=== PATIENT | male | born 1960 | race Two or more races ===

== ENCOUNTER → 2017-06-21 | Outpatient (CLI) | payer OTHER ==
[~2017-06-21] MED LIST: ABAT250V; ACYC200 PO; ALEN70 PO; ALLO100 PO; ALPR.25 PO; ALPR1 PO; ALUM320SU PO; AMIT10 PO; AMIT50; AMIT50 PO; AMLO5 PO; AMOCLA875 PO; AMOX250 PO; ARANESP10 MCG/0.4 IJ; ARANESP10 MCG/0.4 IM; ARTTEAOPSO BOTHEYES; ASPI81EC; ATEN100 PO; ATEN25; ATEN50; ATEN50 PO; ATOR10; ATOR20 PO; AZIT250 PO; AZIT500 PO; Acetaminophen-1 EAC1 PO; Acetaminophen325 M1 PO; BENZ100A PO; BIOTIN5 MG PO; BIOTIN5000 MC1 SL; BUPR150ER PO; BUPR150T2; CALC.25 PO; CEPH500 PO; CHOL10002 PO; CITRACAL + D M1 EACH PO; CLON.1 PO; COLCRYS0.6 MG PO; CYAN1000I IM; CYCL10 PO; DIAZ5 PO; Diflucan50 MG PO; ERGO400 PO; ETOD300 PO; FAMO20 PO; FLUC100; FLUC100 PO; FLUC150A PO; FLUT.05NI; FURO20; FURO40; FURO40 PO; Flonase 0.05% N16 GM; GABA100 PO; GEMF600; GEMF600 PO; GLIM4 PO; GLIP5 PO; HEPARIN LO100 UNIT/1 IV; HUMULIN 70100 UNIT/2 SC; HYDACE10B; HYDACE10B PO; HYDMOR2 PO; IBAN2.5; INSLI100I SUBQ; INSR10I; INSU100I6; INSUL100I SC; INSULANI SUBQ; IRON150C; K-Phos Origina500 MG PO; LANS15EC; LANS30EC; LANS30EC PO; LEVFLO250 PO; LISI5 PO; LORA1; LOSA50 PO; MAGCHL64ER; MAGCHL64ER PO; METO50 PO; MULVITMINF; MYCO250; MYCO250 PO; NYST100000 SS; Normal Saline Fl2 ML IV; OLME20 PO; OMEG1CAP30 PO; OMEP20ER PO; OXYACE5T PO; OXYC5; OXYC5 PO; PANT40 PO; PHOSPHASAL TAB1 EACH PO; PIOG45 PO; POTA10T; POTA8; POTCHL20ER PO; PRED1; PRED10 PO; PRED5; PRED5 PO; PROC10 PO; Phos-Nak Packe1 EACH PO; Prevacid Soluta30 MG PO; RAMI1.25; RAMI5; ROSI2; RXPROM25 PO; SODBIC650 PO; SODIUM CHLORID IV; SODPOL15SA PO; SUMA25 PO; Sodium Chlorid250 M1 IV; TACR1; TACR1 PO; VERA120ERB PO; VERA80; VICODIN 5-3001 EACH PO; VICODIN HP 10-1 EACH PO; [UNRECOGNIZED DRUG - REMARK]
== END | disposition home or self-care (01) ==
LOC: LAB 12:30
DX: E78.5 Hyperlipidemia, unspecified (principal); E11.8 Type 2 diabetes mellitus with unspecified complications
CPT/HCPCS: 83036

== ENCOUNTER 2017-06-22 00:18 | Day surgery (SDC) | payer OTHER ==
[~2017-06-22 00:18] MED LIST changes: -ALUM320SU PO; -ARANESP10 MCG/0.4 IM; -AZIT500 PO; -BIOTIN5 MG PO; -BIOTIN5000 MC1 SL; -CLON.1 PO; -Diflucan50 MG PO; -GABA100 PO; -HEPARIN LO100 UNIT/1 IV; -HUMULIN 70100 UNIT/2 SC; -INSR10I; -NYST100000 SS; -Normal Saline Fl2 ML IV; -PANT40 PO; -PHOSPHASAL TAB1 EACH PO; -PRED10 PO; -Phos-Nak Packe1 EACH PO; -Sodium Chlorid250 M1 IV
[2018-01-14] MEDS ORDERED: PHOSPHASAL TAB1 EACH PO (13:49)
[2018-01-17] MEDS ORDERED: PANT40 PO (13:59)
[2018-01-17] MEDS ORDERED: BIOTIN5 MG PO (14:00)
[2018-01-17] MEDS ORDERED: ALUM320SU PO (14:01)
[2018-06-05] MEDS ORDERED: Sodium Chlorid250 M1 IV (13:54)
== END 2017-06-22 17:11 | disposition home or self-care (01) ==
LOC: ATC 00:18
DX: I12.9 Hypertensive chronic kidney disease with stage 1 through stage 4 chronic kidney disease, or unspecified chronic kidney disease (principal); E10.22 Type 1 diabetes mellitus with diabetic chronic kidney disease; N18.9 Chronic kidney disease, unspecified; E86.0 Dehydration; D63.1 Anemia in chronic kidney disease; E78.5 Hyperlipidemia, unspecified; Z94.0 Kidney transplant status; F41.9 Anxiety disorder, unspecified; F32.9 Major depressive disorder, single episode, unspecified
CPT/HCPCS: 96360; 96361; J1642; J7030

== ENCOUNTER 2017-06-26 10:13 | Day surgery (SDC) | payer OTHER ==
[2018-01-14] MEDS ORDERED: PHOSPHASAL TAB1 EACH PO (13:49)
[2018-01-17] MEDS ORDERED: PANT40 PO (13:59)
[2018-01-17] MEDS ORDERED: BIOTIN5 MG PO (14:00)
[2018-01-17] MEDS ORDERED: ALUM320SU PO (14:01)
[2018-06-05] MEDS ORDERED: Sodium Chlorid250 M1 IV (13:54)
== END 2017-06-26 23:19 | disposition home or self-care (01) ==
LOC: ATC 10:13
DX: E86.0 Dehydration (principal)
CPT/HCPCS: 96360; 96361; J1642; J7030

== ENCOUNTER 2017-06-29 00:53 | Day surgery (SDC) | payer OTHER ==
[2018-01-14] MEDS ORDERED: PHOSPHASAL TAB1 EACH PO (13:49)
[2018-01-17] MEDS ORDERED: PANT40 PO (13:59)
[2018-01-17] MEDS ORDERED: BIOTIN5 MG PO (14:00)
[2018-01-17] MEDS ORDERED: ALUM320SU PO (14:01)
[2018-06-05] MEDS ORDERED: Sodium Chlorid250 M1 IV (13:54)
== END 2017-06-29 17:14 | disposition home or self-care (01) ==
LOC: ATC 00:53
DX: E86.0 Dehydration (principal)
CPT/HCPCS: 96360; 96361; J1642; J7030

== ENCOUNTER 2017-07-03 00:44 | Day surgery (SDC) | payer OTHER ==
[2017-07-03 13:39] LABS: BASOPHILS ABSOLUTE AUTO 0.01 K/mm3 (0.00-0.23); BASOPHILS PERCENT AUTO 0 % (0-2); EOSINOPHILS ABSOLUTE AUTO 0.07 K/mm3 (0.00-0.68); EOSINOPHILS PERCENT AUTO 1 % (0-6); Hematocrit 38.7 % (37.0-53.0); Hemoglobin 12.7 g/dL (13.5-17.5); IMMATURE GRAN ABSOLUTE AUTO 0.12 K/mm3 (0.00-0.10); IMMATURE GRAN PERCENT AUTO 2 % (0-1); LYMPHOCYTES ABSOLUTE AUTO 1.05 K/mm3 (0.84-5.20); LYMPHOCYTES PERCENT AUTO 13 % (21-46); MONOCYTES ABSOLUTE AUTO 0.76 K/mm3 (0.16-1.47); MONOCYTES PERCENT AUTO 10 % (4-13); Mean Corpuscular HGB 29.1 pg (26.0-34.0); Mean Corpuscular HGB Conc 32.8 g/dL (31.5-36.5); Mean Corpuscular Volume 89 fL (80-100); NEUTROPHILS ABSOLUTE AUTO 5.99 K/mm3 (1.96-9.15); NEUTROPHILS PERCENT AUTO 75 % (41-73); Platelet Count 186 K/mm3 (150-400); RDW Coefficient Variation 13.1 % (11.7-14.2); RDW Standard Deviation 42.1 fL (35.1-46.3); Red Blood Cell Count 4.37 M/mm3 (4.30-5.90)
[2017-07-03 13:58] LABS: Alanine Aminotransfer (ALT/SGP 23 U/L (12-78); Albumin, Blood 3.4 g/dL (3.4-5.0); Albumin/Globulin Ratio 1.1 (0.8-1.8); Alk Phos 68 U/L (50-136); Aspartate Aminotrans (AST/SGOT 9 U/L (12-37); Bilirubin, Direct <0.1 mg/dL (0.0-0.3); Bilirubin, Indirect Unable to Calculate mg/dL (0.1-0.7); Bilirubin, Total 0.4 mg/dL (0.1-1.0); Globulin, Blood 3.1 g/dL (2.2-4.0); Total Protein, Blood 6.5 g/dL (6.4-8.2)
[2018-01-14] MEDS ORDERED: PHOSPHASAL TAB1 EACH PO (13:49)
[2018-01-17] MEDS ORDERED: PANT40 PO (13:59)
[2018-01-17] MEDS ORDERED: BIOTIN5 MG PO (14:00)
[2018-01-17] MEDS ORDERED: ALUM320SU PO (14:01)
[2018-06-05] MEDS ORDERED: Sodium Chlorid250 M1 IV (13:54)
== END 2017-07-03 22:43 | disposition home or self-care (01) ==
LOC: ATC 00:44
PROVIDERS: Internal Medicine Nephrology
DX: E86.0 Dehydration (principal); N18.3 Chronic kidney disease, stage 3 (moderate); D63.1 Anemia in chronic kidney disease; N25.81 Secondary hyperparathyroidism of renal origin; E85.9 Amyloidosis, unspecified; E78.00 Pure hypercholesterolemia, unspecified; R76.9 Abnormal immunological finding in serum, unspecified; R94.5 Abnormal results of liver function studies; R94.6 Abnormal results of thyroid function studies; Z94.0 Kidney transplant status
CPT/HCPCS: 80076; 80197; 85025; 96360; 96361; J1642; J7030

== ENCOUNTER 2017-07-06 00:25 | Day surgery (SDC) | payer OTHER ==
[2018-01-14] MEDS ORDERED: PHOSPHASAL TAB1 EACH PO (13:49)
[2018-01-17] MEDS ORDERED: PANT40 PO (13:59)
[2018-01-17] MEDS ORDERED: BIOTIN5 MG PO (14:00)
[2018-01-17] MEDS ORDERED: ALUM320SU PO (14:01)
[2018-06-05] MEDS ORDERED: Sodium Chlorid250 M1 IV (13:54)
== END 2017-07-06 17:12 | disposition home or self-care (01) ==
LOC: ATC 00:25
DX: E86.0 Dehydration (principal); I12.9 Hypertensive chronic kidney disease with stage 1 through stage 4 chronic kidney disease, or unspecified chronic kidney disease; E10.22 Type 1 diabetes mellitus with diabetic chronic kidney disease; N18.3 Chronic kidney disease, stage 3 (moderate); D63.1 Anemia in chronic kidney disease; N25.81 Secondary hyperparathyroidism of renal origin; E55.9 Vitamin D deficiency, unspecified; R76.9 Abnormal immunological finding in serum, unspecified; R94.5 Abnormal results of liver function studies; R94.6 Abnormal results of thyroid function studies; E78.5 Hyperlipidemia, unspecified; F32.9 Major depressive disorder, single episode, unspecified; F41.9 Anxiety disorder, unspecified
CPT/HCPCS: 96360; 96361; J1642; J7030

== ENCOUNTER 2017-07-10 00:49 | Day surgery (SDC) | payer OTHER ==
[2017-07-10 15:02] LABS: BASOPHILS ABSOLUTE AUTO 0.04 K/mm3 (0.00-0.23); BASOPHILS PERCENT AUTO 1 % (0-2); EOSINOPHILS PERCENT AUTO 1 % (0-6); Hematocrit 39.6 % (37.0-53.0); IMMATURE GRAN PERCENT AUTO 3 % (0-1); LYMPHOCYTES ABSOLUTE AUTO 1.95 K/mm3 (0.84-5.20); LYMPHOCYTES PERCENT AUTO 26 % (21-46); MONOCYTES ABSOLUTE AUTO 0.86 K/mm3 (0.16-1.47); MONOCYTES PERCENT AUTO 11 % (4-13); Mean Corpuscular HGB 28.6 pg (26.0-34.0); Mean Corpuscular HGB Conc 32.8 g/dL (31.5-36.5); Mean Corpuscular Volume 87 fL (80-100); NEUTROPHILS ABSOLUTE AUTO 4.51 K/mm3 (1.96-9.15); NEUTROPHILS PERCENT AUTO 59 % (41-73); Platelet Count 197 K/mm3 (150-400); RDW Standard Deviation 40.7 fL (35.1-46.3); Red Blood Cell Count 4.54 M/mm3 (4.30-5.90); White Blood Cell Count 7.66 K/mm3 (4.00-11.30)
[2018-01-14] MEDS ORDERED: PHOSPHASAL TAB1 EACH PO (13:49)
[2018-01-17] MEDS ORDERED: PANT40 PO (13:59)
[2018-01-17] MEDS ORDERED: BIOTIN5 MG PO (14:00)
[2018-01-17] MEDS ORDERED: ALUM320SU PO (14:01)
[2018-06-05] MEDS ORDERED: Sodium Chlorid250 M1 IV (13:54)
== END 2017-07-10 16:53 | disposition home or self-care (01) ==
LOC: ATC 00:49
PROVIDERS: Internal Medicine Hematology & Oncology
DX: D75.1 Secondary polycythemia (principal); E86.9 Volume depletion, unspecified; D64.9 Anemia, unspecified; Z94.0 Kidney transplant status; E10.22 Type 1 diabetes mellitus with diabetic chronic kidney disease; I12.9 Hypertensive chronic kidney disease with stage 1 through stage 4 chronic kidney disease, or unspecified chronic kidney disease; N18.3 Chronic kidney disease, stage 3 (moderate); D63.1 Anemia in chronic kidney disease; Z95.828 Presence of other vascular implants and grafts
CPT/HCPCS: 80197; 85025; 85060; 96360; 96361; J1642; J7030

== ENCOUNTER 2017-07-13 00:50 | Day surgery (SDC) | payer OTHER ==
[2017-07-13 14:48] LABS: BASOPHILS ABSOLUTE AUTO 0.04 K/mm3 (0.00-0.23); BASOPHILS PERCENT AUTO 1 % (0-2); EOSINOPHILS ABSOLUTE AUTO 0.07 K/mm3 (0.00-0.68); EOSINOPHILS PERCENT AUTO 1 % (0-6); Hematocrit 34.1 % (37.0-53.0); Hemoglobin 10.9 g/dL (13.5-17.5); IMMATURE GRAN ABSOLUTE AUTO 0.18 K/mm3 (0.00-0.10); IMMATURE GRAN PERCENT AUTO 3 % (0-1); LYMPHOCYTES ABSOLUTE AUTO 0.91 K/mm3 (0.84-5.20); LYMPHOCYTES PERCENT AUTO 13 % (21-46); MONOCYTES ABSOLUTE AUTO 0.67 K/mm3 (0.16-1.47); MONOCYTES PERCENT AUTO 9 % (4-13); Mean Corpuscular HGB 28.9 pg (26.0-34.0); Mean Platelet Volume 10.8 fL (9.1-12.4); NEUTROPHILS ABSOLUTE AUTO 5.43 K/mm3 (1.96-9.15); NEUTROPHILS PERCENT AUTO 74 % (41-73); Platelet Count 166 K/mm3 (150-400); RDW Coefficient Variation 12.9 % (11.7-14.2); RDW Standard Deviation 42.2 fL (35.1-46.3); Red Blood Cell Count 3.77 M/mm3 (4.30-5.90)
[2017-07-13 15:30] LABS: Alanine Aminotransfer (ALT/SGP 19 U/L (12-78); Albumin/Globulin Ratio 1.1 (0.8-1.8); Alk Phos 72 U/L (50-136); Anion Gap 7 mmol/L (6-16); Aspartate Aminotrans (AST/SGOT 8 U/L (12-37); Bilirubin, Direct <0.1 mg/dL (0.0-0.3); Bilirubin, Indirect Unable to Calculate mg/dL (0.1-0.7); Bilirubin, Total 0.2 mg/dL (0.1-1.0); Blood Urea Nitrogen 22 mg/dL (8-24); CO2, Blood 25 mmol/L (21-32); Chloride, Blood 110 mmol/L (98-108); Globulin, Blood 2.7 g/dL (2.2-4.0); Glomerular Filtration Rate >60 (60-); Glucose, Blood 219 mg/dL (70-99); Potassium, Blood 4.6 mmol/L (3.5-5.5); Sodium, Blood 142 mmol/L (136-145); Total Protein, Blood 5.7 g/dL (6.4-8.2)
[2017-07-13 15:32] LABS: Mean Corpuscular Volume 91 fL (80-100)
[2018-01-14] MEDS ORDERED: PHOSPHASAL TAB1 EACH PO (13:49)
[2018-01-17] MEDS ORDERED: PANT40 PO (13:59)
[2018-01-17] MEDS ORDERED: BIOTIN5 MG PO (14:00)
[2018-01-17] MEDS ORDERED: ALUM320SU PO (14:01)
[2018-06-05] MEDS ORDERED: Sodium Chlorid250 M1 IV (13:54)
== END 2017-07-13 17:15 | disposition home or self-care (01) ==
LOC: ATC 00:50
PROVIDERS: Internal Medicine Nephrology
DX: E86.0 Dehydration (principal); N18.3 Chronic kidney disease, stage 3 (moderate); D63.1 Anemia in chronic kidney disease; N25.81 Secondary hyperparathyroidism of renal origin; E55.9 Vitamin D deficiency, unspecified; E78.00 Pure hypercholesterolemia, unspecified; R76.9 Abnormal immunological finding in serum, unspecified; R94.5 Abnormal results of liver function studies; R94.6 Abnormal results of thyroid function studies; G60.9 Hereditary and idiopathic neuropathy, unspecified
CPT/HCPCS: 80053; 80197; 82248; 84100; 85025; 96360; 96361; J1642; J7030

== ENCOUNTER 2017-07-17 00:06 | Day surgery (SDC) | payer OTHER ==
[2018-01-14] MEDS ORDERED: PHOSPHASAL TAB1 EACH PO (13:49)
[2018-01-17] MEDS ORDERED: PANT40 PO (13:59)
[2018-01-17] MEDS ORDERED: BIOTIN5 MG PO (14:00)
[2018-01-17] MEDS ORDERED: ALUM320SU PO (14:01)
[2018-06-05] MEDS ORDERED: Sodium Chlorid250 M1 IV (13:54)
== END 2017-07-17 17:00 | disposition home or self-care (01) ==
LOC: ATC 00:06
DX: N18.3 Chronic kidney disease, stage 3 (moderate) (principal); D63.1 Anemia in chronic kidney disease; N25.81 Secondary hyperparathyroidism of renal origin; E55.9 Vitamin D deficiency, unspecified; E78.00 Pure hypercholesterolemia, unspecified; R76.9 Abnormal immunological finding in serum, unspecified; R94.5 Abnormal results of liver function studies; R94.6 Abnormal results of thyroid function studies; G60.9 Hereditary and idiopathic neuropathy, unspecified; E86.0 Dehydration; D75.1 Secondary polycythemia; Z94.0 Kidney transplant status
CPT/HCPCS: 96360; 96361; J1642; J7030

== ENCOUNTER 2017-07-20 01:01 | Day surgery (SDC) | payer OTHER ==
[2018-01-14] MEDS ORDERED: PHOSPHASAL TAB1 EACH PO (13:49)
[2018-01-17] MEDS ORDERED: PANT40 PO (13:59)
[2018-01-17] MEDS ORDERED: BIOTIN5 MG PO (14:00)
[2018-01-17] MEDS ORDERED: ALUM320SU PO (14:01)
[2018-06-05] MEDS ORDERED: Sodium Chlorid250 M1 IV (13:54)
== END 2017-07-20 17:56 | disposition home or self-care (01) ==
LOC: ATC 01:01
DX: E86.0 Dehydration (principal); N18.3 Chronic kidney disease, stage 3 (moderate); D63.1 Anemia in chronic kidney disease; N25.81 Secondary hyperparathyroidism of renal origin; E55.9 Vitamin D deficiency, unspecified; E78.00 Pure hypercholesterolemia, unspecified; R76.9 Abnormal immunological finding in serum, unspecified; R94.5 Abnormal results of liver function studies; R94.6 Abnormal results of thyroid function studies; Z94.0 Kidney transplant status
CPT/HCPCS: 96360; 96361; J1642; J7030

== ENCOUNTER 2017-07-24 00:11 | Day surgery (SDC) | payer OTHER ==
[2018-01-14] MEDS ORDERED: PHOSPHASAL TAB1 EACH PO (13:49)
[2018-01-17] MEDS ORDERED: PANT40 PO (13:59)
[2018-01-17] MEDS ORDERED: BIOTIN5 MG PO (14:00)
[2018-01-17] MEDS ORDERED: ALUM320SU PO (14:01)
[2018-06-05] MEDS ORDERED: Sodium Chlorid250 M1 IV (13:54)
== END 2017-07-24 16:58 | disposition home or self-care (01) ==
LOC: ATC 00:11
DX: E86.0 Dehydration (principal); N18.3 Chronic kidney disease, stage 3 (moderate); D63.1 Anemia in chronic kidney disease; N25.81 Secondary hyperparathyroidism of renal origin; E55.9 Vitamin D deficiency, unspecified; E78.00 Pure hypercholesterolemia, unspecified; R76.9 Abnormal immunological finding in serum, unspecified; R94.5 Abnormal results of liver function studies; R94.6 Abnormal results of thyroid function studies; Z94.0 Kidney transplant status
CPT/HCPCS: 96360; 96361; J1642; J7030

== ENCOUNTER 2017-07-27 01:00 | Day surgery (SDC) | payer OTHER ==
[2018-01-14] MEDS ORDERED: PHOSPHASAL TAB1 EACH PO (13:49)
[2018-01-17] MEDS ORDERED: PANT40 PO (13:59)
[2018-01-17] MEDS ORDERED: BIOTIN5 MG PO (14:00)
[2018-01-17] MEDS ORDERED: ALUM320SU PO (14:01)
[2018-06-05] MEDS ORDERED: Sodium Chlorid250 M1 IV (13:54)
== END 2017-07-27 23:28 | disposition home or self-care (01) ==
LOC: ATC 01:00
DX: E86.0 Dehydration (principal); N18.3 Chronic kidney disease, stage 3 (moderate); D63.1 Anemia in chronic kidney disease; N25.81 Secondary hyperparathyroidism of renal origin; E55.9 Vitamin D deficiency, unspecified; E78.00 Pure hypercholesterolemia, unspecified; R76.9 Abnormal immunological finding in serum, unspecified; R94.5 Abnormal results of liver function studies; R94.6 Abnormal results of thyroid function studies
CPT/HCPCS: 96360; 96361; J1642; J7030

== ENCOUNTER 2017-07-31 01:06 | Day surgery (SDC) | payer OTHER ==
[2018-01-14] MEDS ORDERED: PHOSPHASAL TAB1 EACH PO (13:49)
[2018-01-17] MEDS ORDERED: PANT40 PO (13:59)
[2018-01-17] MEDS ORDERED: BIOTIN5 MG PO (14:00)
[2018-01-17] MEDS ORDERED: ALUM320SU PO (14:01)
[2018-06-05] MEDS ORDERED: Sodium Chlorid250 M1 IV (13:54)
== END 2017-07-31 16:48 | disposition home or self-care (01) ==
LOC: ATC 01:06
DX: E86.0 Dehydration (principal); I12.9 Hypertensive chronic kidney disease with stage 1 through stage 4 chronic kidney disease, or unspecified chronic kidney disease; E11.22 Type 2 diabetes mellitus with diabetic chronic kidney disease; N18.3 Chronic kidney disease, stage 3 (moderate); D63.1 Anemia in chronic kidney disease; N25.81 Secondary hyperparathyroidism of renal origin; E85.9 Amyloidosis, unspecified; R86.9 Unspecified abnormal finding in specimens from male genital organs; R94.5 Abnormal results of liver function studies; R94.6 Abnormal results of thyroid function studies; E78.5 Hyperlipidemia, unspecified; E78.00 Pure hypercholesterolemia, unspecified
CPT/HCPCS: 96360; 96361; J1642; J7030

== ENCOUNTER 2017-08-03 00:38 | Day surgery (SDC) | payer OTHER ==
[2018-01-14] MEDS ORDERED: PHOSPHASAL TAB1 EACH PO (13:49)
[2018-01-17] MEDS ORDERED: PANT40 PO (13:59)
[2018-01-17] MEDS ORDERED: BIOTIN5 MG PO (14:00)
[2018-01-17] MEDS ORDERED: ALUM320SU PO (14:01)
[2018-06-05] MEDS ORDERED: Sodium Chlorid250 M1 IV (13:54)
== END 2017-08-03 17:55 | disposition home or self-care (01) ==
LOC: ATC 00:38
DX: E86.0 Dehydration (principal); N18.3 Chronic kidney disease, stage 3 (moderate); D63.1 Anemia in chronic kidney disease; N25.81 Secondary hyperparathyroidism of renal origin; E85.9 Amyloidosis, unspecified; E87.0 Hyperosmolality and hypernatremia; R76.9 Abnormal immunological finding in serum, unspecified; R94.5 Abnormal results of liver function studies; R94.6 Abnormal results of thyroid function studies
CPT/HCPCS: 96360; 96361; J1642; J7030

== ENCOUNTER 2017-08-07 00:50 | Day surgery (SDC) | payer OTHER ==
[2018-01-14] MEDS ORDERED: PHOSPHASAL TAB1 EACH PO (13:49)
[2018-01-17] MEDS ORDERED: PANT40 PO (13:59)
[2018-01-17] MEDS ORDERED: BIOTIN5 MG PO (14:00)
[2018-01-17] MEDS ORDERED: ALUM320SU PO (14:01)
[2018-06-05] MEDS ORDERED: Sodium Chlorid250 M1 IV (13:54)
== END 2017-08-07 17:50 | disposition home or self-care (01) ==
LOC: ATC 00:50
DX: E86.0 Dehydration (principal); N18.3 Chronic kidney disease, stage 3 (moderate); D63.1 Anemia in chronic kidney disease; N25.81 Secondary hyperparathyroidism of renal origin; E55.9 Vitamin D deficiency, unspecified; E78.00 Pure hypercholesterolemia, unspecified; R76.9 Abnormal immunological finding in serum, unspecified; R94.5 Abnormal results of liver function studies; R94.6 Abnormal results of thyroid function studies
CPT/HCPCS: 96360; 96361; J1642; J7030

== ENCOUNTER 2017-08-10 00:44 | Day surgery (SDC) | payer OTHER ==
[2018-01-14] MEDS ORDERED: PHOSPHASAL TAB1 EACH PO (13:49)
[2018-01-17] MEDS ORDERED: PANT40 PO (13:59)
[2018-01-17] MEDS ORDERED: BIOTIN5 MG PO (14:00)
[2018-01-17] MEDS ORDERED: ALUM320SU PO (14:01)
[2018-06-05] MEDS ORDERED: Sodium Chlorid250 M1 IV (13:54)
== END 2017-08-10 17:15 | disposition home or self-care (01) ==
LOC: ATC 00:44
DX: I12.9 Hypertensive chronic kidney disease with stage 1 through stage 4 chronic kidney disease, or unspecified chronic kidney disease (principal); E11.22 Type 2 diabetes mellitus with diabetic chronic kidney disease; E86.0 Dehydration; N18.3 Chronic kidney disease, stage 3 (moderate); D63.1 Anemia in chronic kidney disease; N25.81 Secondary hyperparathyroidism of renal origin; E55.9 Vitamin D deficiency, unspecified; E78.00 Pure hypercholesterolemia, unspecified; R76.9 Abnormal immunological finding in serum, unspecified; R94.5 Abnormal results of liver function studies; R94.6 Abnormal results of thyroid function studies; F32.9 Major depressive disorder, single episode, unspecified; F41.9 Anxiety disorder, unspecified; G47.30 Sleep apnea, unspecified
CPT/HCPCS: 96360; 96361; J1642; J7030

== ENCOUNTER 2017-08-14 00:52 | Day surgery (SDC) | payer OTHER ==
[2018-01-14] MEDS ORDERED: PHOSPHASAL TAB1 EACH PO (13:49)
[2018-01-17] MEDS ORDERED: PANT40 PO (13:59)
[2018-01-17] MEDS ORDERED: BIOTIN5 MG PO (14:00)
[2018-01-17] MEDS ORDERED: ALUM320SU PO (14:01)
[2018-06-05] MEDS ORDERED: Sodium Chlorid250 M1 IV (13:54)
== END 2017-08-14 17:34 | disposition home or self-care (01) ==
LOC: ATC 00:52
DX: E86.0 Dehydration (principal); N18.3 Chronic kidney disease, stage 3 (moderate); D63.1 Anemia in chronic kidney disease; N25.81 Secondary hyperparathyroidism of renal origin; E55.9 Vitamin D deficiency, unspecified; E78.00 Pure hypercholesterolemia, unspecified; R76.9 Abnormal immunological finding in serum, unspecified; R94.5 Abnormal results of liver function studies; R94.6 Abnormal results of thyroid function studies
CPT/HCPCS: 96360; 96361; J1642; J7030

== ENCOUNTER 2017-08-17 01:01 | Day surgery (SDC) | payer OTHER ==
[2018-01-14] MEDS ORDERED: PHOSPHASAL TAB1 EACH PO (13:49)
[2018-01-17] MEDS ORDERED: PANT40 PO (13:59)
[2018-01-17] MEDS ORDERED: BIOTIN5 MG PO (14:00)
[2018-01-17] MEDS ORDERED: ALUM320SU PO (14:01)
[2018-06-05] MEDS ORDERED: Sodium Chlorid250 M1 IV (13:54)
== END 2017-08-17 17:24 | disposition home or self-care (01) ==
LOC: ATC 01:01
DX: E86.0 Dehydration (principal); E10.22 Type 1 diabetes mellitus with diabetic chronic kidney disease; I12.9 Hypertensive chronic kidney disease with stage 1 through stage 4 chronic kidney disease, or unspecified chronic kidney disease; N18.3 Chronic kidney disease, stage 3 (moderate); D63.1 Anemia in chronic kidney disease; N25.81 Secondary hyperparathyroidism of renal origin; E55.9 Vitamin D deficiency, unspecified; R76.9 Abnormal immunological finding in serum, unspecified; E78.5 Hyperlipidemia, unspecified; F32.9 Major depressive disorder, single episode, unspecified
CPT/HCPCS: 96360; 96361; J1642; J7030

== ENCOUNTER 2017-08-21 00:09 | Day surgery (SDC) | payer OTHER ==
[2018-01-14] MEDS ORDERED: PHOSPHASAL TAB1 EACH PO (13:49)
[2018-01-17] MEDS ORDERED: PANT40 PO (13:59)
[2018-01-17] MEDS ORDERED: BIOTIN5 MG PO (14:00)
[2018-01-17] MEDS ORDERED: ALUM320SU PO (14:01)
[2018-06-05] MEDS ORDERED: Sodium Chlorid250 M1 IV (13:54)
== END 2017-08-21 22:54 | disposition home or self-care (01) ==
LOC: ATC 00:09
DX: E86.0 Dehydration (principal); E10.22 Type 1 diabetes mellitus with diabetic chronic kidney disease; I12.0 Hypertensive chronic kidney disease with stage 5 chronic kidney disease or end stage renal disease; N18.6 End stage renal disease; E78.5 Hyperlipidemia, unspecified; E78.00 Pure hypercholesterolemia, unspecified; F32.9 Major depressive disorder, single episode, unspecified; F41.9 Anxiety disorder, unspecified
CPT/HCPCS: 96360; 96361; J1642; J7030

== ENCOUNTER 2017-08-24 00:15 | Day surgery (SDC) | payer OTHER ==
[2017-08-25] MEDS ORDERED: HUMULIN 70100 UNIT/2 SC (10:04)
[2017-08-25] MEDS ORDERED: AZIT500 PO (10:07)
[2018-01-14] MEDS ORDERED: PHOSPHASAL TAB1 EACH PO (13:49)
[2018-01-17] MEDS ORDERED: PANT40 PO (13:59)
[2018-01-17] MEDS ORDERED: BIOTIN5 MG PO (14:00)
[2018-01-17] MEDS ORDERED: ALUM320SU PO (14:01)
[2018-06-05] MEDS ORDERED: Sodium Chlorid250 M1 IV (13:54)
== END 2017-08-24 22:59 | disposition home or self-care (01) ==
LOC: ATC 00:15
DX: I12.9 Hypertensive chronic kidney disease with stage 1 through stage 4 chronic kidney disease, or unspecified chronic kidney disease (principal); E10.22 Type 1 diabetes mellitus with diabetic chronic kidney disease; N18.3 Chronic kidney disease, stage 3 (moderate); D63.1 Anemia in chronic kidney disease; E86.0 Dehydration; N25.81 Secondary hyperparathyroidism of renal origin; E76.9 Glucosaminoglycan metabolism disorder, unspecified; R94.5 Abnormal results of liver function studies; E78.5 Hyperlipidemia, unspecified
CPT/HCPCS: 99211; J1642; J7030

== ENCOUNTER 2017-08-24 14:17 | Observation (INO) | payer OTHER ==
[~2017-08-24] VITALS: Ht 185.4 cm; Wt 106.7 kg
[2017-08-24 15:21] LABS: BASOPHILS ABSOLUTE AUTO 0.01 K/mm3 (0.00-0.23); BASOPHILS PERCENT AUTO 0 % (0-2); EOSINOPHILS ABSOLUTE AUTO 0.12 K/mm3 (0.00-0.68); EOSINOPHILS PERCENT AUTO 1 % (0-6); Hematocrit 35.4 % (37.0-53.0); Hemoglobin 11.5 g/dL (13.5-17.5); IMMATURE GRAN ABSOLUTE AUTO 0.07 K/mm3 (0.00-0.10); IMMATURE GRAN PERCENT AUTO 1 % (0-1); LYMPHOCYTES ABSOLUTE AUTO 1.04 K/mm3 (0.84-5.20); LYMPHOCYTES PERCENT AUTO 11 % (21-46); MONOCYTES PERCENT AUTO 12 % (4-13); Mean Corpuscular HGB 29.3 pg (26.0-34.0); Mean Corpuscular HGB Conc 32.5 g/dL (31.5-36.5); Mean Corpuscular Volume 90 fL (80-100); Mean Platelet Volume 10.9 fL (9.1-12.4); NEUTROPHILS ABSOLUTE AUTO 7.06 K/mm3 (1.96-9.15); NEUTROPHILS PERCENT AUTO 75 % (41-73); Platelet Count 132 K/mm3 (150-400); RDW Standard Deviation 42.8 fL (35.1-46.3); Red Blood Cell Count 3.93 M/mm3 (4.30-5.90)
[2017-08-24 15:44] LABS: Alanine Aminotransfer (ALT/SGP 28 U/L (12-78); Albumin, Blood 3.1 g/dL (3.4-5.0); Alk Phos 61 U/L (50-136); Anion Gap 9 mmol/L (6-16); Aspartate Aminotrans (AST/SGOT 21 U/L (12-37); Bilirubin, Total 0.6 mg/dL (0.1-1.0); Blood Urea Nitrogen 24 mg/dL (8-24); Bun/Creatinine Ratio 12.6 (12.0-20.0); CO2, Blood 24 mmol/L (21-32); Calcium, Blood 8.4 mg/dL (8.5-10.1); Chloride, Blood 101 mmol/L (98-108); Creatinine, Blood 1.91 mg/dL (0.60-1.20); Globulin, Blood 3.1 g/dL (2.2-4.0); Glomerular Filtration Rate 39 (60-); Glucose, Blood 151 mg/dL (70-99); Potassium, Blood 4.5 mmol/L (3.5-5.5); Sodium, Blood 134 mmol/L (136-145); Total Protein, Blood 6.2 g/dL (6.4-8.2); Troponin I <0.015 ng/mL (0.000-0.040)
[2017-08-24 16:14] LABS: Influenza A Negative (NEGATIVE); Influenza B Negative (NEGATIVE)
[2017-08-25 01:08] LABS: Source, Urine Voided
[2017-08-25 01:15] LABS: Bilirubin, Urine Neg (Neg); Blood, Urine Neg (Neg); Glucose Qualitative, Urine Neg (Neg); Ketones, Urine Neg (Neg); Leukocyte Esterase, Urine Neg (Neg); Nitrite, Urine Neg (Neg); Protein, Urine 2+ (Neg); Urobilinogen, Urine NORM (Normal)
[2017-08-25 01:21] LABS: Appearance, Urine Clear (Clear); Bacteria Rare /hpf; Color, Urine Yellow (P-Yellow); Red Blood Cells, Urine Not Seen /hpf (0-2); Squamous Epithelial Cells Rare /hpf (Few); White Blood Cells, Urine Not Seen /hpf (0-5)
[2017-08-25 01:22] LABS: Amorphous Light (0-Heavy); Mucus Light (0-Heavy)
[2017-08-25 05:03] LABS: BASOPHILS ABSOLUTE AUTO 0.01 K/mm3 (0.00-0.23); BASOPHILS PERCENT AUTO 0 % (0-2); EOSINOPHILS ABSOLUTE AUTO 0.07 K/mm3 (0.00-0.68); EOSINOPHILS PERCENT AUTO 1 % (0-6); Hematocrit 33.5 % (37.0-53.0); Hemoglobin 10.8 g/dL (13.5-17.5); IMMATURE GRAN ABSOLUTE AUTO 0.08 K/mm3 (0.00-0.10); IMMATURE GRAN PERCENT AUTO 1 % (0-1); LYMPHOCYTES PERCENT AUTO 17 % (21-46); MONOCYTES ABSOLUTE AUTO 1.05 K/mm3 (0.16-1.47); MONOCYTES PERCENT AUTO 15 % (4-13); Mean Corpuscular HGB 28.9 pg (26.0-34.0); Mean Corpuscular HGB Conc 32.2 g/dL (31.5-36.5); Mean Corpuscular Volume 90 fL (80-100); Mean Platelet Volume 10.7 fL (9.1-12.4); NEUTROPHILS ABSOLUTE AUTO 4.81 K/mm3 (1.96-9.15); NEUTROPHILS PERCENT AUTO 67 % (41-73); Platelet Count 122 K/mm3 (150-400); RDW Coefficient Variation 13.2 % (11.7-14.2); RDW Standard Deviation 42.5 fL (35.1-46.3); Red Blood Cell Count 3.74 M/mm3 (4.30-5.90); White Blood Cell Count 7.22 K/mm3 (4.00-11.30)
[2017-08-25 05:38] LABS: Albumin, Blood 2.8 g/dL (3.4-5.0); Albumin/Globulin Ratio 0.9 (0.8-1.8); Bilirubin, Total 0.6 mg/dL (0.1-1.0); Bun/Creatinine Ratio 14.1 (12.0-20.0); Creatinine, Blood 1.84 mg/dL (0.60-1.20); Globulin, Blood 3.1 g/dL (2.2-4.0); Potassium, Blood 4.5 mmol/L (3.5-5.5); Total Protein, Blood 5.9 g/dL (6.4-8.2)
[2017-08-25] MEDS ORDERED: HUMULIN 70100 UNIT/2 SC (10:04)
[2017-08-25] MEDS ORDERED: AZIT500 PO (10:07)
[2018-01-14] MEDS ORDERED: PHOSPHASAL TAB1 EACH PO (13:49)
[2018-01-17] MEDS ORDERED: PANT40 PO (13:59)
[2018-01-17] MEDS ORDERED: BIOTIN5 MG PO (14:00)
[2018-01-17] MEDS ORDERED: ALUM320SU PO (14:01)
[2018-06-05] MEDS ORDERED: Sodium Chlorid250 M1 IV (13:54)
== END 2017-08-25 12:15 | disposition home or self-care (01) ==
LOC: ER 14:17 → MEDS 14:18 → ENPENDDIS 08-25 09:32 → MEDS 08-25 12:15
PROVIDERS: Internal Medicine; Physician Assistant
DX: J96.01 Acute respiratory failure with hypoxia (principal); J20.9 Acute bronchitis, unspecified; J06.9 Acute upper respiratory infection, unspecified; M10.9 Gout, unspecified; I10 Essential (primary) hypertension; E11.9 Type 2 diabetes mellitus without complications; E78.5 Hyperlipidemia, unspecified; G89.4 Chronic pain syndrome; G43.909 Migraine, unspecified, not intractable, without status migrainosus; F41.9 Anxiety disorder, unspecified; F32.9 Major depressive disorder, single episode, unspecified; M81.0 Age-related osteoporosis without current pathological fracture; E53.8 Deficiency of other specified B group vitamins; N52.9 Male erectile dysfunction, unspecified; F43.10 Post-traumatic stress disorder, unspecified; G47.30 Sleep apnea, unspecified; Z90.49 Acquired absence of other specified parts of digestive tract; Z98.890 Other specified postprocedural states; Z79.4 Long term (current) use of insulin; Z79.899 Other long term (current) drug therapy; Z79.891 Long term (current) use of opiate analgesic; Z94.0 Kidney transplant status
CPT/HCPCS: 36415; 80053; 81001; 82947; 83605; 83880; 84145; 84484; 85025; 87040; 87804; 93005; 93010; 94640; 94760; 96365; 96366; 96372; 96376; 99285; G0378; J0696; J1642; J1650; J1815; J7030; J7507; J7517

== ENCOUNTER 2017-08-28 03:37 | Day surgery (SDC) | payer OTHER ==
[~2017-08-28 03:37] MED LIST changes: +AZIT500 PO; +HUMULIN 70100 UNIT/2 SC
[2018-01-14] MEDS ORDERED: PHOSPHASAL TAB1 EACH PO (13:49)
[2018-01-17] MEDS ORDERED: PANT40 PO (13:59)
[2018-01-17] MEDS ORDERED: BIOTIN5 MG PO (14:00)
[2018-01-17] MEDS ORDERED: ALUM320SU PO (14:01)
[2018-06-05] MEDS ORDERED: Sodium Chlorid250 M1 IV (13:54)
== END 2017-08-28 16:55 | disposition home or self-care (01) ==
LOC: ATC 03:37
DX: I12.9 Hypertensive chronic kidney disease with stage 1 through stage 4 chronic kidney disease, or unspecified chronic kidney disease (principal); N18.3 Chronic kidney disease, stage 3 (moderate); D63.1 Anemia in chronic kidney disease; E78.5 Hyperlipidemia, unspecified; F32.9 Major depressive disorder, single episode, unspecified; F41.9 Anxiety disorder, unspecified; E86.0 Dehydration; E78.00 Pure hypercholesterolemia, unspecified
CPT/HCPCS: 96360; 96361; J1642; J7030

== ENCOUNTER 2017-08-31 01:09 | Day surgery (SDC) | payer OTHER ==
[2018-01-14] MEDS ORDERED: PHOSPHASAL TAB1 EACH PO (13:49)
[2018-01-17] MEDS ORDERED: PANT40 PO (13:59)
[2018-01-17] MEDS ORDERED: BIOTIN5 MG PO (14:00)
[2018-01-17] MEDS ORDERED: ALUM320SU PO (14:01)
[2018-06-05] MEDS ORDERED: Sodium Chlorid250 M1 IV (13:54)
== END 2017-08-31 22:59 | disposition home or self-care (01) ==
LOC: ATC 01:09
DX: E86.0 Dehydration (principal); I12.9 Hypertensive chronic kidney disease with stage 1 through stage 4 chronic kidney disease, or unspecified chronic kidney disease; E11.22 Type 2 diabetes mellitus with diabetic chronic kidney disease; N18.3 Chronic kidney disease, stage 3 (moderate); D63.1 Anemia in chronic kidney disease; N25.81 Secondary hyperparathyroidism of renal origin; E78.5 Hyperlipidemia, unspecified; F32.9 Major depressive disorder, single episode, unspecified; G47.30 Sleep apnea, unspecified
CPT/HCPCS: 96360; 96361; J1642; J7030

== ENCOUNTER 2017-09-03 08:30 | Day surgery (SDC) | payer OTHER ==
[2018-01-14] MEDS ORDERED: PHOSPHASAL TAB1 EACH PO (13:49)
[2018-01-17] MEDS ORDERED: PANT40 PO (13:59)
[2018-01-17] MEDS ORDERED: BIOTIN5 MG PO (14:00)
[2018-01-17] MEDS ORDERED: ALUM320SU PO (14:01)
[2018-06-05] MEDS ORDERED: Sodium Chlorid250 M1 IV (13:54)
== END 2017-09-03 17:00 | disposition home or self-care (01) ==
LOC: ATC 08:30
DX: E86.0 Dehydration (principal); Z94.0 Kidney transplant status
CPT/HCPCS: 96360; 96361; J1642; J7030

== ENCOUNTER 2017-09-06 00:50 | Day surgery (SDC) | payer OTHER ==
[2017-09-06] MEDS ORDERED: NYST100000 SS (14:48)
[2017-09-06] MEDS ORDERED: FLUC150A PO (14:48)
[2017-09-06] MEDS ORDERED: OXYC5 PO (14:52)
[2018-01-14] MEDS ORDERED: PHOSPHASAL TAB1 EACH PO (13:49)
[2018-01-17] MEDS ORDERED: PANT40 PO (13:59)
[2018-01-17] MEDS ORDERED: BIOTIN5 MG PO (14:00)
[2018-01-17] MEDS ORDERED: ALUM320SU PO (14:01)
[2018-06-05] MEDS ORDERED: Sodium Chlorid250 M1 IV (13:54)
== END 2017-09-06 17:31 | disposition home or self-care (01) ==
LOC: ATC 00:50
DX: E86.0 Dehydration (principal); N18.3 Chronic kidney disease, stage 3 (moderate); D63.1 Anemia in chronic kidney disease; N25.81 Secondary hyperparathyroidism of renal origin; I12.9 Hypertensive chronic kidney disease with stage 1 through stage 4 chronic kidney disease, or unspecified chronic kidney disease; E10.11 Type 1 diabetes mellitus with ketoacidosis with coma; N18.9 Chronic kidney disease, unspecified; E78.5 Hyperlipidemia, unspecified; E78.00 Pure hypercholesterolemia, unspecified
CPT/HCPCS: 96360; 96361; J1642; J7030

== ENCOUNTER 2017-09-10 00:27 | Day surgery (SDC) | payer OTHER ==
[~2017-09-10 00:27] MED LIST changes: +NYST100000 SS
[2018-01-14] MEDS ORDERED: PHOSPHASAL TAB1 EACH PO (13:49)
[2018-01-17] MEDS ORDERED: PANT40 PO (13:59)
[2018-01-17] MEDS ORDERED: BIOTIN5 MG PO (14:00)
[2018-01-17] MEDS ORDERED: ALUM320SU PO (14:01)
[2018-06-05] MEDS ORDERED: Sodium Chlorid250 M1 IV (13:54)
== END 2017-09-10 17:25 | disposition home or self-care (01) ==
LOC: ATC 00:27
DX: E86.0 Dehydration (principal); N18.3 Chronic kidney disease, stage 3 (moderate); D63.1 Anemia in chronic kidney disease; N25.81 Secondary hyperparathyroidism of renal origin; E55.9 Vitamin D deficiency, unspecified; E78.00 Pure hypercholesterolemia, unspecified; Z94.0 Kidney transplant status
CPT/HCPCS: 96360; 96361; J1642; J7030

== ENCOUNTER 2017-09-13 01:06 | Day surgery (SDC) | payer OTHER ==
[2018-01-14] MEDS ORDERED: PHOSPHASAL TAB1 EACH PO (13:49)
[2018-01-17] MEDS ORDERED: PANT40 PO (13:59)
[2018-01-17] MEDS ORDERED: BIOTIN5 MG PO (14:00)
[2018-01-17] MEDS ORDERED: ALUM320SU PO (14:01)
[2018-06-05] MEDS ORDERED: Sodium Chlorid250 M1 IV (13:54)
== END 2017-09-13 17:23 | disposition home or self-care (01) ==
LOC: ATC 01:06
DX: E86.0 Dehydration (principal); Z45.2 Encounter for adjustment and management of vascular access device; N18.3 Chronic kidney disease, stage 3 (moderate); D63.1 Anemia in chronic kidney disease; N25.81 Secondary hyperparathyroidism of renal origin; E55.9 Vitamin D deficiency, unspecified; E78.00 Pure hypercholesterolemia, unspecified; R76.9 Abnormal immunological finding in serum, unspecified; R94.5 Abnormal results of liver function studies; R94.6 Abnormal results of thyroid function studies; Z94.0 Kidney transplant status
CPT/HCPCS: 96360; 96361; J1642; J7030

== ENCOUNTER 2017-09-17 00:51 | Day surgery (SDC) | payer OTHER ==
[2018-01-14] MEDS ORDERED: PHOSPHASAL TAB1 EACH PO (13:49)
[2018-01-17] MEDS ORDERED: PANT40 PO (13:59)
[2018-01-17] MEDS ORDERED: BIOTIN5 MG PO (14:00)
[2018-01-17] MEDS ORDERED: ALUM320SU PO (14:01)
[2018-06-05] MEDS ORDERED: Sodium Chlorid250 M1 IV (13:54)
== END 2017-09-17 16:58 | disposition home or self-care (01) ==
LOC: ATC 00:51
DX: E86.0 Dehydration (principal); N18.3 Chronic kidney disease, stage 3 (moderate); D63.1 Anemia in chronic kidney disease; N25.81 Secondary hyperparathyroidism of renal origin; E55.9 Vitamin D deficiency, unspecified; E87.0 Hyperosmolality and hypernatremia; R76.9 Abnormal immunological finding in serum, unspecified; R94.5 Abnormal results of liver function studies; R94.6 Abnormal results of thyroid function studies
CPT/HCPCS: 96360; 96361; J1642; J7030

== ENCOUNTER 2017-09-20 00:57 | Day surgery (SDC) | payer OTHER ==
[2018-01-14] MEDS ORDERED: PHOSPHASAL TAB1 EACH PO (13:49)
[2018-01-17] MEDS ORDERED: PANT40 PO (13:59)
[2018-01-17] MEDS ORDERED: BIOTIN5 MG PO (14:00)
[2018-01-17] MEDS ORDERED: ALUM320SU PO (14:01)
[2018-06-05] MEDS ORDERED: Sodium Chlorid250 M1 IV (13:54)
== END 2017-09-20 22:54 | disposition home or self-care (01) ==
LOC: ATC 00:57
DX: E86.0 Dehydration (principal); Z45.2 Encounter for adjustment and management of vascular access device; N18.3 Chronic kidney disease, stage 3 (moderate); D63.1 Anemia in chronic kidney disease; N25.81 Secondary hyperparathyroidism of renal origin; E55.9 Vitamin D deficiency, unspecified; E78.00 Pure hypercholesterolemia, unspecified; R76.9 Abnormal immunological finding in serum, unspecified; R94.5 Abnormal results of liver function studies; R94.6 Abnormal results of thyroid function studies; Z94.0 Kidney transplant status
CPT/HCPCS: 96360; 96361; J1642; J7030

== ENCOUNTER 2017-09-24 00:29 | Day surgery (SDC) | payer OTHER | END 2017-09-24 16:54 | disposition home or self-care (01) | LOC: ATC 00:29 | DX: E86.0 Dehydration (principal); I12.0 Hypertensive chronic kidney disease with stage 5 chronic kidney disease or end stage renal disease; E10.22 Type 1 diabetes mellitus with diabetic chronic kidney disease; N18.6 End stage renal disease; D63.1 Anemia in chronic kidney disease; N25.81 Secondary hyperparathyroidism of renal origin; R76.9 Abnormal immunological finding in serum, unspecified; F32.9 Major depressive disorder, single episode, unspecified; F41.9 Anxiety disorder, unspecified; E78.5 Hyperlipidemia, unspecified; G47.30 Sleep apnea, unspecified | CPT/HCPCS: 96360; 96361; J1642; J7030 ==

== ENCOUNTER 2017-09-27 01:25 | Day surgery (SDC) | payer OTHER ==
[2017-09-27] MEDS ORDERED: GABA100 PO (14:22)
[2017-09-27] MEDS ORDERED: BIOTIN5000 MC1 SL (14:22)
[2017-09-27 14:55] LABS: BASOPHILS ABSOLUTE AUTO 0.03 K/mm3 (0.00-0.23); BASOPHILS PERCENT AUTO 0 % (0-2); EOSINOPHILS ABSOLUTE AUTO 0.02 K/mm3 (0.00-0.68); EOSINOPHILS PERCENT AUTO 0 % (0-6); Hematocrit 36.4 % (37.0-53.0); Hemoglobin 12.1 g/dL (13.5-17.5); IMMATURE GRAN ABSOLUTE AUTO 0.18 K/mm3 (0.00-0.10); IMMATURE GRAN PERCENT AUTO 1 % (0-1); LYMPHOCYTES ABSOLUTE AUTO 0.95 K/mm3 (0.84-5.20); LYMPHOCYTES PERCENT AUTO 7 % (21-46); MONOCYTES ABSOLUTE AUTO 0.98 K/mm3 (0.16-1.47); MONOCYTES PERCENT AUTO 7 % (4-13); Mean Corpuscular HGB 29.6 pg (26.0-34.0); Mean Corpuscular HGB Conc 33.2 g/dL (31.5-36.5); Mean Corpuscular Volume 89 fL (80-100); Mean Platelet Volume 10.3 fL (9.1-12.4); NEUTROPHILS ABSOLUTE AUTO 11.88 K/mm3 (1.96-9.15); NEUTROPHILS PERCENT AUTO 85 % (41-73); Platelet Count 204 K/mm3 (150-400); RDW Coefficient Variation 13.3 % (11.7-14.2); RDW Standard Deviation 43.4 fL (35.1-46.3); Red Blood Cell Count 4.09 M/mm3 (4.30-5.90); White Blood Cell Count 14.04 K/mm3 (4.00-11.30)
[2017-09-27 15:33] LABS: Alanine Aminotransfer (ALT/SGP 18 U/L (12-78); Albumin, Blood 3.5 g/dL (3.4-5.0); Albumin/Globulin Ratio 1.2 (0.8-1.8); Alk Phos 64 U/L (50-136); Anion Gap 12 mmol/L (6-16); Aspartate Aminotrans (AST/SGOT 12 U/L (12-37); Bilirubin, Direct <0.1 mg/dL (0.0-0.3); Bilirubin, Indirect Unable to Calculate mg/dL (0.1-0.7); Bilirubin, Total 0.3 mg/dL (0.1-1.0); Blood Urea Nitrogen 30 mg/dL (8-24); Bun/Creatinine Ratio 21.9 (12.0-20.0); CO2, Blood 23 mmol/L (21-32); Calcium, Blood 9.1 mg/dL (8.5-10.1); Chloride, Blood 106 mmol/L (98-108); Creatinine, Blood 1.37 mg/dL (0.60-1.20); Glomerular Filtration Rate 57 (60-); Glucose, Blood 61 mg/dL (70-99); Phosphorus, Blood 2.8 mg/dL (2.5-4.9); Potassium, Blood 3.6 mmol/L (3.5-5.5); Sodium, Blood 141 mmol/L (136-145); Total Protein, Blood 6.5 g/dL (6.4-8.2)
== END 2017-09-27 18:05 | disposition home or self-care (01) ==
LOC: ATC 01:25
PROVIDERS: Internal Medicine Nephrology
DX: E86.0 Dehydration (principal); I12.0 Hypertensive chronic kidney disease with stage 5 chronic kidney disease or end stage renal disease; E10.22 Type 1 diabetes mellitus with diabetic chronic kidney disease; N18.6 End stage renal disease; D63.1 Anemia in chronic kidney disease; N25.81 Secondary hyperparathyroidism of renal origin; E78.00 Pure hypercholesterolemia, unspecified
CPT/HCPCS: 80053; 82248; 84100; 85025; 86592; 96360; 96361; J1642; J7030

== ENCOUNTER 2017-10-04 00:36 | Day surgery (SDC) | payer OTHER ==
[~2017-10-04 00:36] MED LIST changes: +BIOTIN5000 MC1 SL; +GABA100 PO
[2017-10-04 14:19] LABS: BASOPHILS ABSOLUTE AUTO 0.05 K/mm3 (0.00-0.23); BASOPHILS PERCENT AUTO 1 % (0-2); EOSINOPHILS ABSOLUTE AUTO 0.17 K/mm3 (0.00-0.68); EOSINOPHILS PERCENT AUTO 2 % (0-6); Hematocrit 37.4 % (37.0-53.0); Hemoglobin 12.1 g/dL (13.5-17.5); IMMATURE GRAN ABSOLUTE AUTO 0.12 K/mm3 (0.00-0.10); IMMATURE GRAN PERCENT AUTO 2 % (0-1); LYMPHOCYTES ABSOLUTE AUTO 1.22 K/mm3 (0.84-5.20); LYMPHOCYTES PERCENT AUTO 15 % (21-46); MONOCYTES ABSOLUTE AUTO 0.65 K/mm3 (0.16-1.47); MONOCYTES PERCENT AUTO 8 % (4-13); Mean Corpuscular HGB 28.9 pg (26.0-34.0); Mean Corpuscular HGB Conc 32.4 g/dL (31.5-36.5); Mean Corpuscular Volume 90 fL (80-100); Mean Platelet Volume 10.2 fL (9.1-12.4); NEUTROPHILS ABSOLUTE AUTO 5.77 K/mm3 (1.96-9.15); NEUTROPHILS PERCENT AUTO 72 % (41-73); Platelet Count 192 K/mm3 (150-400); RDW Coefficient Variation 13.9 % (11.7-14.2); RDW Standard Deviation 45.1 fL (35.1-46.3); Red Blood Cell Count 4.18 M/mm3 (4.30-5.90); White Blood Cell Count 7.98 K/mm3 (4.00-11.30)
[2017-10-04 16:12] LABS: Alanine Aminotransfer (ALT/SGP 23 U/L (12-78); Albumin, Blood 3.4 g/dL (3.4-5.0); Albumin/Globulin Ratio 1.1 (0.8-1.8); Alk Phos 59 U/L (50-136); Anion Gap 8 mmol/L (6-16); Aspartate Aminotrans (AST/SGOT 13 U/L (12-37); Bilirubin, Direct <0.1 mg/dL (0.0-0.3); Bilirubin, Indirect Unable to Calculate mg/dL (0.1-0.7); Bilirubin, Total 0.4 mg/dL (0.1-1.0); Blood Urea Nitrogen 25 mg/dL (8-24); Bun/Creatinine Ratio 20.8 (12.0-20.0); CHOL/HDL RATIO 3.1; CO2, Blood 23 mmol/L (21-32); Calcium, Blood 8.9 mg/dL (8.5-10.1); Chloride, Blood 112 mmol/L (98-108); Cholesterol 135 mg/dL (50-200); Globulin, Blood 3.2 g/dL (2.2-4.0); Glomerular Filtration Rate >60 (60-); Glucose, Blood 211 mg/dL (70-99); HDL Cholesterol 44 mg/dL (>39); LDL/HDL RATIO 1.5; Low Density Lipoprotein Chol 64 mg/dL (0-110); Phosphorus, Blood 2.5 mg/dL (2.5-4.9); Potassium, Blood 4.4 mmol/L (3.5-5.5); Sodium, Blood 143 mmol/L (136-145); Total Protein, Blood 6.6 g/dL (6.4-8.2); Triglycerides 135 mg/dL (30-160); Uric Acid, Blood 5.1 mg/dL (3.5-7.2); Very Low Density Lipoprot Chol 27 mg/dL (6-32)
== END 2017-10-04 22:43 | disposition home or self-care (01) ==
LOC: ATC 00:36
PROVIDERS: Internal Medicine Nephrology
DX: I12.0 Hypertensive chronic kidney disease with stage 5 chronic kidney disease or end stage renal disease (principal); E10.22 Type 1 diabetes mellitus with diabetic chronic kidney disease; N18.6 End stage renal disease; E86.0 Dehydration; N25.81 Secondary hyperparathyroidism of renal origin; D63.1 Anemia in chronic kidney disease; E78.00 Pure hypercholesterolemia, unspecified; Z12.5 Encounter for screening for malignant neoplasm of prostate; Z13.220 Encounter for screening for lipoid disorders; Z94.0 Kidney transplant status
CPT/HCPCS: 80053; 80061; 80197; 82248; 83036; 84100; 84550; 85025; 96360; 96361; G0103; J1642; J7030

== ENCOUNTER 2017-10-11 00:20 | Day surgery (SDC) | payer OTHER | END 2017-10-11 22:39 | disposition home or self-care (01) | LOC: ATC 00:20 | DX: I12.0 Hypertensive chronic kidney disease with stage 5 chronic kidney disease or end stage renal disease (principal); E10.22 Type 1 diabetes mellitus with diabetic chronic kidney disease; N18.6 End stage renal disease; E78.5 Hyperlipidemia, unspecified; E78.00 Pure hypercholesterolemia, unspecified; E86.0 Dehydration; Z12.5 Encounter for screening for malignant neoplasm of prostate; Z13.220 Encounter for screening for lipoid disorders; N25.81 Secondary hyperparathyroidism of renal origin | CPT/HCPCS: J1642; J7030 ==

== ENCOUNTER 2017-10-18 00:27 | Day surgery (SDC) | payer OTHER | END 2017-10-18 16:03 | disposition home or self-care (01) | LOC: ATC 00:27 | DX: I12.0 Hypertensive chronic kidney disease with stage 5 chronic kidney disease or end stage renal disease (principal); E10.22 Type 1 diabetes mellitus with diabetic chronic kidney disease; N18.6 End stage renal disease; D63.1 Anemia in chronic kidney disease; N25.81 Secondary hyperparathyroidism of renal origin; E85.9 Amyloidosis, unspecified; E86.0 Dehydration; E78.5 Hyperlipidemia, unspecified; E78.00 Pure hypercholesterolemia, unspecified | CPT/HCPCS: 96360; 96361; J1642; J7030 ==

== ENCOUNTER 2017-10-25 00:23 | Day surgery (SDC) | payer OTHER ==
[2017-10-25 15:19] LABS: Albumin, Blood 3.7 g/dL (3.4-5.0); Anion Gap 9 mmol/L (6-16); Blood Urea Nitrogen 48 mg/dL (8-24); Bun/Creatinine Ratio 12.9 (12.0-20.0); CO2, Blood 24 mmol/L (21-32); Chloride, Blood 104 mmol/L (98-108); Creatinine, Blood 3.73 mg/dL (0.60-1.20); Glomerular Filtration Rate 18 (60-); Glucose, Blood 232 mg/dL (70-99); Phosphorus, Blood 2.5 mg/dL (2.5-4.9); Potassium, Blood 5.5 mmol/L (3.5-5.5); Sodium, Blood 137 mmol/L (136-145)
== END 2017-10-25 17:23 | disposition home or self-care (01) ==
LOC: ATC 00:23
PROVIDERS: Internal Medicine Nephrology
DX: I12.0 Hypertensive chronic kidney disease with stage 5 chronic kidney disease or end stage renal disease (principal); E10.22 Type 1 diabetes mellitus with diabetic chronic kidney disease; N18.6 End stage renal disease; E78.5 Hyperlipidemia, unspecified; E78.00 Pure hypercholesterolemia, unspecified; E86.0 Dehydration; D63.1 Anemia in chronic kidney disease; N25.81 Secondary hyperparathyroidism of renal origin
CPT/HCPCS: 80069; 85018; 96360; 96361; J1642; J7030

== ENCOUNTER 2017-11-01 00:25 | Day surgery (SDC) | payer OTHER ==
[2017-11-01] MEDS ORDERED: CLON.1 PO (14:18)
[2017-11-01] MEDS ORDERED: Normal Saline Fl2 ML IV (14:19)
[2017-11-01] MEDS ORDERED: HEPARIN LO100 UNIT/1 IV (14:22)
== END 2017-11-01 16:32 | disposition home or self-care (01) ==
LOC: ATC 00:25
DX: I12.0 Hypertensive chronic kidney disease with stage 5 chronic kidney disease or end stage renal disease (principal); E10.22 Type 1 diabetes mellitus with diabetic chronic kidney disease; N18.6 End stage renal disease; D63.1 Anemia in chronic kidney disease; E78.5 Hyperlipidemia, unspecified; E78.00 Pure hypercholesterolemia, unspecified; E86.0 Dehydration
CPT/HCPCS: 96360; 96361; J1642; J7030

== ENCOUNTER 2017-11-08 00:18 | Day surgery (SDC) | payer OTHER ==
[~2017-11-08 00:18] MED LIST changes: +CLON.1 PO; +HEPARIN LO100 UNIT/1 IV; +Normal Saline Fl2 ML IV
== END 2017-11-08 16:32 | disposition home or self-care (01) ==
LOC: ATC 00:18
DX: E10.22 Type 1 diabetes mellitus with diabetic chronic kidney disease (principal); I12.0 Hypertensive chronic kidney disease with stage 5 chronic kidney disease or end stage renal disease; E78.5 Hyperlipidemia, unspecified; F32.9 Major depressive disorder, single episode, unspecified; F41.9 Anxiety disorder, unspecified; E86.0 Dehydration
CPT/HCPCS: 84132; 96360; 96361; J1642; J7030

== ENCOUNTER 2017-11-12 00:43 | Day surgery (SDC) | payer OTHER | END 2017-11-12 15:53 | disposition home or self-care (01) | LOC: ATC 00:43 | DX: I12.0 Hypertensive chronic kidney disease with stage 5 chronic kidney disease or end stage renal disease (principal); E10.22 Type 1 diabetes mellitus with diabetic chronic kidney disease; D63.1 Anemia in chronic kidney disease; N18.6 End stage renal disease; E78.5 Hyperlipidemia, unspecified; F41.9 Anxiety disorder, unspecified; F32.9 Major depressive disorder, single episode, unspecified; E78.00 Pure hypercholesterolemia, unspecified | CPT/HCPCS: 96360; 96361; J1642; J7030 ==

== ENCOUNTER 2017-11-15 00:37 | Day surgery (SDC) | payer OTHER | END 2017-11-15 16:28 | disposition home or self-care (01) | LOC: ATC 00:37 | DX: E10.22 Type 1 diabetes mellitus with diabetic chronic kidney disease (principal); I12.0 Hypertensive chronic kidney disease with stage 5 chronic kidney disease or end stage renal disease; N18.6 End stage renal disease; E78.5 Hyperlipidemia, unspecified; F41.9 Anxiety disorder, unspecified; F32.9 Major depressive disorder, single episode, unspecified; E78.00 Pure hypercholesterolemia, unspecified | CPT/HCPCS: 96360; 96361; J1642; J7030 ==

== ENCOUNTER 2017-11-20 00:53 | Day surgery (SDC) | payer OTHER | END 2017-11-20 15:47 | disposition home or self-care (01) | LOC: ATC 00:53 | DX: I12.0 Hypertensive chronic kidney disease with stage 5 chronic kidney disease or end stage renal disease (principal); E10.22 Type 1 diabetes mellitus with diabetic chronic kidney disease; D63.1 Anemia in chronic kidney disease; N25.81 Secondary hyperparathyroidism of renal origin; E55.9 Vitamin D deficiency, unspecified; N18.6 End stage renal disease; E78.5 Hyperlipidemia, unspecified; F32.9 Major depressive disorder, single episode, unspecified; G47.30 Sleep apnea, unspecified; E78.00 Pure hypercholesterolemia, unspecified | CPT/HCPCS: 96360; 96361; J1642; J7030 ==

== ENCOUNTER 2017-11-23 00:16 | Day surgery (SDC) | payer OTHER | END 2017-11-23 15:50 | disposition home or self-care (01) | LOC: ATC 00:16 | DX: E10.22 Type 1 diabetes mellitus with diabetic chronic kidney disease (principal); I12.0 Hypertensive chronic kidney disease with stage 5 chronic kidney disease or end stage renal disease; N18.6 End stage renal disease; E78.5 Hyperlipidemia, unspecified; F41.9 Anxiety disorder, unspecified; F32.9 Major depressive disorder, single episode, unspecified | CPT/HCPCS: 96360; 96361; J1642; J7030 ==

== ENCOUNTER 2017-11-26 12:02 | Day surgery (SDC) | payer OTHER | END 2017-11-26 16:02 | disposition home or self-care (01) | LOC: ATC 12:02 | DX: I12.0 Hypertensive chronic kidney disease with stage 5 chronic kidney disease or end stage renal disease (principal); E10.22 Type 1 diabetes mellitus with diabetic chronic kidney disease; N18.6 End stage renal disease; D63.1 Anemia in chronic kidney disease; N25.81 Secondary hyperparathyroidism of renal origin; E55.9 Vitamin D deficiency, unspecified; E78.00 Pure hypercholesterolemia, unspecified | CPT/HCPCS: 96360; 96361; J1642; J7030 ==

== ENCOUNTER 2017-11-29 00:17 | Day surgery (SDC) | payer OTHER | END 2017-11-29 15:55 | disposition home or self-care (01) | LOC: ATC 00:17 | DX: E10.22 Type 1 diabetes mellitus with diabetic chronic kidney disease (principal); I12.0 Hypertensive chronic kidney disease with stage 5 chronic kidney disease or end stage renal disease; E78.00 Pure hypercholesterolemia, unspecified; D63.1 Anemia in chronic kidney disease; N25.81 Secondary hyperparathyroidism of renal origin; N18.6 End stage renal disease | CPT/HCPCS: 96360; 96361; J1642; J7030 ==

== ENCOUNTER 2017-12-03 00:38 | Day surgery (SDC) | payer OTHER ==
[2017-12-03 16:19] LABS: Albumin, Blood 3.3 g/dL (3.4-5.0); Anion Gap 10 mmol/L (6-16); Blood Urea Nitrogen 34 mg/dL (8-24); Bun/Creatinine Ratio 19.5 (12.0-20.0); CO2, Blood 24 mmol/L (21-32); Calcium, Blood 7.7 mg/dL (8.5-10.1); Chloride, Blood 108 mmol/L (98-108); Creatinine, Blood 1.74 mg/dL (0.60-1.20); Glomerular Filtration Rate 43 (60-); Glucose, Blood 238 mg/dL (70-99); Phosphorus, Blood 2.7 mg/dL (2.5-4.9); Potassium, Blood 4.1 mmol/L (3.5-5.5); Sodium, Blood 142 mmol/L (136-145)
== END 2017-12-03 15:56 | disposition home or self-care (01) ==
LOC: ATC 00:38
PROVIDERS: Internal Medicine Nephrology
DX: I12.0 Hypertensive chronic kidney disease with stage 5 chronic kidney disease or end stage renal disease (principal); E10.22 Type 1 diabetes mellitus with diabetic chronic kidney disease; N18.6 End stage renal disease; D63.1 Anemia in chronic kidney disease; N25.81 Secondary hyperparathyroidism of renal origin; E55.9 Vitamin D deficiency, unspecified; E78.00 Pure hypercholesterolemia, unspecified; E78.5 Hyperlipidemia, unspecified; Z94.0 Kidney transplant status
CPT/HCPCS: 80069; 85018; 96360; 96361; J1642; J7030

== ENCOUNTER 2017-12-06 01:01 | Day surgery (SDC) | payer OTHER | END 2017-12-06 16:23 | disposition home or self-care (01) | LOC: ATC 01:01 | DX: T84.53XA Infection and inflammatory reaction due to internal right knee prosthesis, initial encounter (principal); I10 Essential (primary) hypertension; K21.9 Gastro-esophageal reflux disease without esophagitis; J44.9 Chronic obstructive pulmonary disease, unspecified; G47.30 Sleep apnea, unspecified | CPT/HCPCS: 96360; 96361; J1642; J7030 ==

== ENCOUNTER 2017-12-10 00:30 | Day surgery (SDC) | payer OTHER | END 2017-12-10 16:55 | disposition home or self-care (01) | LOC: ATC 00:30 | DX: E10.22 Type 1 diabetes mellitus with diabetic chronic kidney disease (principal); I12.0 Hypertensive chronic kidney disease with stage 5 chronic kidney disease or end stage renal disease; E86.9 Volume depletion, unspecified; N18.6 End stage renal disease; E78.5 Hyperlipidemia, unspecified; E78.00 Pure hypercholesterolemia, unspecified | CPT/HCPCS: 96360; 96361; J1642; J7030 ==

== ENCOUNTER 2017-12-13 00:13 | Day surgery (SDC) | payer OTHER | END 2017-12-13 17:10 | disposition home or self-care (01) | LOC: ATC 00:13 | DX: I12.0 Hypertensive chronic kidney disease with stage 5 chronic kidney disease or end stage renal disease (principal); E10.22 Type 1 diabetes mellitus with diabetic chronic kidney disease; N18.6 End stage renal disease; E86.9 Volume depletion, unspecified; R80.9 Proteinuria, unspecified; E78.5 Hyperlipidemia, unspecified; F41.9 Anxiety disorder, unspecified; F32.9 Major depressive disorder, single episode, unspecified | CPT/HCPCS: 96360; 96361; J1642; J7030 ==

== ENCOUNTER 2017-12-17 00:13 | Day surgery (SDC) | payer OTHER | END 2017-12-17 17:09 | disposition home or self-care (01) | LOC: ATC 00:13 | DX: E10.22 Type 1 diabetes mellitus with diabetic chronic kidney disease (principal); I12.0 Hypertensive chronic kidney disease with stage 5 chronic kidney disease or end stage renal disease; N18.6 End stage renal disease; E86.9 Volume depletion, unspecified; R80.9 Proteinuria, unspecified; E78.5 Hyperlipidemia, unspecified; E78.00 Pure hypercholesterolemia, unspecified | CPT/HCPCS: 96360; 96361; J1642; J7030 ==

== ENCOUNTER 2017-12-20 00:10 | Day surgery (SDC) | payer OTHER | END 2017-12-20 17:00 | disposition home or self-care (01) | LOC: ATC 00:10 | DX: I12.0 Hypertensive chronic kidney disease with stage 5 chronic kidney disease or end stage renal disease (principal); E10.22 Type 1 diabetes mellitus with diabetic chronic kidney disease; N18.6 End stage renal disease; E78.5 Hyperlipidemia, unspecified; F41.9 Anxiety disorder, unspecified; F32.9 Major depressive disorder, single episode, unspecified; E78.00 Pure hypercholesterolemia, unspecified | CPT/HCPCS: 96360; 96361; J1642; J7030 ==

== ENCOUNTER 2017-12-24 00:21 | Day surgery (SDC) | payer OTHER | END 2017-12-24 17:18 | disposition home or self-care (01) | LOC: ATC 00:21 | DX: I12.0 Hypertensive chronic kidney disease with stage 5 chronic kidney disease or end stage renal disease (principal); E10.22 Type 1 diabetes mellitus with diabetic chronic kidney disease; N18.6 End stage renal disease; E86.9 Volume depletion, unspecified; R80.9 Proteinuria, unspecified; E78.5 Hyperlipidemia, unspecified; E78.00 Pure hypercholesterolemia, unspecified | CPT/HCPCS: 96360; 96361; J1642; J7030 ==

== ENCOUNTER 2017-12-27 00:23 | Day surgery (SDC) | payer OTHER | END 2017-12-27 17:17 | disposition home or self-care (01) | LOC: ATC 00:23 | DX: I12.0 Hypertensive chronic kidney disease with stage 5 chronic kidney disease or end stage renal disease (principal); E10.22 Type 1 diabetes mellitus with diabetic chronic kidney disease; N18.6 End stage renal disease; E78.5 Hyperlipidemia, unspecified; E78.00 Pure hypercholesterolemia, unspecified | CPT/HCPCS: 96360; 96361; J1642; J7030 ==

== ENCOUNTER 2018-01-07 00:38 | Day surgery (SDC) | payer OTHER ==
[2018-01-07 14:19] LABS: BASOPHILS ABSOLUTE AUTO 0.01 K/mm3 (0.00-0.23); BASOPHILS PERCENT AUTO 0 % (0-2); EOSINOPHILS ABSOLUTE AUTO 0.08 K/mm3 (0.00-0.68); EOSINOPHILS PERCENT AUTO 1 % (0-6); Hemoglobin 11.6 g/dL (13.5-17.5); IMMATURE GRAN ABSOLUTE AUTO 0.08 K/mm3 (0.00-0.10); IMMATURE GRAN PERCENT AUTO 1 % (0-1); LYMPHOCYTES ABSOLUTE AUTO 0.89 K/mm3 (0.84-5.20); LYMPHOCYTES PERCENT AUTO 10 % (21-46); MONOCYTES ABSOLUTE AUTO 0.62 K/mm3 (0.16-1.47); MONOCYTES PERCENT AUTO 7 % (4-13); Mean Corpuscular HGB Conc 32.2 g/dL (31.5-36.5); Mean Corpuscular Volume 87 fL (80-100); NEUTROPHILS ABSOLUTE AUTO 6.95 K/mm3 (1.96-9.15); NEUTROPHILS PERCENT AUTO 81 % (41-73); Platelet Count 204 K/mm3 (150-400); RDW Standard Deviation 40.6 fL (35.1-46.3); Red Blood Cell Count 4.14 M/mm3 (4.30-5.90); White Blood Cell Count 8.63 K/mm3 (4.00-11.30)
[2018-01-07 14:34] LABS: Alanine Aminotransfer (ALT/SGP 14 U/L (12-78); Albumin, Blood 3.9 g/dL (3.4-5.0); Albumin/Globulin Ratio 1.2 (0.8-1.8); Alk Phos 70 U/L (50-136); Anion Gap 10 mmol/L (6-16); Aspartate Aminotrans (AST/SGOT 12 U/L (12-37); Bilirubin, Direct 0.1 mg/dL (0.0-0.3); Bilirubin, Indirect 0.4 mg/dL (0.1-0.7); Bilirubin, Total 0.5 mg/dL (0.1-1.0); Blood Urea Nitrogen 36 mg/dL (8-24); Bun/Creatinine Ratio 22.4 (12.0-20.0); CO2, Blood 24 mmol/L (21-32); Calcium, Blood 9.2 mg/dL (8.5-10.1); Chloride, Blood 106 mmol/L (98-108); Creatinine, Blood 1.61 mg/dL (0.60-1.20); Globulin, Blood 3.2 g/dL (2.2-4.0); Glomerular Filtration Rate 47 (60-); Glucose, Blood 99 mg/dL (70-99); Phosphorus, Blood 1.9 mg/dL (2.5-4.9); Potassium, Blood 4.4 mmol/L (3.5-5.5); Sodium, Blood 140 mmol/L (136-145); Total Protein, Blood 7.1 g/dL (6.4-8.2)
== END 2018-01-07 17:09 | disposition home or self-care (01) ==
LOC: ATC 00:38
PROVIDERS: Internal Medicine Nephrology
DX: I12.0 Hypertensive chronic kidney disease with stage 5 chronic kidney disease or end stage renal disease (principal); N18.6 End stage renal disease; E10.22 Type 1 diabetes mellitus with diabetic chronic kidney disease; D63.1 Anemia in chronic kidney disease; N25.81 Secondary hyperparathyroidism of renal origin; E55.9 Vitamin D deficiency, unspecified; E78.00 Pure hypercholesterolemia, unspecified; R76.9 Abnormal immunological finding in serum, unspecified; R94.5 Abnormal results of liver function studies; R94.6 Abnormal results of thyroid function studies; Z94.0 Kidney transplant status; Z95.828 Presence of other vascular implants and grafts
CPT/HCPCS: 80053; 80197; 82248; 84100; 85025; 96360; 96361; J1642; J7030

== ENCOUNTER 2018-01-10 00:06 | Day surgery (SDC) | payer OTHER ==
[2018-01-14] MEDS ORDERED: PHOSPHASAL TAB1 EACH PO (13:49)
[2018-01-17] MEDS ORDERED: PANT40 PO (13:59)
[2018-01-17] MEDS ORDERED: BIOTIN5 MG PO (14:00)
[2018-01-17] MEDS ORDERED: ALUM320SU PO (14:01)
== END 2018-01-10 17:14 | disposition home or self-care (01) ==
LOC: ATC 00:06
DX: I12.9 Hypertensive chronic kidney disease with stage 1 through stage 4 chronic kidney disease, or unspecified chronic kidney disease (principal); E11.22 Type 2 diabetes mellitus with diabetic chronic kidney disease; N18.3 Chronic kidney disease, stage 3 (moderate); D63.1 Anemia in chronic kidney disease; N25.81 Secondary hyperparathyroidism of renal origin; E55.9 Vitamin D deficiency, unspecified; E78.00 Pure hypercholesterolemia, unspecified; R76.9 Abnormal immunological finding in serum, unspecified; R94.5 Abnormal results of liver function studies; R94.6 Abnormal results of thyroid function studies; E78.5 Hyperlipidemia, unspecified; G47.33 Obstructive sleep apnea (adult) (pediatric); F41.9 Anxiety disorder, unspecified
CPT/HCPCS: 96360; J1642; J7030

== ENCOUNTER 2018-01-31 00:13 | Day surgery (SDC) | payer OTHER ==
[~2018-01-31 00:13] MED LIST changes: +ALUM320SU PO; +BIOTIN5 MG PO; +PANT40 PO; +PHOSPHASAL TAB1 EACH PO
[2018-01-31] MEDS ORDERED: INSR10I (14:01)
[2018-01-31] MEDS ORDERED: PRED10 PO (14:02)
[2018-01-31] MEDS ORDERED: Diflucan50 MG PO (14:04)
[2018-01-31] MEDS ORDERED: ARANESP10 MCG/0.4 IM (14:06)
[2018-01-31] MEDS ORDERED: Phos-Nak Packe1 EACH PO (14:09)
== END 2018-01-31 16:59 | disposition home or self-care (01) ==
LOC: ATC 00:13
DX: I12.9 Hypertensive chronic kidney disease with stage 1 through stage 4 chronic kidney disease, or unspecified chronic kidney disease (principal); E11.22 Type 2 diabetes mellitus with diabetic chronic kidney disease; N18.3 Chronic kidney disease, stage 3 (moderate); D63.1 Anemia in chronic kidney disease; N25.81 Secondary hyperparathyroidism of renal origin; E55.9 Vitamin D deficiency, unspecified; E78.00 Pure hypercholesterolemia, unspecified; R76.9 Abnormal immunological finding in serum, unspecified; R94.5 Abnormal results of liver function studies; R94.6 Abnormal results of thyroid function studies; E78.5 Hyperlipidemia, unspecified
CPT/HCPCS: 96360; 96361; J1642; J7030

== ENCOUNTER 2018-02-09 13:40 | Day surgery (SDC) | payer OTHER ==
[~2018-02-09 13:40] MED LIST changes: +ARANESP10 MCG/0.4 IM; +Diflucan50 MG PO; +INSR10I; +PRED10 PO; +Phos-Nak Packe1 EACH PO
== END 2018-02-09 17:46 | disposition home or self-care (01) ==
LOC: ATC 13:40
DX: I12.9 Hypertensive chronic kidney disease with stage 1 through stage 4 chronic kidney disease, or unspecified chronic kidney disease (principal); E11.22 Type 2 diabetes mellitus with diabetic chronic kidney disease; N18.3 Chronic kidney disease, stage 3 (moderate); D63.1 Anemia in chronic kidney disease; N25.81 Secondary hyperparathyroidism of renal origin; E55.9 Vitamin D deficiency, unspecified; E78.00 Pure hypercholesterolemia, unspecified; R76.9 Abnormal immunological finding in serum, unspecified; R94.5 Abnormal results of liver function studies; R94.6 Abnormal results of thyroid function studies; E78.5 Hyperlipidemia, unspecified; G47.33 Obstructive sleep apnea (adult) (pediatric)
CPT/HCPCS: J1642; J7030

== ENCOUNTER 2018-02-12 00:10 | Day surgery (SDC) | payer OTHER | END 2018-02-12 17:44 | disposition home or self-care (01) | LOC: ATC 00:10 | DX: I12.9 Hypertensive chronic kidney disease with stage 1 through stage 4 chronic kidney disease, or unspecified chronic kidney disease (principal); E11.22 Type 2 diabetes mellitus with diabetic chronic kidney disease; N18.3 Chronic kidney disease, stage 3 (moderate); D63.1 Anemia in chronic kidney disease; N25.81 Secondary hyperparathyroidism of renal origin; E55.9 Vitamin D deficiency, unspecified; E78.00 Pure hypercholesterolemia, unspecified; R76.9 Abnormal immunological finding in serum, unspecified; E78.5 Hyperlipidemia, unspecified; G47.33 Obstructive sleep apnea (adult) (pediatric) | CPT/HCPCS: 96360; 96361; J1642; J7030 ==

== ENCOUNTER 2018-02-18 01:37 | Day surgery (SDC) | payer OTHER ==
[2018-02-18 17:16] LABS: BASOPHILS ABSOLUTE AUTO 0.01 K/mm3 (0.00-0.23); BASOPHILS PERCENT AUTO 0 % (0-2); EOSINOPHILS ABSOLUTE AUTO 0.02 K/mm3 (0.00-0.68); EOSINOPHILS PERCENT AUTO 0 % (0-6); Hematocrit 33.3 % (37.0-53.0); IMMATURE GRAN ABSOLUTE AUTO 0.05 K/mm3 (0.00-0.10); IMMATURE GRAN PERCENT AUTO 1 % (0-1); LYMPHOCYTES ABSOLUTE AUTO 0.76 K/mm3 (0.84-5.20); LYMPHOCYTES PERCENT AUTO 13 % (21-46); MONOCYTES ABSOLUTE AUTO 0.42 K/mm3 (0.16-1.47); MONOCYTES PERCENT AUTO 7 % (4-13); Mean Corpuscular HGB 29.6 pg (26.0-34.0); Mean Corpuscular Volume 90 fL (80-100); Mean Platelet Volume 10.5 fL (9.1-12.4); NEUTROPHILS ABSOLUTE AUTO 4.66 K/mm3 (1.96-9.15); NEUTROPHILS PERCENT AUTO 79 % (41-73); Platelet Count 180 K/mm3 (150-400); RDW Coefficient Variation 12.9 % (11.7-14.2); RDW Standard Deviation 42.3 fL (35.1-46.3); Red Blood Cell Count 3.72 M/mm3 (4.30-5.90); White Blood Cell Count 5.92 K/mm3 (4.00-11.30)
[2018-02-18 17:42] LABS: Percent Saturation 23.5 % (20.0-50.0)
== END 2018-02-18 17:11 | disposition home or self-care (01) ==
LOC: ATC 01:37
PROVIDERS: Internal Medicine Hematology & Oncology
DX: E11.22 Type 2 diabetes mellitus with diabetic chronic kidney disease (principal); I12.0 Hypertensive chronic kidney disease with stage 5 chronic kidney disease or end stage renal disease; N18.6 End stage renal disease; E78.5 Hyperlipidemia, unspecified; G47.33 Obstructive sleep apnea (adult) (pediatric); D63.1 Anemia in chronic kidney disease; Z94.0 Kidney transplant status
CPT/HCPCS: 82728; 83540; 83550; 85025; 96360; 96361; J1642; J7030

== ENCOUNTER 2018-02-21 00:08 | Day surgery (SDC) | payer OTHER | END 2018-02-21 17:05 | disposition home or self-care (01) | LOC: ATC 00:08 | DX: E11.22 Type 2 diabetes mellitus with diabetic chronic kidney disease (principal); I12.0 Hypertensive chronic kidney disease with stage 5 chronic kidney disease or end stage renal disease; N18.6 End stage renal disease; D63.1 Anemia in chronic kidney disease; Z94.0 Kidney transplant status; E78.5 Hyperlipidemia, unspecified; G47.33 Obstructive sleep apnea (adult) (pediatric); R13.10 Dysphagia, unspecified | CPT/HCPCS: 96360; 96361; J1642; J7030 ==

== ENCOUNTER 2018-03-04 00:09 | Day surgery (SDC) | payer OTHER | END 2018-03-04 17:01 | disposition home or self-care (01) | LOC: ATC 00:09 | DX: Z45.2 Encounter for adjustment and management of vascular access device (principal); I10 Essential (primary) hypertension; E78.5 Hyperlipidemia, unspecified | CPT/HCPCS: 96360; 96361; J1642; J7030 ==

== ENCOUNTER 2018-03-07 00:08 | Day surgery (SDC) | payer OTHER | END 2018-03-07 17:12 | disposition home or self-care (01) | LOC: ATC 00:08 | DX: E11.22 Type 2 diabetes mellitus with diabetic chronic kidney disease (principal); I12.0 Hypertensive chronic kidney disease with stage 5 chronic kidney disease or end stage renal disease; N18.6 End stage renal disease; R53.82 Chronic fatigue, unspecified; Z94.0 Kidney transplant status; Z79.899 Other long term (current) drug therapy | CPT/HCPCS: 96360; 96361; J1642; J7030 ==

== ENCOUNTER 2018-03-11 00:15 | Day surgery (SDC) | payer OTHER | END 2018-03-11 17:22 | disposition home or self-care (01) | LOC: ATC 00:15 | DX: E11.22 Type 2 diabetes mellitus with diabetic chronic kidney disease (principal); I12.0 Hypertensive chronic kidney disease with stage 5 chronic kidney disease or end stage renal disease; N18.6 End stage renal disease; Z94.0 Kidney transplant status | CPT/HCPCS: 96360; 96361; J1642; J7030 ==

== ENCOUNTER 2018-03-14 00:16 | Day surgery (SDC) | payer OTHER | END 2018-03-14 11:14 | disposition home or self-care (01) | LOC: ATC 00:16 | DX: I12.0 Hypertensive chronic kidney disease with stage 5 chronic kidney disease or end stage renal disease (principal); E11.22 Type 2 diabetes mellitus with diabetic chronic kidney disease; N18.6 End stage renal disease; Z94.0 Kidney transplant status | CPT/HCPCS: 96360; 96361; J1642; J7030 ==

== ENCOUNTER 2018-03-18 00:49 | Day surgery (SDC) | payer OTHER | END 2018-03-18 17:10 | disposition home or self-care (01) | LOC: ATC 00:49 | DX: I12.0 Hypertensive chronic kidney disease with stage 5 chronic kidney disease or end stage renal disease (principal); E11.22 Type 2 diabetes mellitus with diabetic chronic kidney disease; N18.6 End stage renal disease; I47.1 Supraventricular tachycardia; Z94.0 Kidney transplant status; Z79.4 Long term (current) use of insulin; Z79.84 Long term (current) use of oral hypoglycemic drugs | CPT/HCPCS: 96360; 96361; J1642; J7030 ==

== ENCOUNTER 2018-03-28 00:21 | Day surgery (SDC) | payer OTHER | END 2018-03-28 18:24 | disposition home or self-care (01) | LOC: ATC 00:21 | DX: E11.22 Type 2 diabetes mellitus with diabetic chronic kidney disease (principal); I12.0 Hypertensive chronic kidney disease with stage 5 chronic kidney disease or end stage renal disease; N18.6 End stage renal disease; Z94.0 Kidney transplant status; Z79.899 Other long term (current) drug therapy; R13.10 Dysphagia, unspecified | CPT/HCPCS: 96360; 96361; J1642; J7030 ==

== ENCOUNTER 2018-04-24 00:20 | Day surgery (SDC) | payer OTHER | END 2018-04-24 17:21 | disposition home or self-care (01) | LOC: ATC 00:20 | DX: E86.0 Dehydration (principal); E11.22 Type 2 diabetes mellitus with diabetic chronic kidney disease; N18.6 End stage renal disease; E78.5 Hyperlipidemia, unspecified; F32.9 Major depressive disorder, single episode, unspecified | CPT/HCPCS: 96360; 96361; J1642; J7030 ==

== ENCOUNTER 2018-06-10 00:47 | Day surgery (SDC) | payer OTHER ==
[~2018-06-10 00:47] MED LIST changes: +Sodium Chlorid250 M1 IV
== END 2018-06-10 22:39 | disposition home or self-care (01) ==
LOC: ATC 00:47
DX: E86.9 Volume depletion, unspecified (principal); E86.0 Dehydration; N18.9 Chronic kidney disease, unspecified
CPT/HCPCS: 96360; 96361; J1642; J7030

== ENCOUNTER 2018-06-12 00:13 | Day surgery (SDC) | payer OTHER | END 2018-06-12 17:35 | disposition home or self-care (01) | LOC: ATC 00:13 | DX: E86.9 Volume depletion, unspecified (principal); E86.0 Dehydration; N18.3 Chronic kidney disease, stage 3 (moderate); D63.1 Anemia in chronic kidney disease; I12.9 Hypertensive chronic kidney disease with stage 1 through stage 4 chronic kidney disease, or unspecified chronic kidney disease; Z79.899 Other long term (current) drug therapy | CPT/HCPCS: 96360; 96361; J1642; J7030 ==

== ENCOUNTER 2018-06-17 00:05 | Day surgery (SDC) | payer OTHER | END 2018-06-17 16:53 | disposition home or self-care (01) | LOC: ATC 00:05 | DX: E86.9 Volume depletion, unspecified (principal); E86.0 Dehydration; N18.9 Chronic kidney disease, unspecified | CPT/HCPCS: 96360; 96361; J1642; J7030 ==

== ENCOUNTER 2018-06-19 00:20 | Day surgery (SDC) | payer OTHER | END 2018-06-19 22:49 | disposition home or self-care (01) | LOC: ATC 00:20 | DX: E86.0 Dehydration (principal); I12.9 Hypertensive chronic kidney disease with stage 1 through stage 4 chronic kidney disease, or unspecified chronic kidney disease; N18.3 Chronic kidney disease, stage 3 (moderate); D63.1 Anemia in chronic kidney disease; E87.70 Fluid overload, unspecified | CPT/HCPCS: 96360; 96361; J1642; J7030 ==

== ENCOUNTER 2018-06-21 02:37 | Day surgery (SDC) | payer OTHER | END 2018-06-21 16:49 | disposition home or self-care (01) | LOC: ATC 02:37 | DX: E86.9 Volume depletion, unspecified (principal); E86.0 Dehydration; N18.3 Chronic kidney disease, stage 3 (moderate); D63.1 Anemia in chronic kidney disease; I12.9 Hypertensive chronic kidney disease with stage 1 through stage 4 chronic kidney disease, or unspecified chronic kidney disease; Z79.899 Other long term (current) drug therapy | CPT/HCPCS: 96360; 96361; J1642; J7030 ==

== ENCOUNTER 2018-06-24 00:03 | Day surgery (SDC) | payer OTHER | END 2018-06-24 16:57 | disposition home or self-care (01) | LOC: ATC 00:03 | DX: E86.9 Volume depletion, unspecified (principal); E86.0 Dehydration; N18.3 Chronic kidney disease, stage 3 (moderate); D63.1 Anemia in chronic kidney disease; I12.9 Hypertensive chronic kidney disease with stage 1 through stage 4 chronic kidney disease, or unspecified chronic kidney disease; Z79.899 Other long term (current) drug therapy | CPT/HCPCS: 96360; 96361; J1642; J7030 ==

== ENCOUNTER 2018-06-26 07:30 | Day surgery (SDC) | payer OTHER | END 2018-06-26 16:59 | disposition home or self-care (01) | LOC: ATC 07:30 | DX: E86.9 Volume depletion, unspecified (principal); E86.0 Dehydration | CPT/HCPCS: 96360; 96361; J1642; J7030 ==

== ENCOUNTER 2018-06-28 00:29 | Day surgery (SDC) | payer OTHER | END 2018-06-28 22:42 | disposition home or self-care (01) | LOC: ATC 00:29 | DX: E86.9 Volume depletion, unspecified (principal); E86.0 Dehydration | CPT/HCPCS: 96360; 96361; J1642; J7030 ==

== ENCOUNTER 2018-07-01 00:15 | Day surgery (SDC) | payer OTHER | END 2018-07-01 16:58 | disposition home or self-care (01) | LOC: ATC 00:15 | DX: E86.9 Volume depletion, unspecified (principal); E86.0 Dehydration; D63.1 Anemia in chronic kidney disease; N18.3 Chronic kidney disease, stage 3 (moderate); I12.9 Hypertensive chronic kidney disease with stage 1 through stage 4 chronic kidney disease, or unspecified chronic kidney disease; Z79.899 Other long term (current) drug therapy | CPT/HCPCS: 96360; 96361; J1642; J7030 ==

== ENCOUNTER 2018-07-03 00:20 | Day surgery (SDC) | payer OTHER | END 2018-07-03 16:49 | disposition home or self-care (01) | LOC: ATC 00:20 | DX: E86.9 Volume depletion, unspecified (principal); E86.0 Dehydration; N18.3 Chronic kidney disease, stage 3 (moderate); I12.9 Hypertensive chronic kidney disease with stage 1 through stage 4 chronic kidney disease, or unspecified chronic kidney disease; D63.1 Anemia in chronic kidney disease; Z95.4 Presence of other heart-valve replacement; Z79.899 Other long term (current) drug therapy | CPT/HCPCS: 96360; 96361; J1642; J7030 ==

== ENCOUNTER 2018-07-05 00:23 | Day surgery (SDC) | payer OTHER | END 2018-07-05 17:15 | disposition home or self-care (01) | LOC: ATC 00:23 | DX: E86.9 Volume depletion, unspecified (principal); E86.0 Dehydration; N18.3 Chronic kidney disease, stage 3 (moderate); I12.9 Hypertensive chronic kidney disease with stage 1 through stage 4 chronic kidney disease, or unspecified chronic kidney disease; D63.1 Anemia in chronic kidney disease; Z95.4 Presence of other heart-valve replacement; Z79.899 Other long term (current) drug therapy | CPT/HCPCS: 96360; 96361; J1642; J7030 ==

== ENCOUNTER 2018-07-08 00:12 | Day surgery (SDC) | payer OTHER | END 2018-07-08 23:02 | disposition home or self-care (01) | LOC: ATC 00:12 | DX: E86.9 Volume depletion, unspecified (principal); E86.0 Dehydration; N18.3 Chronic kidney disease, stage 3 (moderate); D63.1 Anemia in chronic kidney disease; I12.9 Hypertensive chronic kidney disease with stage 1 through stage 4 chronic kidney disease, or unspecified chronic kidney disease; Z79.899 Other long term (current) drug therapy; Z95.4 Presence of other heart-valve replacement | CPT/HCPCS: 96360; 96361; J1642; J7030 ==

== ENCOUNTER 2018-07-10 00:11 | Day surgery (SDC) | payer OTHER | END 2018-07-10 17:17 | disposition home or self-care (01) | LOC: ATC 00:11 | DX: E86.9 Volume depletion, unspecified (principal); E86.0 Dehydration; N18.3 Chronic kidney disease, stage 3 (moderate); D63.1 Anemia in chronic kidney disease; I12.9 Hypertensive chronic kidney disease with stage 1 through stage 4 chronic kidney disease, or unspecified chronic kidney disease; Z79.899 Other long term (current) drug therapy | CPT/HCPCS: 96360; 96361; J1642; J7030 ==

== ENCOUNTER 2018-07-12 00:58 | Day surgery (SDC) | payer OTHER | END 2018-07-12 23:58 | disposition home or self-care (01) | LOC: ATC 00:58 | DX: E86.9 Volume depletion, unspecified (principal); I12.9 Hypertensive chronic kidney disease with stage 1 through stage 4 chronic kidney disease, or unspecified chronic kidney disease; N18.3 Chronic kidney disease, stage 3 (moderate); D63.1 Anemia in chronic kidney disease; N25.81 Secondary hyperparathyroidism of renal origin; E78.5 Hyperlipidemia, unspecified; E55.9 Vitamin D deficiency, unspecified | CPT/HCPCS: 96360; 96361; J1642; J7030 ==

== ENCOUNTER 2018-07-15 00:13 | Day surgery (SDC) | payer OTHER | END 2018-07-15 22:45 | disposition home or self-care (01) | LOC: ATC 00:13 | DX: E86.9 Volume depletion, unspecified (principal); I12.9 Hypertensive chronic kidney disease with stage 1 through stage 4 chronic kidney disease, or unspecified chronic kidney disease; N18.3 Chronic kidney disease, stage 3 (moderate); D63.1 Anemia in chronic kidney disease; N25.81 Secondary hyperparathyroidism of renal origin | CPT/HCPCS: 96360; 96361; J1642; J7030 ==

== ENCOUNTER 2018-07-17 00:07 | Day surgery (SDC) | payer OTHER | END 2018-07-17 16:56 | disposition home or self-care (01) | LOC: ATC 00:07 | DX: E86.9 Volume depletion, unspecified (principal); E86.0 Dehydration; N18.3 Chronic kidney disease, stage 3 (moderate); I12.9 Hypertensive chronic kidney disease with stage 1 through stage 4 chronic kidney disease, or unspecified chronic kidney disease; Z79.899 Other long term (current) drug therapy; Z95.4 Presence of other heart-valve replacement | CPT/HCPCS: 96360; 96361; J1642; J7030 ==

== ENCOUNTER 2018-07-19 00:53 | Day surgery (SDC) | payer OTHER ==
[2018-07-19] MEDS ORDERED: INSULANPEN SC (14:07)
== END 2018-07-19 17:18 | disposition home or self-care (01) ==
LOC: ATC 00:53
DX: E86.9 Volume depletion, unspecified (principal); E86.0 Dehydration; N18.3 Chronic kidney disease, stage 3 (moderate); D63.1 Anemia in chronic kidney disease; I12.9 Hypertensive chronic kidney disease with stage 1 through stage 4 chronic kidney disease, or unspecified chronic kidney disease; Z79.899 Other long term (current) drug therapy
CPT/HCPCS: 96360; 96361; J1642; J7030

== ENCOUNTER 2018-07-22 00:13 | Day surgery (SDC) | payer OTHER ==
[~2018-07-22 00:13] MED LIST changes: +INSULANPEN SC
== END 2018-07-22 17:16 | disposition home or self-care (01) ==
LOC: ATC 00:13
DX: E86.9 Volume depletion, unspecified (principal); E86.0 Dehydration; N18.3 Chronic kidney disease, stage 3 (moderate); D63.1 Anemia in chronic kidney disease; I12.9 Hypertensive chronic kidney disease with stage 1 through stage 4 chronic kidney disease, or unspecified chronic kidney disease; Z79.899 Other long term (current) drug therapy; Z95.4 Presence of other heart-valve replacement
CPT/HCPCS: 84132; 96360; 96361; J1642; J7030

== ENCOUNTER 2018-07-24 00:18 | Day surgery (SDC) | payer OTHER | END 2018-07-24 16:54 | disposition home or self-care (01) | LOC: ATC 00:18 | DX: E86.9 Volume depletion, unspecified (principal); E86.0 Dehydration; N18.3 Chronic kidney disease, stage 3 (moderate); D63.1 Anemia in chronic kidney disease; I12.9 Hypertensive chronic kidney disease with stage 1 through stage 4 chronic kidney disease, or unspecified chronic kidney disease | CPT/HCPCS: 96360; 96361; J1642; J7030 ==

== ENCOUNTER 2018-07-26 07:49 | Day surgery (SDC) | payer OTHER ==
[2018-07-26] MEDS ORDERED: INSULANPEN SC (13:53)
== END 2018-07-26 17:00 | disposition home or self-care (01) ==
LOC: ATC 07:49
DX: E86.9 Volume depletion, unspecified (principal); E86.0 Dehydration; N18.3 Chronic kidney disease, stage 3 (moderate); D63.1 Anemia in chronic kidney disease; I12.9 Hypertensive chronic kidney disease with stage 1 through stage 4 chronic kidney disease, or unspecified chronic kidney disease; Z95.4 Presence of other heart-valve replacement; Z79.899 Other long term (current) drug therapy
CPT/HCPCS: 96360; 96361; J1642; J7030

== ENCOUNTER 2018-07-29 00:24 | Day surgery (SDC) | payer OTHER | END 2018-07-29 16:57 | disposition home or self-care (01) | LOC: ATC 00:24 | DX: E86.9 Volume depletion, unspecified (principal); I12.9 Hypertensive chronic kidney disease with stage 1 through stage 4 chronic kidney disease, or unspecified chronic kidney disease; N18.3 Chronic kidney disease, stage 3 (moderate) | CPT/HCPCS: 96360; 96361; J1642; J7030 ==

== ENCOUNTER 2018-07-31 00:12 | Day surgery (SDC) | payer OTHER | END 2018-07-31 16:50 | disposition home or self-care (01) | LOC: ATC 00:12 | DX: E86.9 Volume depletion, unspecified (principal); I12.9 Hypertensive chronic kidney disease with stage 1 through stage 4 chronic kidney disease, or unspecified chronic kidney disease; N18.3 Chronic kidney disease, stage 3 (moderate); Z79.899 Other long term (current) drug therapy | CPT/HCPCS: 96360; 96361; J1642; J7030 ==

== ENCOUNTER 2018-08-02 00:12 | Day surgery (SDC) | payer OTHER | END 2018-08-02 16:56 | disposition home or self-care (01) | LOC: ATC 00:12 | DX: E86.9 Volume depletion, unspecified (principal); I12.9 Hypertensive chronic kidney disease with stage 1 through stage 4 chronic kidney disease, or unspecified chronic kidney disease; N18.3 Chronic kidney disease, stage 3 (moderate); D63.1 Anemia in chronic kidney disease; N25.81 Secondary hyperparathyroidism of renal origin | CPT/HCPCS: 96360; 96361; J1642; J7030 ==

== ENCOUNTER 2018-08-05 00:10 | Day surgery (SDC) | payer OTHER | END 2018-08-05 22:40 | disposition home or self-care (01) | LOC: ATC 00:10 | DX: E86.9 Volume depletion, unspecified (principal); I12.9 Hypertensive chronic kidney disease with stage 1 through stage 4 chronic kidney disease, or unspecified chronic kidney disease; N18.3 Chronic kidney disease, stage 3 (moderate); N25.81 Secondary hyperparathyroidism of renal origin; E78.5 Hyperlipidemia, unspecified; D63.1 Anemia in chronic kidney disease | CPT/HCPCS: 96360; 96361; J1642; J7030 ==

== ENCOUNTER 2018-08-07 00:11 | Day surgery (SDC) | payer OTHER | END 2018-08-07 16:55 | disposition home or self-care (01) | LOC: ATC 00:11 | DX: E86.9 Volume depletion, unspecified (principal); E86.0 Dehydration; N18.3 Chronic kidney disease, stage 3 (moderate); D63.1 Anemia in chronic kidney disease; I12.9 Hypertensive chronic kidney disease with stage 1 through stage 4 chronic kidney disease, or unspecified chronic kidney disease; Z79.899 Other long term (current) drug therapy | CPT/HCPCS: 96360; 96361; J1642; J7030 ==

== ENCOUNTER 2018-08-09 00:05 | Day surgery (SDC) | payer OTHER | END 2018-08-09 16:56 | disposition home or self-care (01) | LOC: ATC 00:05 | DX: E86.9 Volume depletion, unspecified (principal); I12.9 Hypertensive chronic kidney disease with stage 1 through stage 4 chronic kidney disease, or unspecified chronic kidney disease; N18.3 Chronic kidney disease, stage 3 (moderate) | CPT/HCPCS: 96360; 96361; J1642; J7030 ==

== ENCOUNTER 2018-08-12 00:19 | Day surgery (SDC) | payer OTHER | END 2018-08-12 23:01 | disposition home or self-care (01) | LOC: ATC 00:19 | DX: E86.9 Volume depletion, unspecified (principal); I12.9 Hypertensive chronic kidney disease with stage 1 through stage 4 chronic kidney disease, or unspecified chronic kidney disease; N18.3 Chronic kidney disease, stage 3 (moderate); D63.1 Anemia in chronic kidney disease; N25.81 Secondary hyperparathyroidism of renal origin; E87.1 Hypo-osmolality and hyponatremia; E87.5 Hyperkalemia; N28.1 Cyst of kidney, acquired; E55.9 Vitamin D deficiency, unspecified | CPT/HCPCS: 96360; 96361; J1642; J7030 ==

== ENCOUNTER 2018-08-14 00:45 | Day surgery (SDC) | payer OTHER | END 2018-08-14 17:10 | disposition home or self-care (01) | LOC: ATC 00:45 | DX: E86.9 Volume depletion, unspecified (principal); E86.0 Dehydration; N18.3 Chronic kidney disease, stage 3 (moderate); I10 Essential (primary) hypertension; D63.1 Anemia in chronic kidney disease; N28.1 Cyst of kidney, acquired; Z79.899 Other long term (current) drug therapy | CPT/HCPCS: 96360; 96361; J1642; J7030 ==

== ENCOUNTER 2018-08-16 00:50 | Day surgery (SDC) | payer OTHER | END 2018-08-16 16:52 | disposition home or self-care (01) | LOC: ATC 00:50 | DX: E86.9 Volume depletion, unspecified (principal); E86.0 Dehydration | CPT/HCPCS: J1642; J7030 ==

== ENCOUNTER 2018-08-21 07:18 | Day surgery (SDC) | payer OTHER | END 2018-08-21 17:09 | disposition home or self-care (01) | LOC: ATC 07:18 | DX: E86.9 Volume depletion, unspecified (principal); E86.0 Dehydration | CPT/HCPCS: 96360; 96361; J1642; J7030 ==

== ENCOUNTER 2018-08-26 00:37 | Day surgery (SDC) | payer OTHER | END 2018-08-26 22:40 | disposition home or self-care (01) | LOC: ATC 00:37 | DX: E86.0 Dehydration (principal); E86.9 Volume depletion, unspecified | CPT/HCPCS: J1642; J7030 ==

== ENCOUNTER → 2018-08-28 | Day surgery (SDC) | payer OTHER | LOC: ATC 00:38 | DX: E86.9 Volume depletion, unspecified (principal); E86.0 Dehydration; N18.3 Chronic kidney disease, stage 3 (moderate); I12.9 Hypertensive chronic kidney disease with stage 1 through stage 4 chronic kidney disease, or unspecified chronic kidney disease; D63.1 Anemia in chronic kidney disease; Z95.4 Presence of other heart-valve replacement; Z79.899 Other long term (current) drug therapy | CPT/HCPCS: 96360; 96361; J1642; J7030 ==

== ENCOUNTER 2018-08-30 00:53 | Day surgery (SDC) | payer OTHER ==
--- NOTE | 2018-08-30 14:57 | NUR ---
SECOND IV NS 1000CC STARTED AT 1447.
--- NOTE | 2018-08-30 15:51 | NUR ---
2ND BAG DONE AT 1351 3RD BAG STARTED AT 1352
--- NOTE | 2018-08-30 17:09 | NUR ---
3RD IV NS DONE AT 1655.
--- NOTE | 2018-08-30 17:10 | NUR ---
LAB DRAWN FROM [facility]. 7CC OF BLOOD DISCARDED AND 11CC FOR LABS.
[2018-08-30 18:19] LABS: Albumin, Blood 3.2 g/dL (3.4-5.0); Anion Gap 6 mmol/L (6-16); Blood Urea Nitrogen 16 mg/dL (8-24); Bun/Creatinine Ratio 18.5 (12.0-20.0); CO2, Blood 24 mmol/L (21-32); Calcium, Blood 7.8 mg/dL (8.5-10.1); Chloride, Blood 110 mmol/L (98-108); Creatinine, Blood 0.87 mg/dL (0.60-1.20); Glomerular Filtration Rate >60 (60-); Glucose, Blood 232 mg/dL (70-99); Phosphorus, Blood 2.1 mg/dL (2.5-4.9); Potassium, Blood 4.6 mmol/L (3.5-5.5); Sodium, Blood 140 mmol/L (136-145)
== END 2018-08-30 17:05 | disposition home or self-care (01) ==
LOC: ATC 00:53
PROVIDERS: Internal Medicine Nephrology
DX: E86.9 Volume depletion, unspecified (principal); E86.0 Dehydration; N18.3 Chronic kidney disease, stage 3 (moderate); D63.1 Anemia in chronic kidney disease; I12.9 Hypertensive chronic kidney disease with stage 1 through stage 4 chronic kidney disease, or unspecified chronic kidney disease; Z79.899 Other long term (current) drug therapy
CPT/HCPCS: 80069; 80197; 85018; 96360; 96361; J1642; J7030

== ENCOUNTER 2018-09-02 00:14 | Day surgery (SDC) | payer OTHER | END 2018-09-02 16:54 | disposition home or self-care (01) | LOC: ATC 00:14 | DX: E86.9 Volume depletion, unspecified (principal); E86.0 Dehydration; N18.3 Chronic kidney disease, stage 3 (moderate); D63.1 Anemia in chronic kidney disease; I12.9 Hypertensive chronic kidney disease with stage 1 through stage 4 chronic kidney disease, or unspecified chronic kidney disease; Z79.899 Other long term (current) drug therapy | CPT/HCPCS: 96360; 96361; J1642; J7030 ==

== ENCOUNTER 2018-09-04 00:08 | Day surgery (SDC) | payer OTHER | END 2018-09-04 16:55 | disposition home or self-care (01) | LOC: ATC 00:08 | DX: E86.9 Volume depletion, unspecified (principal); E86.0 Dehydration; N18.3 Chronic kidney disease, stage 3 (moderate); D63.1 Anemia in chronic kidney disease; I12.9 Hypertensive chronic kidney disease with stage 1 through stage 4 chronic kidney disease, or unspecified chronic kidney disease; Z79.899 Other long term (current) drug therapy; Z95.4 Presence of other heart-valve replacement | CPT/HCPCS: 96360; 96361; J1642; J7030 ==

== ENCOUNTER 2018-09-13 00:22 | Day surgery (SDC) | payer OTHER | END 2018-09-13 17:01 | disposition home or self-care (01) | LOC: ATC 00:22 | DX: E86.9 Volume depletion, unspecified (principal); I12.9 Hypertensive chronic kidney disease with stage 1 through stage 4 chronic kidney disease, or unspecified chronic kidney disease; N18.3 Chronic kidney disease, stage 3 (moderate); D63.1 Anemia in chronic kidney disease; D50.9 Iron deficiency anemia, unspecified; Z79.899 Other long term (current) drug therapy; Z79.52 Long term (current) use of systemic steroids | CPT/HCPCS: 96360; 96361; J1642; J7030 ==

== ENCOUNTER 2018-09-16 00:32 | Day surgery (SDC) | payer OTHER | END 2018-09-16 17:07 | disposition home or self-care (01) | LOC: ATC 00:32 | DX: E86.9 Volume depletion, unspecified (principal); I12.9 Hypertensive chronic kidney disease with stage 1 through stage 4 chronic kidney disease, or unspecified chronic kidney disease; N18.3 Chronic kidney disease, stage 3 (moderate); D63.1 Anemia in chronic kidney disease; Z79.899 Other long term (current) drug therapy; Z79.52 Long term (current) use of systemic steroids | CPT/HCPCS: 96360; 96361; J1642; J7030 ==

== ENCOUNTER 2018-09-18 00:23 | Day surgery (SDC) | payer OTHER | END 2018-09-18 16:45 | disposition home or self-care (01) | LOC: ATC 00:23 | DX: E86.9 Volume depletion, unspecified (principal) | CPT/HCPCS: 96360; 96361; J1642; J7030 ==

== ENCOUNTER 2018-09-25 00:40 | Day surgery (SDC) | payer OTHER | END 2018-09-25 16:52 | disposition home or self-care (01) | LOC: ATC 00:40 | DX: E86.9 Volume depletion, unspecified (principal); I12.9 Hypertensive chronic kidney disease with stage 1 through stage 4 chronic kidney disease, or unspecified chronic kidney disease; N18.3 Chronic kidney disease, stage 3 (moderate); D63.1 Anemia in chronic kidney disease; Z79.899 Other long term (current) drug therapy | CPT/HCPCS: 96360; 96361; J1642; J7030 ==

== ENCOUNTER 2018-09-26 01:04 | Day surgery (SDC) | payer OTHER | END 2018-09-26 16:59 | disposition home or self-care (01) | LOC: ATC 01:04 | DX: E86.9 Volume depletion, unspecified (principal); I12.9 Hypertensive chronic kidney disease with stage 1 through stage 4 chronic kidney disease, or unspecified chronic kidney disease; N18.3 Chronic kidney disease, stage 3 (moderate); D63.1 Anemia in chronic kidney disease; Z79.899 Other long term (current) drug therapy; Z79.52 Long term (current) use of systemic steroids | CPT/HCPCS: 96360; 96361; J1642; J7030 ==

== ENCOUNTER 2018-09-30 00:09 | Day surgery (SDC) | payer OTHER | END 2018-09-30 16:48 | disposition home or self-care (01) | LOC: ATC 00:09 | DX: E86.9 Volume depletion, unspecified (principal); I12.9 Hypertensive chronic kidney disease with stage 1 through stage 4 chronic kidney disease, or unspecified chronic kidney disease; N18.3 Chronic kidney disease, stage 3 (moderate) | CPT/HCPCS: J1642; J7030 ==

== ENCOUNTER 2018-10-07 00:26 | Day surgery (SDC) | payer OTHER | END 2018-10-07 17:00 | disposition home or self-care (01) | LOC: ATC 00:26 | DX: E86.9 Volume depletion, unspecified (principal); I12.9 Hypertensive chronic kidney disease with stage 1 through stage 4 chronic kidney disease, or unspecified chronic kidney disease; N18.9 Chronic kidney disease, unspecified; D63.1 Anemia in chronic kidney disease; E78.5 Hyperlipidemia, unspecified | CPT/HCPCS: J1642; J7030 ==

== ENCOUNTER 2018-10-10 00:05 | Day surgery (SDC) | payer OTHER | END 2018-10-10 17:20 | disposition home or self-care (01) | LOC: ATC 00:05 | DX: E86.9 Volume depletion, unspecified (principal); E03.9 Hypothyroidism, unspecified; E11.42 Type 2 diabetes mellitus with diabetic polyneuropathy; I12.9 Hypertensive chronic kidney disease with stage 1 through stage 4 chronic kidney disease, or unspecified chronic kidney disease; E11.22 Type 2 diabetes mellitus with diabetic chronic kidney disease; N18.3 Chronic kidney disease, stage 3 (moderate); D63.1 Anemia in chronic kidney disease; D50.9 Iron deficiency anemia, unspecified; Z79.899 Other long term (current) drug therapy; Z79.52 Long term (current) use of systemic steroids | CPT/HCPCS: 96360; 96361; J1642; J7030 ==

== ENCOUNTER 2018-10-11 07:20 | Day surgery (SDC) | payer OTHER | END 2018-10-11 17:17 | disposition home or self-care (01) | LOC: ATC 07:20 | DX: E86.9 Volume depletion, unspecified (principal); I12.9 Hypertensive chronic kidney disease with stage 1 through stage 4 chronic kidney disease, or unspecified chronic kidney disease; N18.9 Chronic kidney disease, unspecified; D63.1 Anemia in chronic kidney disease | CPT/HCPCS: 96360; 96361; J1642; J7030 ==

== ENCOUNTER 2018-10-16 00:17 | Day surgery (SDC) | payer OTHER | END 2018-10-16 22:51 | disposition home or self-care (01) | LOC: ATC 00:17 | DX: E86.9 Volume depletion, unspecified (principal); I12.9 Hypertensive chronic kidney disease with stage 1 through stage 4 chronic kidney disease, or unspecified chronic kidney disease; N18.3 Chronic kidney disease, stage 3 (moderate); D63.1 Anemia in chronic kidney disease; Z79.899 Other long term (current) drug therapy | CPT/HCPCS: 96360; 96361; J1642; J7030 ==

== ENCOUNTER 2018-10-18 00:18 | Day surgery (SDC) | payer OTHER | END 2018-10-18 17:03 | disposition home or self-care (01) | LOC: ATC 00:18 | DX: E86.9 Volume depletion, unspecified (principal); I12.9 Hypertensive chronic kidney disease with stage 1 through stage 4 chronic kidney disease, or unspecified chronic kidney disease; N18.3 Chronic kidney disease, stage 3 (moderate); D63.1 Anemia in chronic kidney disease; Z79.899 Other long term (current) drug therapy | CPT/HCPCS: 96360; 96361; J1642; J7030 ==

== ENCOUNTER 2018-10-21 00:05 | Day surgery (SDC) | payer OTHER | END 2018-10-21 17:05 | disposition home or self-care (01) | LOC: ATC 00:05 | DX: E86.9 Volume depletion, unspecified (principal); I12.9 Hypertensive chronic kidney disease with stage 1 through stage 4 chronic kidney disease, or unspecified chronic kidney disease; N18.3 Chronic kidney disease, stage 3 (moderate); D63.1 Anemia in chronic kidney disease; D50.9 Iron deficiency anemia, unspecified; Z79.899 Other long term (current) drug therapy; Z79.52 Long term (current) use of systemic steroids | CPT/HCPCS: 96360; 96361; J1642; J7030 ==

== ENCOUNTER 2018-10-23 00:03 | Day surgery (SDC) | payer OTHER | END 2018-10-23 16:58 | disposition home or self-care (01) | LOC: ATC 00:03 | DX: E86.9 Volume depletion, unspecified (principal); I12.9 Hypertensive chronic kidney disease with stage 1 through stage 4 chronic kidney disease, or unspecified chronic kidney disease; N18.3 Chronic kidney disease, stage 3 (moderate); D63.1 Anemia in chronic kidney disease; D50.9 Iron deficiency anemia, unspecified; Z79.899 Other long term (current) drug therapy | CPT/HCPCS: 96360; 96361; J1642; J7030 ==

== ENCOUNTER 2018-10-28 00:27 | Day surgery (SDC) | payer OTHER | END 2018-10-28 22:44 | disposition home or self-care (01) | LOC: ATC 00:27 | DX: E86.9 Volume depletion, unspecified (principal); I12.9 Hypertensive chronic kidney disease with stage 1 through stage 4 chronic kidney disease, or unspecified chronic kidney disease; N18.3 Chronic kidney disease, stage 3 (moderate); D63.1 Anemia in chronic kidney disease; D50.9 Iron deficiency anemia, unspecified; Z79.899 Other long term (current) drug therapy; Z79.52 Long term (current) use of systemic steroids | CPT/HCPCS: 96360; 96361; J1642; J7030 ==

== ENCOUNTER 2018-10-30 00:23 | Day surgery (SDC) | payer OTHER | END 2018-10-31 22:51 | disposition home or self-care (01) | LOC: ATC 00:23 | DX: E86.9 Volume depletion, unspecified (principal); I12.9 Hypertensive chronic kidney disease with stage 1 through stage 4 chronic kidney disease, or unspecified chronic kidney disease; N18.9 Chronic kidney disease, unspecified; D63.1 Anemia in chronic kidney disease | CPT/HCPCS: 96360; 96361; J1642; J7030 ==

== ENCOUNTER 2018-11-04 00:06 | Day surgery (SDC) | payer OTHER | END 2018-11-04 22:58 | disposition home or self-care (01) | LOC: ATC 00:06 | DX: E86.9 Volume depletion, unspecified (principal); I12.9 Hypertensive chronic kidney disease with stage 1 through stage 4 chronic kidney disease, or unspecified chronic kidney disease; N18.3 Chronic kidney disease, stage 3 (moderate); D63.1 Anemia in chronic kidney disease; D50.9 Iron deficiency anemia, unspecified; Z79.899 Other long term (current) drug therapy | CPT/HCPCS: 96360; 96361; J1642; J7030 ==

== ENCOUNTER 2018-11-06 00:19 | Day surgery (SDC) | payer OTHER | END 2018-11-06 16:30 | disposition home or self-care (01) | LOC: ATC 00:19 | DX: E86.9 Volume depletion, unspecified (principal); I12.9 Hypertensive chronic kidney disease with stage 1 through stage 4 chronic kidney disease, or unspecified chronic kidney disease; N18.3 Chronic kidney disease, stage 3 (moderate); D63.1 Anemia in chronic kidney disease; Z79.899 Other long term (current) drug therapy | CPT/HCPCS: 96360; 96361; J1642; J7030 ==

== ENCOUNTER 2018-11-09 08:03 | Day surgery (SDC) | payer OTHER ==
[2018-11-09 08:54] LABS: BASOPHILS ABSOLUTE AUTO 0.02 K/mm3 (0.00-0.23); BASOPHILS PERCENT AUTO 0 % (0-2); EOSINOPHILS ABSOLUTE AUTO 0.05 K/mm3 (0.00-0.68); EOSINOPHILS PERCENT AUTO 1 % (0-6); Hematocrit 34.8 % (37.0-53.0); IMMATURE GRAN ABSOLUTE AUTO 0.06 K/mm3 (0.00-0.10); IMMATURE GRAN PERCENT AUTO 1 % (0-1); LYMPHOCYTES ABSOLUTE AUTO 1.31 K/mm3 (0.84-5.20); LYMPHOCYTES PERCENT AUTO 15 % (21-46); MONOCYTES ABSOLUTE AUTO 0.69 K/mm3 (0.16-1.47); MONOCYTES PERCENT AUTO 8 % (4-13); Mean Corpuscular HGB 28.6 pg (26.0-34.0); Mean Corpuscular HGB Conc 31.6 g/dL (31.5-36.5); Mean Corpuscular Volume 91 fL (80-100); Mean Platelet Volume 10.6 fL (9.1-12.4); NEUTROPHILS ABSOLUTE AUTO 6.83 K/mm3 (1.96-9.15); NEUTROPHILS PERCENT AUTO 76 % (41-73); Platelet Count 199 K/mm3 (150-400); RDW Coefficient Variation 13.2 % (11.7-14.2); RDW Standard Deviation 42.9 fL (35.1-46.3); Red Blood Cell Count 3.84 M/mm3 (4.30-5.90); White Blood Cell Count 8.96 K/mm3 (4.00-11.30)
[2018-11-09 09:19] LABS: Alanine Aminotransfer (ALT/SGP 20 U/L (12-78); Albumin, Blood 3.6 g/dL (3.4-5.0); Albumin/Globulin Ratio 1.3 (0.8-1.8); Alk Phos 60 U/L (50-136); Anion Gap 8 mmol/L (6-16); Aspartate Aminotrans (AST/SGOT 12 U/L (12-37); Bilirubin, Direct 0.1 mg/dL (0.0-0.3); Bilirubin, Indirect 0.3 mg/dL (0.1-0.7); Bilirubin, Total 0.4 mg/dL (0.1-1.0); Blood Urea Nitrogen 20 mg/dL (8-24); Bun/Creatinine Ratio 19.8 (12.0-20.0); CO2, Blood 24 mmol/L (21-32); Calcium, Blood 9.1 mg/dL (8.5-10.1); Chloride, Blood 112 mmol/L (98-108); Creatinine, Blood 1.01 mg/dL (0.60-1.20); Globulin, Blood 2.8 g/dL (2.2-4.0); Glomerular Filtration Rate >60 (60-); Glucose, Blood 85 mg/dL (70-99); Phosphorus, Blood 3.2 mg/dL (2.5-4.9); Potassium, Blood 4.2 mmol/L (3.5-5.5); Sodium, Blood 144 mmol/L (136-145); Total Protein, Blood 6.4 g/dL (6.4-8.2)
[2018-11-09 09:39] LABS: Percent Saturation 16.7 % (20.0-50.0)
== END 2018-11-09 11:55 | disposition home or self-care (01) ==
LOC: ATC 08:03
PROVIDERS: Internal Medicine Nephrology
DX: E86.9 Volume depletion, unspecified (principal); I12.9 Hypertensive chronic kidney disease with stage 1 through stage 4 chronic kidney disease, or unspecified chronic kidney disease; N18.3 Chronic kidney disease, stage 3 (moderate); D63.1 Anemia in chronic kidney disease; D50.9 Iron deficiency anemia, unspecified; N28.81 Hypertrophy of kidney; E55.9 Vitamin D deficiency, unspecified; E78.00 Pure hypercholesterolemia, unspecified; D51.8 Other vitamin B12 deficiency anemias; D52.8 Other folate deficiency anemias; R76.9 Abnormal immunological finding in serum, unspecified; R94.5 Abnormal results of liver function studies; R94.8 Abnormal results of function studies of other organs and systems; Z94.0 Kidney transplant status; Z79.899 Other long term (current) drug therapy; Z79.52 Long term (current) use of systemic steroids
CPT/HCPCS: 80053; 80197; 82248; 82306; 82607; 82728; 82746; 83540; 83550; 83970; 84100; 85025; 96360; 96361; J1642; J7030

== ENCOUNTER 2018-11-13 13:27 | Day surgery (SDC) | payer OTHER | END 2018-11-13 22:54 | disposition home or self-care (01) | LOC: ATC 13:27 | DX: E86.9 Volume depletion, unspecified (principal); I12.9 Hypertensive chronic kidney disease with stage 1 through stage 4 chronic kidney disease, or unspecified chronic kidney disease; N18.3 Chronic kidney disease, stage 3 (moderate); D63.1 Anemia in chronic kidney disease; Z79.899 Other long term (current) drug therapy | CPT/HCPCS: J1642; J7030 ==

== ENCOUNTER 2018-11-18 13:35 | Day surgery (SDC) | payer OTHER | END 2018-11-18 16:58 | disposition home or self-care (01) | LOC: ATC 13:35 | DX: E86.9 Volume depletion, unspecified (principal); I12.9 Hypertensive chronic kidney disease with stage 1 through stage 4 chronic kidney disease, or unspecified chronic kidney disease; N18.3 Chronic kidney disease, stage 3 (moderate); D63.1 Anemia in chronic kidney disease; D50.9 Iron deficiency anemia, unspecified; E55.9 Vitamin D deficiency, unspecified; Z79.899 Other long term (current) drug therapy | CPT/HCPCS: J1642; J7030 ==

== ENCOUNTER 2018-11-20 00:39 | Day surgery (SDC) | payer OTHER | END 2018-11-20 16:55 | disposition home or self-care (01) | LOC: ATC 00:39 | DX: E86.9 Volume depletion, unspecified (principal); I12.9 Hypertensive chronic kidney disease with stage 1 through stage 4 chronic kidney disease, or unspecified chronic kidney disease; N18.2 Chronic kidney disease, stage 2 (mild); D63.1 Anemia in chronic kidney disease; D50.9 Iron deficiency anemia, unspecified; E55.9 Vitamin D deficiency, unspecified; E78.00 Pure hypercholesterolemia, unspecified; Z79.899 Other long term (current) drug therapy; Z79.52 Long term (current) use of systemic steroids | CPT/HCPCS: 96360; 96361; J1642; J7030 ==

== ENCOUNTER 2018-11-22 00:23 | Day surgery (SDC) | payer OTHER ==
[2018-11-22] MEDS ORDERED: GABA300 PO (14:20)
[2018-11-22] MEDS ORDERED: Fish Oil Conc1000 MG PO (17:14)
[2018-11-25] MEDS ORDERED: CLONIDINE HCL0.1 MG PO (11:49)
[2018-11-25] MEDS ORDERED: BUME2 PO (11:50)
[2018-11-25] MEDS ORDERED: OMEG1CAP30 PO (12:02)
[2018-11-25] MEDS ORDERED: MYCO250 PO (12:14)
== END 2018-11-22 23:02 | disposition home or self-care (01) ==
LOC: ATC 00:23
DX: E86.9 Volume depletion, unspecified (principal); I12.9 Hypertensive chronic kidney disease with stage 1 through stage 4 chronic kidney disease, or unspecified chronic kidney disease; E11.22 Type 2 diabetes mellitus with diabetic chronic kidney disease; N18.3 Chronic kidney disease, stage 3 (moderate); D63.1 Anemia in chronic kidney disease; D50.9 Iron deficiency anemia, unspecified; Z79.899 Other long term (current) drug therapy; Z79.52 Long term (current) use of systemic steroids
CPT/HCPCS: 83036; 96360; 96361; J1642; J7030

== ENCOUNTER 2018-11-27 00:15 | Day surgery (SDC) | payer OTHER ==
[~2018-11-27 00:15] MED LIST changes: +BUME2 PO; +CLONIDINE HCL0.1 MG PO; +Fish Oil Conc1000 MG PO; +GABA300 PO
== END 2018-11-27 17:00 | disposition home or self-care (01) ==
LOC: ATC 00:15
DX: Z45.2 Encounter for adjustment and management of vascular access device (principal); I12.9 Hypertensive chronic kidney disease with stage 1 through stage 4 chronic kidney disease, or unspecified chronic kidney disease; N18.9 Chronic kidney disease, unspecified; D63.1 Anemia in chronic kidney disease
CPT/HCPCS: 96360; 96361; J1642; J7030

== ENCOUNTER 2018-12-02 00:29 | Day surgery (SDC) | payer OTHER ==
[~2018-12-02 00:29] MED LIST changes: -ACYC200 PO; -BUME2 PO; -CLONIDINE HCL0.1 MG PO; -COLCRYS0.6 MG PO; -GABA300 PO; -INSR10I; -K-Phos Origina500 MG PO
[2019-02-06] MEDS ORDERED: Amlodipine Bes2.5 MG PO (09:36)
[2019-02-06] MEDS ORDERED: LOSA50 PO (09:36)
[2019-02-06] MEDS ORDERED: METO50 PO (09:36)
[2019-02-06] MEDS ORDERED: CLONIDINE HCL0.1 MG PO (09:37)
[2019-02-06] MEDS ORDERED: Bumetanide1 MG PO (09:37)
[2019-02-06] MEDS ORDERED: ATOR20 PO (09:37)
[2019-02-06] MEDS ORDERED: LOVAZA1 GM PO (09:38)
[2019-02-06] MEDS ORDERED: GEMF600 PO (09:38)
[2019-02-06] MEDS ORDERED: TACR1 PO (09:39)
[2019-02-06] MEDS ORDERED: PRED5 PO (09:40)
[2019-02-06] MEDS ORDERED: Cellcept500 MG PO ×2 (09:40)
[2019-02-06] MEDS ORDERED: CALC.25 PO (09:41)
[2019-02-06] MEDS ORDERED: Diflucan50 MG PO (09:41)
[2019-02-06] MEDS ORDERED: COMPAZINE10 MG PO (09:42)
[2019-02-06] MEDS ORDERED: AMIT50 PO (09:42)
[2019-02-06] MEDS ORDERED: ALEN70 PO (09:43)
[2019-02-06] MEDS ORDERED: ARANESP10 MCG/0.4 IM (09:44)
[2019-02-06] MEDS ORDERED: CYCL10 PO (09:44)
[2019-02-06] MEDS ORDERED: ACYC200 PO (09:45)
[2019-02-06] MEDS ORDERED: BUPR150ER PO (09:45)
[2019-02-06] MEDS ORDERED: GLIP5 PO (09:45)
[2019-02-06] MEDS ORDERED: CYAN1000I IM (09:45)
[2019-02-06] MEDS ORDERED: ALLO100 PO (09:46)
[2019-02-06] MEDS ORDERED: K-Phos Origina500 MG PO (09:46)
[2019-02-06] MEDS ORDERED: Flonase 0.05% N16 GM (09:46)
[2019-02-06] MEDS ORDERED: LANS30EC PO (09:47)
[2019-02-06] MEDS ORDERED: COLCRYS0.6 MG PO (09:47)
[2019-02-06] MEDS ORDERED: OXYC5 PO (09:48)
[2019-02-06] MEDS ORDERED: INSR10I (09:48)
[2019-02-06] MEDS ORDERED: INSULANPEN SC (09:48)
[2019-02-06] MEDS ORDERED: GABA300 PO (09:49)
[2019-02-06] MEDS ORDERED: DIAZ5 PO (09:49)
== END 2018-12-02 17:00 | disposition home or self-care (01) ==
LOC: ATC 00:29
DX: I12.9 Hypertensive chronic kidney disease with stage 1 through stage 4 chronic kidney disease, or unspecified chronic kidney disease (principal); N18.2 Chronic kidney disease, stage 2 (mild); D63.1 Anemia in chronic kidney disease; E86.9 Volume depletion, unspecified; Z79.899 Other long term (current) drug therapy; Z94.0 Kidney transplant status
CPT/HCPCS: 96360; 96361; J1642; J7030

== ENCOUNTER 2018-12-04 00:14 | Day surgery (SDC) | payer OTHER ==
[2019-02-06] MEDS ORDERED: METO50 PO (09:36)
[2019-02-06] MEDS ORDERED: Amlodipine Bes2.5 MG PO (09:36)
[2019-02-06] MEDS ORDERED: LOSA50 PO (09:36)
[2019-02-06] MEDS ORDERED: CLONIDINE HCL0.1 MG PO (09:37)
[2019-02-06] MEDS ORDERED: ATOR20 PO (09:37)
[2019-02-06] MEDS ORDERED: Bumetanide1 MG PO (09:37)
[2019-02-06] MEDS ORDERED: LOVAZA1 GM PO (09:38)
[2019-02-06] MEDS ORDERED: GEMF600 PO (09:38)
[2019-02-06] MEDS ORDERED: TACR1 PO (09:39)
[2019-02-06] MEDS ORDERED: PRED5 PO (09:40)
[2019-02-06] MEDS ORDERED: Cellcept500 MG PO ×2 (09:40)
[2019-02-06] MEDS ORDERED: Diflucan50 MG PO (09:41)
[2019-02-06] MEDS ORDERED: CALC.25 PO (09:41)
[2019-02-06] MEDS ORDERED: COMPAZINE10 MG PO (09:42)
[2019-02-06] MEDS ORDERED: AMIT50 PO (09:42)
[2019-02-06] MEDS ORDERED: ALEN70 PO (09:43)
[2019-02-06] MEDS ORDERED: CYCL10 PO (09:44)
[2019-02-06] MEDS ORDERED: ARANESP10 MCG/0.4 IM (09:44)
[2019-02-06] MEDS ORDERED: BUPR150ER PO (09:45)
[2019-02-06] MEDS ORDERED: CYAN1000I IM (09:45)
[2019-02-06] MEDS ORDERED: GLIP5 PO (09:45)
[2019-02-06] MEDS ORDERED: ACYC200 PO (09:45)
[2019-02-06] MEDS ORDERED: Flonase 0.05% N16 GM (09:46)
[2019-02-06] MEDS ORDERED: ALLO100 PO (09:46)
[2019-02-06] MEDS ORDERED: K-Phos Origina500 MG PO (09:46)
[2019-02-06] MEDS ORDERED: COLCRYS0.6 MG PO (09:47)
[2019-02-06] MEDS ORDERED: LANS30EC PO (09:47)
[2019-02-06] MEDS ORDERED: OXYC5 PO (09:48)
[2019-02-06] MEDS ORDERED: INSR10I (09:48)
[2019-02-06] MEDS ORDERED: INSULANPEN SC (09:48)
[2019-02-06] MEDS ORDERED: DIAZ5 PO (09:49)
[2019-02-06] MEDS ORDERED: GABA300 PO (09:49)
== END 2018-12-04 17:10 | disposition home or self-care (01) ==
LOC: ATC 00:14
DX: E86.9 Volume depletion, unspecified (principal); I12.9 Hypertensive chronic kidney disease with stage 1 through stage 4 chronic kidney disease, or unspecified chronic kidney disease; E11.22 Type 2 diabetes mellitus with diabetic chronic kidney disease; N18.3 Chronic kidney disease, stage 3 (moderate); D63.1 Anemia in chronic kidney disease; Z94.0 Kidney transplant status
CPT/HCPCS: 96360; 96361; J1642; J7030

== ENCOUNTER 2018-12-06 02:07 | Day surgery (SDC) | payer OTHER ==
[2019-02-06] MEDS ORDERED: LOSA50 PO (09:36)
[2019-02-06] MEDS ORDERED: Amlodipine Bes2.5 MG PO (09:36)
[2019-02-06] MEDS ORDERED: METO50 PO (09:36)
[2019-02-06] MEDS ORDERED: Bumetanide1 MG PO (09:37)
[2019-02-06] MEDS ORDERED: ATOR20 PO (09:37)
[2019-02-06] MEDS ORDERED: CLONIDINE HCL0.1 MG PO (09:37)
[2019-02-06] MEDS ORDERED: LOVAZA1 GM PO (09:38)
[2019-02-06] MEDS ORDERED: GEMF600 PO (09:38)
[2019-02-06] MEDS ORDERED: TACR1 PO (09:39)
[2019-02-06] MEDS ORDERED: PRED5 PO (09:40)
[2019-02-06] MEDS ORDERED: Cellcept500 MG PO ×2 (09:40)
[2019-02-06] MEDS ORDERED: CALC.25 PO (09:41)
[2019-02-06] MEDS ORDERED: Diflucan50 MG PO (09:41)
[2019-02-06] MEDS ORDERED: COMPAZINE10 MG PO (09:42)
[2019-02-06] MEDS ORDERED: AMIT50 PO (09:42)
[2019-02-06] MEDS ORDERED: ALEN70 PO (09:43)
[2019-02-06] MEDS ORDERED: CYCL10 PO (09:44)
[2019-02-06] MEDS ORDERED: ARANESP10 MCG/0.4 IM (09:44)
[2019-02-06] MEDS ORDERED: CYAN1000I IM (09:45)
[2019-02-06] MEDS ORDERED: ACYC200 PO (09:45)
[2019-02-06] MEDS ORDERED: BUPR150ER PO (09:45)
[2019-02-06] MEDS ORDERED: GLIP5 PO (09:45)
[2019-02-06] MEDS ORDERED: ALLO100 PO (09:46)
[2019-02-06] MEDS ORDERED: K-Phos Origina500 MG PO (09:46)
[2019-02-06] MEDS ORDERED: Flonase 0.05% N16 GM (09:46)
[2019-02-06] MEDS ORDERED: LANS30EC PO (09:47)
[2019-02-06] MEDS ORDERED: COLCRYS0.6 MG PO (09:47)
[2019-02-06] MEDS ORDERED: INSULANPEN SC (09:48)
[2019-02-06] MEDS ORDERED: INSR10I (09:48)
[2019-02-06] MEDS ORDERED: OXYC5 PO (09:48)
[2019-02-06] MEDS ORDERED: DIAZ5 PO (09:49)
[2019-02-06] MEDS ORDERED: GABA300 PO (09:49)
== END 2018-12-06 17:37 | disposition home or self-care (01) ==
LOC: ATC 02:07
DX: I12.9 Hypertensive chronic kidney disease with stage 1 through stage 4 chronic kidney disease, or unspecified chronic kidney disease (principal); N18.2 Chronic kidney disease, stage 2 (mild); D63.1 Anemia in chronic kidney disease; E86.9 Volume depletion, unspecified; Z79.899 Other long term (current) drug therapy; Z79.52 Long term (current) use of systemic steroids; E78.00 Pure hypercholesterolemia, unspecified; E55.9 Vitamin D deficiency, unspecified; Z94.0 Kidney transplant status
CPT/HCPCS: 96360; 96361; J1642; J7030

== ENCOUNTER 2018-12-09 00:22 | Day surgery (SDC) | payer OTHER ==
[2019-02-06] MEDS ORDERED: LOSA50 PO (09:36)
[2019-02-06] MEDS ORDERED: Amlodipine Bes2.5 MG PO (09:36)
[2019-02-06] MEDS ORDERED: METO50 PO (09:36)
[2019-02-06] MEDS ORDERED: ATOR20 PO (09:37)
[2019-02-06] MEDS ORDERED: CLONIDINE HCL0.1 MG PO (09:37)
[2019-02-06] MEDS ORDERED: Bumetanide1 MG PO (09:37)
[2019-02-06] MEDS ORDERED: GEMF600 PO (09:38)
[2019-02-06] MEDS ORDERED: LOVAZA1 GM PO (09:38)
[2019-02-06] MEDS ORDERED: TACR1 PO (09:39)
[2019-02-06] MEDS ORDERED: PRED5 PO (09:40)
[2019-02-06] MEDS ORDERED: Cellcept500 MG PO ×2 (09:40)
[2019-02-06] MEDS ORDERED: CALC.25 PO (09:41)
[2019-02-06] MEDS ORDERED: Diflucan50 MG PO (09:41)
[2019-02-06] MEDS ORDERED: AMIT50 PO (09:42)
[2019-02-06] MEDS ORDERED: COMPAZINE10 MG PO (09:42)
[2019-02-06] MEDS ORDERED: ALEN70 PO (09:43)
[2019-02-06] MEDS ORDERED: ARANESP10 MCG/0.4 IM (09:44)
[2019-02-06] MEDS ORDERED: CYCL10 PO (09:44)
[2019-02-06] MEDS ORDERED: BUPR150ER PO (09:45)
[2019-02-06] MEDS ORDERED: ACYC200 PO (09:45)
[2019-02-06] MEDS ORDERED: CYAN1000I IM (09:45)
[2019-02-06] MEDS ORDERED: GLIP5 PO (09:45)
[2019-02-06] MEDS ORDERED: ALLO100 PO (09:46)
[2019-02-06] MEDS ORDERED: K-Phos Origina500 MG PO (09:46)
[2019-02-06] MEDS ORDERED: Flonase 0.05% N16 GM (09:46)
[2019-02-06] MEDS ORDERED: LANS30EC PO (09:47)
[2019-02-06] MEDS ORDERED: COLCRYS0.6 MG PO (09:47)
[2019-02-06] MEDS ORDERED: INSR10I (09:48)
[2019-02-06] MEDS ORDERED: OXYC5 PO (09:48)
[2019-02-06] MEDS ORDERED: INSULANPEN SC (09:48)
[2019-02-06] MEDS ORDERED: DIAZ5 PO (09:49)
[2019-02-06] MEDS ORDERED: GABA300 PO (09:49)
== END 2018-12-09 16:59 | disposition home or self-care (01) ==
LOC: ATC 00:22
DX: E86.9 Volume depletion, unspecified (principal); I12.9 Hypertensive chronic kidney disease with stage 1 through stage 4 chronic kidney disease, or unspecified chronic kidney disease; E11.22 Type 2 diabetes mellitus with diabetic chronic kidney disease; N18.9 Chronic kidney disease, unspecified; D63.1 Anemia in chronic kidney disease; E78.00 Pure hypercholesterolemia, unspecified; Z94.0 Kidney transplant status
CPT/HCPCS: 96360; 96361; J1642; J7030

== ENCOUNTER 2018-12-11 00:04 | Day surgery (SDC) | payer OTHER ==
[2019-02-06] MEDS ORDERED: Amlodipine Bes2.5 MG PO (09:36)
[2019-02-06] MEDS ORDERED: METO50 PO (09:36)
[2019-02-06] MEDS ORDERED: LOSA50 PO (09:36)
[2019-02-06] MEDS ORDERED: ATOR20 PO (09:37)
[2019-02-06] MEDS ORDERED: CLONIDINE HCL0.1 MG PO (09:37)
[2019-02-06] MEDS ORDERED: Bumetanide1 MG PO (09:37)
[2019-02-06] MEDS ORDERED: LOVAZA1 GM PO (09:38)
[2019-02-06] MEDS ORDERED: GEMF600 PO (09:38)
[2019-02-06] MEDS ORDERED: TACR1 PO (09:39)
[2019-02-06] MEDS ORDERED: Cellcept500 MG PO ×2 (09:40)
[2019-02-06] MEDS ORDERED: PRED5 PO (09:40)
[2019-02-06] MEDS ORDERED: Diflucan50 MG PO (09:41)
[2019-02-06] MEDS ORDERED: CALC.25 PO (09:41)
[2019-02-06] MEDS ORDERED: AMIT50 PO (09:42)
[2019-02-06] MEDS ORDERED: COMPAZINE10 MG PO (09:42)
[2019-02-06] MEDS ORDERED: ALEN70 PO (09:43)
[2019-02-06] MEDS ORDERED: ARANESP10 MCG/0.4 IM (09:44)
[2019-02-06] MEDS ORDERED: CYCL10 PO (09:44)
[2019-02-06] MEDS ORDERED: BUPR150ER PO (09:45)
[2019-02-06] MEDS ORDERED: GLIP5 PO (09:45)
[2019-02-06] MEDS ORDERED: CYAN1000I IM (09:45)
[2019-02-06] MEDS ORDERED: ACYC200 PO (09:45)
[2019-02-06] MEDS ORDERED: K-Phos Origina500 MG PO (09:46)
[2019-02-06] MEDS ORDERED: ALLO100 PO (09:46)
[2019-02-06] MEDS ORDERED: Flonase 0.05% N16 GM (09:46)
[2019-02-06] MEDS ORDERED: LANS30EC PO (09:47)
[2019-02-06] MEDS ORDERED: COLCRYS0.6 MG PO (09:47)
[2019-02-06] MEDS ORDERED: INSULANPEN SC (09:48)
[2019-02-06] MEDS ORDERED: OXYC5 PO (09:48)
[2019-02-06] MEDS ORDERED: INSR10I (09:48)
[2019-02-06] MEDS ORDERED: DIAZ5 PO (09:49)
[2019-02-06] MEDS ORDERED: GABA300 PO (09:49)
== END 2018-12-11 16:54 | disposition home or self-care (01) ==
LOC: ATC 00:04
DX: E86.9 Volume depletion, unspecified (principal); I12.9 Hypertensive chronic kidney disease with stage 1 through stage 4 chronic kidney disease, or unspecified chronic kidney disease; E11.22 Type 2 diabetes mellitus with diabetic chronic kidney disease; N18.2 Chronic kidney disease, stage 2 (mild); D63.1 Anemia in chronic kidney disease; E55.9 Vitamin D deficiency, unspecified; E78.00 Pure hypercholesterolemia, unspecified; Z79.899 Other long term (current) drug therapy; Z79.52 Long term (current) use of systemic steroids; Z94.0 Kidney transplant status
CPT/HCPCS: 96360; 96361; J1642; J7030

== ENCOUNTER 2018-12-13 00:23 | Day surgery (SDC) | payer OTHER ==
[2019-02-06] MEDS ORDERED: Amlodipine Bes2.5 MG PO (09:36)
[2019-02-06] MEDS ORDERED: METO50 PO (09:36)
[2019-02-06] MEDS ORDERED: LOSA50 PO (09:36)
[2019-02-06] MEDS ORDERED: CLONIDINE HCL0.1 MG PO (09:37)
[2019-02-06] MEDS ORDERED: ATOR20 PO (09:37)
[2019-02-06] MEDS ORDERED: Bumetanide1 MG PO (09:37)
[2019-02-06] MEDS ORDERED: LOVAZA1 GM PO (09:38)
[2019-02-06] MEDS ORDERED: GEMF600 PO (09:38)
[2019-02-06] MEDS ORDERED: TACR1 PO (09:39)
[2019-02-06] MEDS ORDERED: Cellcept500 MG PO ×2 (09:40)
[2019-02-06] MEDS ORDERED: PRED5 PO (09:40)
[2019-02-06] MEDS ORDERED: CALC.25 PO (09:41)
[2019-02-06] MEDS ORDERED: Diflucan50 MG PO (09:41)
[2019-02-06] MEDS ORDERED: COMPAZINE10 MG PO (09:42)
[2019-02-06] MEDS ORDERED: AMIT50 PO (09:42)
[2019-02-06] MEDS ORDERED: ALEN70 PO (09:43)
[2019-02-06] MEDS ORDERED: ARANESP10 MCG/0.4 IM (09:44)
[2019-02-06] MEDS ORDERED: CYCL10 PO (09:44)
[2019-02-06] MEDS ORDERED: CYAN1000I IM (09:45)
[2019-02-06] MEDS ORDERED: GLIP5 PO (09:45)
[2019-02-06] MEDS ORDERED: BUPR150ER PO (09:45)
[2019-02-06] MEDS ORDERED: ACYC200 PO (09:45)
[2019-02-06] MEDS ORDERED: K-Phos Origina500 MG PO (09:46)
[2019-02-06] MEDS ORDERED: Flonase 0.05% N16 GM (09:46)
[2019-02-06] MEDS ORDERED: ALLO100 PO (09:46)
[2019-02-06] MEDS ORDERED: COLCRYS0.6 MG PO (09:47)
[2019-02-06] MEDS ORDERED: LANS30EC PO (09:47)
[2019-02-06] MEDS ORDERED: INSR10I (09:48)
[2019-02-06] MEDS ORDERED: OXYC5 PO (09:48)
[2019-02-06] MEDS ORDERED: INSULANPEN SC (09:48)
[2019-02-06] MEDS ORDERED: DIAZ5 PO (09:49)
[2019-02-06] MEDS ORDERED: GABA300 PO (09:49)
== END 2018-12-13 17:20 | disposition home or self-care (01) ==
LOC: ATC 00:23
DX: E86.9 Volume depletion, unspecified (principal); I12.9 Hypertensive chronic kidney disease with stage 1 through stage 4 chronic kidney disease, or unspecified chronic kidney disease; N18.2 Chronic kidney disease, stage 2 (mild); D63.1 Anemia in chronic kidney disease; D50.9 Iron deficiency anemia, unspecified; E55.9 Vitamin D deficiency, unspecified; E78.00 Pure hypercholesterolemia, unspecified; Z94.0 Kidney transplant status; Z79.899 Other long term (current) drug therapy; Z79.52 Long term (current) use of systemic steroids
CPT/HCPCS: 96360; 96361; J1642; J7030

== ENCOUNTER 2018-12-16 00:10 | Day surgery (SDC) | payer OTHER ==
[2019-02-06] MEDS ORDERED: METO50 PO (09:36)
[2019-02-06] MEDS ORDERED: LOSA50 PO (09:36)
[2019-02-06] MEDS ORDERED: Amlodipine Bes2.5 MG PO (09:36)
[2019-02-06] MEDS ORDERED: ATOR20 PO (09:37)
[2019-02-06] MEDS ORDERED: CLONIDINE HCL0.1 MG PO (09:37)
[2019-02-06] MEDS ORDERED: Bumetanide1 MG PO (09:37)
[2019-02-06] MEDS ORDERED: GEMF600 PO (09:38)
[2019-02-06] MEDS ORDERED: LOVAZA1 GM PO (09:38)
[2019-02-06] MEDS ORDERED: TACR1 PO (09:39)
[2019-02-06] MEDS ORDERED: Cellcept500 MG PO ×2 (09:40)
[2019-02-06] MEDS ORDERED: PRED5 PO (09:40)
[2019-02-06] MEDS ORDERED: CALC.25 PO (09:41)
[2019-02-06] MEDS ORDERED: Diflucan50 MG PO (09:41)
[2019-02-06] MEDS ORDERED: AMIT50 PO (09:42)
[2019-02-06] MEDS ORDERED: COMPAZINE10 MG PO (09:42)
[2019-02-06] MEDS ORDERED: ALEN70 PO (09:43)
[2019-02-06] MEDS ORDERED: ARANESP10 MCG/0.4 IM (09:44)
[2019-02-06] MEDS ORDERED: CYCL10 PO (09:44)
[2019-02-06] MEDS ORDERED: GLIP5 PO (09:45)
[2019-02-06] MEDS ORDERED: CYAN1000I IM (09:45)
[2019-02-06] MEDS ORDERED: BUPR150ER PO (09:45)
[2019-02-06] MEDS ORDERED: ACYC200 PO (09:45)
[2019-02-06] MEDS ORDERED: Flonase 0.05% N16 GM (09:46)
[2019-02-06] MEDS ORDERED: K-Phos Origina500 MG PO (09:46)
[2019-02-06] MEDS ORDERED: ALLO100 PO (09:46)
[2019-02-06] MEDS ORDERED: LANS30EC PO (09:47)
[2019-02-06] MEDS ORDERED: COLCRYS0.6 MG PO (09:47)
[2019-02-06] MEDS ORDERED: INSULANPEN SC (09:48)
[2019-02-06] MEDS ORDERED: OXYC5 PO (09:48)
[2019-02-06] MEDS ORDERED: INSR10I (09:48)
[2019-02-06] MEDS ORDERED: DIAZ5 PO (09:49)
[2019-02-06] MEDS ORDERED: GABA300 PO (09:49)
== END 2018-12-16 16:59 | disposition home or self-care (01) ==
LOC: ATC 00:10
DX: E86.9 Volume depletion, unspecified (principal); I12.9 Hypertensive chronic kidney disease with stage 1 through stage 4 chronic kidney disease, or unspecified chronic kidney disease; E11.22 Type 2 diabetes mellitus with diabetic chronic kidney disease; N18.2 Chronic kidney disease, stage 2 (mild); D63.1 Anemia in chronic kidney disease; E11.21 Type 2 diabetes mellitus with diabetic nephropathy; E55.9 Vitamin D deficiency, unspecified; E78.00 Pure hypercholesterolemia, unspecified; Z79.899 Other long term (current) drug therapy; Z79.52 Long term (current) use of systemic steroids; Z94.0 Kidney transplant status
CPT/HCPCS: 96360; 96361; J1642; J7030

== ENCOUNTER 2018-12-18 00:26 | Day surgery (SDC) | payer OTHER ==
[2019-02-06] MEDS ORDERED: LOSA50 PO (09:36)
[2019-02-06] MEDS ORDERED: Amlodipine Bes2.5 MG PO (09:36)
[2019-02-06] MEDS ORDERED: METO50 PO (09:36)
[2019-02-06] MEDS ORDERED: Bumetanide1 MG PO (09:37)
[2019-02-06] MEDS ORDERED: ATOR20 PO (09:37)
[2019-02-06] MEDS ORDERED: CLONIDINE HCL0.1 MG PO (09:37)
[2019-02-06] MEDS ORDERED: LOVAZA1 GM PO (09:38)
[2019-02-06] MEDS ORDERED: GEMF600 PO (09:38)
[2019-02-06] MEDS ORDERED: TACR1 PO (09:39)
[2019-02-06] MEDS ORDERED: Cellcept500 MG PO ×2 (09:40)
[2019-02-06] MEDS ORDERED: PRED5 PO (09:40)
[2019-02-06] MEDS ORDERED: Diflucan50 MG PO (09:41)
[2019-02-06] MEDS ORDERED: CALC.25 PO (09:41)
[2019-02-06] MEDS ORDERED: COMPAZINE10 MG PO (09:42)
[2019-02-06] MEDS ORDERED: AMIT50 PO (09:42)
[2019-02-06] MEDS ORDERED: ALEN70 PO (09:43)
[2019-02-06] MEDS ORDERED: CYCL10 PO (09:44)
[2019-02-06] MEDS ORDERED: ARANESP10 MCG/0.4 IM (09:44)
[2019-02-06] MEDS ORDERED: ACYC200 PO (09:45)
[2019-02-06] MEDS ORDERED: BUPR150ER PO (09:45)
[2019-02-06] MEDS ORDERED: CYAN1000I IM (09:45)
[2019-02-06] MEDS ORDERED: GLIP5 PO (09:45)
[2019-02-06] MEDS ORDERED: ALLO100 PO (09:46)
[2019-02-06] MEDS ORDERED: K-Phos Origina500 MG PO (09:46)
[2019-02-06] MEDS ORDERED: Flonase 0.05% N16 GM (09:46)
[2019-02-06] MEDS ORDERED: LANS30EC PO (09:47)
[2019-02-06] MEDS ORDERED: COLCRYS0.6 MG PO (09:47)
[2019-02-06] MEDS ORDERED: INSR10I (09:48)
[2019-02-06] MEDS ORDERED: INSULANPEN SC (09:48)
[2019-02-06] MEDS ORDERED: OXYC5 PO (09:48)
[2019-02-06] MEDS ORDERED: DIAZ5 PO (09:49)
[2019-02-06] MEDS ORDERED: GABA300 PO (09:49)
== END 2018-12-18 23:08 | disposition home or self-care (01) ==
LOC: ATC 00:26
DX: E86.9 Volume depletion, unspecified (principal); I12.9 Hypertensive chronic kidney disease with stage 1 through stage 4 chronic kidney disease, or unspecified chronic kidney disease; E11.22 Type 2 diabetes mellitus with diabetic chronic kidney disease; N18.2 Chronic kidney disease, stage 2 (mild); D63.1 Anemia in chronic kidney disease; Z94.0 Kidney transplant status
CPT/HCPCS: 96360; 96361; J1642; J2250; J2704; J3010; J7030

== ENCOUNTER 2018-12-18 10:08 | Day surgery (SDC) | payer OTHER ==
[~2018-12-18] VITALS: Ht 182.9 cm; Wt 92.6 kg
--- NOTE | 2018-12-18 11:12 | NUR ---
12/18/18 1112 Maryam Arana BLOCK PLACED TO PATIENT'S LEFT HAND. FIRST ATTEMPT UNSUCCESSFUL, 2ND ATTEMPT SUCCESSFUL AND PLACED BY DEYSI LYNN. PATIENT TOLERATED WELL
--- NOTE | 2018-12-18 13:02 | NUR ---
12/18/18 1302 Sonia Jacinto PT. VERBALIZES LEFT HAND NUMB. ELEVATED UP ON PILLOW. GOOD CAP REFILL IN FINGERS ON LEFT HAND.
[2019-02-06] MEDS ORDERED: METO50 PO (09:36)
[2019-02-06] MEDS ORDERED: LOSA50 PO (09:36)
[2019-02-06] MEDS ORDERED: Amlodipine Bes2.5 MG PO (09:36)
[2019-02-06] MEDS ORDERED: ATOR20 PO (09:37)
[2019-02-06] MEDS ORDERED: Bumetanide1 MG PO (09:37)
[2019-02-06] MEDS ORDERED: CLONIDINE HCL0.1 MG PO (09:37)
[2019-02-06] MEDS ORDERED: GEMF600 PO (09:38)
[2019-02-06] MEDS ORDERED: LOVAZA1 GM PO (09:38)
[2019-02-06] MEDS ORDERED: TACR1 PO (09:39)
[2019-02-06] MEDS ORDERED: Cellcept500 MG PO ×2 (09:40)
[2019-02-06] MEDS ORDERED: PRED5 PO (09:40)
[2019-02-06] MEDS ORDERED: Diflucan50 MG PO (09:41)
[2019-02-06] MEDS ORDERED: CALC.25 PO (09:41)
[2019-02-06] MEDS ORDERED: COMPAZINE10 MG PO (09:42)
[2019-02-06] MEDS ORDERED: AMIT50 PO (09:42)
[2019-02-06] MEDS ORDERED: ALEN70 PO (09:43)
[2019-02-06] MEDS ORDERED: ARANESP10 MCG/0.4 IM (09:44)
[2019-02-06] MEDS ORDERED: CYCL10 PO (09:44)
[2019-02-06] MEDS ORDERED: BUPR150ER PO (09:45)
[2019-02-06] MEDS ORDERED: CYAN1000I IM (09:45)
[2019-02-06] MEDS ORDERED: ACYC200 PO (09:45)
[2019-02-06] MEDS ORDERED: GLIP5 PO (09:45)
[2019-02-06] MEDS ORDERED: K-Phos Origina500 MG PO (09:46)
[2019-02-06] MEDS ORDERED: Flonase 0.05% N16 GM (09:46)
[2019-02-06] MEDS ORDERED: ALLO100 PO (09:46)
[2019-02-06] MEDS ORDERED: LANS30EC PO (09:47)
[2019-02-06] MEDS ORDERED: COLCRYS0.6 MG PO (09:47)
[2019-02-06] MEDS ORDERED: INSR10I (09:48)
[2019-02-06] MEDS ORDERED: INSULANPEN SC (09:48)
[2019-02-06] MEDS ORDERED: OXYC5 PO (09:48)
[2019-02-06] MEDS ORDERED: DIAZ5 PO (09:49)
[2019-02-06] MEDS ORDERED: GABA300 PO (09:49)
== END 2018-12-18 13:30 | disposition home or self-care (01) ==
LOC: ORSCSDS 10:08
PROVIDERS: Orthopaedic Surgery
PROC: 01N50ZZ Release Median Nerve, Open Approach (ICD-10-PCS; principal; 2018-12-18 11:30)
DX: G56.02 Carpal tunnel syndrome, left upper limb (principal); I10 Essential (primary) hypertension; E11.9 Type 2 diabetes mellitus without complications; Z79.899 Other long term (current) drug therapy
CPT/HCPCS: 82947; J0690

== ENCOUNTER 2018-12-20 00:17 | Day surgery (SDC) | payer OTHER ==
[2019-02-06] MEDS ORDERED: METO50 PO (09:36)
[2019-02-06] MEDS ORDERED: Amlodipine Bes2.5 MG PO (09:36)
[2019-02-06] MEDS ORDERED: LOSA50 PO (09:36)
[2019-02-06] MEDS ORDERED: ATOR20 PO (09:37)
[2019-02-06] MEDS ORDERED: CLONIDINE HCL0.1 MG PO (09:37)
[2019-02-06] MEDS ORDERED: Bumetanide1 MG PO (09:37)
[2019-02-06] MEDS ORDERED: LOVAZA1 GM PO (09:38)
[2019-02-06] MEDS ORDERED: GEMF600 PO (09:38)
[2019-02-06] MEDS ORDERED: TACR1 PO (09:39)
[2019-02-06] MEDS ORDERED: PRED5 PO (09:40)
[2019-02-06] MEDS ORDERED: Cellcept500 MG PO ×2 (09:40)
[2019-02-06] MEDS ORDERED: Diflucan50 MG PO (09:41)
[2019-02-06] MEDS ORDERED: CALC.25 PO (09:41)
[2019-02-06] MEDS ORDERED: COMPAZINE10 MG PO (09:42)
[2019-02-06] MEDS ORDERED: AMIT50 PO (09:42)
[2019-02-06] MEDS ORDERED: ALEN70 PO (09:43)
[2019-02-06] MEDS ORDERED: CYCL10 PO (09:44)
[2019-02-06] MEDS ORDERED: ARANESP10 MCG/0.4 IM (09:44)
[2019-02-06] MEDS ORDERED: BUPR150ER PO (09:45)
[2019-02-06] MEDS ORDERED: ACYC200 PO (09:45)
[2019-02-06] MEDS ORDERED: CYAN1000I IM (09:45)
[2019-02-06] MEDS ORDERED: GLIP5 PO (09:45)
[2019-02-06] MEDS ORDERED: ALLO100 PO (09:46)
[2019-02-06] MEDS ORDERED: K-Phos Origina500 MG PO (09:46)
[2019-02-06] MEDS ORDERED: Flonase 0.05% N16 GM (09:46)
[2019-02-06] MEDS ORDERED: COLCRYS0.6 MG PO (09:47)
[2019-02-06] MEDS ORDERED: LANS30EC PO (09:47)
[2019-02-06] MEDS ORDERED: OXYC5 PO (09:48)
[2019-02-06] MEDS ORDERED: INSULANPEN SC (09:48)
[2019-02-06] MEDS ORDERED: INSR10I (09:48)
[2019-02-06] MEDS ORDERED: GABA300 PO (09:49)
[2019-02-06] MEDS ORDERED: DIAZ5 PO (09:49)
== END 2018-12-20 23:14 | disposition home or self-care (01) ==
LOC: ATC 00:17
DX: E86.9 Volume depletion, unspecified (principal); I12.9 Hypertensive chronic kidney disease with stage 1 through stage 4 chronic kidney disease, or unspecified chronic kidney disease; E11.22 Type 2 diabetes mellitus with diabetic chronic kidney disease; N18.2 Chronic kidney disease, stage 2 (mild); D63.1 Anemia in chronic kidney disease; D50.9 Iron deficiency anemia, unspecified; E78.00 Pure hypercholesterolemia, unspecified; E55.9 Vitamin D deficiency, unspecified; Z79.899 Other long term (current) drug therapy; Z79.52 Long term (current) use of systemic steroids; Z94.0 Kidney transplant status
CPT/HCPCS: 96360; 96361; J1642; J7030

== ENCOUNTER 2018-12-23 00:17 | Day surgery (SDC) | payer OTHER ==
[2019-02-06] MEDS ORDERED: METO50 PO (09:36)
[2019-02-06] MEDS ORDERED: Amlodipine Bes2.5 MG PO (09:36)
[2019-02-06] MEDS ORDERED: LOSA50 PO (09:36)
[2019-02-06] MEDS ORDERED: Bumetanide1 MG PO (09:37)
[2019-02-06] MEDS ORDERED: CLONIDINE HCL0.1 MG PO (09:37)
[2019-02-06] MEDS ORDERED: ATOR20 PO (09:37)
[2019-02-06] MEDS ORDERED: GEMF600 PO (09:38)
[2019-02-06] MEDS ORDERED: LOVAZA1 GM PO (09:38)
[2019-02-06] MEDS ORDERED: TACR1 PO (09:39)
[2019-02-06] MEDS ORDERED: PRED5 PO (09:40)
[2019-02-06] MEDS ORDERED: Cellcept500 MG PO ×2 (09:40)
[2019-02-06] MEDS ORDERED: Diflucan50 MG PO (09:41)
[2019-02-06] MEDS ORDERED: CALC.25 PO (09:41)
[2019-02-06] MEDS ORDERED: COMPAZINE10 MG PO (09:42)
[2019-02-06] MEDS ORDERED: AMIT50 PO (09:42)
[2019-02-06] MEDS ORDERED: ALEN70 PO (09:43)
[2019-02-06] MEDS ORDERED: CYCL10 PO (09:44)
[2019-02-06] MEDS ORDERED: ARANESP10 MCG/0.4 IM (09:44)
[2019-02-06] MEDS ORDERED: BUPR150ER PO (09:45)
[2019-02-06] MEDS ORDERED: GLIP5 PO (09:45)
[2019-02-06] MEDS ORDERED: ACYC200 PO (09:45)
[2019-02-06] MEDS ORDERED: CYAN1000I IM (09:45)
[2019-02-06] MEDS ORDERED: Flonase 0.05% N16 GM (09:46)
[2019-02-06] MEDS ORDERED: K-Phos Origina500 MG PO (09:46)
[2019-02-06] MEDS ORDERED: ALLO100 PO (09:46)
[2019-02-06] MEDS ORDERED: LANS30EC PO (09:47)
[2019-02-06] MEDS ORDERED: COLCRYS0.6 MG PO (09:47)
[2019-02-06] MEDS ORDERED: OXYC5 PO (09:48)
[2019-02-06] MEDS ORDERED: INSULANPEN SC (09:48)
[2019-02-06] MEDS ORDERED: INSR10I (09:48)
[2019-02-06] MEDS ORDERED: GABA300 PO (09:49)
[2019-02-06] MEDS ORDERED: DIAZ5 PO (09:49)
== END 2018-12-23 16:59 | disposition home or self-care (01) ==
LOC: ATC 00:17
DX: E86.9 Volume depletion, unspecified (principal); I12.9 Hypertensive chronic kidney disease with stage 1 through stage 4 chronic kidney disease, or unspecified chronic kidney disease; E11.22 Type 2 diabetes mellitus with diabetic chronic kidney disease; N18.2 Chronic kidney disease, stage 2 (mild); D63.1 Anemia in chronic kidney disease; D50.9 Iron deficiency anemia, unspecified; N25.81 Secondary hyperparathyroidism of renal origin; E11.21 Type 2 diabetes mellitus with diabetic nephropathy; E87.1 Hypo-osmolality and hyponatremia; E78.00 Pure hypercholesterolemia, unspecified; Z79.899 Other long term (current) drug therapy; Z79.52 Long term (current) use of systemic steroids
CPT/HCPCS: 96360; 96361; J1642; J7030

== ENCOUNTER 2018-12-25 00:12 | Day surgery (SDC) | payer OTHER ==
[2019-02-06] MEDS ORDERED: LOSA50 PO (09:36)
[2019-02-06] MEDS ORDERED: Amlodipine Bes2.5 MG PO (09:36)
[2019-02-06] MEDS ORDERED: METO50 PO (09:36)
[2019-02-06] MEDS ORDERED: Bumetanide1 MG PO (09:37)
[2019-02-06] MEDS ORDERED: CLONIDINE HCL0.1 MG PO (09:37)
[2019-02-06] MEDS ORDERED: ATOR20 PO (09:37)
[2019-02-06] MEDS ORDERED: LOVAZA1 GM PO (09:38)
[2019-02-06] MEDS ORDERED: GEMF600 PO (09:38)
[2019-02-06] MEDS ORDERED: TACR1 PO (09:39)
[2019-02-06] MEDS ORDERED: PRED5 PO (09:40)
[2019-02-06] MEDS ORDERED: Cellcept500 MG PO ×2 (09:40)
[2019-02-06] MEDS ORDERED: CALC.25 PO (09:41)
[2019-02-06] MEDS ORDERED: Diflucan50 MG PO (09:41)
[2019-02-06] MEDS ORDERED: COMPAZINE10 MG PO (09:42)
[2019-02-06] MEDS ORDERED: AMIT50 PO (09:42)
[2019-02-06] MEDS ORDERED: ALEN70 PO (09:43)
[2019-02-06] MEDS ORDERED: CYCL10 PO (09:44)
[2019-02-06] MEDS ORDERED: ARANESP10 MCG/0.4 IM (09:44)
[2019-02-06] MEDS ORDERED: BUPR150ER PO (09:45)
[2019-02-06] MEDS ORDERED: CYAN1000I IM (09:45)
[2019-02-06] MEDS ORDERED: GLIP5 PO (09:45)
[2019-02-06] MEDS ORDERED: ACYC200 PO (09:45)
[2019-02-06] MEDS ORDERED: Flonase 0.05% N16 GM (09:46)
[2019-02-06] MEDS ORDERED: K-Phos Origina500 MG PO (09:46)
[2019-02-06] MEDS ORDERED: ALLO100 PO (09:46)
[2019-02-06] MEDS ORDERED: COLCRYS0.6 MG PO (09:47)
[2019-02-06] MEDS ORDERED: LANS30EC PO (09:47)
[2019-02-06] MEDS ORDERED: OXYC5 PO (09:48)
[2019-02-06] MEDS ORDERED: INSR10I (09:48)
[2019-02-06] MEDS ORDERED: INSULANPEN SC (09:48)
[2019-02-06] MEDS ORDERED: GABA300 PO (09:49)
[2019-02-06] MEDS ORDERED: DIAZ5 PO (09:49)
== END 2018-12-25 16:48 | disposition home or self-care (01) ==
LOC: ATC 00:12
DX: Z45.2 Encounter for adjustment and management of vascular access device (principal); I12.9 Hypertensive chronic kidney disease with stage 1 through stage 4 chronic kidney disease, or unspecified chronic kidney disease; N18.2 Chronic kidney disease, stage 2 (mild); Z79.899 Other long term (current) drug therapy; D63.1 Anemia in chronic kidney disease; N25.81 Secondary hyperparathyroidism of renal origin; E11.21 Type 2 diabetes mellitus with diabetic nephropathy; E78.00 Pure hypercholesterolemia, unspecified; E55.9 Vitamin D deficiency, unspecified; Z94.0 Kidney transplant status
CPT/HCPCS: 96360; 96361; J1642; J7030

== ENCOUNTER 2018-12-30 00:17 | Day surgery (SDC) | payer OTHER ==
[2019-02-06] MEDS ORDERED: METO50 PO (09:36)
[2019-02-06] MEDS ORDERED: LOSA50 PO (09:36)
[2019-02-06] MEDS ORDERED: Amlodipine Bes2.5 MG PO (09:36)
[2019-02-06] MEDS ORDERED: ATOR20 PO (09:37)
[2019-02-06] MEDS ORDERED: CLONIDINE HCL0.1 MG PO (09:37)
[2019-02-06] MEDS ORDERED: Bumetanide1 MG PO (09:37)
[2019-02-06] MEDS ORDERED: GEMF600 PO (09:38)
[2019-02-06] MEDS ORDERED: LOVAZA1 GM PO (09:38)
[2019-02-06] MEDS ORDERED: TACR1 PO (09:39)
[2019-02-06] MEDS ORDERED: Cellcept500 MG PO ×2 (09:40)
[2019-02-06] MEDS ORDERED: PRED5 PO (09:40)
[2019-02-06] MEDS ORDERED: CALC.25 PO (09:41)
[2019-02-06] MEDS ORDERED: Diflucan50 MG PO (09:41)
[2019-02-06] MEDS ORDERED: AMIT50 PO (09:42)
[2019-02-06] MEDS ORDERED: COMPAZINE10 MG PO (09:42)
[2019-02-06] MEDS ORDERED: ALEN70 PO (09:43)
[2019-02-06] MEDS ORDERED: CYCL10 PO (09:44)
[2019-02-06] MEDS ORDERED: ARANESP10 MCG/0.4 IM (09:44)
[2019-02-06] MEDS ORDERED: BUPR150ER PO (09:45)
[2019-02-06] MEDS ORDERED: ACYC200 PO (09:45)
[2019-02-06] MEDS ORDERED: GLIP5 PO (09:45)
[2019-02-06] MEDS ORDERED: CYAN1000I IM (09:45)
[2019-02-06] MEDS ORDERED: K-Phos Origina500 MG PO (09:46)
[2019-02-06] MEDS ORDERED: ALLO100 PO (09:46)
[2019-02-06] MEDS ORDERED: Flonase 0.05% N16 GM (09:46)
[2019-02-06] MEDS ORDERED: COLCRYS0.6 MG PO (09:47)
[2019-02-06] MEDS ORDERED: LANS30EC PO (09:47)
[2019-02-06] MEDS ORDERED: OXYC5 PO (09:48)
[2019-02-06] MEDS ORDERED: INSR10I (09:48)
[2019-02-06] MEDS ORDERED: INSULANPEN SC (09:48)
[2019-02-06] MEDS ORDERED: DIAZ5 PO (09:49)
[2019-02-06] MEDS ORDERED: GABA300 PO (09:49)
== END 2018-12-30 17:00 | disposition home or self-care (01) ==
LOC: ATC 00:17
DX: E86.9 Volume depletion, unspecified (principal); I12.9 Hypertensive chronic kidney disease with stage 1 through stage 4 chronic kidney disease, or unspecified chronic kidney disease; E11.22 Type 2 diabetes mellitus with diabetic chronic kidney disease; N18.2 Chronic kidney disease, stage 2 (mild); D63.1 Anemia in chronic kidney disease; E78.00 Pure hypercholesterolemia, unspecified; E55.9 Vitamin D deficiency, unspecified; Z94.0 Kidney transplant status; Z79.899 Other long term (current) drug therapy; Z79.52 Long term (current) use of systemic steroids
CPT/HCPCS: 96360; 96361; J1642; J7030

== ENCOUNTER 2019-01-01 00:13 | Day surgery (SDC) | payer OTHER ==
[2019-02-06] MEDS ORDERED: Amlodipine Bes2.5 MG PO (09:36)
[2019-02-06] MEDS ORDERED: METO50 PO (09:36)
[2019-02-06] MEDS ORDERED: LOSA50 PO (09:36)
[2019-02-06] MEDS ORDERED: CLONIDINE HCL0.1 MG PO (09:37)
[2019-02-06] MEDS ORDERED: ATOR20 PO (09:37)
[2019-02-06] MEDS ORDERED: Bumetanide1 MG PO (09:37)
[2019-02-06] MEDS ORDERED: GEMF600 PO (09:38)
[2019-02-06] MEDS ORDERED: LOVAZA1 GM PO (09:38)
[2019-02-06] MEDS ORDERED: TACR1 PO (09:39)
[2019-02-06] MEDS ORDERED: PRED5 PO (09:40)
[2019-02-06] MEDS ORDERED: Cellcept500 MG PO ×2 (09:40)
[2019-02-06] MEDS ORDERED: Diflucan50 MG PO (09:41)
[2019-02-06] MEDS ORDERED: CALC.25 PO (09:41)
[2019-02-06] MEDS ORDERED: AMIT50 PO (09:42)
[2019-02-06] MEDS ORDERED: COMPAZINE10 MG PO (09:42)
[2019-02-06] MEDS ORDERED: ALEN70 PO (09:43)
[2019-02-06] MEDS ORDERED: CYCL10 PO (09:44)
[2019-02-06] MEDS ORDERED: ARANESP10 MCG/0.4 IM (09:44)
[2019-02-06] MEDS ORDERED: GLIP5 PO (09:45)
[2019-02-06] MEDS ORDERED: ACYC200 PO (09:45)
[2019-02-06] MEDS ORDERED: BUPR150ER PO (09:45)
[2019-02-06] MEDS ORDERED: CYAN1000I IM (09:45)
[2019-02-06] MEDS ORDERED: K-Phos Origina500 MG PO (09:46)
[2019-02-06] MEDS ORDERED: Flonase 0.05% N16 GM (09:46)
[2019-02-06] MEDS ORDERED: ALLO100 PO (09:46)
[2019-02-06] MEDS ORDERED: COLCRYS0.6 MG PO (09:47)
[2019-02-06] MEDS ORDERED: LANS30EC PO (09:47)
[2019-02-06] MEDS ORDERED: INSR10I (09:48)
[2019-02-06] MEDS ORDERED: INSULANPEN SC (09:48)
[2019-02-06] MEDS ORDERED: OXYC5 PO (09:48)
[2019-02-06] MEDS ORDERED: DIAZ5 PO (09:49)
[2019-02-06] MEDS ORDERED: GABA300 PO (09:49)
== END 2019-01-01 16:55 | disposition home or self-care (01) ==
LOC: ATC 00:13
DX: E86.9 Volume depletion, unspecified (principal); I12.9 Hypertensive chronic kidney disease with stage 1 through stage 4 chronic kidney disease, or unspecified chronic kidney disease; E11.22 Type 2 diabetes mellitus with diabetic chronic kidney disease; N18.2 Chronic kidney disease, stage 2 (mild); D63.1 Anemia in chronic kidney disease; E55.9 Vitamin D deficiency, unspecified; E78.00 Pure hypercholesterolemia, unspecified; Z79.899 Other long term (current) drug therapy; Z79.52 Long term (current) use of systemic steroids; Z94.0 Kidney transplant status
CPT/HCPCS: 96360; 96361; J1642; J7030

== ENCOUNTER 2019-01-03 00:48 | Day surgery (SDC) | payer OTHER ==
[2019-02-06] MEDS ORDERED: LOSA50 PO (09:36)
[2019-02-06] MEDS ORDERED: Amlodipine Bes2.5 MG PO (09:36)
[2019-02-06] MEDS ORDERED: METO50 PO (09:36)
[2019-02-06] MEDS ORDERED: Bumetanide1 MG PO (09:37)
[2019-02-06] MEDS ORDERED: ATOR20 PO (09:37)
[2019-02-06] MEDS ORDERED: CLONIDINE HCL0.1 MG PO (09:37)
[2019-02-06] MEDS ORDERED: GEMF600 PO (09:38)
[2019-02-06] MEDS ORDERED: LOVAZA1 GM PO (09:38)
[2019-02-06] MEDS ORDERED: TACR1 PO (09:39)
[2019-02-06] MEDS ORDERED: PRED5 PO (09:40)
[2019-02-06] MEDS ORDERED: Cellcept500 MG PO ×2 (09:40)
[2019-02-06] MEDS ORDERED: CALC.25 PO (09:41)
[2019-02-06] MEDS ORDERED: Diflucan50 MG PO (09:41)
[2019-02-06] MEDS ORDERED: COMPAZINE10 MG PO (09:42)
[2019-02-06] MEDS ORDERED: AMIT50 PO (09:42)
[2019-02-06] MEDS ORDERED: ALEN70 PO (09:43)
[2019-02-06] MEDS ORDERED: CYCL10 PO (09:44)
[2019-02-06] MEDS ORDERED: ARANESP10 MCG/0.4 IM (09:44)
[2019-02-06] MEDS ORDERED: BUPR150ER PO (09:45)
[2019-02-06] MEDS ORDERED: GLIP5 PO (09:45)
[2019-02-06] MEDS ORDERED: CYAN1000I IM (09:45)
[2019-02-06] MEDS ORDERED: ACYC200 PO (09:45)
[2019-02-06] MEDS ORDERED: K-Phos Origina500 MG PO (09:46)
[2019-02-06] MEDS ORDERED: ALLO100 PO (09:46)
[2019-02-06] MEDS ORDERED: Flonase 0.05% N16 GM (09:46)
[2019-02-06] MEDS ORDERED: LANS30EC PO (09:47)
[2019-02-06] MEDS ORDERED: COLCRYS0.6 MG PO (09:47)
[2019-02-06] MEDS ORDERED: INSULANPEN SC (09:48)
[2019-02-06] MEDS ORDERED: OXYC5 PO (09:48)
[2019-02-06] MEDS ORDERED: INSR10I (09:48)
[2019-02-06] MEDS ORDERED: GABA300 PO (09:49)
[2019-02-06] MEDS ORDERED: DIAZ5 PO (09:49)
== END 2019-01-03 16:51 | disposition home or self-care (01) ==
LOC: ATC 00:48
DX: E86.9 Volume depletion, unspecified (principal); I12.9 Hypertensive chronic kidney disease with stage 1 through stage 4 chronic kidney disease, or unspecified chronic kidney disease; D63.1 Anemia in chronic kidney disease; E11.22 Type 2 diabetes mellitus with diabetic chronic kidney disease; N18.2 Chronic kidney disease, stage 2 (mild); N25.81 Secondary hyperparathyroidism of renal origin; D50.9 Iron deficiency anemia, unspecified; E11.21 Type 2 diabetes mellitus with diabetic nephropathy; E55.9 Vitamin D deficiency, unspecified; I71.2 Thoracic aortic aneurysm, without rupture; Z94.0 Kidney transplant status; Z79.899 Other long term (current) drug therapy; Z79.83 Long term (current) use of bisphosphonates; Z79.52 Long term (current) use of systemic steroids
CPT/HCPCS: 96360; 96361; J1642; J7030

== ENCOUNTER 2019-01-06 00:45 | Day surgery (SDC) | payer OTHER ==
[2019-02-06] MEDS ORDERED: LOSA50 PO (09:36)
[2019-02-06] MEDS ORDERED: METO50 PO (09:36)
[2019-02-06] MEDS ORDERED: Amlodipine Bes2.5 MG PO (09:36)
[2019-02-06] MEDS ORDERED: ATOR20 PO (09:37)
[2019-02-06] MEDS ORDERED: CLONIDINE HCL0.1 MG PO (09:37)
[2019-02-06] MEDS ORDERED: Bumetanide1 MG PO (09:37)
[2019-02-06] MEDS ORDERED: GEMF600 PO (09:38)
[2019-02-06] MEDS ORDERED: LOVAZA1 GM PO (09:38)
[2019-02-06] MEDS ORDERED: TACR1 PO (09:39)
[2019-02-06] MEDS ORDERED: PRED5 PO (09:40)
[2019-02-06] MEDS ORDERED: Cellcept500 MG PO ×2 (09:40)
[2019-02-06] MEDS ORDERED: CALC.25 PO (09:41)
[2019-02-06] MEDS ORDERED: Diflucan50 MG PO (09:41)
[2019-02-06] MEDS ORDERED: COMPAZINE10 MG PO (09:42)
[2019-02-06] MEDS ORDERED: AMIT50 PO (09:42)
[2019-02-06] MEDS ORDERED: ALEN70 PO (09:43)
[2019-02-06] MEDS ORDERED: CYCL10 PO (09:44)
[2019-02-06] MEDS ORDERED: ARANESP10 MCG/0.4 IM (09:44)
[2019-02-06] MEDS ORDERED: GLIP5 PO (09:45)
[2019-02-06] MEDS ORDERED: ACYC200 PO (09:45)
[2019-02-06] MEDS ORDERED: CYAN1000I IM (09:45)
[2019-02-06] MEDS ORDERED: BUPR150ER PO (09:45)
[2019-02-06] MEDS ORDERED: ALLO100 PO (09:46)
[2019-02-06] MEDS ORDERED: K-Phos Origina500 MG PO (09:46)
[2019-02-06] MEDS ORDERED: Flonase 0.05% N16 GM (09:46)
[2019-02-06] MEDS ORDERED: LANS30EC PO (09:47)
[2019-02-06] MEDS ORDERED: COLCRYS0.6 MG PO (09:47)
[2019-02-06] MEDS ORDERED: OXYC5 PO (09:48)
[2019-02-06] MEDS ORDERED: INSULANPEN SC (09:48)
[2019-02-06] MEDS ORDERED: INSR10I (09:48)
[2019-02-06] MEDS ORDERED: DIAZ5 PO (09:49)
[2019-02-06] MEDS ORDERED: GABA300 PO (09:49)
== END 2019-01-06 17:03 | disposition home or self-care (01) ==
LOC: ATC 00:45
DX: E86.9 Volume depletion, unspecified (principal); N18.2 Chronic kidney disease, stage 2 (mild); I12.9 Hypertensive chronic kidney disease with stage 1 through stage 4 chronic kidney disease, or unspecified chronic kidney disease; D63.1 Anemia in chronic kidney disease; N25.81 Secondary hyperparathyroidism of renal origin; D50.9 Iron deficiency anemia, unspecified; E11.21 Type 2 diabetes mellitus with diabetic nephropathy; E78.00 Pure hypercholesterolemia, unspecified; E55.9 Vitamin D deficiency, unspecified; Z94.0 Kidney transplant status; Z79.899 Other long term (current) drug therapy; Z79.83 Long term (current) use of bisphosphonates
CPT/HCPCS: 96360; 96361; J1642; J7030

== ENCOUNTER 2019-01-08 00:08 | Day surgery (SDC) | payer OTHER ==
[2019-02-06] MEDS ORDERED: METO50 PO (09:36)
[2019-02-06] MEDS ORDERED: Amlodipine Bes2.5 MG PO (09:36)
[2019-02-06] MEDS ORDERED: LOSA50 PO (09:36)
[2019-02-06] MEDS ORDERED: Bumetanide1 MG PO (09:37)
[2019-02-06] MEDS ORDERED: ATOR20 PO (09:37)
[2019-02-06] MEDS ORDERED: CLONIDINE HCL0.1 MG PO (09:37)
[2019-02-06] MEDS ORDERED: LOVAZA1 GM PO (09:38)
[2019-02-06] MEDS ORDERED: GEMF600 PO (09:38)
[2019-02-06] MEDS ORDERED: TACR1 PO (09:39)
[2019-02-06] MEDS ORDERED: PRED5 PO (09:40)
[2019-02-06] MEDS ORDERED: Cellcept500 MG PO ×2 (09:40)
[2019-02-06] MEDS ORDERED: Diflucan50 MG PO (09:41)
[2019-02-06] MEDS ORDERED: CALC.25 PO (09:41)
[2019-02-06] MEDS ORDERED: COMPAZINE10 MG PO (09:42)
[2019-02-06] MEDS ORDERED: AMIT50 PO (09:42)
[2019-02-06] MEDS ORDERED: ALEN70 PO (09:43)
[2019-02-06] MEDS ORDERED: CYCL10 PO (09:44)
[2019-02-06] MEDS ORDERED: ARANESP10 MCG/0.4 IM (09:44)
[2019-02-06] MEDS ORDERED: BUPR150ER PO (09:45)
[2019-02-06] MEDS ORDERED: ACYC200 PO (09:45)
[2019-02-06] MEDS ORDERED: CYAN1000I IM (09:45)
[2019-02-06] MEDS ORDERED: GLIP5 PO (09:45)
[2019-02-06] MEDS ORDERED: K-Phos Origina500 MG PO (09:46)
[2019-02-06] MEDS ORDERED: ALLO100 PO (09:46)
[2019-02-06] MEDS ORDERED: Flonase 0.05% N16 GM (09:46)
[2019-02-06] MEDS ORDERED: LANS30EC PO (09:47)
[2019-02-06] MEDS ORDERED: COLCRYS0.6 MG PO (09:47)
[2019-02-06] MEDS ORDERED: OXYC5 PO (09:48)
[2019-02-06] MEDS ORDERED: INSULANPEN SC (09:48)
[2019-02-06] MEDS ORDERED: INSR10I (09:48)
[2019-02-06] MEDS ORDERED: DIAZ5 PO (09:49)
[2019-02-06] MEDS ORDERED: GABA300 PO (09:49)
== END 2019-01-08 17:12 | disposition home or self-care (01) ==
LOC: ATC 00:08
DX: E86.9 Volume depletion, unspecified (principal); I12.9 Hypertensive chronic kidney disease with stage 1 through stage 4 chronic kidney disease, or unspecified chronic kidney disease; E11.22 Type 2 diabetes mellitus with diabetic chronic kidney disease; N18.2 Chronic kidney disease, stage 2 (mild); D63.1 Anemia in chronic kidney disease; D50.9 Iron deficiency anemia, unspecified; E11.21 Type 2 diabetes mellitus with diabetic nephropathy; E78.00 Pure hypercholesterolemia, unspecified; E55.9 Vitamin D deficiency, unspecified; Z94.0 Kidney transplant status; Z79.899 Other long term (current) drug therapy; Z79.52 Long term (current) use of systemic steroids
CPT/HCPCS: 96360; 96361; J1642; J7030

== ENCOUNTER 2019-01-10 00:57 | Day surgery (SDC) | payer OTHER ==
[2019-02-06] MEDS ORDERED: Amlodipine Bes2.5 MG PO (09:36)
[2019-02-06] MEDS ORDERED: METO50 PO (09:36)
[2019-02-06] MEDS ORDERED: LOSA50 PO (09:36)
[2019-02-06] MEDS ORDERED: Bumetanide1 MG PO (09:37)
[2019-02-06] MEDS ORDERED: CLONIDINE HCL0.1 MG PO (09:37)
[2019-02-06] MEDS ORDERED: ATOR20 PO (09:37)
[2019-02-06] MEDS ORDERED: LOVAZA1 GM PO (09:38)
[2019-02-06] MEDS ORDERED: GEMF600 PO (09:38)
[2019-02-06] MEDS ORDERED: TACR1 PO (09:39)
[2019-02-06] MEDS ORDERED: PRED5 PO (09:40)
[2019-02-06] MEDS ORDERED: Cellcept500 MG PO ×2 (09:40)
[2019-02-06] MEDS ORDERED: CALC.25 PO (09:41)
[2019-02-06] MEDS ORDERED: Diflucan50 MG PO (09:41)
[2019-02-06] MEDS ORDERED: COMPAZINE10 MG PO (09:42)
[2019-02-06] MEDS ORDERED: AMIT50 PO (09:42)
[2019-02-06] MEDS ORDERED: ALEN70 PO (09:43)
[2019-02-06] MEDS ORDERED: ARANESP10 MCG/0.4 IM (09:44)
[2019-02-06] MEDS ORDERED: CYCL10 PO (09:44)
[2019-02-06] MEDS ORDERED: CYAN1000I IM (09:45)
[2019-02-06] MEDS ORDERED: GLIP5 PO (09:45)
[2019-02-06] MEDS ORDERED: ACYC200 PO (09:45)
[2019-02-06] MEDS ORDERED: BUPR150ER PO (09:45)
[2019-02-06] MEDS ORDERED: Flonase 0.05% N16 GM (09:46)
[2019-02-06] MEDS ORDERED: ALLO100 PO (09:46)
[2019-02-06] MEDS ORDERED: K-Phos Origina500 MG PO (09:46)
[2019-02-06] MEDS ORDERED: COLCRYS0.6 MG PO (09:47)
[2019-02-06] MEDS ORDERED: LANS30EC PO (09:47)
[2019-02-06] MEDS ORDERED: INSULANPEN SC (09:48)
[2019-02-06] MEDS ORDERED: OXYC5 PO (09:48)
[2019-02-06] MEDS ORDERED: INSR10I (09:48)
[2019-02-06] MEDS ORDERED: DIAZ5 PO (09:49)
[2019-02-06] MEDS ORDERED: GABA300 PO (09:49)
== END 2019-01-10 23:43 | disposition home or self-care (01) ==
LOC: ATC 00:57
DX: E86.9 Volume depletion, unspecified (principal); I12.9 Hypertensive chronic kidney disease with stage 1 through stage 4 chronic kidney disease, or unspecified chronic kidney disease; N18.9 Chronic kidney disease, unspecified; N18.2 Chronic kidney disease, stage 2 (mild); D63.1 Anemia in chronic kidney disease; N25.81 Secondary hyperparathyroidism of renal origin; D50.9 Iron deficiency anemia, unspecified; E55.9 Vitamin D deficiency, unspecified; Z79.52 Long term (current) use of systemic steroids; Z79.899 Other long term (current) drug therapy; Z94.0 Kidney transplant status
CPT/HCPCS: 96360; 96361; J1642; J7030

== ENCOUNTER 2019-01-13 00:05 | Day surgery (SDC) | payer OTHER ==
[2019-02-06] MEDS ORDERED: METO50 PO (09:36)
[2019-02-06] MEDS ORDERED: Amlodipine Bes2.5 MG PO (09:36)
[2019-02-06] MEDS ORDERED: LOSA50 PO (09:36)
[2019-02-06] MEDS ORDERED: CLONIDINE HCL0.1 MG PO (09:37)
[2019-02-06] MEDS ORDERED: ATOR20 PO (09:37)
[2019-02-06] MEDS ORDERED: Bumetanide1 MG PO (09:37)
[2019-02-06] MEDS ORDERED: LOVAZA1 GM PO (09:38)
[2019-02-06] MEDS ORDERED: GEMF600 PO (09:38)
[2019-02-06] MEDS ORDERED: TACR1 PO (09:39)
[2019-02-06] MEDS ORDERED: Cellcept500 MG PO ×2 (09:40)
[2019-02-06] MEDS ORDERED: PRED5 PO (09:40)
[2019-02-06] MEDS ORDERED: CALC.25 PO (09:41)
[2019-02-06] MEDS ORDERED: Diflucan50 MG PO (09:41)
[2019-02-06] MEDS ORDERED: COMPAZINE10 MG PO (09:42)
[2019-02-06] MEDS ORDERED: AMIT50 PO (09:42)
[2019-02-06] MEDS ORDERED: ALEN70 PO (09:43)
[2019-02-06] MEDS ORDERED: ARANESP10 MCG/0.4 IM (09:44)
[2019-02-06] MEDS ORDERED: CYCL10 PO (09:44)
[2019-02-06] MEDS ORDERED: ACYC200 PO (09:45)
[2019-02-06] MEDS ORDERED: BUPR150ER PO (09:45)
[2019-02-06] MEDS ORDERED: CYAN1000I IM (09:45)
[2019-02-06] MEDS ORDERED: GLIP5 PO (09:45)
[2019-02-06] MEDS ORDERED: ALLO100 PO (09:46)
[2019-02-06] MEDS ORDERED: Flonase 0.05% N16 GM (09:46)
[2019-02-06] MEDS ORDERED: K-Phos Origina500 MG PO (09:46)
[2019-02-06] MEDS ORDERED: COLCRYS0.6 MG PO (09:47)
[2019-02-06] MEDS ORDERED: LANS30EC PO (09:47)
[2019-02-06] MEDS ORDERED: INSULANPEN SC (09:48)
[2019-02-06] MEDS ORDERED: INSR10I (09:48)
[2019-02-06] MEDS ORDERED: OXYC5 PO (09:48)
[2019-02-06] MEDS ORDERED: GABA300 PO (09:49)
[2019-02-06] MEDS ORDERED: DIAZ5 PO (09:49)
== END 2019-01-13 17:00 | disposition home or self-care (01) ==
LOC: ATC 00:05
DX: E86.9 Volume depletion, unspecified (principal); I12.9 Hypertensive chronic kidney disease with stage 1 through stage 4 chronic kidney disease, or unspecified chronic kidney disease; E11.22 Type 2 diabetes mellitus with diabetic chronic kidney disease; N18.2 Chronic kidney disease, stage 2 (mild); D63.1 Anemia in chronic kidney disease; D50.9 Iron deficiency anemia, unspecified; E11.21 Type 2 diabetes mellitus with diabetic nephropathy; E78.00 Pure hypercholesterolemia, unspecified; E55.9 Vitamin D deficiency, unspecified; Z79.899 Other long term (current) drug therapy; Z79.52 Long term (current) use of systemic steroids
CPT/HCPCS: 96360; 96361; J1642; J7030

== ENCOUNTER 2019-01-15 00:39 | Day surgery (SDC) | payer OTHER ==
--- NOTE | 2019-01-15 14:11 | NUR ---
CALLED DR. HAM OFFICE REGARDING BLOOD PRESSURE OF 180/84 WITH A RECHECK RESULT OF 128/68. DR. HAM STATED TO CONTINUE WITH FLUIDS. HE WILL RECHECK HIS BLOOD PRESSURE TONIGHT AND CALL TO FOLLOW UP WITH THE PATIENT THIS EVENING.
[2019-02-06] MEDS ORDERED: Amlodipine Bes2.5 MG PO (09:36)
[2019-02-06] MEDS ORDERED: METO50 PO (09:36)
[2019-02-06] MEDS ORDERED: LOSA50 PO (09:36)
[2019-02-06] MEDS ORDERED: CLONIDINE HCL0.1 MG PO (09:37)
[2019-02-06] MEDS ORDERED: ATOR20 PO (09:37)
[2019-02-06] MEDS ORDERED: Bumetanide1 MG PO (09:37)
[2019-02-06] MEDS ORDERED: LOVAZA1 GM PO (09:38)
[2019-02-06] MEDS ORDERED: GEMF600 PO (09:38)
[2019-02-06] MEDS ORDERED: TACR1 PO (09:39)
[2019-02-06] MEDS ORDERED: Cellcept500 MG PO ×2 (09:40)
[2019-02-06] MEDS ORDERED: PRED5 PO (09:40)
[2019-02-06] MEDS ORDERED: Diflucan50 MG PO (09:41)
[2019-02-06] MEDS ORDERED: CALC.25 PO (09:41)
[2019-02-06] MEDS ORDERED: COMPAZINE10 MG PO (09:42)
[2019-02-06] MEDS ORDERED: AMIT50 PO (09:42)
[2019-02-06] MEDS ORDERED: ALEN70 PO (09:43)
[2019-02-06] MEDS ORDERED: CYCL10 PO (09:44)
[2019-02-06] MEDS ORDERED: ARANESP10 MCG/0.4 IM (09:44)
[2019-02-06] MEDS ORDERED: CYAN1000I IM (09:45)
[2019-02-06] MEDS ORDERED: BUPR150ER PO (09:45)
[2019-02-06] MEDS ORDERED: ACYC200 PO (09:45)
[2019-02-06] MEDS ORDERED: GLIP5 PO (09:45)
[2019-02-06] MEDS ORDERED: K-Phos Origina500 MG PO (09:46)
[2019-02-06] MEDS ORDERED: Flonase 0.05% N16 GM (09:46)
[2019-02-06] MEDS ORDERED: ALLO100 PO (09:46)
[2019-02-06] MEDS ORDERED: LANS30EC PO (09:47)
[2019-02-06] MEDS ORDERED: COLCRYS0.6 MG PO (09:47)
[2019-02-06] MEDS ORDERED: INSULANPEN SC (09:48)
[2019-02-06] MEDS ORDERED: OXYC5 PO (09:48)
[2019-02-06] MEDS ORDERED: INSR10I (09:48)
[2019-02-06] MEDS ORDERED: GABA300 PO (09:49)
[2019-02-06] MEDS ORDERED: DIAZ5 PO (09:49)
== END 2019-01-15 17:18 | disposition home or self-care (01) ==
LOC: ATC 00:39
DX: E86.9 Volume depletion, unspecified (principal); I12.9 Hypertensive chronic kidney disease with stage 1 through stage 4 chronic kidney disease, or unspecified chronic kidney disease; E11.22 Type 2 diabetes mellitus with diabetic chronic kidney disease; N18.2 Chronic kidney disease, stage 2 (mild); D63.1 Anemia in chronic kidney disease; D50.9 Iron deficiency anemia, unspecified; E87.1 Hypo-osmolality and hyponatremia; E78.00 Pure hypercholesterolemia, unspecified; N25.81 Secondary hyperparathyroidism of renal origin; E11.21 Type 2 diabetes mellitus with diabetic nephropathy; E55.9 Vitamin D deficiency, unspecified; Z95.0 Presence of cardiac pacemaker
CPT/HCPCS: 96360; 96361; J1642; J7030

== ENCOUNTER 2019-01-17 02:27 | Day surgery (SDC) | payer OTHER ==
[2019-02-06] MEDS ORDERED: METO50 PO (09:36)
[2019-02-06] MEDS ORDERED: LOSA50 PO (09:36)
[2019-02-06] MEDS ORDERED: Amlodipine Bes2.5 MG PO (09:36)
[2019-02-06] MEDS ORDERED: Bumetanide1 MG PO (09:37)
[2019-02-06] MEDS ORDERED: ATOR20 PO (09:37)
[2019-02-06] MEDS ORDERED: CLONIDINE HCL0.1 MG PO (09:37)
[2019-02-06] MEDS ORDERED: LOVAZA1 GM PO (09:38)
[2019-02-06] MEDS ORDERED: GEMF600 PO (09:38)
[2019-02-06] MEDS ORDERED: TACR1 PO (09:39)
[2019-02-06] MEDS ORDERED: PRED5 PO (09:40)
[2019-02-06] MEDS ORDERED: Cellcept500 MG PO ×2 (09:40)
[2019-02-06] MEDS ORDERED: CALC.25 PO (09:41)
[2019-02-06] MEDS ORDERED: Diflucan50 MG PO (09:41)
[2019-02-06] MEDS ORDERED: AMIT50 PO (09:42)
[2019-02-06] MEDS ORDERED: COMPAZINE10 MG PO (09:42)
[2019-02-06] MEDS ORDERED: ALEN70 PO (09:43)
[2019-02-06] MEDS ORDERED: ARANESP10 MCG/0.4 IM (09:44)
[2019-02-06] MEDS ORDERED: CYCL10 PO (09:44)
[2019-02-06] MEDS ORDERED: CYAN1000I IM (09:45)
[2019-02-06] MEDS ORDERED: GLIP5 PO (09:45)
[2019-02-06] MEDS ORDERED: ACYC200 PO (09:45)
[2019-02-06] MEDS ORDERED: BUPR150ER PO (09:45)
[2019-02-06] MEDS ORDERED: Flonase 0.05% N16 GM (09:46)
[2019-02-06] MEDS ORDERED: K-Phos Origina500 MG PO (09:46)
[2019-02-06] MEDS ORDERED: ALLO100 PO (09:46)
[2019-02-06] MEDS ORDERED: COLCRYS0.6 MG PO (09:47)
[2019-02-06] MEDS ORDERED: LANS30EC PO (09:47)
[2019-02-06] MEDS ORDERED: INSULANPEN SC (09:48)
[2019-02-06] MEDS ORDERED: INSR10I (09:48)
[2019-02-06] MEDS ORDERED: OXYC5 PO (09:48)
[2019-02-06] MEDS ORDERED: GABA300 PO (09:49)
[2019-02-06] MEDS ORDERED: DIAZ5 PO (09:49)
== END 2019-01-17 16:51 | disposition home or self-care (01) ==
LOC: ATC 02:27
DX: E86.9 Volume depletion, unspecified (principal); I12.9 Hypertensive chronic kidney disease with stage 1 through stage 4 chronic kidney disease, or unspecified chronic kidney disease; E11.22 Type 2 diabetes mellitus with diabetic chronic kidney disease; N18.2 Chronic kidney disease, stage 2 (mild); D63.1 Anemia in chronic kidney disease; E11.21 Type 2 diabetes mellitus with diabetic nephropathy; E78.00 Pure hypercholesterolemia, unspecified; E55.9 Vitamin D deficiency, unspecified; Z79.899 Other long term (current) drug therapy; Z94.0 Kidney transplant status
CPT/HCPCS: 96360; 96361; J1642; J7030

== ENCOUNTER 2019-01-20 00:04 | Day surgery (SDC) | payer OTHER ==
[2019-02-06] MEDS ORDERED: LOSA50 PO (09:36)
[2019-02-06] MEDS ORDERED: METO50 PO (09:36)
[2019-02-06] MEDS ORDERED: Amlodipine Bes2.5 MG PO (09:36)
[2019-02-06] MEDS ORDERED: Bumetanide1 MG PO (09:37)
[2019-02-06] MEDS ORDERED: CLONIDINE HCL0.1 MG PO (09:37)
[2019-02-06] MEDS ORDERED: ATOR20 PO (09:37)
[2019-02-06] MEDS ORDERED: GEMF600 PO (09:38)
[2019-02-06] MEDS ORDERED: LOVAZA1 GM PO (09:38)
[2019-02-06] MEDS ORDERED: TACR1 PO (09:39)
[2019-02-06] MEDS ORDERED: PRED5 PO (09:40)
[2019-02-06] MEDS ORDERED: Cellcept500 MG PO ×2 (09:40)
[2019-02-06] MEDS ORDERED: Diflucan50 MG PO (09:41)
[2019-02-06] MEDS ORDERED: CALC.25 PO (09:41)
[2019-02-06] MEDS ORDERED: AMIT50 PO (09:42)
[2019-02-06] MEDS ORDERED: COMPAZINE10 MG PO (09:42)
[2019-02-06] MEDS ORDERED: ALEN70 PO (09:43)
[2019-02-06] MEDS ORDERED: CYCL10 PO (09:44)
[2019-02-06] MEDS ORDERED: ARANESP10 MCG/0.4 IM (09:44)
[2019-02-06] MEDS ORDERED: BUPR150ER PO (09:45)
[2019-02-06] MEDS ORDERED: ACYC200 PO (09:45)
[2019-02-06] MEDS ORDERED: CYAN1000I IM (09:45)
[2019-02-06] MEDS ORDERED: GLIP5 PO (09:45)
[2019-02-06] MEDS ORDERED: K-Phos Origina500 MG PO (09:46)
[2019-02-06] MEDS ORDERED: Flonase 0.05% N16 GM (09:46)
[2019-02-06] MEDS ORDERED: ALLO100 PO (09:46)
[2019-02-06] MEDS ORDERED: LANS30EC PO (09:47)
[2019-02-06] MEDS ORDERED: COLCRYS0.6 MG PO (09:47)
[2019-02-06] MEDS ORDERED: INSULANPEN SC (09:48)
[2019-02-06] MEDS ORDERED: INSR10I (09:48)
[2019-02-06] MEDS ORDERED: OXYC5 PO (09:48)
[2019-02-06] MEDS ORDERED: GABA300 PO (09:49)
[2019-02-06] MEDS ORDERED: DIAZ5 PO (09:49)
== END 2019-01-20 17:05 | disposition home or self-care (01) ==
LOC: ATC 00:04
DX: E86.9 Volume depletion, unspecified (principal); I12.9 Hypertensive chronic kidney disease with stage 1 through stage 4 chronic kidney disease, or unspecified chronic kidney disease; E11.22 Type 2 diabetes mellitus with diabetic chronic kidney disease; N18.2 Chronic kidney disease, stage 2 (mild); D63.1 Anemia in chronic kidney disease; D50.9 Iron deficiency anemia, unspecified; E11.21 Type 2 diabetes mellitus with diabetic nephropathy; E87.1 Hypo-osmolality and hyponatremia; E78.00 Pure hypercholesterolemia, unspecified; E55.9 Vitamin D deficiency, unspecified; Z94.0 Kidney transplant status; Z79.899 Other long term (current) drug therapy; Z79.52 Long term (current) use of systemic steroids
CPT/HCPCS: 96360; 96361; J1642; J7030

== ENCOUNTER 2019-01-22 00:17 | Day surgery (SDC) | payer OTHER ==
[2019-02-06] MEDS ORDERED: METO50 PO (09:36)
[2019-02-06] MEDS ORDERED: LOSA50 PO (09:36)
[2019-02-06] MEDS ORDERED: Amlodipine Bes2.5 MG PO (09:36)
[2019-02-06] MEDS ORDERED: Bumetanide1 MG PO (09:37)
[2019-02-06] MEDS ORDERED: ATOR20 PO (09:37)
[2019-02-06] MEDS ORDERED: CLONIDINE HCL0.1 MG PO (09:37)
[2019-02-06] MEDS ORDERED: LOVAZA1 GM PO (09:38)
[2019-02-06] MEDS ORDERED: GEMF600 PO (09:38)
[2019-02-06] MEDS ORDERED: TACR1 PO (09:39)
[2019-02-06] MEDS ORDERED: Cellcept500 MG PO ×2 (09:40)
[2019-02-06] MEDS ORDERED: PRED5 PO (09:40)
[2019-02-06] MEDS ORDERED: Diflucan50 MG PO (09:41)
[2019-02-06] MEDS ORDERED: CALC.25 PO (09:41)
[2019-02-06] MEDS ORDERED: COMPAZINE10 MG PO (09:42)
[2019-02-06] MEDS ORDERED: AMIT50 PO (09:42)
[2019-02-06] MEDS ORDERED: ALEN70 PO (09:43)
[2019-02-06] MEDS ORDERED: ARANESP10 MCG/0.4 IM (09:44)
[2019-02-06] MEDS ORDERED: CYCL10 PO (09:44)
[2019-02-06] MEDS ORDERED: BUPR150ER PO (09:45)
[2019-02-06] MEDS ORDERED: ACYC200 PO (09:45)
[2019-02-06] MEDS ORDERED: GLIP5 PO (09:45)
[2019-02-06] MEDS ORDERED: CYAN1000I IM (09:45)
[2019-02-06] MEDS ORDERED: Flonase 0.05% N16 GM (09:46)
[2019-02-06] MEDS ORDERED: ALLO100 PO (09:46)
[2019-02-06] MEDS ORDERED: K-Phos Origina500 MG PO (09:46)
[2019-02-06] MEDS ORDERED: COLCRYS0.6 MG PO (09:47)
[2019-02-06] MEDS ORDERED: LANS30EC PO (09:47)
[2019-02-06] MEDS ORDERED: INSR10I (09:48)
[2019-02-06] MEDS ORDERED: INSULANPEN SC (09:48)
[2019-02-06] MEDS ORDERED: OXYC5 PO (09:48)
[2019-02-06] MEDS ORDERED: DIAZ5 PO (09:49)
[2019-02-06] MEDS ORDERED: GABA300 PO (09:49)
== END 2019-01-22 16:50 | disposition home or self-care (01) ==
LOC: ATC 00:17
DX: E86.9 Volume depletion, unspecified (principal); I12.9 Hypertensive chronic kidney disease with stage 1 through stage 4 chronic kidney disease, or unspecified chronic kidney disease; N18.2 Chronic kidney disease, stage 2 (mild); D63.1 Anemia in chronic kidney disease; D50.9 Iron deficiency anemia, unspecified; N25.81 Secondary hyperparathyroidism of renal origin; E87.1 Hypo-osmolality and hyponatremia; E78.00 Pure hypercholesterolemia, unspecified; Z94.0 Kidney transplant status; E55.9 Vitamin D deficiency, unspecified; Z79.899 Other long term (current) drug therapy
CPT/HCPCS: 96360; 96361; J1642; J7030

== ENCOUNTER 2019-01-24 02:11 | Day surgery (SDC) | payer OTHER ==
[2019-02-06] MEDS ORDERED: LOSA50 PO (09:36)
[2019-02-06] MEDS ORDERED: METO50 PO (09:36)
[2019-02-06] MEDS ORDERED: Amlodipine Bes2.5 MG PO (09:36)
[2019-02-06] MEDS ORDERED: CLONIDINE HCL0.1 MG PO (09:37)
[2019-02-06] MEDS ORDERED: ATOR20 PO (09:37)
[2019-02-06] MEDS ORDERED: Bumetanide1 MG PO (09:37)
[2019-02-06] MEDS ORDERED: LOVAZA1 GM PO (09:38)
[2019-02-06] MEDS ORDERED: GEMF600 PO (09:38)
[2019-02-06] MEDS ORDERED: TACR1 PO (09:39)
[2019-02-06] MEDS ORDERED: PRED5 PO (09:40)
[2019-02-06] MEDS ORDERED: Cellcept500 MG PO ×2 (09:40)
[2019-02-06] MEDS ORDERED: CALC.25 PO (09:41)
[2019-02-06] MEDS ORDERED: Diflucan50 MG PO (09:41)
[2019-02-06] MEDS ORDERED: COMPAZINE10 MG PO (09:42)
[2019-02-06] MEDS ORDERED: AMIT50 PO (09:42)
[2019-02-06] MEDS ORDERED: ALEN70 PO (09:43)
[2019-02-06] MEDS ORDERED: ARANESP10 MCG/0.4 IM (09:44)
[2019-02-06] MEDS ORDERED: CYCL10 PO (09:44)
[2019-02-06] MEDS ORDERED: BUPR150ER PO (09:45)
[2019-02-06] MEDS ORDERED: CYAN1000I IM (09:45)
[2019-02-06] MEDS ORDERED: ACYC200 PO (09:45)
[2019-02-06] MEDS ORDERED: GLIP5 PO (09:45)
[2019-02-06] MEDS ORDERED: ALLO100 PO (09:46)
[2019-02-06] MEDS ORDERED: K-Phos Origina500 MG PO (09:46)
[2019-02-06] MEDS ORDERED: Flonase 0.05% N16 GM (09:46)
[2019-02-06] MEDS ORDERED: COLCRYS0.6 MG PO (09:47)
[2019-02-06] MEDS ORDERED: LANS30EC PO (09:47)
[2019-02-06] MEDS ORDERED: INSULANPEN SC (09:48)
[2019-02-06] MEDS ORDERED: INSR10I (09:48)
[2019-02-06] MEDS ORDERED: OXYC5 PO (09:48)
[2019-02-06] MEDS ORDERED: DIAZ5 PO (09:49)
[2019-02-06] MEDS ORDERED: GABA300 PO (09:49)
== END 2019-01-24 17:35 | disposition home or self-care (01) ==
LOC: ATC 02:11
DX: E86.9 Volume depletion, unspecified (principal); I12.9 Hypertensive chronic kidney disease with stage 1 through stage 4 chronic kidney disease, or unspecified chronic kidney disease; E11.22 Type 2 diabetes mellitus with diabetic chronic kidney disease; N18.2 Chronic kidney disease, stage 2 (mild); D63.1 Anemia in chronic kidney disease; N25.81 Secondary hyperparathyroidism of renal origin; D50.9 Iron deficiency anemia, unspecified; E11.21 Type 2 diabetes mellitus with diabetic nephropathy; E87.1 Hypo-osmolality and hyponatremia; E55.9 Vitamin D deficiency, unspecified; Z94.0 Kidney transplant status
CPT/HCPCS: 96360; 96361; J1642; J7030

== ENCOUNTER 2019-01-27 00:11 | Day surgery (SDC) | payer OTHER ==
[2019-02-06] MEDS ORDERED: METO50 PO (09:36)
[2019-02-06] MEDS ORDERED: Amlodipine Bes2.5 MG PO (09:36)
[2019-02-06] MEDS ORDERED: LOSA50 PO (09:36)
[2019-02-06] MEDS ORDERED: CLONIDINE HCL0.1 MG PO (09:37)
[2019-02-06] MEDS ORDERED: ATOR20 PO (09:37)
[2019-02-06] MEDS ORDERED: Bumetanide1 MG PO (09:37)
[2019-02-06] MEDS ORDERED: GEMF600 PO (09:38)
[2019-02-06] MEDS ORDERED: LOVAZA1 GM PO (09:38)
[2019-02-06] MEDS ORDERED: TACR1 PO (09:39)
[2019-02-06] MEDS ORDERED: Cellcept500 MG PO ×2 (09:40)
[2019-02-06] MEDS ORDERED: PRED5 PO (09:40)
[2019-02-06] MEDS ORDERED: Diflucan50 MG PO (09:41)
[2019-02-06] MEDS ORDERED: CALC.25 PO (09:41)
[2019-02-06] MEDS ORDERED: AMIT50 PO (09:42)
[2019-02-06] MEDS ORDERED: COMPAZINE10 MG PO (09:42)
[2019-02-06] MEDS ORDERED: ALEN70 PO (09:43)
[2019-02-06] MEDS ORDERED: CYCL10 PO (09:44)
[2019-02-06] MEDS ORDERED: ARANESP10 MCG/0.4 IM (09:44)
[2019-02-06] MEDS ORDERED: CYAN1000I IM (09:45)
[2019-02-06] MEDS ORDERED: BUPR150ER PO (09:45)
[2019-02-06] MEDS ORDERED: GLIP5 PO (09:45)
[2019-02-06] MEDS ORDERED: ACYC200 PO (09:45)
[2019-02-06] MEDS ORDERED: K-Phos Origina500 MG PO (09:46)
[2019-02-06] MEDS ORDERED: Flonase 0.05% N16 GM (09:46)
[2019-02-06] MEDS ORDERED: ALLO100 PO (09:46)
[2019-02-06] MEDS ORDERED: COLCRYS0.6 MG PO (09:47)
[2019-02-06] MEDS ORDERED: LANS30EC PO (09:47)
[2019-02-06] MEDS ORDERED: OXYC5 PO (09:48)
[2019-02-06] MEDS ORDERED: INSULANPEN SC (09:48)
[2019-02-06] MEDS ORDERED: INSR10I (09:48)
[2019-02-06] MEDS ORDERED: DIAZ5 PO (09:49)
[2019-02-06] MEDS ORDERED: GABA300 PO (09:49)
== END 2019-01-27 17:00 | disposition home or self-care (01) ==
LOC: ATC 00:11
DX: E86.9 Volume depletion, unspecified (principal); I12.9 Hypertensive chronic kidney disease with stage 1 through stage 4 chronic kidney disease, or unspecified chronic kidney disease; E11.22 Type 2 diabetes mellitus with diabetic chronic kidney disease; N18.2 Chronic kidney disease, stage 2 (mild); D63.1 Anemia in chronic kidney disease; E11.21 Type 2 diabetes mellitus with diabetic nephropathy; D50.9 Iron deficiency anemia, unspecified; E78.00 Pure hypercholesterolemia, unspecified; E55.9 Vitamin D deficiency, unspecified; Z94.0 Kidney transplant status; Z79.899 Other long term (current) drug therapy; Z79.52 Long term (current) use of systemic steroids
CPT/HCPCS: 96360; 96361; J1642; J7030

== ENCOUNTER 2019-01-29 00:21 | Day surgery (SDC) | payer OTHER ==
[2019-02-06] MEDS ORDERED: LOSA50 PO (09:36)
[2019-02-06] MEDS ORDERED: Amlodipine Bes2.5 MG PO (09:36)
[2019-02-06] MEDS ORDERED: METO50 PO (09:36)
[2019-02-06] MEDS ORDERED: CLONIDINE HCL0.1 MG PO (09:37)
[2019-02-06] MEDS ORDERED: Bumetanide1 MG PO (09:37)
[2019-02-06] MEDS ORDERED: ATOR20 PO (09:37)
[2019-02-06] MEDS ORDERED: LOVAZA1 GM PO (09:38)
[2019-02-06] MEDS ORDERED: GEMF600 PO (09:38)
[2019-02-06] MEDS ORDERED: TACR1 PO (09:39)
[2019-02-06] MEDS ORDERED: Cellcept500 MG PO ×2 (09:40)
[2019-02-06] MEDS ORDERED: PRED5 PO (09:40)
[2019-02-06] MEDS ORDERED: CALC.25 PO (09:41)
[2019-02-06] MEDS ORDERED: Diflucan50 MG PO (09:41)
[2019-02-06] MEDS ORDERED: COMPAZINE10 MG PO (09:42)
[2019-02-06] MEDS ORDERED: AMIT50 PO (09:42)
[2019-02-06] MEDS ORDERED: ALEN70 PO (09:43)
[2019-02-06] MEDS ORDERED: ARANESP10 MCG/0.4 IM (09:44)
[2019-02-06] MEDS ORDERED: CYCL10 PO (09:44)
[2019-02-06] MEDS ORDERED: BUPR150ER PO (09:45)
[2019-02-06] MEDS ORDERED: GLIP5 PO (09:45)
[2019-02-06] MEDS ORDERED: CYAN1000I IM (09:45)
[2019-02-06] MEDS ORDERED: ACYC200 PO (09:45)
[2019-02-06] MEDS ORDERED: Flonase 0.05% N16 GM (09:46)
[2019-02-06] MEDS ORDERED: ALLO100 PO (09:46)
[2019-02-06] MEDS ORDERED: K-Phos Origina500 MG PO (09:46)
[2019-02-06] MEDS ORDERED: LANS30EC PO (09:47)
[2019-02-06] MEDS ORDERED: COLCRYS0.6 MG PO (09:47)
[2019-02-06] MEDS ORDERED: INSR10I (09:48)
[2019-02-06] MEDS ORDERED: INSULANPEN SC (09:48)
[2019-02-06] MEDS ORDERED: OXYC5 PO (09:48)
[2019-02-06] MEDS ORDERED: GABA300 PO (09:49)
[2019-02-06] MEDS ORDERED: DIAZ5 PO (09:49)
== END 2019-01-29 17:10 | disposition home or self-care (01) ==
LOC: ATC 00:21
DX: E86.9 Volume depletion, unspecified (principal); I12.9 Hypertensive chronic kidney disease with stage 1 through stage 4 chronic kidney disease, or unspecified chronic kidney disease; N18.2 Chronic kidney disease, stage 2 (mild); D50.9 Iron deficiency anemia, unspecified; D63.1 Anemia in chronic kidney disease; E11.21 Type 2 diabetes mellitus with diabetic nephropathy; R80.9 Proteinuria, unspecified; E87.1 Hypo-osmolality and hyponatremia; E78.00 Pure hypercholesterolemia, unspecified; E55.9 Vitamin D deficiency, unspecified; Z94.0 Kidney transplant status
CPT/HCPCS: 96360; 96361; J1642; J7030

== ENCOUNTER 2019-01-31 00:22 | Day surgery (SDC) | payer OTHER ==
[2019-02-06] MEDS ORDERED: Amlodipine Bes2.5 MG PO (09:36)
[2019-02-06] MEDS ORDERED: LOSA50 PO (09:36)
[2019-02-06] MEDS ORDERED: METO50 PO (09:36)
[2019-02-06] MEDS ORDERED: CLONIDINE HCL0.1 MG PO (09:37)
[2019-02-06] MEDS ORDERED: Bumetanide1 MG PO (09:37)
[2019-02-06] MEDS ORDERED: ATOR20 PO (09:37)
[2019-02-06] MEDS ORDERED: GEMF600 PO (09:38)
[2019-02-06] MEDS ORDERED: LOVAZA1 GM PO (09:38)
[2019-02-06] MEDS ORDERED: TACR1 PO (09:39)
[2019-02-06] MEDS ORDERED: Cellcept500 MG PO ×2 (09:40)
[2019-02-06] MEDS ORDERED: PRED5 PO (09:40)
[2019-02-06] MEDS ORDERED: Diflucan50 MG PO (09:41)
[2019-02-06] MEDS ORDERED: CALC.25 PO (09:41)
[2019-02-06] MEDS ORDERED: AMIT50 PO (09:42)
[2019-02-06] MEDS ORDERED: COMPAZINE10 MG PO (09:42)
[2019-02-06] MEDS ORDERED: ALEN70 PO (09:43)
[2019-02-06] MEDS ORDERED: CYCL10 PO (09:44)
[2019-02-06] MEDS ORDERED: ARANESP10 MCG/0.4 IM (09:44)
[2019-02-06] MEDS ORDERED: ACYC200 PO (09:45)
[2019-02-06] MEDS ORDERED: GLIP5 PO (09:45)
[2019-02-06] MEDS ORDERED: BUPR150ER PO (09:45)
[2019-02-06] MEDS ORDERED: CYAN1000I IM (09:45)
[2019-02-06] MEDS ORDERED: Flonase 0.05% N16 GM (09:46)
[2019-02-06] MEDS ORDERED: ALLO100 PO (09:46)
[2019-02-06] MEDS ORDERED: K-Phos Origina500 MG PO (09:46)
[2019-02-06] MEDS ORDERED: LANS30EC PO (09:47)
[2019-02-06] MEDS ORDERED: COLCRYS0.6 MG PO (09:47)
[2019-02-06] MEDS ORDERED: INSULANPEN SC (09:48)
[2019-02-06] MEDS ORDERED: INSR10I (09:48)
[2019-02-06] MEDS ORDERED: OXYC5 PO (09:48)
[2019-02-06] MEDS ORDERED: DIAZ5 PO (09:49)
[2019-02-06] MEDS ORDERED: GABA300 PO (09:49)
== END 2019-01-31 17:10 | disposition home or self-care (01) ==
LOC: ATC 00:22
DX: E86.9 Volume depletion, unspecified (principal); I12.9 Hypertensive chronic kidney disease with stage 1 through stage 4 chronic kidney disease, or unspecified chronic kidney disease; E11.22 Type 2 diabetes mellitus with diabetic chronic kidney disease; N18.2 Chronic kidney disease, stage 2 (mild); D63.1 Anemia in chronic kidney disease; D50.9 Iron deficiency anemia, unspecified; E55.9 Vitamin D deficiency, unspecified; Z94.0 Kidney transplant status; Z79.899 Other long term (current) drug therapy; Z79.52 Long term (current) use of systemic steroids
CPT/HCPCS: 96360; 96361; J1642; J7030

== ENCOUNTER 2019-02-03 12:35 | Day surgery (SDC) | payer OTHER ==
[2019-02-06] MEDS ORDERED: Amlodipine Bes2.5 MG PO (09:36)
[2019-02-06] MEDS ORDERED: LOSA50 PO (09:36)
[2019-02-06] MEDS ORDERED: METO50 PO (09:36)
[2019-02-06] MEDS ORDERED: ATOR20 PO (09:37)
[2019-02-06] MEDS ORDERED: Bumetanide1 MG PO (09:37)
[2019-02-06] MEDS ORDERED: CLONIDINE HCL0.1 MG PO (09:37)
[2019-02-06] MEDS ORDERED: GEMF600 PO (09:38)
[2019-02-06] MEDS ORDERED: LOVAZA1 GM PO (09:38)
[2019-02-06] MEDS ORDERED: TACR1 PO (09:39)
[2019-02-06] MEDS ORDERED: PRED5 PO (09:40)
[2019-02-06] MEDS ORDERED: Cellcept500 MG PO ×2 (09:40)
[2019-02-06] MEDS ORDERED: CALC.25 PO (09:41)
[2019-02-06] MEDS ORDERED: Diflucan50 MG PO (09:41)
[2019-02-06] MEDS ORDERED: COMPAZINE10 MG PO (09:42)
[2019-02-06] MEDS ORDERED: AMIT50 PO (09:42)
[2019-02-06] MEDS ORDERED: ALEN70 PO (09:43)
[2019-02-06] MEDS ORDERED: ARANESP10 MCG/0.4 IM (09:44)
[2019-02-06] MEDS ORDERED: CYCL10 PO (09:44)
[2019-02-06] MEDS ORDERED: CYAN1000I IM (09:45)
[2019-02-06] MEDS ORDERED: GLIP5 PO (09:45)
[2019-02-06] MEDS ORDERED: BUPR150ER PO (09:45)
[2019-02-06] MEDS ORDERED: ACYC200 PO (09:45)
[2019-02-06] MEDS ORDERED: K-Phos Origina500 MG PO (09:46)
[2019-02-06] MEDS ORDERED: Flonase 0.05% N16 GM (09:46)
[2019-02-06] MEDS ORDERED: ALLO100 PO (09:46)
[2019-02-06] MEDS ORDERED: LANS30EC PO (09:47)
[2019-02-06] MEDS ORDERED: COLCRYS0.6 MG PO (09:47)
[2019-02-06] MEDS ORDERED: INSR10I (09:48)
[2019-02-06] MEDS ORDERED: INSULANPEN SC (09:48)
[2019-02-06] MEDS ORDERED: OXYC5 PO (09:48)
[2019-02-06] MEDS ORDERED: DIAZ5 PO (09:49)
[2019-02-06] MEDS ORDERED: GABA300 PO (09:49)
== END 2019-02-03 17:04 | disposition home or self-care (01) ==
LOC: ATC 12:35
DX: E86.9 Volume depletion, unspecified (principal); I12.9 Hypertensive chronic kidney disease with stage 1 through stage 4 chronic kidney disease, or unspecified chronic kidney disease; N18.2 Chronic kidney disease, stage 2 (mild); D63.1 Anemia in chronic kidney disease; N25.81 Secondary hyperparathyroidism of renal origin; R80.9 Proteinuria, unspecified; E87.1 Hypo-osmolality and hyponatremia; E78.00 Pure hypercholesterolemia, unspecified; E55.9 Vitamin D deficiency, unspecified; Z94.0 Kidney transplant status; D50.9 Iron deficiency anemia, unspecified
CPT/HCPCS: 96360; 96361; J1642; J7030

== ENCOUNTER 2019-02-05 00:15 | Day surgery (SDC) | payer OTHER ==
[2019-02-06] MEDS ORDERED: Amlodipine Bes2.5 MG PO (09:36)
[2019-02-06] MEDS ORDERED: METO50 PO (09:36)
[2019-02-06] MEDS ORDERED: LOSA50 PO (09:36)
[2019-02-06] MEDS ORDERED: ATOR20 PO (09:37)
[2019-02-06] MEDS ORDERED: Bumetanide1 MG PO (09:37)
[2019-02-06] MEDS ORDERED: CLONIDINE HCL0.1 MG PO (09:37)
[2019-02-06] MEDS ORDERED: GEMF600 PO (09:38)
[2019-02-06] MEDS ORDERED: LOVAZA1 GM PO (09:38)
[2019-02-06] MEDS ORDERED: TACR1 PO (09:39)
[2019-02-06] MEDS ORDERED: PRED5 PO (09:40)
[2019-02-06] MEDS ORDERED: Cellcept500 MG PO ×2 (09:40)
[2019-02-06] MEDS ORDERED: Diflucan50 MG PO (09:41)
[2019-02-06] MEDS ORDERED: CALC.25 PO (09:41)
[2019-02-06] MEDS ORDERED: COMPAZINE10 MG PO (09:42)
[2019-02-06] MEDS ORDERED: AMIT50 PO (09:42)
[2019-02-06] MEDS ORDERED: ALEN70 PO (09:43)
[2019-02-06] MEDS ORDERED: CYCL10 PO (09:44)
[2019-02-06] MEDS ORDERED: ARANESP10 MCG/0.4 IM (09:44)
[2019-02-06] MEDS ORDERED: CYAN1000I IM (09:45)
[2019-02-06] MEDS ORDERED: BUPR150ER PO (09:45)
[2019-02-06] MEDS ORDERED: GLIP5 PO (09:45)
[2019-02-06] MEDS ORDERED: ACYC200 PO (09:45)
[2019-02-06] MEDS ORDERED: K-Phos Origina500 MG PO (09:46)
[2019-02-06] MEDS ORDERED: Flonase 0.05% N16 GM (09:46)
[2019-02-06] MEDS ORDERED: ALLO100 PO (09:46)
[2019-02-06] MEDS ORDERED: LANS30EC PO (09:47)
[2019-02-06] MEDS ORDERED: COLCRYS0.6 MG PO (09:47)
[2019-02-06] MEDS ORDERED: OXYC5 PO (09:48)
[2019-02-06] MEDS ORDERED: INSR10I (09:48)
[2019-02-06] MEDS ORDERED: INSULANPEN SC (09:48)
[2019-02-06] MEDS ORDERED: DIAZ5 PO (09:49)
[2019-02-06] MEDS ORDERED: GABA300 PO (09:49)
== END 2019-02-05 17:00 | disposition home or self-care (01) ==
LOC: ATC 00:15
DX: E86.9 Volume depletion, unspecified (principal); I12.9 Hypertensive chronic kidney disease with stage 1 through stage 4 chronic kidney disease, or unspecified chronic kidney disease; E11.22 Type 2 diabetes mellitus with diabetic chronic kidney disease; N18.2 Chronic kidney disease, stage 2 (mild); D63.1 Anemia in chronic kidney disease; D50.9 Iron deficiency anemia, unspecified; E55.9 Vitamin D deficiency, unspecified; Z79.899 Other long term (current) drug therapy; Z79.52 Long term (current) use of systemic steroids; Z94.0 Kidney transplant status
CPT/HCPCS: 96360; 96372; J1642; J7030

== ENCOUNTER 2019-02-07 01:57 | Day surgery (SDC) | payer OTHER ==
[~2019-02-07 01:57] MED LIST changes: +ACYC200 PO; +Amlodipine Bes2.5 MG PO; +Bumetanide1 MG PO; +CLONIDINE HCL0.1 MG PO; +COLCRYS0.6 MG PO; +COMPAZINE10 MG PO; +Cellcept500 MG PO; +GABA300 PO; +INSR10I; +K-Phos Origina500 MG PO; +LOVAZA1 GM PO
== END 2019-02-07 17:16 | disposition home or self-care (01) ==
LOC: ATC 01:57
DX: E86.9 Volume depletion, unspecified (principal); I12.9 Hypertensive chronic kidney disease with stage 1 through stage 4 chronic kidney disease, or unspecified chronic kidney disease; E11.22 Type 2 diabetes mellitus with diabetic chronic kidney disease; N18.2 Chronic kidney disease, stage 2 (mild); D63.1 Anemia in chronic kidney disease; D50.9 Iron deficiency anemia, unspecified; E11.21 Type 2 diabetes mellitus with diabetic nephropathy; E55.9 Vitamin D deficiency, unspecified; Z94.0 Kidney transplant status; Z79.899 Other long term (current) drug therapy; Z79.52 Long term (current) use of systemic steroids
CPT/HCPCS: 96360; 96361; J1642; J7030

== ENCOUNTER 2019-02-10 00:17 | Day surgery (SDC) | payer OTHER | END 2019-02-10 17:14 | disposition home or self-care (01) | LOC: ATC 00:17 | DX: E86.9 Volume depletion, unspecified (principal); I12.9 Hypertensive chronic kidney disease with stage 1 through stage 4 chronic kidney disease, or unspecified chronic kidney disease; E11.22 Type 2 diabetes mellitus with diabetic chronic kidney disease; N18.2 Chronic kidney disease, stage 2 (mild); D63.1 Anemia in chronic kidney disease; D50.9 Iron deficiency anemia, unspecified; E11.21 Type 2 diabetes mellitus with diabetic nephropathy; E55.9 Vitamin D deficiency, unspecified; Z79.899 Other long term (current) drug therapy; Z79.52 Long term (current) use of systemic steroids; Z94.0 Kidney transplant status | CPT/HCPCS: 96360; 96361; J1642; J7030 ==

== ENCOUNTER 2019-02-12 00:19 | Day surgery (SDC) | payer OTHER | END 2019-02-12 11:17 | disposition home or self-care (01) | LOC: ATC 00:19 | DX: E86.9 Volume depletion, unspecified (principal); I12.9 Hypertensive chronic kidney disease with stage 1 through stage 4 chronic kidney disease, or unspecified chronic kidney disease; E11.22 Type 2 diabetes mellitus with diabetic chronic kidney disease; N18.2 Chronic kidney disease, stage 2 (mild); D63.1 Anemia in chronic kidney disease; D50.9 Iron deficiency anemia, unspecified; E11.21 Type 2 diabetes mellitus with diabetic nephropathy; E55.9 Vitamin D deficiency, unspecified; Z94.0 Kidney transplant status; Z79.899 Other long term (current) drug therapy | CPT/HCPCS: 96360; 96361; J1642; J7030 ==

== ENCOUNTER 2019-02-14 02:01 | Day surgery (SDC) | payer OTHER | END 2019-02-14 17:10 | disposition home or self-care (01) | LOC: ATC 02:01 | DX: E86.9 Volume depletion, unspecified (principal); I12.9 Hypertensive chronic kidney disease with stage 1 through stage 4 chronic kidney disease, or unspecified chronic kidney disease; E11.22 Type 2 diabetes mellitus with diabetic chronic kidney disease; N18.2 Chronic kidney disease, stage 2 (mild); D63.1 Anemia in chronic kidney disease; D50.9 Iron deficiency anemia, unspecified; E11.21 Type 2 diabetes mellitus with diabetic nephropathy; E78.00 Pure hypercholesterolemia, unspecified; E55.9 Vitamin D deficiency, unspecified; Z94.0 Kidney transplant status; Z79.899 Other long term (current) drug therapy | CPT/HCPCS: 96360; 96361; J1642; J7030 ==

== ENCOUNTER 2019-02-14 07:46 | Day surgery (SDC) | payer OTHER ==
[~2019-02-14] VITALS: Ht 182.9 cm; Wt 93.5 kg
--- NOTE | 2019-02-14 08:49 | NUR ---
02/14/19 0849 Ramu Castle 1ST IV ATTEMPT RIGHT HAND VEIN BLEW , 2ND ATTEMPT RIGHT AC VEIN BLEW -CMT
--- NOTE | 2019-02-14 08:59 | NUR ---
02/14/19 0859 Bettina Billy O2@10 L VIA NON REBREATHER PER DR BANKS
== END 2019-02-14 09:36 | disposition home or self-care (01) ==
LOC: ORSCSDS 07:46
PROVIDERS: Internal Medicine Gastroenterology
PROC: 0DJD8ZZ Inspection of Lower Intestinal Tract, Via Natural or Artificial Opening Endoscopic (ICD-10-PCS; principal; 2019-02-14 08:30)
DX: Z12.11 Encounter for screening for malignant neoplasm of colon (principal); K64.8 Other hemorrhoids; Z86.010 Personal history of colon polyps; I10 Essential (primary) hypertension; E11.9 Type 2 diabetes mellitus without complications; E78.5 Hyperlipidemia, unspecified; G47.33 Obstructive sleep apnea (adult) (pediatric); F41.8 Other specified anxiety disorders; Z94.0 Kidney transplant status; Z79.899 Other long term (current) drug therapy; Z79.4 Long term (current) use of insulin
CPT/HCPCS: 82947; J2405; J2704; J7120

== ENCOUNTER 2019-02-17 00:12 | Day surgery (SDC) | payer OTHER | END 2019-02-17 22:47 | disposition home or self-care (01) | LOC: ATC 00:12 | DX: E86.9 Volume depletion, unspecified (principal); I12.9 Hypertensive chronic kidney disease with stage 1 through stage 4 chronic kidney disease, or unspecified chronic kidney disease; E11.22 Type 2 diabetes mellitus with diabetic chronic kidney disease; N18.2 Chronic kidney disease, stage 2 (mild); D63.1 Anemia in chronic kidney disease; D50.9 Iron deficiency anemia, unspecified; E11.21 Type 2 diabetes mellitus with diabetic nephropathy; E55.9 Vitamin D deficiency, unspecified; Z94.0 Kidney transplant status; Z79.899 Other long term (current) drug therapy | CPT/HCPCS: 96360; 96361; J1642; J7030 ==

== ENCOUNTER 2019-02-19 00:08 | Day surgery (SDC) | payer OTHER | END 2019-02-19 17:00 | disposition home or self-care (01) | LOC: ATC 00:08 | DX: E86.9 Volume depletion, unspecified (principal); I12.9 Hypertensive chronic kidney disease with stage 1 through stage 4 chronic kidney disease, or unspecified chronic kidney disease; E11.22 Type 2 diabetes mellitus with diabetic chronic kidney disease; N18.2 Chronic kidney disease, stage 2 (mild); D63.1 Anemia in chronic kidney disease; D50.9 Iron deficiency anemia, unspecified; E11.21 Type 2 diabetes mellitus with diabetic nephropathy; E55.9 Vitamin D deficiency, unspecified; Z94.0 Kidney transplant status; Z79.899 Other long term (current) drug therapy; Z79.52 Long term (current) use of systemic steroids | CPT/HCPCS: 96360; 96361; J1642; J7030 ==

== ENCOUNTER 2019-02-21 00:35 | Day surgery (SDC) | payer OTHER | END 2019-02-21 17:07 | disposition home or self-care (01) | LOC: ATC 00:35 | DX: E86.9 Volume depletion, unspecified (principal); I12.9 Hypertensive chronic kidney disease with stage 1 through stage 4 chronic kidney disease, or unspecified chronic kidney disease; E11.22 Type 2 diabetes mellitus with diabetic chronic kidney disease; N18.2 Chronic kidney disease, stage 2 (mild); D63.1 Anemia in chronic kidney disease; D50.9 Iron deficiency anemia, unspecified; E11.21 Type 2 diabetes mellitus with diabetic nephropathy; E55.9 Vitamin D deficiency, unspecified; Z94.0 Kidney transplant status; Z79.899 Other long term (current) drug therapy | CPT/HCPCS: 96360; 96361; J1642; J7030 ==

== ENCOUNTER 2019-02-24 13:34 | Day surgery (SDC) | payer OTHER | END 2019-02-24 16:57 | disposition home or self-care (01) | LOC: ATC 13:34 | DX: E86.9 Volume depletion, unspecified (principal); I12.9 Hypertensive chronic kidney disease with stage 1 through stage 4 chronic kidney disease, or unspecified chronic kidney disease; N18.2 Chronic kidney disease, stage 2 (mild); D63.1 Anemia in chronic kidney disease; N25.81 Secondary hyperparathyroidism of renal origin; D50.9 Iron deficiency anemia, unspecified; E11.21 Type 2 diabetes mellitus with diabetic nephropathy; R80.9 Proteinuria, unspecified; E87.1 Hypo-osmolality and hyponatremia; E78.00 Pure hypercholesterolemia, unspecified; E55.9 Vitamin D deficiency, unspecified; Z94.0 Kidney transplant status | CPT/HCPCS: 96360; 96361; J1642; J7030 ==

== ENCOUNTER 2019-02-26 00:17 | Day surgery (SDC) | payer OTHER | END 2019-02-26 17:07 | disposition home or self-care (01) | LOC: ATC 00:17 | DX: E86.9 Volume depletion, unspecified (principal); I12.9 Hypertensive chronic kidney disease with stage 1 through stage 4 chronic kidney disease, or unspecified chronic kidney disease; E11.22 Type 2 diabetes mellitus with diabetic chronic kidney disease; N18.2 Chronic kidney disease, stage 2 (mild); D63.1 Anemia in chronic kidney disease; N25.81 Secondary hyperparathyroidism of renal origin; E11.21 Type 2 diabetes mellitus with diabetic nephropathy; D50.9 Iron deficiency anemia, unspecified; E55.9 Vitamin D deficiency, unspecified; E78.00 Pure hypercholesterolemia, unspecified; E87.1 Hypo-osmolality and hyponatremia; E83.30 Disorder of phosphorus metabolism, unspecified; Z79.899 Other long term (current) drug therapy; Z94.0 Kidney transplant status | CPT/HCPCS: 96360; 96361; J1642; J7030 ==

== ENCOUNTER 2019-02-28 02:19 | Day surgery (SDC) | payer OTHER | END 2019-02-28 16:54 | disposition home or self-care (01) | LOC: ATC 02:19 | DX: E86.9 Volume depletion, unspecified (principal); I12.9 Hypertensive chronic kidney disease with stage 1 through stage 4 chronic kidney disease, or unspecified chronic kidney disease; N18.2 Chronic kidney disease, stage 2 (mild); D63.1 Anemia in chronic kidney disease; D50.9 Iron deficiency anemia, unspecified; E87.1 Hypo-osmolality and hyponatremia; E78.00 Pure hypercholesterolemia, unspecified; E55.9 Vitamin D deficiency, unspecified; Z94.0 Kidney transplant status | CPT/HCPCS: 96360; 96361; J1642; J7030 ==

== ENCOUNTER 2019-03-03 00:22 | Day surgery (SDC) | payer OTHER ==
[2019-03-03] MEDS ORDERED: Aluminum H320 MG/5 M PO (13:38)
== END 2019-03-03 16:55 | disposition home or self-care (01) ==
LOC: ATC 00:22
DX: E86.9 Volume depletion, unspecified (principal); I12.9 Hypertensive chronic kidney disease with stage 1 through stage 4 chronic kidney disease, or unspecified chronic kidney disease; E11.22 Type 2 diabetes mellitus with diabetic chronic kidney disease; N18.3 Chronic kidney disease, stage 3 (moderate); D63.1 Anemia in chronic kidney disease; N25.81 Secondary hyperparathyroidism of renal origin; D50.9 Iron deficiency anemia, unspecified; E11.21 Type 2 diabetes mellitus with diabetic nephropathy; E55.9 Vitamin D deficiency, unspecified; Z94.0 Kidney transplant status; Z79.899 Other long term (current) drug therapy; Z79.52 Long term (current) use of systemic steroids
CPT/HCPCS: 96360; 96361; J1642; J7030

== ENCOUNTER 2019-03-05 00:12 | Day surgery (SDC) | payer OTHER ==
[~2019-03-05 00:12] MED LIST changes: +Aluminum H320 MG/5 M PO
== END 2019-03-05 17:08 | disposition home or self-care (01) ==
LOC: ATC 00:12
DX: E86.9 Volume depletion, unspecified (principal); I12.9 Hypertensive chronic kidney disease with stage 1 through stage 4 chronic kidney disease, or unspecified chronic kidney disease; N18.2 Chronic kidney disease, stage 2 (mild); D63.1 Anemia in chronic kidney disease; N25.81 Secondary hyperparathyroidism of renal origin; E55.9 Vitamin D deficiency, unspecified; E78.00 Pure hypercholesterolemia, unspecified; E87.1 Hypo-osmolality and hyponatremia; R80.9 Proteinuria, unspecified; E11.21 Type 2 diabetes mellitus with diabetic nephropathy
CPT/HCPCS: 96360; 96361; J1642; J7030

== ENCOUNTER 2019-03-07 00:32 | Day surgery (SDC) | payer OTHER | END 2019-03-07 22:43 | disposition home or self-care (01) | LOC: ATC 00:32 | DX: E86.9 Volume depletion, unspecified (principal); I12.9 Hypertensive chronic kidney disease with stage 1 through stage 4 chronic kidney disease, or unspecified chronic kidney disease; E11.22 Type 2 diabetes mellitus with diabetic chronic kidney disease; N18.2 Chronic kidney disease, stage 2 (mild); D63.1 Anemia in chronic kidney disease; N25.81 Secondary hyperparathyroidism of renal origin; D50.9 Iron deficiency anemia, unspecified; E11.21 Type 2 diabetes mellitus with diabetic nephropathy; Z79.899 Other long term (current) drug therapy; Z79.52 Long term (current) use of systemic steroids; Z94.0 Kidney transplant status | CPT/HCPCS: 96360; 96361; J1642; J7030 ==

== ENCOUNTER 2019-03-10 00:07 | Day surgery (SDC) | payer OTHER | END 2019-03-10 17:00 | disposition home or self-care (01) | LOC: ATC 00:07 | DX: E86.9 Volume depletion, unspecified (principal); I12.9 Hypertensive chronic kidney disease with stage 1 through stage 4 chronic kidney disease, or unspecified chronic kidney disease; E11.22 Type 2 diabetes mellitus with diabetic chronic kidney disease; N18.2 Chronic kidney disease, stage 2 (mild); D63.1 Anemia in chronic kidney disease; N25.81 Secondary hyperparathyroidism of renal origin; D50.9 Iron deficiency anemia, unspecified; E11.21 Type 2 diabetes mellitus with diabetic nephropathy; E55.9 Vitamin D deficiency, unspecified; Z94.0 Kidney transplant status; Z79.899 Other long term (current) drug therapy; Z79.52 Long term (current) use of systemic steroids | CPT/HCPCS: 96360; 96361; J1642; J7030 ==

== ENCOUNTER 2019-03-12 00:18 | Day surgery (SDC) | payer OTHER | END 2019-03-12 17:04 | disposition home or self-care (01) | LOC: ATC 00:18 | DX: E86.9 Volume depletion, unspecified (principal); I12.9 Hypertensive chronic kidney disease with stage 1 through stage 4 chronic kidney disease, or unspecified chronic kidney disease; D63.1 Anemia in chronic kidney disease; N25.81 Secondary hyperparathyroidism of renal origin; D50.9 Iron deficiency anemia, unspecified; E11.21 Type 2 diabetes mellitus with diabetic nephropathy; R80.9 Proteinuria, unspecified; E87.1 Hypo-osmolality and hyponatremia; E78.00 Pure hypercholesterolemia, unspecified; E55.9 Vitamin D deficiency, unspecified | CPT/HCPCS: 96360; 96361; J1642; J7030 ==

== ENCOUNTER 2019-03-14 00:38 | Day surgery (SDC) | payer OTHER | END 2019-03-14 16:55 | disposition home or self-care (01) | LOC: ATC 00:38 | DX: E86.9 Volume depletion, unspecified (principal); I12.9 Hypertensive chronic kidney disease with stage 1 through stage 4 chronic kidney disease, or unspecified chronic kidney disease; N18.2 Chronic kidney disease, stage 2 (mild); D63.1 Anemia in chronic kidney disease; E11.21 Type 2 diabetes mellitus with diabetic nephropathy; D50.9 Iron deficiency anemia, unspecified; E78.00 Pure hypercholesterolemia, unspecified; E87.1 Hypo-osmolality and hyponatremia; N25.81 Secondary hyperparathyroidism of renal origin; Z94.0 Kidney transplant status | CPT/HCPCS: 96360; 96361; J1642; J7030 ==

== ENCOUNTER 2019-03-17 00:13 | Day surgery (SDC) | payer OTHER | END 2019-03-17 17:05 | disposition home or self-care (01) | LOC: ATC 00:13 | DX: E86.9 Volume depletion, unspecified (principal); I12.9 Hypertensive chronic kidney disease with stage 1 through stage 4 chronic kidney disease, or unspecified chronic kidney disease; E11.22 Type 2 diabetes mellitus with diabetic chronic kidney disease; N18.2 Chronic kidney disease, stage 2 (mild); D63.1 Anemia in chronic kidney disease; N25.81 Secondary hyperparathyroidism of renal origin; E11.21 Type 2 diabetes mellitus with diabetic nephropathy; D50.9 Iron deficiency anemia, unspecified; E87.1 Hypo-osmolality and hyponatremia; E55.9 Vitamin D deficiency, unspecified; Z79.899 Other long term (current) drug therapy; Z79.52 Long term (current) use of systemic steroids; Z94.0 Kidney transplant status | CPT/HCPCS: 96360; 96361; J1642; J7030 ==

== ENCOUNTER 2019-03-19 00:05 | Day surgery (SDC) | payer OTHER | END 2019-03-19 17:20 | disposition home or self-care (01) | LOC: ATC 00:05 | DX: E86.9 Volume depletion, unspecified (principal); I12.9 Hypertensive chronic kidney disease with stage 1 through stage 4 chronic kidney disease, or unspecified chronic kidney disease; E11.22 Type 2 diabetes mellitus with diabetic chronic kidney disease; N18.2 Chronic kidney disease, stage 2 (mild); N25.81 Secondary hyperparathyroidism of renal origin; D63.1 Anemia in chronic kidney disease; E11.21 Type 2 diabetes mellitus with diabetic nephropathy; D50.9 Iron deficiency anemia, unspecified; E87.1 Hypo-osmolality and hyponatremia; E55.9 Vitamin D deficiency, unspecified; Z79.899 Other long term (current) drug therapy; Z79.52 Long term (current) use of systemic steroids; Z94.0 Kidney transplant status | CPT/HCPCS: 96360; 96361; J1642; J7030 ==

== ENCOUNTER 2019-03-24 00:14 | Day surgery (SDC) | payer OTHER ==
--- NOTE | 2019-03-24 14:08 | NUR ---
LABS: ORDERED LABS FOR 03/24/19 NOT DRAWN BECAUSE PT REPORTS HE DID NOT FAST. PT ADVISED TO FAST PRIOR TO HIS APPT. ON Sunday03/26/19 SO THAT LABS MAY BE DRAWN.
== END 2019-03-24 16:58 | disposition home or self-care (01) ==
LOC: ATC 00:14
DX: E86.9 Volume depletion, unspecified (principal); I12.9 Hypertensive chronic kidney disease with stage 1 through stage 4 chronic kidney disease, or unspecified chronic kidney disease; E11.22 Type 2 diabetes mellitus with diabetic chronic kidney disease; N18.2 Chronic kidney disease, stage 2 (mild); D63.1 Anemia in chronic kidney disease; N25.81 Secondary hyperparathyroidism of renal origin; D50.9 Iron deficiency anemia, unspecified; E11.21 Type 2 diabetes mellitus with diabetic nephropathy; E87.1 Hypo-osmolality and hyponatremia; E55.9 Vitamin D deficiency, unspecified; Z79.899 Other long term (current) drug therapy; Z94.0 Kidney transplant status
CPT/HCPCS: 96361; 96366; J1642; J7030

== ENCOUNTER 2019-03-26 00:08 | Day surgery (SDC) | payer OTHER | END 2019-03-26 17:05 | disposition home or self-care (01) | LOC: ATC 00:08 | DX: E86.9 Volume depletion, unspecified (principal); I12.9 Hypertensive chronic kidney disease with stage 1 through stage 4 chronic kidney disease, or unspecified chronic kidney disease; N18.2 Chronic kidney disease, stage 2 (mild); D63.1 Anemia in chronic kidney disease; N25.81 Secondary hyperparathyroidism of renal origin; E11.21 Type 2 diabetes mellitus with diabetic nephropathy; R80.9 Proteinuria, unspecified; E87.1 Hypo-osmolality and hyponatremia; E78.00 Pure hypercholesterolemia, unspecified; E55.9 Vitamin D deficiency, unspecified; Z94.0 Kidney transplant status | CPT/HCPCS: 96360; 96361; J1642; J7030 ==

== ENCOUNTER 2019-03-28 00:34 | Day surgery (SDC) | payer OTHER ==
[2019-03-28 14:40] LABS: BASOPHILS ABSOLUTE AUTO 0.02 K/mm3 (0.00-0.23); BASOPHILS PERCENT AUTO 0 % (0-2); EOSINOPHILS ABSOLUTE AUTO 0.12 K/mm3 (0.00-0.68); EOSINOPHILS PERCENT AUTO 2 % (0-6); Hemoglobin 10.9 g/dL (13.5-17.5); IMMATURE GRAN ABSOLUTE AUTO 0.08 K/mm3 (0.00-0.10); IMMATURE GRAN PERCENT AUTO 1 % (0-1); LYMPHOCYTES ABSOLUTE AUTO 1.03 K/mm3 (0.84-5.20); LYMPHOCYTES PERCENT AUTO 14 % (21-46); MONOCYTES ABSOLUTE AUTO 0.71 K/mm3 (0.16-1.47); MONOCYTES PERCENT AUTO 10 % (4-13); Mean Corpuscular HGB 28.4 pg (26.0-34.0); Mean Corpuscular HGB Conc 31.1 g/dL (31.5-36.5); Mean Corpuscular Volume 91 fL (80-100); NEUTROPHILS ABSOLUTE AUTO 5.22 K/mm3 (1.96-9.15); NEUTROPHILS PERCENT AUTO 73 % (41-73); Platelet Count 199 K/mm3 (150-400); RDW Coefficient Variation 13.7 % (11.7-14.2); RDW Standard Deviation 45.1 fL (35.1-46.3); Red Blood Cell Count 3.84 M/mm3 (4.30-5.90); White Blood Cell Count 7.18 K/mm3 (4.00-11.30)
[2019-03-28 15:07] LABS: Alanine Aminotransfer (ALT/SGP 21 U/L (12-78); Albumin, Blood 3.4 g/dL (3.4-5.0); Albumin/Globulin Ratio 1.1 (0.8-1.8); Alk Phos 76 U/L (50-136); Anion Gap 6 mmol/L (6-16); Aspartate Aminotrans (AST/SGOT 14 U/L (12-37); Bilirubin, Direct <0.1 mg/dL (0.0-0.3); Bilirubin, Indirect Unable to Calculate mg/dL (0.1-0.7); Bilirubin, Total 0.3 mg/dL (0.1-1.0); Blood Urea Nitrogen 20 mg/dL (8-24); Bun/Creatinine Ratio 15.9 (12.0-20.0); CO2, Blood 24 mmol/L (21-32); Chloride, Blood 112 mmol/L (98-108); Creatinine, Blood 1.26 mg/dL (0.60-1.20); Globulin, Blood 3.2 g/dL (2.2-4.0); Glomerular Filtration Rate >60 (60-); Glucose, Blood 62 mg/dL (70-99); Phosphorus, Blood 2.8 mg/dL (2.5-4.9); Potassium, Blood 4.4 mmol/L (3.5-5.5); Sodium, Blood 142 mmol/L (136-145); Total Protein, Blood 6.6 g/dL (6.4-8.2)
== END 2019-03-28 17:29 | disposition home or self-care (01) ==
LOC: ATC 00:34
PROVIDERS: Internal Medicine Nephrology
DX: E86.9 Volume depletion, unspecified (principal); I12.9 Hypertensive chronic kidney disease with stage 1 through stage 4 chronic kidney disease, or unspecified chronic kidney disease; E11.22 Type 2 diabetes mellitus with diabetic chronic kidney disease; E11.21 Type 2 diabetes mellitus with diabetic nephropathy; E78.00 Pure hypercholesterolemia, unspecified; N18.2 Chronic kidney disease, stage 2 (mild); N25.81 Secondary hyperparathyroidism of renal origin; D63.1 Anemia in chronic kidney disease; Z79.899 Other long term (current) drug therapy; Z94.0 Kidney transplant status
CPT/HCPCS: 80048; 80053; 80076; 80197; 82248; 84100; 85025; 96360; 96361; J1642; J7030

== ENCOUNTER 2019-03-31 00:44 | Day surgery (SDC) | payer OTHER | END 2019-03-31 16:54 | disposition home or self-care (01) | LOC: ATC 00:44 | DX: E86.9 Volume depletion, unspecified (principal); E11.22 Type 2 diabetes mellitus with diabetic chronic kidney disease; I12.9 Hypertensive chronic kidney disease with stage 1 through stage 4 chronic kidney disease, or unspecified chronic kidney disease; N18.2 Chronic kidney disease, stage 2 (mild); N25.81 Secondary hyperparathyroidism of renal origin; E78.00 Pure hypercholesterolemia, unspecified; D63.1 Anemia in chronic kidney disease; E11.21 Type 2 diabetes mellitus with diabetic nephropathy; Z79.899 Other long term (current) drug therapy; Z94.0 Kidney transplant status | CPT/HCPCS: 96360; 96361; J1642; J7030 ==

== ENCOUNTER 2019-04-02 00:32 | Day surgery (SDC) | payer OTHER | END 2019-04-02 17:13 | disposition home or self-care (01) | LOC: ATC 00:32 | DX: E86.9 Volume depletion, unspecified (principal); I12.9 Hypertensive chronic kidney disease with stage 1 through stage 4 chronic kidney disease, or unspecified chronic kidney disease; N18.2 Chronic kidney disease, stage 2 (mild); D63.1 Anemia in chronic kidney disease; N25.81 Secondary hyperparathyroidism of renal origin; E87.1 Hypo-osmolality and hyponatremia; E55.9 Vitamin D deficiency, unspecified; Z94.0 Kidney transplant status | CPT/HCPCS: 96360; 96361; J1642; J7030 ==

== ENCOUNTER 2019-04-04 00:37 | Day surgery (SDC) | payer OTHER | END 2019-04-04 16:37 | disposition home or self-care (01) | LOC: ATC 00:37 | DX: E86.9 Volume depletion, unspecified (principal); I12.9 Hypertensive chronic kidney disease with stage 1 through stage 4 chronic kidney disease, or unspecified chronic kidney disease; N25.81 Secondary hyperparathyroidism of renal origin; E78.00 Pure hypercholesterolemia, unspecified; E11.22 Type 2 diabetes mellitus with diabetic chronic kidney disease; N18.2 Chronic kidney disease, stage 2 (mild); D63.1 Anemia in chronic kidney disease; Z79.4 Long term (current) use of insulin; Z79.899 Other long term (current) drug therapy; Z94.0 Kidney transplant status | CPT/HCPCS: 96360; 96361; J1642; J7030 ==

== ENCOUNTER 2019-04-07 00:10 | Day surgery (SDC) | payer OTHER | END 2019-04-07 17:18 | disposition home or self-care (01) | LOC: ATC 00:10 | DX: E86.9 Volume depletion, unspecified (principal); I12.9 Hypertensive chronic kidney disease with stage 1 through stage 4 chronic kidney disease, or unspecified chronic kidney disease; E11.22 Type 2 diabetes mellitus with diabetic chronic kidney disease; N18.2 Chronic kidney disease, stage 2 (mild); D63.1 Anemia in chronic kidney disease; N25.81 Secondary hyperparathyroidism of renal origin; E78.00 Pure hypercholesterolemia, unspecified; Z79.899 Other long term (current) drug therapy; Z94.0 Kidney transplant status; Z79.4 Long term (current) use of insulin | CPT/HCPCS: 96360; 96361; J1642; J7030 ==

== ENCOUNTER 2019-04-09 00:11 | Day surgery (SDC) | payer OTHER | END 2019-04-09 22:45 | disposition home or self-care (01) | LOC: ATC 00:11 | DX: E86.9 Volume depletion, unspecified (principal); I12.9 Hypertensive chronic kidney disease with stage 1 through stage 4 chronic kidney disease, or unspecified chronic kidney disease; E11.22 Type 2 diabetes mellitus with diabetic chronic kidney disease; N18.2 Chronic kidney disease, stage 2 (mild); E11.21 Type 2 diabetes mellitus with diabetic nephropathy; D63.1 Anemia in chronic kidney disease; N25.81 Secondary hyperparathyroidism of renal origin; E78.00 Pure hypercholesterolemia, unspecified; Z94.0 Kidney transplant status; Z79.899 Other long term (current) drug therapy; Z79.4 Long term (current) use of insulin | CPT/HCPCS: 96360; 96361; J1642; J7030 ==

== ENCOUNTER 2019-04-11 01:10 | Day surgery (SDC) | payer OTHER | END 2019-04-11 16:55 | disposition home or self-care (01) | LOC: ATC 01:10 | DX: Z45.2 Encounter for adjustment and management of vascular access device (principal); E11.22 Type 2 diabetes mellitus with diabetic chronic kidney disease; I12.9 Hypertensive chronic kidney disease with stage 1 through stage 4 chronic kidney disease, or unspecified chronic kidney disease; E86.9 Volume depletion, unspecified; D63.1 Anemia in chronic kidney disease; N18.2 Chronic kidney disease, stage 2 (mild); N25.81 Secondary hyperparathyroidism of renal origin; E11.21 Type 2 diabetes mellitus with diabetic nephropathy; E83.30 Disorder of phosphorus metabolism, unspecified; E78.00 Pure hypercholesterolemia, unspecified; Z79.899 Other long term (current) drug therapy; Z94.0 Kidney transplant status | CPT/HCPCS: 96360; 96361; J1642; J7030 ==

== ENCOUNTER 2019-04-18 00:32 | Day surgery (SDC) | payer OTHER | END 2019-04-18 17:09 | disposition home or self-care (01) | LOC: ATC 00:32 | DX: E86.9 Volume depletion, unspecified (principal); I12.9 Hypertensive chronic kidney disease with stage 1 through stage 4 chronic kidney disease, or unspecified chronic kidney disease; N18.2 Chronic kidney disease, stage 2 (mild); D63.1 Anemia in chronic kidney disease; N25.81 Secondary hyperparathyroidism of renal origin; E55.9 Vitamin D deficiency, unspecified; E78.00 Pure hypercholesterolemia, unspecified; Z94.0 Kidney transplant status | CPT/HCPCS: 96360; 96361; J1642; J7030 ==

== ENCOUNTER 2019-04-21 00:09 | Day surgery (SDC) | payer OTHER | END 2019-04-21 22:46 | disposition home or self-care (01) | LOC: ATC 00:09 | DX: E86.9 Volume depletion, unspecified (principal); I12.9 Hypertensive chronic kidney disease with stage 1 through stage 4 chronic kidney disease, or unspecified chronic kidney disease; E11.22 Type 2 diabetes mellitus with diabetic chronic kidney disease; N18.2 Chronic kidney disease, stage 2 (mild); D63.1 Anemia in chronic kidney disease; N25.81 Secondary hyperparathyroidism of renal origin; D50.9 Iron deficiency anemia, unspecified; E11.21 Type 2 diabetes mellitus with diabetic nephropathy; E87.1 Hypo-osmolality and hyponatremia; E55.9 Vitamin D deficiency, unspecified; Z94.0 Kidney transplant status; Z79.899 Other long term (current) drug therapy | CPT/HCPCS: 96360; 96361; J1642; J7030 ==

== ENCOUNTER 2019-04-25 00:22 | Day surgery (SDC) | payer OTHER | END 2019-04-25 17:10 | disposition home or self-care (01) | LOC: ATC 00:22 | DX: E86.9 Volume depletion, unspecified (principal); I12.9 Hypertensive chronic kidney disease with stage 1 through stage 4 chronic kidney disease, or unspecified chronic kidney disease; E11.22 Type 2 diabetes mellitus with diabetic chronic kidney disease; N18.2 Chronic kidney disease, stage 2 (mild); D63.1 Anemia in chronic kidney disease; N25.81 Secondary hyperparathyroidism of renal origin; E11.21 Type 2 diabetes mellitus with diabetic nephropathy; E78.00 Pure hypercholesterolemia, unspecified; Z79.52 Long term (current) use of systemic steroids; Z79.4 Long term (current) use of insulin; Z79.899 Other long term (current) drug therapy; Z94.0 Kidney transplant status | CPT/HCPCS: 96360; 96361; J1642; J7030 ==

== ENCOUNTER 2019-04-28 09:41 | Day surgery (SDC) | payer OTHER | END 2019-04-28 22:40 | disposition home or self-care (01) | LOC: ATC 09:41 | DX: E86.9 Volume depletion, unspecified (principal); I12.9 Hypertensive chronic kidney disease with stage 1 through stage 4 chronic kidney disease, or unspecified chronic kidney disease; E11.22 Type 2 diabetes mellitus with diabetic chronic kidney disease; N18.2 Chronic kidney disease, stage 2 (mild); N25.81 Secondary hyperparathyroidism of renal origin; D63.1 Anemia in chronic kidney disease; D50.9 Iron deficiency anemia, unspecified; E11.21 Type 2 diabetes mellitus with diabetic nephropathy; E78.00 Pure hypercholesterolemia, unspecified; Z94.0 Kidney transplant status; Z79.4 Long term (current) use of insulin; Z79.52 Long term (current) use of systemic steroids; Z79.899 Other long term (current) drug therapy | CPT/HCPCS: 96360; 96361; J1642; J7030 ==

== ENCOUNTER 2019-05-02 00:59 | Day surgery (SDC) | payer OTHER | END 2019-05-02 17:25 | disposition home or self-care (01) | LOC: ATC 00:59 | DX: E86.9 Volume depletion, unspecified (principal); I12.9 Hypertensive chronic kidney disease with stage 1 through stage 4 chronic kidney disease, or unspecified chronic kidney disease; N18.9 Chronic kidney disease, unspecified; Z79.899 Other long term (current) drug therapy | CPT/HCPCS: J1642; J7030 ==

== ENCOUNTER 2019-05-05 00:13 | Day surgery (SDC) | payer OTHER | END 2019-05-05 16:55 | disposition home or self-care (01) | LOC: ATC 00:13 | DX: E86.9 Volume depletion, unspecified (principal); I12.9 Hypertensive chronic kidney disease with stage 1 through stage 4 chronic kidney disease, or unspecified chronic kidney disease; E11.22 Type 2 diabetes mellitus with diabetic chronic kidney disease; N18.2 Chronic kidney disease, stage 2 (mild); D63.1 Anemia in chronic kidney disease; N25.81 Secondary hyperparathyroidism of renal origin; D50.9 Iron deficiency anemia, unspecified; E11.21 Type 2 diabetes mellitus with diabetic nephropathy; E78.00 Pure hypercholesterolemia, unspecified; Z79.899 Other long term (current) drug therapy; Z94.0 Kidney transplant status; Z79.51 Long term (current) use of inhaled steroids; Z79.4 Long term (current) use of insulin; Z79.52 Long term (current) use of systemic steroids | CPT/HCPCS: 96360; 96361; J1642; J7030 ==

== ENCOUNTER 2019-05-09 00:10 | Day surgery (SDC) | payer OTHER | END 2019-05-09 17:27 | disposition home or self-care (01) | LOC: ATC 00:10 | DX: E86.9 Volume depletion, unspecified (principal); I12.9 Hypertensive chronic kidney disease with stage 1 through stage 4 chronic kidney disease, or unspecified chronic kidney disease; E11.22 Type 2 diabetes mellitus with diabetic chronic kidney disease; N18.2 Chronic kidney disease, stage 2 (mild); D63.1 Anemia in chronic kidney disease; N25.81 Secondary hyperparathyroidism of renal origin; D50.9 Iron deficiency anemia, unspecified; E11.21 Type 2 diabetes mellitus with diabetic nephropathy; E87.1 Hypo-osmolality and hyponatremia; E78.00 Pure hypercholesterolemia, unspecified; E55.9 Vitamin D deficiency, unspecified; Z94.0 Kidney transplant status; Z79.899 Other long term (current) drug therapy; Z79.4 Long term (current) use of insulin | CPT/HCPCS: 96360; 96361; J1642; J7030 ==

== ENCOUNTER 2019-05-12 00:06 | Day surgery (SDC) | payer OTHER | END 2019-05-12 17:13 | disposition home or self-care (01) | LOC: ATC 00:06 | DX: E86.9 Volume depletion, unspecified (principal); I12.9 Hypertensive chronic kidney disease with stage 1 through stage 4 chronic kidney disease, or unspecified chronic kidney disease; E11.22 Type 2 diabetes mellitus with diabetic chronic kidney disease; N18.2 Chronic kidney disease, stage 2 (mild); D63.1 Anemia in chronic kidney disease; N25.81 Secondary hyperparathyroidism of renal origin; E11.21 Type 2 diabetes mellitus with diabetic nephropathy; D50.9 Iron deficiency anemia, unspecified; E78.00 Pure hypercholesterolemia, unspecified; Z94.0 Kidney transplant status; Z79.4 Long term (current) use of insulin; Z79.899 Other long term (current) drug therapy | CPT/HCPCS: 96360; 96361; J1642; J7030 ==

== ENCOUNTER 2019-05-14 00:13 | Day surgery (SDC) | payer OTHER | END 2019-05-14 17:00 | disposition home or self-care (01) | LOC: ATC 00:13 | DX: E86.9 Volume depletion, unspecified (principal); I12.9 Hypertensive chronic kidney disease with stage 1 through stage 4 chronic kidney disease, or unspecified chronic kidney disease; E11.22 Type 2 diabetes mellitus with diabetic chronic kidney disease; N18.2 Chronic kidney disease, stage 2 (mild); D63.1 Anemia in chronic kidney disease; N25.81 Secondary hyperparathyroidism of renal origin; E11.21 Type 2 diabetes mellitus with diabetic nephropathy; E78.00 Pure hypercholesterolemia, unspecified; D50.9 Iron deficiency anemia, unspecified; Z79.4 Long term (current) use of insulin; Z79.51 Long term (current) use of inhaled steroids; Z79.52 Long term (current) use of systemic steroids; Z79.899 Other long term (current) drug therapy; Z94.0 Kidney transplant status | CPT/HCPCS: 96360; 96361; J1642; J7030 ==

== ENCOUNTER 2019-05-16 08:20 | Day surgery (SDC) | payer OTHER | END 2019-05-16 17:10 | disposition home or self-care (01) | LOC: ATC 08:20 | DX: E86.9 Volume depletion, unspecified (principal); I12.9 Hypertensive chronic kidney disease with stage 1 through stage 4 chronic kidney disease, or unspecified chronic kidney disease; E11.22 Type 2 diabetes mellitus with diabetic chronic kidney disease; N18.2 Chronic kidney disease, stage 2 (mild); D63.1 Anemia in chronic kidney disease; N25.81 Secondary hyperparathyroidism of renal origin; E11.21 Type 2 diabetes mellitus with diabetic nephropathy; E78.00 Pure hypercholesterolemia, unspecified; D50.9 Iron deficiency anemia, unspecified; E78.5 Hyperlipidemia, unspecified; G47.33 Obstructive sleep apnea (adult) (pediatric); F32.9 Major depressive disorder, single episode, unspecified; F41.9 Anxiety disorder, unspecified; M81.0 Age-related osteoporosis without current pathological fracture; Z79.4 Long term (current) use of insulin; Z79.51 Long term (current) use of inhaled steroids; Z79.52 Long term (current) use of systemic steroids; Z79.899 Other long term (current) drug therapy; Z94.0 Kidney transplant status | CPT/HCPCS: 96360; 96361; J1642; J7030 ==

== ENCOUNTER 2019-05-19 00:31 | Day surgery (SDC) | payer OTHER | END 2019-05-19 17:19 | disposition home or self-care (01) | LOC: ATC 00:31 | DX: E86.0 Dehydration (principal); I12.9 Hypertensive chronic kidney disease with stage 1 through stage 4 chronic kidney disease, or unspecified chronic kidney disease; E11.22 Type 2 diabetes mellitus with diabetic chronic kidney disease; N18.3 Chronic kidney disease, stage 3 (moderate); D63.1 Anemia in chronic kidney disease; N25.81 Secondary hyperparathyroidism of renal origin; E11.21 Type 2 diabetes mellitus with diabetic nephropathy; E87.1 Hypo-osmolality and hyponatremia; E78.00 Pure hypercholesterolemia, unspecified; E55.9 Vitamin D deficiency, unspecified; G47.33 Obstructive sleep apnea (adult) (pediatric); F32.9 Major depressive disorder, single episode, unspecified; F41.9 Anxiety disorder, unspecified; Z94.0 Kidney transplant status; Z79.899 Other long term (current) drug therapy; Z79.4 Long term (current) use of insulin | CPT/HCPCS: 96360; 96361; J1642; J7030 ==

== ENCOUNTER 2019-05-21 00:07 | Day surgery (SDC) | payer OTHER | END 2019-05-21 17:20 | disposition home or self-care (01) | LOC: ATC 00:07 | DX: I12.9 Hypertensive chronic kidney disease with stage 1 through stage 4 chronic kidney disease, or unspecified chronic kidney disease (principal); N18.3 Chronic kidney disease, stage 3 (moderate); D63.1 Anemia in chronic kidney disease; N25.81 Secondary hyperparathyroidism of renal origin; D50.9 Iron deficiency anemia, unspecified; E86.9 Volume depletion, unspecified; E78.00 Pure hypercholesterolemia, unspecified; E55.9 Vitamin D deficiency, unspecified; Z79.4 Long term (current) use of insulin; Z79.52 Long term (current) use of systemic steroids; Z79.899 Other long term (current) drug therapy; Z94.0 Kidney transplant status | CPT/HCPCS: J1642; J7030 ==

== ENCOUNTER 2019-05-26 07:08 | Day surgery (SDC) | payer OTHER | END 2019-05-26 17:00 | disposition home or self-care (01) | LOC: ATC 07:08 | DX: E86.0 Dehydration (principal); I12.9 Hypertensive chronic kidney disease with stage 1 through stage 4 chronic kidney disease, or unspecified chronic kidney disease; E11.22 Type 2 diabetes mellitus with diabetic chronic kidney disease; N18.3 Chronic kidney disease, stage 3 (moderate); D63.1 Anemia in chronic kidney disease; N25.81 Secondary hyperparathyroidism of renal origin; D50.9 Iron deficiency anemia, unspecified; E11.21 Type 2 diabetes mellitus with diabetic nephropathy; E78.00 Pure hypercholesterolemia, unspecified; E78.5 Hyperlipidemia, unspecified; G47.33 Obstructive sleep apnea (adult) (pediatric); F32.9 Major depressive disorder, single episode, unspecified; F41.9 Anxiety disorder, unspecified; M81.0 Age-related osteoporosis without current pathological fracture; Z79.52 Long term (current) use of systemic steroids; Z79.4 Long term (current) use of insulin; Z79.899 Other long term (current) drug therapy; Z94.0 Kidney transplant status | CPT/HCPCS: 96360; 96361; J1642; J7030 ==

== ENCOUNTER 2019-05-28 00:12 | Day surgery (SDC) | payer OTHER | END 2019-05-28 17:25 | disposition home or self-care (01) | LOC: ATC 00:12 | DX: E86.0 Dehydration (principal); I12.9 Hypertensive chronic kidney disease with stage 1 through stage 4 chronic kidney disease, or unspecified chronic kidney disease; E11.22 Type 2 diabetes mellitus with diabetic chronic kidney disease; N18.3 Chronic kidney disease, stage 3 (moderate); D63.1 Anemia in chronic kidney disease; N25.81 Secondary hyperparathyroidism of renal origin; E11.21 Type 2 diabetes mellitus with diabetic nephropathy; E78.00 Pure hypercholesterolemia, unspecified; E55.9 Vitamin D deficiency, unspecified; N28.1 Cyst of kidney, acquired; D50.9 Iron deficiency anemia, unspecified; G47.33 Obstructive sleep apnea (adult) (pediatric); F32.9 Major depressive disorder, single episode, unspecified; F41.9 Anxiety disorder, unspecified; M81.0 Age-related osteoporosis without current pathological fracture; E11.42 Type 2 diabetes mellitus with diabetic polyneuropathy; Z79.52 Long term (current) use of systemic steroids; Z79.899 Other long term (current) drug therapy; Z94.0 Kidney transplant status | CPT/HCPCS: 96365; 96366; J1642; J7030 ==

== ENCOUNTER 2019-05-30 01:58 | Day surgery (SDC) | payer OTHER | END 2019-05-30 16:56 | disposition home or self-care (01) | LOC: ATC 01:58 | DX: I12.9 Hypertensive chronic kidney disease with stage 1 through stage 4 chronic kidney disease, or unspecified chronic kidney disease (principal); E11.22 Type 2 diabetes mellitus with diabetic chronic kidney disease; N18.2 Chronic kidney disease, stage 2 (mild); N25.81 Secondary hyperparathyroidism of renal origin; E86.9 Volume depletion, unspecified; D63.1 Anemia in chronic kidney disease; E11.21 Type 2 diabetes mellitus with diabetic nephropathy; E78.00 Pure hypercholesterolemia, unspecified; E85.9 Amyloidosis, unspecified; E78.5 Hyperlipidemia, unspecified; G47.33 Obstructive sleep apnea (adult) (pediatric); F32.9 Major depressive disorder, single episode, unspecified; F41.9 Anxiety disorder, unspecified; M81.0 Age-related osteoporosis without current pathological fracture; Z94.0 Kidney transplant status; Z79.899 Other long term (current) drug therapy | CPT/HCPCS: 96360; 96361; J1642; J7030 ==

== ENCOUNTER 2019-06-02 10:15 | Day surgery (SDC) | payer OTHER | END 2019-06-02 22:40 | disposition home or self-care (01) | LOC: ATC 10:15 | DX: E86.0 Dehydration (principal); I12.9 Hypertensive chronic kidney disease with stage 1 through stage 4 chronic kidney disease, or unspecified chronic kidney disease; E11.22 Type 2 diabetes mellitus with diabetic chronic kidney disease; N18.2 Chronic kidney disease, stage 2 (mild); N25.81 Secondary hyperparathyroidism of renal origin; D63.1 Anemia in chronic kidney disease; E11.21 Type 2 diabetes mellitus with diabetic nephropathy; D50.9 Iron deficiency anemia, unspecified; E78.00 Pure hypercholesterolemia, unspecified; E78.5 Hyperlipidemia, unspecified; G47.33 Obstructive sleep apnea (adult) (pediatric); F32.9 Major depressive disorder, single episode, unspecified; F41.9 Anxiety disorder, unspecified; M81.0 Age-related osteoporosis without current pathological fracture; E55.9 Vitamin D deficiency, unspecified; Z94.0 Kidney transplant status; Z79.82 Long term (current) use of aspirin; Z79.52 Long term (current) use of systemic steroids; Z79.51 Long term (current) use of inhaled steroids; Z79.4 Long term (current) use of insulin; Z79.899 Other long term (current) drug therapy | CPT/HCPCS: 96360; 96361; J1642; J7030 ==

== ENCOUNTER 2019-06-04 13:35 | Day surgery (SDC) | payer OTHER | END 2019-06-04 17:12 | disposition home or self-care (01) | LOC: ATC 13:35 | DX: E86.0 Dehydration (principal); I12.9 Hypertensive chronic kidney disease with stage 1 through stage 4 chronic kidney disease, or unspecified chronic kidney disease; E11.22 Type 2 diabetes mellitus with diabetic chronic kidney disease; N18.2 Chronic kidney disease, stage 2 (mild); D63.1 Anemia in chronic kidney disease; N25.81 Secondary hyperparathyroidism of renal origin; N28.1 Cyst of kidney, acquired; G47.33 Obstructive sleep apnea (adult) (pediatric); F41.9 Anxiety disorder, unspecified; F32.9 Major depressive disorder, single episode, unspecified; E11.21 Type 2 diabetes mellitus with diabetic nephropathy; D50.9 Iron deficiency anemia, unspecified; E78.00 Pure hypercholesterolemia, unspecified; E78.5 Hyperlipidemia, unspecified; M81.0 Age-related osteoporosis without current pathological fracture; Z94.0 Kidney transplant status; Z79.52 Long term (current) use of systemic steroids; Z79.4 Long term (current) use of insulin; Z79.899 Other long term (current) drug therapy | CPT/HCPCS: 96360; 96361; J1642; J7030 ==

== ENCOUNTER 2019-06-06 00:16 | Day surgery (SDC) | payer OTHER | END 2019-06-06 17:15 | disposition home or self-care (01) | LOC: ATC 00:16 | DX: E86.0 Dehydration (principal); I12.9 Hypertensive chronic kidney disease with stage 1 through stage 4 chronic kidney disease, or unspecified chronic kidney disease; E11.22 Type 2 diabetes mellitus with diabetic chronic kidney disease; N18.2 Chronic kidney disease, stage 2 (mild); N25.81 Secondary hyperparathyroidism of renal origin; D63.1 Anemia in chronic kidney disease; E11.21 Type 2 diabetes mellitus with diabetic nephropathy; E78.00 Pure hypercholesterolemia, unspecified; E78.5 Hyperlipidemia, unspecified; G47.33 Obstructive sleep apnea (adult) (pediatric); M81.0 Age-related osteoporosis without current pathological fracture; F32.9 Major depressive disorder, single episode, unspecified; F41.9 Anxiety disorder, unspecified; E55.9 Vitamin D deficiency, unspecified; Z94.0 Kidney transplant status; Z79.52 Long term (current) use of systemic steroids; Z79.4 Long term (current) use of insulin; Z79.899 Other long term (current) drug therapy | CPT/HCPCS: 96360; 96361; J1642; J7030 ==

== ENCOUNTER 2019-06-09 00:15 | Day surgery (SDC) | payer OTHER | END 2019-06-09 17:00 | disposition home or self-care (01) | LOC: ATC 00:15 | DX: E86.9 Volume depletion, unspecified (principal); I12.9 Hypertensive chronic kidney disease with stage 1 through stage 4 chronic kidney disease, or unspecified chronic kidney disease; E11.22 Type 2 diabetes mellitus with diabetic chronic kidney disease; N18.2 Chronic kidney disease, stage 2 (mild); D63.1 Anemia in chronic kidney disease; N25.81 Secondary hyperparathyroidism of renal origin; E11.21 Type 2 diabetes mellitus with diabetic nephropathy; D50.9 Iron deficiency anemia, unspecified; E78.00 Pure hypercholesterolemia, unspecified; E78.5 Hyperlipidemia, unspecified; F32.9 Major depressive disorder, single episode, unspecified; F41.9 Anxiety disorder, unspecified; M81.0 Age-related osteoporosis without current pathological fracture; E55.9 Vitamin D deficiency, unspecified; Z94.0 Kidney transplant status; Z79.4 Long term (current) use of insulin; Z79.899 Other long term (current) drug therapy; Z90.49 Acquired absence of other specified parts of digestive tract | CPT/HCPCS: 96360; 96361; J1642; J7030 ==

== ENCOUNTER 2019-06-11 00:23 | Day surgery (SDC) | payer OTHER | END 2019-06-11 22:48 | disposition home or self-care (01) | LOC: ATC 00:23 | DX: E86.9 Volume depletion, unspecified (principal); I12.9 Hypertensive chronic kidney disease with stage 1 through stage 4 chronic kidney disease, or unspecified chronic kidney disease; E11.22 Type 2 diabetes mellitus with diabetic chronic kidney disease; N18.2 Chronic kidney disease, stage 2 (mild); E11.21 Type 2 diabetes mellitus with diabetic nephropathy; D63.1 Anemia in chronic kidney disease; N25.81 Secondary hyperparathyroidism of renal origin; D50.9 Iron deficiency anemia, unspecified; E55.9 Vitamin D deficiency, unspecified; F32.9 Major depressive disorder, single episode, unspecified; F41.9 Anxiety disorder, unspecified; E78.5 Hyperlipidemia, unspecified; G47.33 Obstructive sleep apnea (adult) (pediatric); E78.00 Pure hypercholesterolemia, unspecified; Z79.82 Long term (current) use of aspirin; Z79.51 Long term (current) use of inhaled steroids; Z79.4 Long term (current) use of insulin; Z79.899 Other long term (current) drug therapy; Z94.0 Kidney transplant status | CPT/HCPCS: 96360; 96361; J1642; J7030 ==

== ENCOUNTER 2019-06-13 00:38 | Day surgery (SDC) | payer OTHER ==
[2019-06-13 16:46] LABS: Alanine Aminotransfer (ALT/SGP 16 U/L (12-78); Albumin, Blood 2.9 g/dL (3.4-5.0); Albumin/Globulin Ratio 1.2 (0.8-1.8); Alk Phos 61 U/L (50-136); Amylase, Blood 25 U/L (25-115); Anion Gap 6 mmol/L (6-16); Aspartate Aminotrans (AST/SGOT 6 U/L (12-37); Bilirubin, Direct 0.2 mg/dL (0.0-0.3); Bilirubin, Indirect 0.3 mg/dL (0.1-0.7); Bilirubin, Total 0.5 mg/dL (0.1-1.0); Blood Urea Nitrogen 22 mg/dL (8-24); Bun/Creatinine Ratio 17.6 (12.0-20.0); CO2, Blood 19 mmol/L (21-32); Calcium, Blood 7.7 mg/dL (8.5-10.1); Chloride, Blood 116 mmol/L (98-108); Creatinine, Blood 1.25 mg/dL (0.60-1.20); Globulin, Blood 2.5 g/dL (2.2-4.0); Glomerular Filtration Rate >60 (60-); Glucose, Blood 90 mg/dL (70-99); Phosphorus, Blood 2.5 mg/dL (2.5-4.9); Potassium, Blood 4.9 mmol/L (3.5-5.5); Sodium, Blood 141 mmol/L (136-145); Total Protein, Blood 5.4 g/dL (6.4-8.2)
[2019-06-14] MEDS ORDERED: SILD25T PO (13:38)
[2019-06-14] MEDS ORDERED: MAGN84 PO (13:40)
[2019-06-14] MEDS ORDERED: PANT40 PO (13:41)
[2019-06-14] MEDS ORDERED: BIOTIN PO (13:43)
[2019-06-14] MEDS ORDERED: CELLCEPT PO (13:47)
[2019-06-14] MEDS ORDERED: SODBIC650 PO (13:48)
[2019-06-14] MEDS ORDERED: POTA10T PO (13:55)
[2019-06-14] MEDS ORDERED: Bumetanide2 MG PO (13:55)
[2019-06-14] MEDS ORDERED: THERA-D2000 UNIT PO (14:57)
[2019-06-14] MEDS ORDERED: METPRE4 PO (14:58)
[2019-06-14] MEDS ORDERED: FAMO20 PO (15:00)
[2019-06-14] MEDS ORDERED: Prilosec Otc20 MG PO (15:00)
[2019-06-14] MEDS ORDERED: Norco 10-325 T1 EACH PO (15:01)
[2019-06-14] MEDS ORDERED: CLIN300 PO (15:03)
[2019-06-14] MEDS ORDERED: AMOCLA500 PO (15:03)
[2019-06-14] MEDS ORDERED: Amoxicillin500 MG PO (15:04)
[2019-06-14] MEDS ORDERED: LOPE2C PO (16:45)
[2019-06-14] MEDS ORDERED: ONDA4ODT MM (19:45)
== END 2019-06-13 23:50 | disposition home or self-care (01) ==
LOC: ATC 00:38
PROVIDERS: Internal Medicine Nephrology
DX: I12.9 Hypertensive chronic kidney disease with stage 1 through stage 4 chronic kidney disease, or unspecified chronic kidney disease (principal); E11.22 Type 2 diabetes mellitus with diabetic chronic kidney disease; N18.2 Chronic kidney disease, stage 2 (mild); N25.81 Secondary hyperparathyroidism of renal origin; D63.1 Anemia in chronic kidney disease; E11.21 Type 2 diabetes mellitus with diabetic nephropathy; E86.9 Volume depletion, unspecified; E87.1 Hypo-osmolality and hyponatremia; E78.00 Pure hypercholesterolemia, unspecified; E55.9 Vitamin D deficiency, unspecified; I71.4 Abdominal aortic aneurysm, without rupture; Z79.899 Other long term (current) drug therapy; Z94.0 Kidney transplant status; Z79.4 Long term (current) use of insulin
CPT/HCPCS: 80053; 82150; 82248; 83690; 84100; 96360; 96361; J1642; J7030

== ENCOUNTER 2019-06-14 12:56 | Emergency (ER) | payer OTHER ==
[~2019-06-14] VITALS: Ht 180.3 cm; Wt 90.7 kg
[2019-06-14] MEDS ORDERED: SILD25T PO (13:38)
[2019-06-14] MEDS ORDERED: MAGN84 PO (13:40)
[2019-06-14] MEDS ORDERED: PANT40 PO (13:41)
[2019-06-14] MEDS ORDERED: BIOTIN PO (13:43)
[2019-06-14] MEDS ORDERED: CELLCEPT PO (13:47)
[2019-06-14] MEDS ORDERED: SODBIC650 PO (13:48)
[2019-06-14] MEDS ORDERED: POTA10T PO (13:55)
[2019-06-14] MEDS ORDERED: Bumetanide2 MG PO (13:55)
[2019-06-14 14:35] LABS: Source, Urine Clean Catch
[2019-06-14 14:38] LABS: Bilirubin, Urine Neg (Neg); Blood, Urine 2+ (Neg); Glucose Qualitative, Urine Neg (Neg); Ketones, Urine 1+ (Neg); Leukocyte Esterase, Urine Neg (Neg); Nitrite, Urine Neg (Neg); Protein, Urine 3+ (Neg); Urobilinogen, Urine NORM (Normal)
[2019-06-14 14:44] LABS: BASOPHILS ABSOLUTE AUTO 0.01 K/mm3 (0.00-0.23); BASOPHILS PERCENT AUTO 0 % (0-2); EOSINOPHILS PERCENT AUTO 0 % (0-6); Hematocrit 34.5 % (37.0-53.0); Hemoglobin 10.5 g/dL (13.5-17.5); IMMATURE GRAN ABSOLUTE AUTO 0.06 K/mm3 (0.00-0.10); IMMATURE GRAN PERCENT AUTO 1 % (0-1); LYMPHOCYTES ABSOLUTE AUTO 0.26 K/mm3 (0.84-5.20); LYMPHOCYTES PERCENT AUTO 4 % (21-46); MONOCYTES PERCENT AUTO 9 % (4-13); Mean Corpuscular HGB 28.4 pg (26.0-34.0); Mean Corpuscular HGB Conc 30.4 g/dL (31.5-36.5); Mean Corpuscular Volume 93 fL (80-100); NEUTROPHILS PERCENT AUTO 86 % (41-73); Platelet Count 140 K/mm3 (150-400); RDW Coefficient Variation 14.1 % (11.7-14.2); White Blood Cell Count 6.73 K/mm3 (4.00-11.30)
[2019-06-14 14:50] LABS: Alanine Aminotransfer (ALT/SGP 16 U/L (12-78); Albumin, Blood 2.9 g/dL (3.4-5.0); Alk Phos 61 U/L (50-136); Anion Gap 7 mmol/L (6-16); Aspartate Aminotrans (AST/SGOT 11 U/L (12-37); Bilirubin, Total 0.4 mg/dL (0.1-1.0); Blood Urea Nitrogen 20 mg/dL (8-24); Bun/Creatinine Ratio 16.8 (12.0-20.0); CO2, Blood 16 mmol/L (21-32); Calcium, Blood 7.8 mg/dL (8.5-10.1); Chloride, Blood 118 mmol/L (98-108); Creatinine, Blood 1.19 mg/dL (0.60-1.20); Globulin, Blood 2.8 g/dL (2.2-4.0); Glomerular Filtration Rate >60 (60-); Glucose, Blood 51 mg/dL (70-99); Potassium, Blood 4.4 mmol/L (3.5-5.5); Sodium, Blood 141 mmol/L (136-145); Total Protein, Blood 5.7 g/dL (6.4-8.2)
[2019-06-14] MEDS ORDERED: THERA-D2000 UNIT PO (14:57)
[2019-06-14] MEDS ORDERED: METPRE4 PO (14:58)
[2019-06-14] MEDS ORDERED: FAMO20 PO (15:00)
[2019-06-14] MEDS ORDERED: Prilosec Otc20 MG PO (15:00)
[2019-06-14] MEDS ORDERED: Norco 10-325 T1 EACH PO (15:01)
[2019-06-14] MEDS ORDERED: AMOCLA500 PO (15:03)
[2019-06-14] MEDS ORDERED: CLIN300 PO (15:03)
[2019-06-14] MEDS ORDERED: Amoxicillin500 MG PO (15:04)
[2019-06-14 15:13] LABS: Appearance, Urine Clear (Clear); Color, Urine Yellow (P-Yellow)
[2019-06-14 15:14] LABS: Bacteria Not Seen /hpf; Red Blood Cells, Urine 0-2 /hpf (0-2); Squamous Epithelial Cells Not Seen /hpf (Few); White Blood Cells, Urine Rare /hpf (0-5)
[2019-06-14] MEDS ORDERED: LOPE2C PO (16:45)
[2019-06-14 18:20] LABS: Adenovirus F 40/41 Not Detected (NOT DETECT); Astrovirus Not Detected (NOT DETECT); Campylobacter Sp Not Detected (NOT DETECT); Cryptosporidium Not Detected (NOT DETECT); Cyclospora Cayetanensis Not Detected (NOT DETECT); E. Coli O157 Not Detected (NOT DETECT); Entamoeba Histolytica Not Detected (NOT DETECT); Enteroaggregative E. coli-EAEC Not Detected (NOT DETECT); Enteropathogenic E. coli-EPEC Not Detected (NOT DETECT); Enterotoxigenic E. coli-ETEC Not Detected (NOT DETECT); Giardia Lamblia Not Detected (NOT DETECT); Norovirus GI/GII Detected (NOT DETECT); Plesiomonas Shigelloides Not Detected (NOT DETECT); Rotavirus A Not Detected (NOT DETECT); Salmonella Sp Not Detected (NOT DETECT); Sapovirus Not Detected (NOT DETECT); Shiga Toxin-prod E. coli-STEC Not Detected (NOT DETECT); Shigella/Enteroin E. coli-EIEC Not Detected (NOT DETECT); Vibrio Cholerae Not Detected (NOT DETECT); Vibrio Sp Not Detected (NOT DETECT); Yersinia Enterocolitica Not Detected (NOT DETECT)
[2019-06-14] MEDS ORDERED: ONDA4ODT MM (19:45)
== END 2019-06-14 19:48 | disposition home or self-care (01) ==
LOC: ER 12:56
PROVIDERS: Emergency Medicine; Physician Assistant
DX: A08.11 Acute gastroenteropathy due to Norwalk agent (principal); E11.649 Type 2 diabetes mellitus with hypoglycemia without coma; I10 Essential (primary) hypertension; Z79.899 Other long term (current) drug therapy; Z79.52 Long term (current) use of systemic steroids; Z79.4 Long term (current) use of insulin; Z94.0 Kidney transplant status
CPT/HCPCS: 0097U; 76705; 80053; 81001; 82947; 83690; 85025; 96361; 96374; 96375; 96376; 99284-25; A9270-GY; J1642; J2405; J7030

== ENCOUNTER 2019-06-16 00:07 | Day surgery (SDC) | payer OTHER ==
[~2019-06-16 00:07] MED LIST changes: +AMOCLA500 PO; +Amoxicillin500 MG PO; +BIOTIN PO; +Bumetanide2 MG PO; +CELLCEPT PO; +CLIN300 PO; +LOPE2C PO; +MAGN84 PO; +METPRE4 PO; +Norco 10-325 T1 EACH PO; +ONDA4ODT MM; +POTA10T PO; +Prilosec Otc20 MG PO; +SILD25T PO; +THERA-D2000 UNIT PO
== END 2019-06-16 16:57 | disposition home or self-care (01) ==
LOC: ATC 00:07
DX: E86.0 Dehydration (principal); I12.9 Hypertensive chronic kidney disease with stage 1 through stage 4 chronic kidney disease, or unspecified chronic kidney disease; E11.22 Type 2 diabetes mellitus with diabetic chronic kidney disease; N18.2 Chronic kidney disease, stage 2 (mild); D63.1 Anemia in chronic kidney disease; N25.81 Secondary hyperparathyroidism of renal origin; D50.9 Iron deficiency anemia, unspecified; E78.00 Pure hypercholesterolemia, unspecified; E55.9 Vitamin D deficiency, unspecified; E11.21 Type 2 diabetes mellitus with diabetic nephropathy; E78.5 Hyperlipidemia, unspecified; J44.9 Chronic obstructive pulmonary disease, unspecified; F41.9 Anxiety disorder, unspecified; F32.9 Major depressive disorder, single episode, unspecified; M81.0 Age-related osteoporosis without current pathological fracture; Z79.52 Long term (current) use of systemic steroids; Z79.4 Long term (current) use of insulin; Z79.899 Other long term (current) drug therapy; Z94.0 Kidney transplant status
CPT/HCPCS: 96360; 96361; J1642; J7030

== ENCOUNTER 2019-06-17 00:07 | Day surgery (SDC) | payer OTHER | END 2019-06-17 16:54 | disposition home or self-care (01) | LOC: ATC 00:07 | DX: I12.9 Hypertensive chronic kidney disease with stage 1 through stage 4 chronic kidney disease, or unspecified chronic kidney disease (principal); E11.22 Type 2 diabetes mellitus with diabetic chronic kidney disease; N18.2 Chronic kidney disease, stage 2 (mild); D63.1 Anemia in chronic kidney disease; N25.81 Secondary hyperparathyroidism of renal origin; D50.9 Iron deficiency anemia, unspecified; E78.00 Pure hypercholesterolemia, unspecified; E55.9 Vitamin D deficiency, unspecified; E11.21 Type 2 diabetes mellitus with diabetic nephropathy; E78.5 Hyperlipidemia, unspecified; J44.9 Chronic obstructive pulmonary disease, unspecified; F41.9 Anxiety disorder, unspecified; F32.9 Major depressive disorder, single episode, unspecified; M81.0 Age-related osteoporosis without current pathological fracture; Z79.52 Long term (current) use of systemic steroids; Z79.4 Long term (current) use of insulin; Z79.899 Other long term (current) drug therapy; Z94.0 Kidney transplant status | CPT/HCPCS: 96360; 96361; J1642; J7030 ==

== ENCOUNTER 2019-06-20 02:15 | Day surgery (SDC) | payer OTHER ==
[2019-06-20 14:44] LABS: BASOPHILS ABSOLUTE AUTO 0.01 K/mm3 (0.00-0.23); BASOPHILS PERCENT AUTO 0 % (0-2); EOSINOPHILS ABSOLUTE AUTO 0.04 K/mm3 (0.00-0.68); EOSINOPHILS PERCENT AUTO 0 % (0-6); Hematocrit 34.4 % (37.0-53.0); Hemoglobin 10.8 g/dL (13.5-17.5); IMMATURE GRAN ABSOLUTE AUTO 0.08 K/mm3 (0.00-0.10); IMMATURE GRAN PERCENT AUTO 1 % (0-1); LYMPHOCYTES ABSOLUTE AUTO 0.96 K/mm3 (0.84-5.20); LYMPHOCYTES PERCENT AUTO 10 % (21-46); MONOCYTES ABSOLUTE AUTO 0.92 K/mm3 (0.16-1.47); MONOCYTES PERCENT AUTO 10 % (4-13); Mean Corpuscular HGB 28.3 pg (26.0-34.0); Mean Corpuscular HGB Conc 31.4 g/dL (31.5-36.5); Mean Corpuscular Volume 90 fL (80-100); Mean Platelet Volume 10.1 fL (9.1-12.4); NEUTROPHILS ABSOLUTE AUTO 7.71 K/mm3 (1.96-9.15); NEUTROPHILS PERCENT AUTO 79 % (41-73); Platelet Count 179 K/mm3 (150-400); RDW Coefficient Variation 14.2 % (11.7-14.2); RDW Standard Deviation 46.8 fL (35.1-46.3); Red Blood Cell Count 3.81 M/mm3 (4.30-5.90); White Blood Cell Count 9.72 K/mm3 (4.00-11.30)
[2019-06-20 15:14] LABS: Albumin, Blood 3.1 g/dL (3.4-5.0); Alk Phos 75 U/L (50-136); Anion Gap 7 mmol/L (6-16); Aspartate Aminotrans (AST/SGOT 13 U/L (12-37); Bilirubin, Direct 0.1 mg/dL (0.0-0.3); Bilirubin, Indirect 0.3 mg/dL (0.1-0.7); Bilirubin, Total 0.4 mg/dL (0.1-1.0); Blood Urea Nitrogen 16 mg/dL (8-24); Bun/Creatinine Ratio 15.7 (12.0-20.0); CO2, Blood 21 mmol/L (21-32); Calcium, Blood 8.7 mg/dL (8.5-10.1); Chloride, Blood 112 mmol/L (98-108); Creatinine, Blood 1.02 mg/dL (0.60-1.20); Glomerular Filtration Rate >60 (60-); Glucose, Blood 130 mg/dL (70-99); Sodium, Blood 140 mmol/L (136-145); Total Protein, Blood 6.1 g/dL (6.4-8.2)
[2019-06-20 15:23] LABS: Alanine Aminotransfer (ALT/SGP 20 U/L (12-78)
== END 2019-06-20 22:55 | disposition home or self-care (01) ==
LOC: ATC 02:15
PROVIDERS: Internal Medicine Nephrology
DX: E87.70 Fluid overload, unspecified (principal); I12.9 Hypertensive chronic kidney disease with stage 1 through stage 4 chronic kidney disease, or unspecified chronic kidney disease; E11.22 Type 2 diabetes mellitus with diabetic chronic kidney disease; D63.1 Anemia in chronic kidney disease; N18.2 Chronic kidney disease, stage 2 (mild); N25.81 Secondary hyperparathyroidism of renal origin; D50.9 Iron deficiency anemia, unspecified; E11.21 Type 2 diabetes mellitus with diabetic nephropathy; E87.1 Hypo-osmolality and hyponatremia; E78.00 Pure hypercholesterolemia, unspecified; E55.9 Vitamin D deficiency, unspecified; Z94.0 Kidney transplant status; Z79.899 Other long term (current) drug therapy; Z79.4 Long term (current) use of insulin
CPT/HCPCS: 80053; 82248; 83970; 84100; 85025; 96360; 96361; J1642; J7030

== ENCOUNTER 2019-06-23 00:05 | Day surgery (SDC) | payer OTHER | END 2019-06-23 16:56 | disposition home or self-care (01) | LOC: ATC 00:05 | DX: I12.9 Hypertensive chronic kidney disease with stage 1 through stage 4 chronic kidney disease, or unspecified chronic kidney disease (principal); E11.22 Type 2 diabetes mellitus with diabetic chronic kidney disease; N18.3 Chronic kidney disease, stage 3 (moderate); E86.9 Volume depletion, unspecified; D63.1 Anemia in chronic kidney disease; N25.81 Secondary hyperparathyroidism of renal origin; E11.21 Type 2 diabetes mellitus with diabetic nephropathy; E78.00 Pure hypercholesterolemia, unspecified; D50.9 Iron deficiency anemia, unspecified; E55.9 Vitamin D deficiency, unspecified; E78.5 Hyperlipidemia, unspecified; G47.33 Obstructive sleep apnea (adult) (pediatric); F32.9 Major depressive disorder, single episode, unspecified; F41.9 Anxiety disorder, unspecified; M81.0 Age-related osteoporosis without current pathological fracture; Z79.82 Long term (current) use of aspirin; Z79.52 Long term (current) use of systemic steroids; Z79.4 Long term (current) use of insulin; Z79.899 Other long term (current) drug therapy; Z94.0 Kidney transplant status | CPT/HCPCS: 84132; 96360; 96361; J1642; J7030 ==

== ENCOUNTER 2019-06-24 00:54 | Day surgery (SDC) | payer OTHER | END 2019-06-24 22:35 | disposition home or self-care (01) | LOC: ATC 00:54 | DX: I12.9 Hypertensive chronic kidney disease with stage 1 through stage 4 chronic kidney disease, or unspecified chronic kidney disease (principal); E11.22 Type 2 diabetes mellitus with diabetic chronic kidney disease; N18.3 Chronic kidney disease, stage 3 (moderate); E86.9 Volume depletion, unspecified; N25.81 Secondary hyperparathyroidism of renal origin; D63.1 Anemia in chronic kidney disease; D50.9 Iron deficiency anemia, unspecified; E11.21 Type 2 diabetes mellitus with diabetic nephropathy; E78.00 Pure hypercholesterolemia, unspecified; E55.9 Vitamin D deficiency, unspecified; E78.5 Hyperlipidemia, unspecified; M81.0 Age-related osteoporosis without current pathological fracture; G47.33 Obstructive sleep apnea (adult) (pediatric); F32.9 Major depressive disorder, single episode, unspecified; F41.9 Anxiety disorder, unspecified; Z79.4 Long term (current) use of insulin; Z79.52 Long term (current) use of systemic steroids; Z79.899 Other long term (current) drug therapy; Z94.0 Kidney transplant status | CPT/HCPCS: J1642; J7030 ==

== ENCOUNTER 2019-06-25 14:24 | Day surgery (SDC) | payer OTHER | END 2019-06-25 18:07 | disposition home or self-care (01) | LOC: ATC 14:24 | DX: I12.9 Hypertensive chronic kidney disease with stage 1 through stage 4 chronic kidney disease, or unspecified chronic kidney disease (principal); E11.22 Type 2 diabetes mellitus with diabetic chronic kidney disease; N18.3 Chronic kidney disease, stage 3 (moderate); E86.9 Volume depletion, unspecified; N25.81 Secondary hyperparathyroidism of renal origin; D63.1 Anemia in chronic kidney disease; D50.9 Iron deficiency anemia, unspecified; E11.21 Type 2 diabetes mellitus with diabetic nephropathy; E78.00 Pure hypercholesterolemia, unspecified; E55.9 Vitamin D deficiency, unspecified; E78.5 Hyperlipidemia, unspecified; M81.0 Age-related osteoporosis without current pathological fracture; G47.33 Obstructive sleep apnea (adult) (pediatric); F32.9 Major depressive disorder, single episode, unspecified; F41.9 Anxiety disorder, unspecified; Z79.4 Long term (current) use of insulin; Z79.52 Long term (current) use of systemic steroids; Z79.899 Other long term (current) drug therapy; Z94.0 Kidney transplant status | CPT/HCPCS: 96360; 96361; J1642; J7030 ==

== ENCOUNTER 2019-06-27 00:49 | Day surgery (SDC) | payer OTHER | END 2019-06-27 23:26 | disposition home or self-care (01) | LOC: ATC 00:49 | DX: I12.9 Hypertensive chronic kidney disease with stage 1 through stage 4 chronic kidney disease, or unspecified chronic kidney disease (principal); E11.22 Type 2 diabetes mellitus with diabetic chronic kidney disease; N18.3 Chronic kidney disease, stage 3 (moderate); E86.9 Volume depletion, unspecified; E55.9 Vitamin D deficiency, unspecified; E78.5 Hyperlipidemia, unspecified; G47.33 Obstructive sleep apnea (adult) (pediatric); F32.9 Major depressive disorder, single episode, unspecified; F41.9 Anxiety disorder, unspecified; M81.0 Age-related osteoporosis without current pathological fracture; D63.1 Anemia in chronic kidney disease; N25.81 Secondary hyperparathyroidism of renal origin; D50.9 Iron deficiency anemia, unspecified; E11.21 Type 2 diabetes mellitus with diabetic nephropathy; E78.00 Pure hypercholesterolemia, unspecified; Z79.4 Long term (current) use of insulin; Z79.52 Long term (current) use of systemic steroids; Z79.899 Other long term (current) drug therapy; Z94.0 Kidney transplant status | CPT/HCPCS: 96360; 96361; J1642; J7030 ==

== ENCOUNTER 2019-06-30 00:12 | Day surgery (SDC) | payer OTHER | END 2019-06-30 16:56 | disposition home or self-care (01) | LOC: ATC 00:12 | DX: I12.9 Hypertensive chronic kidney disease with stage 1 through stage 4 chronic kidney disease, or unspecified chronic kidney disease (principal); E11.22 Type 2 diabetes mellitus with diabetic chronic kidney disease; N18.3 Chronic kidney disease, stage 3 (moderate); E86.9 Volume depletion, unspecified; D63.1 Anemia in chronic kidney disease; N25.81 Secondary hyperparathyroidism of renal origin; D50.9 Iron deficiency anemia, unspecified; E11.21 Type 2 diabetes mellitus with diabetic nephropathy; E55.9 Vitamin D deficiency, unspecified; E78.5 Hyperlipidemia, unspecified; G47.33 Obstructive sleep apnea (adult) (pediatric); F32.9 Major depressive disorder, single episode, unspecified; F41.9 Anxiety disorder, unspecified; M81.0 Age-related osteoporosis without current pathological fracture; E78.00 Pure hypercholesterolemia, unspecified; Z79.4 Long term (current) use of insulin; Z79.52 Long term (current) use of systemic steroids; Z79.899 Other long term (current) drug therapy; Z94.0 Kidney transplant status | CPT/HCPCS: 96360; 96361; J1642; J7030 ==

== ENCOUNTER 2019-07-02 00:07 | Day surgery (SDC) | payer OTHER | END 2019-07-02 22:47 | disposition home or self-care (01) | LOC: ATC 00:07 | DX: I12.9 Hypertensive chronic kidney disease with stage 1 through stage 4 chronic kidney disease, or unspecified chronic kidney disease (principal); E11.22 Type 2 diabetes mellitus with diabetic chronic kidney disease; N18.3 Chronic kidney disease, stage 3 (moderate); D63.1 Anemia in chronic kidney disease; E86.9 Volume depletion, unspecified; N25.81 Secondary hyperparathyroidism of renal origin; D50.9 Iron deficiency anemia, unspecified; E11.21 Type 2 diabetes mellitus with diabetic nephropathy; E78.00 Pure hypercholesterolemia, unspecified; E55.9 Vitamin D deficiency, unspecified; E78.5 Hyperlipidemia, unspecified; G47.33 Obstructive sleep apnea (adult) (pediatric); F32.9 Major depressive disorder, single episode, unspecified; F41.9 Anxiety disorder, unspecified; M81.0 Age-related osteoporosis without current pathological fracture; Z94.0 Kidney transplant status; Z79.899 Other long term (current) drug therapy; Z79.4 Long term (current) use of insulin; Z79.52 Long term (current) use of systemic steroids | CPT/HCPCS: 96360; 96361; J1642; J7030 ==

== ENCOUNTER 2019-07-04 00:54 | Day surgery (SDC) | payer OTHER | END 2019-07-04 23:13 | disposition home or self-care (01) | LOC: ATC 00:54 | DX: I12.9 Hypertensive chronic kidney disease with stage 1 through stage 4 chronic kidney disease, or unspecified chronic kidney disease (principal); E11.22 Type 2 diabetes mellitus with diabetic chronic kidney disease; N18.3 Chronic kidney disease, stage 3 (moderate); D63.1 Anemia in chronic kidney disease; E11.21 Type 2 diabetes mellitus with diabetic nephropathy; E78.00 Pure hypercholesterolemia, unspecified; D50.9 Iron deficiency anemia, unspecified; N25.81 Secondary hyperparathyroidism of renal origin; E78.5 Hyperlipidemia, unspecified; F32.9 Major depressive disorder, single episode, unspecified; F41.9 Anxiety disorder, unspecified; M81.0 Age-related osteoporosis without current pathological fracture; G47.33 Obstructive sleep apnea (adult) (pediatric); I47.1 Supraventricular tachycardia; Z79.82 Long term (current) use of aspirin; Z79.52 Long term (current) use of systemic steroids; Z79.4 Long term (current) use of insulin; Z79.899 Other long term (current) drug therapy; Z94.0 Kidney transplant status | CPT/HCPCS: 96360; 96361; J1642; J7030 ==

== ENCOUNTER 2019-07-07 00:11 | Day surgery (SDC) | payer OTHER | END 2019-07-07 17:13 | disposition home or self-care (01) | LOC: ATC 00:11 | DX: I12.9 Hypertensive chronic kidney disease with stage 1 through stage 4 chronic kidney disease, or unspecified chronic kidney disease (principal); E11.22 Type 2 diabetes mellitus with diabetic chronic kidney disease; N18.3 Chronic kidney disease, stage 3 (moderate); D63.1 Anemia in chronic kidney disease; N25.81 Secondary hyperparathyroidism of renal origin; E11.21 Type 2 diabetes mellitus with diabetic nephropathy; E78.00 Pure hypercholesterolemia, unspecified; D50.9 Iron deficiency anemia, unspecified; E78.5 Hyperlipidemia, unspecified; F32.9 Major depressive disorder, single episode, unspecified; F41.9 Anxiety disorder, unspecified; M81.0 Age-related osteoporosis without current pathological fracture; G47.33 Obstructive sleep apnea (adult) (pediatric); I47.1 Supraventricular tachycardia; Z79.82 Long term (current) use of aspirin; Z79.52 Long term (current) use of systemic steroids; Z79.4 Long term (current) use of insulin; Z79.899 Other long term (current) drug therapy; Z94.0 Kidney transplant status | CPT/HCPCS: 96360; 96361; J1642; J7030 ==

== ENCOUNTER 2019-07-09 00:16 | Day surgery (SDC) | payer OTHER | END 2019-07-09 17:07 | disposition home or self-care (01) | LOC: ATC 00:16 | DX: I12.9 Hypertensive chronic kidney disease with stage 1 through stage 4 chronic kidney disease, or unspecified chronic kidney disease (principal); E11.22 Type 2 diabetes mellitus with diabetic chronic kidney disease; N18.3 Chronic kidney disease, stage 3 (moderate); D63.1 Anemia in chronic kidney disease; N25.81 Secondary hyperparathyroidism of renal origin; E55.9 Vitamin D deficiency, unspecified; E78.5 Hyperlipidemia, unspecified; I47.1 Supraventricular tachycardia; G47.33 Obstructive sleep apnea (adult) (pediatric); F32.9 Major depressive disorder, single episode, unspecified; F41.9 Anxiety disorder, unspecified; M81.0 Age-related osteoporosis without current pathological fracture; D50.9 Iron deficiency anemia, unspecified; E11.21 Type 2 diabetes mellitus with diabetic nephropathy; E78.00 Pure hypercholesterolemia, unspecified; Z94.0 Kidney transplant status; Z79.51 Long term (current) use of inhaled steroids; Z79.52 Long term (current) use of systemic steroids; Z79.899 Other long term (current) drug therapy; Z79.4 Long term (current) use of insulin | CPT/HCPCS: 96360; 96361; J1642; J7030 ==

== ENCOUNTER 2019-07-11 02:13 | Day surgery (SDC) | payer OTHER | END 2019-07-11 17:24 | disposition home or self-care (01) | LOC: ATC 02:13 | DX: I12.9 Hypertensive chronic kidney disease with stage 1 through stage 4 chronic kidney disease, or unspecified chronic kidney disease (principal); E11.22 Type 2 diabetes mellitus with diabetic chronic kidney disease; N18.3 Chronic kidney disease, stage 3 (moderate); D63.1 Anemia in chronic kidney disease; N25.81 Secondary hyperparathyroidism of renal origin; D50.9 Iron deficiency anemia, unspecified; E11.21 Type 2 diabetes mellitus with diabetic nephropathy; E78.00 Pure hypercholesterolemia, unspecified; E55.9 Vitamin D deficiency, unspecified; E78.5 Hyperlipidemia, unspecified; I47.1 Supraventricular tachycardia; G47.33 Obstructive sleep apnea (adult) (pediatric); F32.9 Major depressive disorder, single episode, unspecified; F41.9 Anxiety disorder, unspecified; M81.0 Age-related osteoporosis without current pathological fracture; Z94.0 Kidney transplant status; Z79.52 Long term (current) use of systemic steroids; Z79.4 Long term (current) use of insulin; Z79.899 Other long term (current) drug therapy | CPT/HCPCS: 96360; 96361; J1642; J7030 ==

== ENCOUNTER 2019-07-14 00:12 | Day surgery (SDC) | payer OTHER | END 2019-07-14 17:15 | disposition home or self-care (01) | LOC: ATC 00:12 | DX: I12.9 Hypertensive chronic kidney disease with stage 1 through stage 4 chronic kidney disease, or unspecified chronic kidney disease (principal); E11.22 Type 2 diabetes mellitus with diabetic chronic kidney disease; N18.3 Chronic kidney disease, stage 3 (moderate); N25.81 Secondary hyperparathyroidism of renal origin; D63.1 Anemia in chronic kidney disease; D50.9 Iron deficiency anemia, unspecified; E78.00 Pure hypercholesterolemia, unspecified; E11.21 Type 2 diabetes mellitus with diabetic nephropathy; E78.5 Hyperlipidemia, unspecified; I47.1 Supraventricular tachycardia; G47.33 Obstructive sleep apnea (adult) (pediatric); F32.9 Major depressive disorder, single episode, unspecified; F41.9 Anxiety disorder, unspecified; M81.0 Age-related osteoporosis without current pathological fracture; E55.9 Vitamin D deficiency, unspecified; Z94.0 Kidney transplant status; Z79.52 Long term (current) use of systemic steroids; Z79.4 Long term (current) use of insulin; Z79.51 Long term (current) use of inhaled steroids; Z79.899 Other long term (current) drug therapy | CPT/HCPCS: 96360; 96361; J1642; J7030 ==

== ENCOUNTER 2019-07-16 00:20 | Day surgery (SDC) | payer OTHER | END 2019-07-16 16:56 | disposition home or self-care (01) | LOC: ATC 00:20 | DX: I12.9 Hypertensive chronic kidney disease with stage 1 through stage 4 chronic kidney disease, or unspecified chronic kidney disease (principal); E11.22 Type 2 diabetes mellitus with diabetic chronic kidney disease; N18.3 Chronic kidney disease, stage 3 (moderate); N25.81 Secondary hyperparathyroidism of renal origin; D63.1 Anemia in chronic kidney disease; E86.9 Volume depletion, unspecified; E78.00 Pure hypercholesterolemia, unspecified; E55.9 Vitamin D deficiency, unspecified; E11.21 Type 2 diabetes mellitus with diabetic nephropathy; E78.5 Hyperlipidemia, unspecified; F32.9 Major depressive disorder, single episode, unspecified; F41.9 Anxiety disorder, unspecified; M81.0 Age-related osteoporosis without current pathological fracture; I47.1 Supraventricular tachycardia; G47.33 Obstructive sleep apnea (adult) (pediatric); Z94.0 Kidney transplant status; Z79.52 Long term (current) use of systemic steroids; Z79.4 Long term (current) use of insulin; Z79.899 Other long term (current) drug therapy | CPT/HCPCS: 96360; 96361; J1642; J7030 ==

== ENCOUNTER 2019-08-08 02:03 | Day surgery (SDC) | payer OTHER | END 2019-08-08 18:30 | disposition home or self-care (01) | LOC: ATC 02:03 | DX: I12.9 Hypertensive chronic kidney disease with stage 1 through stage 4 chronic kidney disease, or unspecified chronic kidney disease (principal); E11.22 Type 2 diabetes mellitus with diabetic chronic kidney disease; N18.3 Chronic kidney disease, stage 3 (moderate); D63.1 Anemia in chronic kidney disease; D50.9 Iron deficiency anemia, unspecified; E11.21 Type 2 diabetes mellitus with diabetic nephropathy; E87.1 Hypo-osmolality and hyponatremia; E78.00 Pure hypercholesterolemia, unspecified; E55.9 Vitamin D deficiency, unspecified; N25.81 Secondary hyperparathyroidism of renal origin; E87.5 Hyperkalemia; N28.1 Cyst of kidney, acquired; Z94.0 Kidney transplant status; Z79.899 Other long term (current) drug therapy; I71.4 Abdominal aortic aneurysm, without rupture; Z79.4 Long term (current) use of insulin | CPT/HCPCS: 96360; 96361; J1642; J7030 ==

== ENCOUNTER 2019-08-11 00:06 | Day surgery (SDC) | payer OTHER | END 2019-08-11 17:15 | disposition home or self-care (01) | LOC: ATC 00:06 | DX: Z45.2 Encounter for adjustment and management of vascular access device (principal) | CPT/HCPCS: 96360; 96361; J1642; J7030 ==

== ENCOUNTER 2019-08-13 00:07 | Day surgery (SDC) | payer OTHER | END 2019-08-13 17:25 | disposition home or self-care (01) | LOC: ATC 00:07 | DX: I12.9 Hypertensive chronic kidney disease with stage 1 through stage 4 chronic kidney disease, or unspecified chronic kidney disease (principal); D63.1 Anemia in chronic kidney disease; N18.2 Chronic kidney disease, stage 2 (mild); E11.21 Type 2 diabetes mellitus with diabetic nephropathy; E11.22 Type 2 diabetes mellitus with diabetic chronic kidney disease; E78.00 Pure hypercholesterolemia, unspecified; E55.9 Vitamin D deficiency, unspecified; I71.4 Abdominal aortic aneurysm, without rupture; Z94.0 Kidney transplant status; Z79.899 Other long term (current) drug therapy | CPT/HCPCS: 96360; 96361; J1642; J7030 ==

== ENCOUNTER 2019-08-15 00:11 | Day surgery (SDC) | payer OTHER | END 2019-08-15 17:32 | disposition home or self-care (01) | LOC: ATC 00:11 | DX: I12.9 Hypertensive chronic kidney disease with stage 1 through stage 4 chronic kidney disease, or unspecified chronic kidney disease (principal); E11.22 Type 2 diabetes mellitus with diabetic chronic kidney disease; D63.1 Anemia in chronic kidney disease; N25.81 Secondary hyperparathyroidism of renal origin; E11.21 Type 2 diabetes mellitus with diabetic nephropathy; E87.1 Hypo-osmolality and hyponatremia; E78.00 Pure hypercholesterolemia, unspecified; E55.9 Vitamin D deficiency, unspecified; I71.4 Abdominal aortic aneurysm, without rupture; N18.3 Chronic kidney disease, stage 3 (moderate); Z94.0 Kidney transplant status; Z79.899 Other long term (current) drug therapy; Z79.4 Long term (current) use of insulin | CPT/HCPCS: J1642; J7030 ==

== ENCOUNTER 2019-08-22 00:40 | Day surgery (SDC) | payer OTHER ==
--- NOTE | 2019-08-22 14:27 | NUR ---
2 WARM BLANKETS TOWEL/WASHCLOTH AND WATER AND POP ALONG WITH CHIPS GIVEN TO PT. IV INFUSING WITH NO PROBLEM @ THIS TIME. CALL LIGHT WITHIN REACH
[2019-08-22] MEDS ORDERED: HEPARIN 50500 UNIT/5 IV (14:48)
[2019-08-22] MEDS ORDERED: 1/2 NS 250ml250 ML IV (14:50)
== END 2019-08-22 17:44 | disposition home or self-care (01) ==
LOC: ATC 00:40
DX: I12.9 Hypertensive chronic kidney disease with stage 1 through stage 4 chronic kidney disease, or unspecified chronic kidney disease (principal); N18.3 Chronic kidney disease, stage 3 (moderate); D63.1 Anemia in chronic kidney disease; N25.81 Secondary hyperparathyroidism of renal origin; N28.1 Cyst of kidney, acquired; E87.5 Hyperkalemia; E55.9 Vitamin D deficiency, unspecified; I71.4 Abdominal aortic aneurysm, without rupture
CPT/HCPCS: 96360; J1642; J7030

== ENCOUNTER 2019-08-25 00:16 | Day surgery (SDC) | payer OTHER ==
[~2019-08-25 00:16] MED LIST changes: +1/2 NS 250ml250 ML IV; +HEPARIN 50500 UNIT/5 IV
== END 2019-08-25 16:52 | disposition home or self-care (01) ==
LOC: ATC 00:16
DX: I12.9 Hypertensive chronic kidney disease with stage 1 through stage 4 chronic kidney disease, or unspecified chronic kidney disease (principal); E11.22 Type 2 diabetes mellitus with diabetic chronic kidney disease; E78.00 Pure hypercholesterolemia, unspecified; E11.21 Type 2 diabetes mellitus with diabetic nephropathy; N18.3 Chronic kidney disease, stage 3 (moderate); D63.1 Anemia in chronic kidney disease; N25.81 Secondary hyperparathyroidism of renal origin; E87.1 Hypo-osmolality and hyponatremia; E87.5 Hyperkalemia; N28.1 Cyst of kidney, acquired; E55.9 Vitamin D deficiency, unspecified; I71.4 Abdominal aortic aneurysm, without rupture; Z79.899 Other long term (current) drug therapy; Z79.4 Long term (current) use of insulin; Z94.0 Kidney transplant status
CPT/HCPCS: J1642; J7030

== ENCOUNTER 2019-08-27 03:03 | Day surgery (SDC) | payer OTHER | END 2019-08-27 16:58 | disposition home or self-care (01) | LOC: ATC 03:03 | DX: I12.9 Hypertensive chronic kidney disease with stage 1 through stage 4 chronic kidney disease, or unspecified chronic kidney disease (principal); N18.3 Chronic kidney disease, stage 3 (moderate); D63.1 Anemia in chronic kidney disease; N25.81 Secondary hyperparathyroidism of renal origin; E87.1 Hypo-osmolality and hyponatremia; E87.5 Hyperkalemia; N28.1 Cyst of kidney, acquired; E55.9 Vitamin D deficiency, unspecified; I71.4 Abdominal aortic aneurysm, without rupture; Z79.52 Long term (current) use of systemic steroids; Z79.899 Other long term (current) drug therapy | CPT/HCPCS: J1642; J7030 ==

== ENCOUNTER 2019-09-03 00:07 | Day surgery (SDC) | payer OTHER ==
[~2019-09-03 00:07] MED LIST changes: +CYAN500 PO
[2019-09-03 14:46] LABS: BASOPHILS ABSOLUTE AUTO 0.02 K/mm3 (0.00-0.23); BASOPHILS PERCENT AUTO 0 % (0-2); EOSINOPHILS ABSOLUTE AUTO 0.17 K/mm3 (0.00-0.68); EOSINOPHILS PERCENT AUTO 3 % (0-6); Hematocrit 31.9 % (37.0-53.0); IMMATURE GRAN ABSOLUTE AUTO 0.04 K/mm3 (0.00-0.10); IMMATURE GRAN PERCENT AUTO 1 % (0-1); LYMPHOCYTES ABSOLUTE AUTO 0.93 K/mm3 (0.84-5.20); LYMPHOCYTES PERCENT AUTO 15 % (21-46); MONOCYTES ABSOLUTE AUTO 0.69 K/mm3 (0.16-1.47); MONOCYTES PERCENT AUTO 11 % (4-13); Mean Corpuscular HGB 28.6 pg (26.0-34.0); Mean Corpuscular HGB Conc 31.3 g/dL (31.5-36.5); Mean Corpuscular Volume 91 fL (80-100); Mean Platelet Volume 10.6 fL (9.1-12.4); NEUTROPHILS ABSOLUTE AUTO 4.41 K/mm3 (1.96-9.15); NEUTROPHILS PERCENT AUTO 71 % (41-73); Platelet Count 198 K/mm3 (150-400); RDW Coefficient Variation 14.6 % (11.7-14.2); RDW Standard Deviation 48.4 fL (35.1-46.3); White Blood Cell Count 6.26 K/mm3 (4.00-11.30)
[2019-09-03 15:08] LABS: Alanine Aminotransfer (ALT/SGP 21 U/L (12-78); Albumin, Blood 2.9 g/dL (3.4-5.0); Alk Phos 76 U/L (50-136); Anion Gap 5 mmol/L (6-16); Aspartate Aminotrans (AST/SGOT 18 U/L (12-37); Bilirubin, Direct 0.1 mg/dL (0.0-0.3); Bilirubin, Indirect 0.2 mg/dL (0.1-0.7); Bilirubin, Total 0.3 mg/dL (0.1-1.0); Blood Urea Nitrogen 17 mg/dL (8-24); Bun/Creatinine Ratio 13.3 (12.0-20.0); CO2, Blood 23 mmol/L (21-32); Calcium, Blood 8.5 mg/dL (8.5-10.1); Chloride, Blood 117 mmol/L (98-108); Cholesterol 136 mg/dL (50-200); Creatinine, Blood 1.28 mg/dL (0.60-1.20); Glomerular Filtration Rate >60 (60-); Glucose, Blood 87 mg/dL (70-99); HDL Cholesterol 45 mg/dL (>39); LDL/HDL RATIO 1.3; Low Density Lipoprotein Chol 58 mg/dL (0-110); Phosphorus, Blood 2.8 mg/dL (2.5-4.9); Potassium, Blood 4.6 mmol/L (3.5-5.5); Sodium, Blood 145 mmol/L (136-145); Total Protein, Blood 5.9 g/dL (6.4-8.2); Triglycerides 167 mg/dL (30-160); Very Low Density Lipoprot Chol 33 mg/dL (6-32)
== END 2019-09-03 17:18 | disposition home or self-care (01) ==
LOC: ATC 00:07
PROVIDERS: Internal Medicine Nephrology
DX: I12.9 Hypertensive chronic kidney disease with stage 1 through stage 4 chronic kidney disease, or unspecified chronic kidney disease (principal); D63.1 Anemia in chronic kidney disease; N18.2 Chronic kidney disease, stage 2 (mild); N25.81 Secondary hyperparathyroidism of renal origin; E11.22 Type 2 diabetes mellitus with diabetic chronic kidney disease; E87.1 Hypo-osmolality and hyponatremia; E78.00 Pure hypercholesterolemia, unspecified; E55.9 Vitamin D deficiency, unspecified; Z94.0 Kidney transplant status; I71.4 Abdominal aortic aneurysm, without rupture; Z79.899 Other long term (current) drug therapy; F41.9 Anxiety disorder, unspecified; F32.9 Major depressive disorder, single episode, unspecified; Z79.84 Long term (current) use of oral hypoglycemic drugs
CPT/HCPCS: 36591; 80053; 80061; 80197; 82248; 84100; 85025; 96360; 96361; J1642; J7030

== ENCOUNTER 2019-09-06 00:22 | Day surgery (SDC) | payer OTHER ==
[2019-09-08] MEDS ORDERED: Amox Tr-K Clv1 EAC1 PO (14:23)
== END 2019-09-06 17:20 | disposition home or self-care (01) ==
LOC: ATC 00:22
DX: R60.9 Edema, unspecified (principal); I12.9 Hypertensive chronic kidney disease with stage 1 through stage 4 chronic kidney disease, or unspecified chronic kidney disease; E11.22 Type 2 diabetes mellitus with diabetic chronic kidney disease; N18.2 Chronic kidney disease, stage 2 (mild); D63.1 Anemia in chronic kidney disease; E78.00 Pure hypercholesterolemia, unspecified; E83.30 Disorder of phosphorus metabolism, unspecified; E11.21 Type 2 diabetes mellitus with diabetic nephropathy; E87.1 Hypo-osmolality and hyponatremia; R80.9 Proteinuria, unspecified; N25.81 Secondary hyperparathyroidism of renal origin; D50.9 Iron deficiency anemia, unspecified; F32.9 Major depressive disorder, single episode, unspecified; F41.9 Anxiety disorder, unspecified; M81.0 Age-related osteoporosis without current pathological fracture; G47.33 Obstructive sleep apnea (adult) (pediatric); Z94.0 Kidney transplant status; Z79.899 Other long term (current) drug therapy
CPT/HCPCS: 96360; 96361; J1642; J7030

== ENCOUNTER 2019-09-10 00:08 | Day surgery (SDC) | payer OTHER ==
[~2019-09-10 00:08] MED LIST changes: +Amox Tr-K Clv1 EAC1 PO
[2019-09-10 14:18] LABS: BASOPHILS ABSOLUTE AUTO 0.02 K/mm3 (0.00-0.23); BASOPHILS PERCENT AUTO 0 % (0-2); EOSINOPHILS PERCENT AUTO 1 % (0-6); Hematocrit 32.4 % (37.0-53.0); Hemoglobin 10.2 g/dL (13.5-17.5); IMMATURE GRAN ABSOLUTE AUTO 0.04 K/mm3 (0.00-0.10); IMMATURE GRAN PERCENT AUTO 1 % (0-1); LYMPHOCYTES ABSOLUTE AUTO 1.52 K/mm3 (0.84-5.20); LYMPHOCYTES PERCENT AUTO 19 % (21-46); MONOCYTES ABSOLUTE AUTO 0.74 K/mm3 (0.16-1.47); MONOCYTES PERCENT AUTO 10 % (4-13); Mean Corpuscular HGB 29.1 pg (26.0-34.0); Mean Corpuscular HGB Conc 31.5 g/dL (31.5-36.5); Mean Corpuscular Volume 92 fL (80-100); Mean Platelet Volume 10.4 fL (9.1-12.4); NEUTROPHILS PERCENT AUTO 69 % (41-73); Platelet Count 213 K/mm3 (150-400); RDW Coefficient Variation 14.6 % (11.7-14.2); RDW Standard Deviation 49.3 fL (35.1-46.3); Red Blood Cell Count 3.51 M/mm3 (4.30-5.90); White Blood Cell Count 7.82 K/mm3 (4.00-11.30)
[2019-09-10 14:45] LABS: Albumin, Blood 2.9 g/dL (3.4-5.0); Anion Gap 4 mmol/L (6-16); Blood Urea Nitrogen 20 mg/dL (8-24); Bun/Creatinine Ratio 15.9 (12.0-20.0); CO2, Blood 23 mmol/L (21-32); Calcium, Blood 8.5 mg/dL (8.5-10.1); Chloride, Blood 115 mmol/L (98-108); Creatinine, Blood 1.26 mg/dL (0.60-1.20); Glomerular Filtration Rate >60 (60-); Glucose, Blood 51 mg/dL (70-99); Phosphorus, Blood 3.8 mg/dL (2.5-4.9); Potassium, Blood 4.8 mmol/L (3.5-5.5); Sodium, Blood 142 mmol/L (136-145)
== END 2019-09-10 17:08 | disposition home or self-care (01) ==
LOC: ATC 00:08
PROVIDERS: Internal Medicine Nephrology
DX: I12.9 Hypertensive chronic kidney disease with stage 1 through stage 4 chronic kidney disease, or unspecified chronic kidney disease (principal); E11.22 Type 2 diabetes mellitus with diabetic chronic kidney disease; N18.2 Chronic kidney disease, stage 2 (mild); D63.1 Anemia in chronic kidney disease; N25.81 Secondary hyperparathyroidism of renal origin; E86.9 Volume depletion, unspecified; E87.1 Hypo-osmolality and hyponatremia; E78.00 Pure hypercholesterolemia, unspecified; E55.9 Vitamin D deficiency, unspecified; E78.5 Hyperlipidemia, unspecified; G47.33 Obstructive sleep apnea (adult) (pediatric); F41.9 Anxiety disorder, unspecified; F32.9 Major depressive disorder, single episode, unspecified; M81.0 Age-related osteoporosis without current pathological fracture; Z79.899 Other long term (current) drug therapy; Z94.0 Kidney transplant status
CPT/HCPCS: 80069; 80197; 85025; 96360; 96361; J1642; J7030

== ENCOUNTER 2019-09-12 00:44 | Day surgery (SDC) | payer OTHER | END 2019-09-12 17:30 | disposition home or self-care (01) | LOC: ATC 00:44 | DX: E87.70 Fluid overload, unspecified (principal); I12.0 Hypertensive chronic kidney disease with stage 5 chronic kidney disease or end stage renal disease; E11.22 Type 2 diabetes mellitus with diabetic chronic kidney disease; N18.6 End stage renal disease; E78.5 Hyperlipidemia, unspecified; G47.33 Obstructive sleep apnea (adult) (pediatric); F32.9 Major depressive disorder, single episode, unspecified; F41.9 Anxiety disorder, unspecified; M81.0 Age-related osteoporosis without current pathological fracture; Z94.0 Kidney transplant status | CPT/HCPCS: 96360; 96361; J1642; J7030 ==

== ENCOUNTER 2019-09-14 11:27 | Emergency (ER) | payer OTHER ==
[~2019-09-14] VITALS: Ht 180.3 cm; Wt 90.7 kg
[2019-09-14] MEDS ORDERED: PERCOCET 10-321 EACH PO (13:32)
== END 2019-09-14 13:49 | disposition home or self-care (01) ==
LOC: ER 11:27
DX: M47.812 Spondylosis without myelopathy or radiculopathy, cervical region (principal); M25.511 Pain in right shoulder; I10 Essential (primary) hypertension; E11.9 Type 2 diabetes mellitus without complications; F41.9 Anxiety disorder, unspecified; F32.9 Major depressive disorder, single episode, unspecified; G47.30 Sleep apnea, unspecified; Z94.0 Kidney transplant status; Z79.4 Long term (current) use of insulin; Z79.899 Other long term (current) drug therapy; Z79.52 Long term (current) use of systemic steroids
CPT/HCPCS: 29105; 72040; 73030; 99283-25

== ENCOUNTER 2019-09-17 10:31 | Emergency (ER) | payer OTHER ==
[~2019-09-17] VITALS: Ht 180.3 cm; Wt 90.7 kg
[~2019-09-17 10:31] MED LIST changes: +PERCOCET 10-321 EACH PO
[2019-09-17 11:14] LABS: BASOPHILS ABSOLUTE AUTO 0.01 K/mm3 (0.00-0.23); BASOPHILS PERCENT AUTO 0 % (0-2); EOSINOPHILS ABSOLUTE AUTO 0.05 K/mm3 (0.00-0.68); EOSINOPHILS PERCENT AUTO 1 % (0-6); Hemoglobin 9.7 g/dL (13.5-17.5); IMMATURE GRAN ABSOLUTE AUTO 0.04 K/mm3 (0.00-0.10); IMMATURE GRAN PERCENT AUTO 0 % (0-1); LYMPHOCYTES ABSOLUTE AUTO 0.46 K/mm3 (0.84-5.20); LYMPHOCYTES PERCENT AUTO 4 % (21-46); MONOCYTES ABSOLUTE AUTO 1.28 K/mm3 (0.16-1.47); MONOCYTES PERCENT AUTO 12 % (4-13); Mean Corpuscular HGB 28.8 pg (26.0-34.0); Mean Corpuscular HGB Conc 31.3 g/dL (31.5-36.5); Mean Corpuscular Volume 92 fL (80-100); Mean Platelet Volume 10.7 fL (9.1-12.4); NEUTROPHILS ABSOLUTE AUTO 8.89 K/mm3 (1.96-9.15); NEUTROPHILS PERCENT AUTO 83 % (41-73); Platelet Count 193 K/mm3 (150-400); RDW Coefficient Variation 13.7 % (11.7-14.2); RDW Standard Deviation 46.1 fL (35.1-46.3); Red Blood Cell Count 3.37 M/mm3 (4.30-5.90); White Blood Cell Count 10.73 K/mm3 (4.00-11.30)
[2019-09-17 11:37] LABS: Albumin, Blood 2.4 g/dL (3.4-5.0); Albumin/Globulin Ratio 0.6 (0.8-1.8); Bilirubin, Total 0.4 mg/dL (0.1-1.0); Bun/Creatinine Ratio 17.4 (12.0-20.0); Calcium, Blood 8.5 mg/dL (8.5-10.1); Creatinine, Blood 1.32 mg/dL (0.60-1.20); Globulin, Blood 3.8 g/dL (2.2-4.0); Potassium, Blood 4.8 mmol/L (3.5-5.5); Total Protein, Blood 6.2 g/dL (6.4-8.2)
== END 2019-09-17 13:30 | disposition home or self-care (01) ==
LOC: ER 10:31
PROVIDERS: Emergency Medicine
DX: M79.10 Myalgia, unspecified site (principal); I10 Essential (primary) hypertension; E78.5 Hyperlipidemia, unspecified; E11.9 Type 2 diabetes mellitus without complications; F32.9 Major depressive disorder, single episode, unspecified; F41.9 Anxiety disorder, unspecified; G47.30 Sleep apnea, unspecified; G43.909 Migraine, unspecified, not intractable, without status migrainosus; I47.1 Supraventricular tachycardia; M81.0 Age-related osteoporosis without current pathological fracture; M19.90 Unspecified osteoarthritis, unspecified site; Z79.01 Long term (current) use of anticoagulants; Z79.52 Long term (current) use of systemic steroids; Z79.899 Other long term (current) drug therapy; Z79.1 Long term (current) use of non-steroidal anti-inflammatories (NSAID)
CPT/HCPCS: 36415; 80053; 82550; 85025; 96374; 96375; 99283-25; J1170; J2405

== ENCOUNTER 2019-09-22 00:41 | Day surgery (SDC) | payer OTHER ==
[2019-09-22 15:41] LABS: BASOPHILS ABSOLUTE AUTO 0.02 K/mm3 (0.00-0.23); BASOPHILS PERCENT AUTO 0 % (0-2); EOSINOPHILS PERCENT AUTO 1 % (0-6); Hematocrit 29.2 % (37.0-53.0); Hemoglobin 9.1 g/dL (13.5-17.5); IMMATURE GRAN PERCENT AUTO 1 % (0-1); LYMPHOCYTES ABSOLUTE AUTO 1.23 K/mm3 (0.84-5.20); LYMPHOCYTES PERCENT AUTO 17 % (21-46); MONOCYTES PERCENT AUTO 14 % (4-13); Mean Corpuscular HGB 28.1 pg (26.0-34.0); Mean Corpuscular HGB Conc 31.2 g/dL (31.5-36.5); Mean Corpuscular Volume 90 fL (80-100); Mean Platelet Volume 9.6 fL (9.1-12.4); NEUTROPHILS ABSOLUTE AUTO 4.78 K/mm3 (1.96-9.15); NEUTROPHILS PERCENT AUTO 66 % (41-73); Platelet Count 327 K/mm3 (150-400); RDW Coefficient Variation 13.8 % (11.7-14.2); RDW Standard Deviation 46.1 fL (35.1-46.3); Red Blood Cell Count 3.24 M/mm3 (4.30-5.90); White Blood Cell Count 7.23 K/mm3 (4.00-11.30)
[2019-09-22 15:51] LABS: Albumin, Blood 2.5 g/dL (3.4-5.0); Anion Gap 10 mmol/L (6-16); Blood Urea Nitrogen 26 mg/dL (8-24); Bun/Creatinine Ratio 17.6 (12.0-20.0); CO2, Blood 23 mmol/L (21-32); Calcium, Blood 8.7 mg/dL (8.5-10.1); Chloride, Blood 107 mmol/L (98-108); Creatinine, Blood 1.48 mg/dL (0.60-1.20); Glomerular Filtration Rate 52 (60-); Glucose, Blood 147 mg/dL (70-99); Phosphorus, Blood 4.7 mg/dL (2.5-4.9); Sodium, Blood 140 mmol/L (136-145)
[2019-09-22 16:00] LABS: Alanine Aminotransfer (ALT/SGP 16 U/L (12-78); Albumin, Blood 2.5 g/dL (3.4-5.0); Albumin/Globulin Ratio 0.7 (0.8-1.8); Alk Phos 88 U/L (50-136); Aspartate Aminotrans (AST/SGOT 16 U/L (12-37); Bilirubin, Direct <0.1 mg/dL (0.0-0.3); Bilirubin, Indirect Unable to Calculate mg/dL (0.1-0.7); Bilirubin, Total 0.4 mg/dL (0.1-1.0); Globulin, Blood 3.4 g/dL (2.2-4.0); Total Protein, Blood 5.9 g/dL (6.4-8.2)
== END 2019-09-22 17:40 | disposition home or self-care (01) ==
LOC: ATC 00:41
PROVIDERS: Internal Medicine Nephrology
DX: I12.0 Hypertensive chronic kidney disease with stage 5 chronic kidney disease or end stage renal disease (principal); E11.22 Type 2 diabetes mellitus with diabetic chronic kidney disease; N18.6 End stage renal disease; M19.012 Primary osteoarthritis, left shoulder; E78.5 Hyperlipidemia, unspecified; Z94.0 Kidney transplant status; Z79.899 Other long term (current) drug therapy; Z79.4 Long term (current) use of insulin
CPT/HCPCS: 80069; 80076; 82248; 85025; J1642; J7030

== ENCOUNTER 2019-09-24 00:18 | Day surgery (SDC) | payer OTHER | END 2019-09-24 17:17 | disposition home or self-care (01) | LOC: ATC 00:18 | DX: I12.0 Hypertensive chronic kidney disease with stage 5 chronic kidney disease or end stage renal disease (principal); E11.22 Type 2 diabetes mellitus with diabetic chronic kidney disease; M19.012 Primary osteoarthritis, left shoulder; E78.5 Hyperlipidemia, unspecified; F41.9 Anxiety disorder, unspecified; F32.9 Major depressive disorder, single episode, unspecified; Z94.0 Kidney transplant status; Z79.4 Long term (current) use of insulin; Z79.899 Other long term (current) drug therapy | CPT/HCPCS: J1642; J7030 ==

== ENCOUNTER 2019-09-26 01:20 | Day surgery (SDC) | payer OTHER | END 2019-09-26 17:06 | disposition home or self-care (01) | LOC: ATC 01:20 | DX: E87.70 Fluid overload, unspecified (principal); I12.0 Hypertensive chronic kidney disease with stage 5 chronic kidney disease or end stage renal disease; N18.6 End stage renal disease; E78.5 Hyperlipidemia, unspecified; F41.9 Anxiety disorder, unspecified; F32.9 Major depressive disorder, single episode, unspecified; Z94.0 Kidney transplant status; M19.012 Primary osteoarthritis, left shoulder; E11.22 Type 2 diabetes mellitus with diabetic chronic kidney disease; Z79.82 Long term (current) use of aspirin; Z79.4 Long term (current) use of insulin; Z79.899 Other long term (current) drug therapy | CPT/HCPCS: 96360; 96361; J1642; J7030 ==

== ENCOUNTER 2019-09-29 00:05 | Day surgery (SDC) | payer OTHER | END 2019-09-29 16:59 | disposition home or self-care (01) | LOC: ATC 00:05 | DX: I12.0 Hypertensive chronic kidney disease with stage 5 chronic kidney disease or end stage renal disease (principal); E11.22 Type 2 diabetes mellitus with diabetic chronic kidney disease; N18.6 End stage renal disease; E78.5 Hyperlipidemia, unspecified; Z94.0 Kidney transplant status; Z79.899 Other long term (current) drug therapy; Z79.4 Long term (current) use of insulin; M19.012 Primary osteoarthritis, left shoulder | CPT/HCPCS: J1642; J7030 ==

== ENCOUNTER 2019-10-06 01:09 | Day surgery (SDC) | payer OTHER | END 2019-10-06 17:15 | disposition home or self-care (01) | LOC: ATC 01:09 | DX: E87.70 Fluid overload, unspecified (principal); M19.012 Primary osteoarthritis, left shoulder; I12.0 Hypertensive chronic kidney disease with stage 5 chronic kidney disease or end stage renal disease; E11.22 Type 2 diabetes mellitus with diabetic chronic kidney disease; N18.6 End stage renal disease; E78.5 Hyperlipidemia, unspecified; Z94.0 Kidney transplant status; Z79.899 Other long term (current) drug therapy; Z79.4 Long term (current) use of insulin | CPT/HCPCS: J1642; J7030 ==

== ENCOUNTER 2019-10-13 00:03 | Day surgery (SDC) | payer OTHER | END 2019-10-13 17:05 | disposition home or self-care (01) | LOC: ATC 00:03 | DX: E87.70 Fluid overload, unspecified (principal); I12.0 Hypertensive chronic kidney disease with stage 5 chronic kidney disease or end stage renal disease; M19.012 Primary osteoarthritis, left shoulder; E11.22 Type 2 diabetes mellitus with diabetic chronic kidney disease; E78.5 Hyperlipidemia, unspecified; F32.9 Major depressive disorder, single episode, unspecified; F41.9 Anxiety disorder, unspecified; Z94.0 Kidney transplant status; Z79.899 Other long term (current) drug therapy; Z79.4 Long term (current) use of insulin | CPT/HCPCS: J1642; J7030 ==

== ENCOUNTER 2019-10-15 00:11 | Day surgery (SDC) | payer OTHER | END 2019-10-15 17:06 | disposition home or self-care (01) | LOC: ATC 00:11 | DX: R60.9 Edema, unspecified (principal); I12.0 Hypertensive chronic kidney disease with stage 5 chronic kidney disease or end stage renal disease; E11.22 Type 2 diabetes mellitus with diabetic chronic kidney disease; N18.6 End stage renal disease; Z79.899 Other long term (current) drug therapy | CPT/HCPCS: 96360; 96361; J1642; J7030 ==

== ENCOUNTER 2019-10-17 00:28 | Day surgery (SDC) | payer OTHER | END 2019-10-17 18:13 | disposition home or self-care (01) | LOC: ATC 00:28 | DX: I12.0 Hypertensive chronic kidney disease with stage 5 chronic kidney disease or end stage renal disease (principal); M19.012 Primary osteoarthritis, left shoulder; E11.22 Type 2 diabetes mellitus with diabetic chronic kidney disease; N18.6 End stage renal disease; E78.5 Hyperlipidemia, unspecified; Z79.899 Other long term (current) drug therapy; Z79.4 Long term (current) use of insulin; Z94.0 Kidney transplant status | CPT/HCPCS: J1642; J7030 ==

== ENCOUNTER 2019-10-20 00:03 | Day surgery (SDC) | payer OTHER | END 2019-10-20 17:38 | disposition home or self-care (01) | LOC: ATC 00:03 | DX: I12.0 Hypertensive chronic kidney disease with stage 5 chronic kidney disease or end stage renal disease (principal); E11.22 Type 2 diabetes mellitus with diabetic chronic kidney disease; N18.6 End stage renal disease; Z94.0 Kidney transplant status; M19.012 Primary osteoarthritis, left shoulder; E78.5 Hyperlipidemia, unspecified; Z79.899 Other long term (current) drug therapy; Z79.4 Long term (current) use of insulin; F32.9 Major depressive disorder, single episode, unspecified; F41.9 Anxiety disorder, unspecified | CPT/HCPCS: J1642; J7030 ==

== ENCOUNTER 2019-10-27 00:15 | Day surgery (SDC) | payer OTHER | END 2019-10-27 17:12 | disposition home or self-care (01) | LOC: ATC 00:15 | DX: E87.70 Fluid overload, unspecified (principal); I12.0 Hypertensive chronic kidney disease with stage 5 chronic kidney disease or end stage renal disease; N18.6 End stage renal disease; E11.22 Type 2 diabetes mellitus with diabetic chronic kidney disease; E78.5 Hyperlipidemia, unspecified; I47.1 Supraventricular tachycardia; G47.33 Obstructive sleep apnea (adult) (pediatric); F41.9 Anxiety disorder, unspecified; F32.9 Major depressive disorder, single episode, unspecified; Z79.4 Long term (current) use of insulin; Z79.899 Other long term (current) drug therapy; Z79.51 Long term (current) use of inhaled steroids | CPT/HCPCS: J1642; J7030 ==

== ENCOUNTER 2019-10-29 00:03 | Day surgery (SDC) | payer OTHER | END 2019-10-29 17:07 | disposition home or self-care (01) | LOC: ATC 00:03 | DX: E87.70 Fluid overload, unspecified (principal); I12.0 Hypertensive chronic kidney disease with stage 5 chronic kidney disease or end stage renal disease; E11.22 Type 2 diabetes mellitus with diabetic chronic kidney disease; N18.6 End stage renal disease; Z79.899 Other long term (current) drug therapy | CPT/HCPCS: 96360; 96361; J1642; J7030 ==

== ENCOUNTER 2019-10-31 00:13 | Day surgery (SDC) | payer OTHER | END 2019-10-31 17:10 | disposition home or self-care (01) | LOC: ATC 00:13 | DX: I12.0 Hypertensive chronic kidney disease with stage 5 chronic kidney disease or end stage renal disease (principal); E11.22 Type 2 diabetes mellitus with diabetic chronic kidney disease; M19.012 Primary osteoarthritis, left shoulder; N18.6 End stage renal disease; F32.9 Major depressive disorder, single episode, unspecified; F41.9 Anxiety disorder, unspecified; Z94.0 Kidney transplant status; Z79.899 Other long term (current) drug therapy; Z79.4 Long term (current) use of insulin | CPT/HCPCS: J1642; J7030 ==

== ENCOUNTER 2019-11-03 00:20 | Day surgery (SDC) | payer OTHER | END 2019-11-03 17:30 | disposition home or self-care (01) | LOC: ATC 00:20 | DX: I12.0 Hypertensive chronic kidney disease with stage 5 chronic kidney disease or end stage renal disease (principal); E11.22 Type 2 diabetes mellitus with diabetic chronic kidney disease; N18.6 End stage renal disease; Z94.0 Kidney transplant status; M19.012 Primary osteoarthritis, left shoulder; E78.5 Hyperlipidemia, unspecified; Z99.2 Dependence on renal dialysis; Z79.899 Other long term (current) drug therapy; Z79.4 Long term (current) use of insulin; F41.9 Anxiety disorder, unspecified; F32.9 Major depressive disorder, single episode, unspecified | CPT/HCPCS: J1642; J7030 ==

== ENCOUNTER 2019-11-05 00:06 | Day surgery (SDC) | payer OTHER | END 2019-11-05 17:10 | disposition home or self-care (01) | LOC: ATC 00:06 | DX: E87.70 Fluid overload, unspecified (principal); E78.5 Hyperlipidemia, unspecified; I47.1 Supraventricular tachycardia; G47.33 Obstructive sleep apnea (adult) (pediatric); F32.9 Major depressive disorder, single episode, unspecified; F41.9 Anxiety disorder, unspecified; I12.9 Hypertensive chronic kidney disease with stage 1 through stage 4 chronic kidney disease, or unspecified chronic kidney disease; E11.22 Type 2 diabetes mellitus with diabetic chronic kidney disease; N18.9 Chronic kidney disease, unspecified; Z94.0 Kidney transplant status; Z79.899 Other long term (current) drug therapy; Z79.4 Long term (current) use of insulin; Z79.51 Long term (current) use of inhaled steroids | CPT/HCPCS: 96360; 96361; J1642; J7030 ==

== ENCOUNTER 2019-11-07 00:11 | Day surgery (SDC) | payer OTHER | END 2019-11-07 17:19 | disposition home or self-care (01) | LOC: ATC 00:11 | DX: E87.70 Fluid overload, unspecified (principal); I12.9 Hypertensive chronic kidney disease with stage 1 through stage 4 chronic kidney disease, or unspecified chronic kidney disease; E11.22 Type 2 diabetes mellitus with diabetic chronic kidney disease; N18.9 Chronic kidney disease, unspecified; Z94.0 Kidney transplant status; E78.5 Hyperlipidemia, unspecified; G47.33 Obstructive sleep apnea (adult) (pediatric); F32.9 Major depressive disorder, single episode, unspecified; F41.9 Anxiety disorder, unspecified; Z79.899 Other long term (current) drug therapy; Z79.4 Long term (current) use of insulin | CPT/HCPCS: 96360; 96361; J1642; J7030 ==

== ENCOUNTER 2019-11-12 00:07 | Day surgery (SDC) | payer OTHER ==
--- NOTE | 2019-11-12 16:54 | NUR ---
1350: PT GIVEN WARM BLANKET, TOWEL AND WASH CLOTH, BOTTLE H20/CAN OF POP AND CHIPS.
== END 2019-11-12 17:00 | disposition home or self-care (01) ==
LOC: ATC 00:07
DX: I12.9 Hypertensive chronic kidney disease with stage 1 through stage 4 chronic kidney disease, or unspecified chronic kidney disease (principal); E11.22 Type 2 diabetes mellitus with diabetic chronic kidney disease; N18.3 Chronic kidney disease, stage 3 (moderate); N25.81 Secondary hyperparathyroidism of renal origin; D63.1 Anemia in chronic kidney disease; N28.1 Cyst of kidney, acquired; E55.9 Vitamin D deficiency, unspecified; Z79.899 Other long term (current) drug therapy; Z79.4 Long term (current) use of insulin
CPT/HCPCS: 96360; 96361; J1642; J7030

== ENCOUNTER 2019-11-18 08:10 | Day surgery (SDC) | payer OTHER ==
--- NOTE | 2019-11-19 14:11 | NUR ---
11/19/19: PT GOT 3 LITERS INFUSED YESTERDAY, AT THE END OF THE INFUSION THIS RN NOTED PT'S ANKLES APPEARED SWOLLEN, AND ENCOURAGED PT TO KEEP EYE ON EDEMA. THEN TODAY AT 1;30 PT CAME BACK TO CLINIC AND STATED THAT HE WAS HERE FOR HIS 3 LITERS OF FLUIDS. PT NOT ON SCHEDULE, AND ALL ROOMS ARE FULL WITH 3 BLOODS, REMICADE/INFLECTRA AND ANTIBIOTIC PTS, PT VERY AGITATED. THIS RN ASKED IF I COULD LOOK AT HIS ANKLES WHILE HE WAS SITTING IN WAITING ROOM (NO OTHER PTS AROUND HIM, HE AGREED, PT HAS 2+ EDEMA. CALLED [facility] AND DR HAM WANTED TO SEE PT NOW. PT WENT TO SEE DR HAM, AND PT IS SCHEDULED FOR 3 LITERS SUNDAY WHICH WE CONFIRMED WITH JOSE A.
== END 2019-11-18 16:53 | disposition home or self-care (01) ==
LOC: ATC 08:10
DX: I12.9 Hypertensive chronic kidney disease with stage 1 through stage 4 chronic kidney disease, or unspecified chronic kidney disease (principal); E11.22 Type 2 diabetes mellitus with diabetic chronic kidney disease; N18.3 Chronic kidney disease, stage 3 (moderate); D63.1 Anemia in chronic kidney disease; N25.81 Secondary hyperparathyroidism of renal origin; N28.1 Cyst of kidney, acquired; E55.9 Vitamin D deficiency, unspecified; Z79.899 Other long term (current) drug therapy; Z79.84 Long term (current) use of oral hypoglycemic drugs
CPT/HCPCS: 96360; 96361; J1642; J7030

== ENCOUNTER 2019-11-21 00:51 | Day surgery (SDC) | payer OTHER ==
--- NOTE | 2019-11-21 14:30 | NUR ---
PT REPORTS THAT PER DR HAM, HE IS ONLY TO RECEIVE ONLY 2 LITERS NS TODAY, BUT "LEFT THE ORDER IN THE CAR". CALL OUT TO DR HAM OFFICE AND THEY REPORT THEY WILL FAX OVER CURRENT ORDER. NO EDEMA NOTED TO LE'S. PT GIVEN WARM BLANKET, BOTTLE OF H20, DIET POP, TOWEL/WASH CLOTH AND CHIPS.
== END 2019-11-21 16:08 | disposition home or self-care (01) ==
LOC: ATC 00:51
DX: I12.9 Hypertensive chronic kidney disease with stage 1 through stage 4 chronic kidney disease, or unspecified chronic kidney disease (principal); N18.3 Chronic kidney disease, stage 3 (moderate); D63.1 Anemia in chronic kidney disease; N25.81 Secondary hyperparathyroidism of renal origin; E11.22 Type 2 diabetes mellitus with diabetic chronic kidney disease; N28.1 Cyst of kidney, acquired; E55.9 Vitamin D deficiency, unspecified; Z79.899 Other long term (current) drug therapy; Z79.4 Long term (current) use of insulin
CPT/HCPCS: 96360; 96361; J1642; J7030

== ENCOUNTER 2019-11-26 00:11 | Day surgery (SDC) | payer OTHER ==
[2019-11-26 16:50] LABS: Albumin, Blood 2.9 g/dL (3.4-5.0); Anion Gap 5 mmol/L (6-16); Blood Urea Nitrogen 36 mg/dL (8-24); Bun/Creatinine Ratio 21.8 (12.0-20.0); CO2, Blood 23 mmol/L (21-32); Calcium, Blood 7.5 mg/dL (8.5-10.1); Chloride, Blood 113 mmol/L (98-108); Creatinine, Blood 1.65 mg/dL (0.60-1.20); Glomerular Filtration Rate 46 (60-); Glucose, Blood 306 mg/dL (70-99); Potassium, Blood 5.2 mmol/L (3.5-5.5); Sodium, Blood 141 mmol/L (136-145)
== END 2019-11-26 16:18 | disposition home or self-care (01) ==
LOC: ATC 00:11
PROVIDERS: Internal Medicine Nephrology
DX: E86.9 Volume depletion, unspecified (principal); I12.9 Hypertensive chronic kidney disease with stage 1 through stage 4 chronic kidney disease, or unspecified chronic kidney disease; N18.3 Chronic kidney disease, stage 3 (moderate); E11.22 Type 2 diabetes mellitus with diabetic chronic kidney disease; D63.1 Anemia in chronic kidney disease; N25.81 Secondary hyperparathyroidism of renal origin; D50.9 Iron deficiency anemia, unspecified; E11.21 Type 2 diabetes mellitus with diabetic nephropathy; N28.1 Cyst of kidney, acquired
CPT/HCPCS: 80069; 85018; 96360; 96361; J1642; J7030

== ENCOUNTER 2019-11-28 00:23 | Day surgery (SDC) | payer OTHER | END 2019-11-28 16:03 | disposition home or self-care (01) | LOC: ATC 00:23 | DX: E86.9 Volume depletion, unspecified (principal); I12.9 Hypertensive chronic kidney disease with stage 1 through stage 4 chronic kidney disease, or unspecified chronic kidney disease; E11.22 Type 2 diabetes mellitus with diabetic chronic kidney disease; N18.3 Chronic kidney disease, stage 3 (moderate); D63.1 Anemia in chronic kidney disease; N25.81 Secondary hyperparathyroidism of renal origin; N28.1 Cyst of kidney, acquired; E55.9 Vitamin D deficiency, unspecified; Z94.0 Kidney transplant status; Z79.899 Other long term (current) drug therapy; Z79.4 Long term (current) use of insulin | CPT/HCPCS: 96360; 96361; J1642; J7030 ==

== ENCOUNTER 2019-12-01 00:24 | Day surgery (SDC) | payer OTHER | END 2019-12-01 15:55 | disposition home or self-care (01) | LOC: ATC 00:24 | DX: E86.9 Volume depletion, unspecified (principal); I12.9 Hypertensive chronic kidney disease with stage 1 through stage 4 chronic kidney disease, or unspecified chronic kidney disease; N18.3 Chronic kidney disease, stage 3 (moderate); E11.22 Type 2 diabetes mellitus with diabetic chronic kidney disease; D63.1 Anemia in chronic kidney disease; N25.81 Secondary hyperparathyroidism of renal origin; E11.21 Type 2 diabetes mellitus with diabetic nephropathy; N28.1 Cyst of kidney, acquired; Z79.899 Other long term (current) drug therapy | CPT/HCPCS: 96360; 96361; J1642; J7030 ==

== ENCOUNTER 2019-12-03 00:28 | Day surgery (SDC) | payer OTHER | END 2019-12-03 16:37 | disposition home or self-care (01) | LOC: ATC 00:28 | DX: E86.9 Volume depletion, unspecified (principal); I12.9 Hypertensive chronic kidney disease with stage 1 through stage 4 chronic kidney disease, or unspecified chronic kidney disease; N18.3 Chronic kidney disease, stage 3 (moderate); D63.1 Anemia in chronic kidney disease; N25.81 Secondary hyperparathyroidism of renal origin; E11.22 Type 2 diabetes mellitus with diabetic chronic kidney disease; E11.21 Type 2 diabetes mellitus with diabetic nephropathy; N28.1 Cyst of kidney, acquired; E55.9 Vitamin D deficiency, unspecified | CPT/HCPCS: 96360; 96361; J1642; J7030 ==

== ENCOUNTER 2019-12-05 00:27 | Day surgery (SDC) | payer OTHER | END 2019-12-05 15:40 | disposition home or self-care (01) | LOC: ATC 00:27 | DX: E86.9 Volume depletion, unspecified (principal); E11.22 Type 2 diabetes mellitus with diabetic chronic kidney disease; I12.9 Hypertensive chronic kidney disease with stage 1 through stage 4 chronic kidney disease, or unspecified chronic kidney disease; N18.3 Chronic kidney disease, stage 3 (moderate); N25.81 Secondary hyperparathyroidism of renal origin; D63.1 Anemia in chronic kidney disease; N28.1 Cyst of kidney, acquired; Z94.0 Kidney transplant status; E55.9 Vitamin D deficiency, unspecified; Z79.899 Other long term (current) drug therapy; Z79.4 Long term (current) use of insulin | CPT/HCPCS: 96360; J1642; J7030 ==

== ENCOUNTER 2019-12-10 00:02 | Day surgery (SDC) | payer OTHER | END 2019-12-10 16:02 | disposition home or self-care (01) | LOC: ATC 00:02 | DX: E86.9 Volume depletion, unspecified (principal); I12.9 Hypertensive chronic kidney disease with stage 1 through stage 4 chronic kidney disease, or unspecified chronic kidney disease; N18.3 Chronic kidney disease, stage 3 (moderate); E11.22 Type 2 diabetes mellitus with diabetic chronic kidney disease; D63.1 Anemia in chronic kidney disease; N25.81 Secondary hyperparathyroidism of renal origin; E11.21 Type 2 diabetes mellitus with diabetic nephropathy | CPT/HCPCS: 96360; 96361; J1642; J7030 ==

== ENCOUNTER 2019-12-12 01:21 | Day surgery (SDC) | payer OTHER | END 2019-12-12 15:50 | disposition home or self-care (01) | LOC: ATC 01:21 | DX: I12.9 Hypertensive chronic kidney disease with stage 1 through stage 4 chronic kidney disease, or unspecified chronic kidney disease (principal); E11.22 Type 2 diabetes mellitus with diabetic chronic kidney disease; N18.3 Chronic kidney disease, stage 3 (moderate); D63.1 Anemia in chronic kidney disease; N25.81 Secondary hyperparathyroidism of renal origin; N28.1 Cyst of kidney, acquired; E55.9 Vitamin D deficiency, unspecified; Z94.0 Kidney transplant status; Z79.4 Long term (current) use of insulin; Z79.899 Other long term (current) drug therapy | CPT/HCPCS: 96360; 96361; J1642; J7030 ==

== ENCOUNTER 2019-12-15 00:07 | Day surgery (SDC) | payer OTHER | END 2019-12-15 16:32 | disposition home or self-care (01) | LOC: ATC 00:07 | DX: I12.9 Hypertensive chronic kidney disease with stage 1 through stage 4 chronic kidney disease, or unspecified chronic kidney disease (principal); E11.22 Type 2 diabetes mellitus with diabetic chronic kidney disease; N18.3 Chronic kidney disease, stage 3 (moderate); D63.1 Anemia in chronic kidney disease; N25.81 Secondary hyperparathyroidism of renal origin; N28.1 Cyst of kidney, acquired; E55.9 Vitamin D deficiency, unspecified; Z94.0 Kidney transplant status; Z79.899 Other long term (current) drug therapy; Z79.4 Long term (current) use of insulin | CPT/HCPCS: 96360; 96361; J1642; J7030 ==

== ENCOUNTER 2019-12-22 00:05 | Day surgery (SDC) | payer OTHER ==
[~2019-12-22 00:05] MED LIST changes: +ALUMINUM H320 MG/5 M PO; -Aluminum H320 MG/5 M PO; +DARBEPOETIN ALFA SC; -THERA-D2000 UNIT PO; +VITAMIN D32000 UNIT PO
== END 2019-12-22 15:52 | disposition home or self-care (01) ==
LOC: ATC 00:05
DX: I12.9 Hypertensive chronic kidney disease with stage 1 through stage 4 chronic kidney disease, or unspecified chronic kidney disease (principal); E11.22 Type 2 diabetes mellitus with diabetic chronic kidney disease; N18.3 Chronic kidney disease, stage 3 (moderate); D63.1 Anemia in chronic kidney disease; N25.81 Secondary hyperparathyroidism of renal origin; N28.1 Cyst of kidney, acquired; Z94.0 Kidney transplant status; E55.9 Vitamin D deficiency, unspecified; Z79.899 Other long term (current) drug therapy; Z79.4 Long term (current) use of insulin
CPT/HCPCS: 96360; 96361; J1642; J7030

== ENCOUNTER 2019-12-26 01:52 | Day surgery (SDC) | payer OTHER ==
[2019-12-26 16:12] LABS: BASOPHILS ABSOLUTE AUTO 0.01 K/mm3 (0.00-0.23); BASOPHILS PERCENT AUTO 0 % (0-2); EOSINOPHILS PERCENT AUTO 0 % (0-6); Hematocrit 33.3 % (37.0-53.0); IMMATURE GRAN ABSOLUTE AUTO 0.05 K/mm3 (0.00-0.10); IMMATURE GRAN PERCENT AUTO 1 % (0-1); LYMPHOCYTES ABSOLUTE AUTO 0.63 K/mm3 (0.84-5.20); LYMPHOCYTES PERCENT AUTO 8 % (21-46); MONOCYTES ABSOLUTE AUTO 0.41 K/mm3 (0.16-1.47); MONOCYTES PERCENT AUTO 5 % (4-13); Mean Corpuscular Volume 87 fL (80-100); Mean Platelet Volume 10.7 fL (9.1-12.4); NEUTROPHILS ABSOLUTE AUTO 6.61 K/mm3 (1.96-9.15); NEUTROPHILS PERCENT AUTO 86 % (41-73); Platelet Count 215 K/mm3 (150-400); RDW Coefficient Variation 15.3 % (11.7-14.2); RDW Standard Deviation 47.8 fL (35.1-46.3); Red Blood Cell Count 3.85 M/mm3 (4.30-5.90); White Blood Cell Count 7.71 K/mm3 (4.00-11.30)
[2019-12-26 16:32] LABS: Alanine Aminotransfer (ALT/SGP 16 U/L (12-78); Albumin, Blood 2.6 g/dL (3.4-5.0); Alk Phos 75 U/L (50-136); Anion Gap 6 mmol/L (6-16); Aspartate Aminotrans (AST/SGOT 9 U/L (12-37); Bilirubin, Direct <0.1 mg/dL (0.0-0.3); Bilirubin, Indirect Unable to Calculate mg/dL (0.1-0.7); Bilirubin, Total 0.2 mg/dL (0.1-1.0); Blood Urea Nitrogen 27 mg/dL (8-24); Bun/Creatinine Ratio 20.3 (12.0-20.0); CO2, Blood 20 mmol/L (21-32); Calcium, Blood 7.7 mg/dL (8.5-10.1); Chloride, Blood 116 mmol/L (98-108); Creatinine, Blood 1.33 mg/dL (0.60-1.20); Globulin, Blood 2.5 g/dL (2.2-4.0); Glomerular Filtration Rate 59 (60-); Glucose, Blood 201 mg/dL (70-99); Phosphorus, Blood 3.5 mg/dL (2.5-4.9); Potassium, Blood 5.1 mmol/L (3.5-5.5); Sodium, Blood 142 mmol/L (136-145); Total Protein, Blood 5.1 g/dL (6.4-8.2)
== END 2019-12-26 16:06 | disposition home or self-care (01) ==
LOC: ATC 01:52
PROVIDERS: Internal Medicine Nephrology
DX: I12.9 Hypertensive chronic kidney disease with stage 1 through stage 4 chronic kidney disease, or unspecified chronic kidney disease (principal); E11.22 Type 2 diabetes mellitus with diabetic chronic kidney disease; N18.3 Chronic kidney disease, stage 3 (moderate); D63.1 Anemia in chronic kidney disease; N25.81 Secondary hyperparathyroidism of renal origin; N28.1 Cyst of kidney, acquired; Z94.0 Kidney transplant status; Z79.899 Other long term (current) drug therapy; Z79.4 Long term (current) use of insulin
CPT/HCPCS: 80053; 80197; 82248; 84100; 85025; 96360; 96361; J1642; J7030

== ENCOUNTER 2020-01-05 00:11 | Day surgery (SDC) | payer OTHER ==
[2020-01-05] MEDS ORDERED: Catapres0.2 MG PO (15:23)
== END 2020-01-05 16:30 | disposition home or self-care (01) ==
LOC: ATC 00:11
DX: I12.9 Hypertensive chronic kidney disease with stage 1 through stage 4 chronic kidney disease, or unspecified chronic kidney disease (principal); E11.22 Type 2 diabetes mellitus with diabetic chronic kidney disease; N18.3 Chronic kidney disease, stage 3 (moderate); D63.1 Anemia in chronic kidney disease; N25.81 Secondary hyperparathyroidism of renal origin; N28.1 Cyst of kidney, acquired; E55.9 Vitamin D deficiency, unspecified; Z79.899 Other long term (current) drug therapy; Z94.0 Kidney transplant status; Z79.4 Long term (current) use of insulin
CPT/HCPCS: 96360; 96361; J1642; J7030

== ENCOUNTER 2020-01-12 00:13 | Day surgery (SDC) | payer OTHER ==
[~2020-01-12 00:13] MED LIST changes: +Catapres0.2 MG PO
[2020-01-12] MEDS ORDERED: HEPARIN IV100 UNIT/1 IV (14:51)
== END 2020-01-12 22:54 | disposition home or self-care (01) ==
LOC: ATC 00:13
DX: I12.9 Hypertensive chronic kidney disease with stage 1 through stage 4 chronic kidney disease, or unspecified chronic kidney disease (principal); E11.22 Type 2 diabetes mellitus with diabetic chronic kidney disease; N18.3 Chronic kidney disease, stage 3 (moderate); D63.1 Anemia in chronic kidney disease; N25.81 Secondary hyperparathyroidism of renal origin; N28.1 Cyst of kidney, acquired; E55.9 Vitamin D deficiency, unspecified; Z94.0 Kidney transplant status; Z79.899 Other long term (current) drug therapy; Z79.4 Long term (current) use of insulin
CPT/HCPCS: 96360; 96361; J1642; J7030

== ENCOUNTER 2020-01-19 00:38 | Day surgery (SDC) | payer OTHER ==
[~2020-01-19 00:38] MED LIST changes: +HEPARIN IV100 UNIT/1 IV
== END 2020-01-19 16:32 | disposition home or self-care (01) ==
LOC: ATC 00:38
DX: E86.9 Volume depletion, unspecified (principal); I12.9 Hypertensive chronic kidney disease with stage 1 through stage 4 chronic kidney disease, or unspecified chronic kidney disease; N18.3 Chronic kidney disease, stage 3 (moderate); E11.22 Type 2 diabetes mellitus with diabetic chronic kidney disease; D63.1 Anemia in chronic kidney disease; N25.81 Secondary hyperparathyroidism of renal origin; E11.21 Type 2 diabetes mellitus with diabetic nephropathy; Z79.899 Other long term (current) drug therapy; Z79.52 Long term (current) use of systemic steroids
CPT/HCPCS: 96360; 96361; J1642; J7030

== ENCOUNTER 2020-01-24 00:03 | Day surgery (SDC) | payer OTHER | END 2020-01-24 17:24 | disposition home or self-care (01) | LOC: ATC 00:03 | DX: E86.0 Dehydration (principal); N18.3 Chronic kidney disease, stage 3 (moderate); I12.9 Hypertensive chronic kidney disease with stage 1 through stage 4 chronic kidney disease, or unspecified chronic kidney disease; E11.22 Type 2 diabetes mellitus with diabetic chronic kidney disease; D50.9 Iron deficiency anemia, unspecified; D63.1 Anemia in chronic kidney disease; E11.21 Type 2 diabetes mellitus with diabetic nephropathy; R80.9 Proteinuria, unspecified; N28.1 Cyst of kidney, acquired; N25.81 Secondary hyperparathyroidism of renal origin; E55.9 Vitamin D deficiency, unspecified; Z79.84 Long term (current) use of oral hypoglycemic drugs; Z94.0 Kidney transplant status | CPT/HCPCS: 96360; 96361; J1642; J7030 ==

== ENCOUNTER 2020-02-02 00:15 | Day surgery (SDC) | payer OTHER | END 2020-02-02 16:32 | disposition home or self-care (01) | LOC: ATC 00:15 | DX: I12.9 Hypertensive chronic kidney disease with stage 1 through stage 4 chronic kidney disease, or unspecified chronic kidney disease (principal); N18.3 Chronic kidney disease, stage 3 (moderate); D63.1 Anemia in chronic kidney disease; N25.81 Secondary hyperparathyroidism of renal origin; E11.22 Type 2 diabetes mellitus with diabetic chronic kidney disease; N28.1 Cyst of kidney, acquired; E55.9 Vitamin D deficiency, unspecified; Z94.0 Kidney transplant status; Z79.899 Other long term (current) drug therapy; Z79.4 Long term (current) use of insulin | CPT/HCPCS: 96360; 96361; J1642; J7030 ==

== ENCOUNTER 2020-02-06 00:32 | Day surgery (SDC) | payer OTHER | END 2020-02-06 16:36 | disposition home or self-care (01) | LOC: ATC 00:32 | DX: E86.0 Dehydration (principal); I12.9 Hypertensive chronic kidney disease with stage 1 through stage 4 chronic kidney disease, or unspecified chronic kidney disease; E11.22 Type 2 diabetes mellitus with diabetic chronic kidney disease; N18.3 Chronic kidney disease, stage 3 (moderate); D63.1 Anemia in chronic kidney disease; N25.81 Secondary hyperparathyroidism of renal origin; N28.1 Cyst of kidney, acquired; E55.9 Vitamin D deficiency, unspecified; Z94.0 Kidney transplant status; Z79.899 Other long term (current) drug therapy; Z79.4 Long term (current) use of insulin | CPT/HCPCS: 96360; 96361; J1642; J7030 ==

== ENCOUNTER 2020-02-09 00:18 | Day surgery (SDC) | payer OTHER | END 2020-02-09 16:02 | disposition home or self-care (01) | LOC: ATC 00:18 | DX: E86.0 Dehydration (principal); I12.9 Hypertensive chronic kidney disease with stage 1 through stage 4 chronic kidney disease, or unspecified chronic kidney disease; N18.3 Chronic kidney disease, stage 3 (moderate); E11.22 Type 2 diabetes mellitus with diabetic chronic kidney disease; D63.1 Anemia in chronic kidney disease; N25.81 Secondary hyperparathyroidism of renal origin; E11.21 Type 2 diabetes mellitus with diabetic nephropathy | CPT/HCPCS: 96360; 96361; J1642; J7030 ==

== ENCOUNTER 2020-02-11 00:17 | Day surgery (SDC) | payer OTHER | END 2020-02-11 15:59 | disposition home or self-care (01) | LOC: ATC 00:17 | DX: E86.0 Dehydration (principal); E11.22 Type 2 diabetes mellitus with diabetic chronic kidney disease; I12.9 Hypertensive chronic kidney disease with stage 1 through stage 4 chronic kidney disease, or unspecified chronic kidney disease; N18.3 Chronic kidney disease, stage 3 (moderate); D63.1 Anemia in chronic kidney disease; N25.81 Secondary hyperparathyroidism of renal origin; N28.1 Cyst of kidney, acquired; E55.9 Vitamin D deficiency, unspecified; Z94.0 Kidney transplant status; Z79.899 Other long term (current) drug therapy; Z79.4 Long term (current) use of insulin | CPT/HCPCS: 96360; 96361; J1642; J7030 ==

== ENCOUNTER 2020-02-16 00:07 | Day surgery (SDC) | payer OTHER | END 2020-02-16 15:52 | disposition home or self-care (01) | LOC: ATC 00:07 | DX: E86.0 Dehydration (principal); I12.9 Hypertensive chronic kidney disease with stage 1 through stage 4 chronic kidney disease, or unspecified chronic kidney disease; N18.3 Chronic kidney disease, stage 3 (moderate); D63.1 Anemia in chronic kidney disease; N25.81 Secondary hyperparathyroidism of renal origin; E11.21 Type 2 diabetes mellitus with diabetic nephropathy | CPT/HCPCS: 96360; 96361; J1642; J7030 ==

== ENCOUNTER 2020-02-23 00:14 | Day surgery (SDC) | payer OTHER | END 2020-02-23 16:09 | disposition home or self-care (01) | LOC: ATC 00:14 | DX: E86.0 Dehydration (principal); I12.9 Hypertensive chronic kidney disease with stage 1 through stage 4 chronic kidney disease, or unspecified chronic kidney disease; E11.22 Type 2 diabetes mellitus with diabetic chronic kidney disease; N18.3 Chronic kidney disease, stage 3 (moderate); D63.1 Anemia in chronic kidney disease; N25.81 Secondary hyperparathyroidism of renal origin; N28.1 Cyst of kidney, acquired; E55.9 Vitamin D deficiency, unspecified; Z94.0 Kidney transplant status; Z79.899 Other long term (current) drug therapy; Z79.4 Long term (current) use of insulin | CPT/HCPCS: J1642; J7030 ==

== ENCOUNTER 2020-02-25 00:32 | Day surgery (SDC) | payer OTHER | END 2020-02-25 15:51 | disposition home or self-care (01) | LOC: ATC 00:32 | DX: E86.0 Dehydration (principal); I12.9 Hypertensive chronic kidney disease with stage 1 through stage 4 chronic kidney disease, or unspecified chronic kidney disease; E11.22 Type 2 diabetes mellitus with diabetic chronic kidney disease; N18.3 Chronic kidney disease, stage 3 (moderate); D63.1 Anemia in chronic kidney disease; N25.81 Secondary hyperparathyroidism of renal origin; E55.9 Vitamin D deficiency, unspecified; N28.1 Cyst of kidney, acquired; Z94.0 Kidney transplant status; Z79.899 Other long term (current) drug therapy; Z79.4 Long term (current) use of insulin | CPT/HCPCS: J1642; J7030 ==

== ENCOUNTER 2020-02-27 00:04 | Day surgery (SDC) | payer OTHER ==
[~2020-02-27 00:04] MED LIST changes: +BASAGLAR K100 UNIT/1 SC; -HEPARIN 50500 UNIT/5 IV; +HEPARIN IV; +HUMULIN R100 UNIT/2; -INSR10I; -LOVAZA1 GM PO; +OMEGA-3 FISH O1 EAC6 PO
== END 2020-02-27 16:03 | disposition home or self-care (01) ==
LOC: ATC 00:04
DX: E86.0 Dehydration (principal); I12.9 Hypertensive chronic kidney disease with stage 1 through stage 4 chronic kidney disease, or unspecified chronic kidney disease; E11.22 Type 2 diabetes mellitus with diabetic chronic kidney disease; N18.3 Chronic kidney disease, stage 3 (moderate); D63.1 Anemia in chronic kidney disease; N25.81 Secondary hyperparathyroidism of renal origin; N28.1 Cyst of kidney, acquired; E55.9 Vitamin D deficiency, unspecified; Z94.0 Kidney transplant status; Z79.899 Other long term (current) drug therapy; Z79.4 Long term (current) use of insulin
CPT/HCPCS: 96360; 96361; J1642; J7030

== ENCOUNTER 2020-03-01 00:50 | Day surgery (SDC) | payer OTHER | END 2020-03-01 16:00 | disposition home or self-care (01) | LOC: ATC 00:50 | DX: E86.0 Dehydration (principal); I12.9 Hypertensive chronic kidney disease with stage 1 through stage 4 chronic kidney disease, or unspecified chronic kidney disease; E11.22 Type 2 diabetes mellitus with diabetic chronic kidney disease; N18.3 Chronic kidney disease, stage 3 (moderate); D63.1 Anemia in chronic kidney disease; N25.81 Secondary hyperparathyroidism of renal origin; N28.1 Cyst of kidney, acquired; E55.9 Vitamin D deficiency, unspecified; Z94.0 Kidney transplant status; Z79.899 Other long term (current) drug therapy; Z79.4 Long term (current) use of insulin | CPT/HCPCS: 96360; 96361; J1642; J7030 ==

== ENCOUNTER 2020-03-03 00:18 | Day surgery (SDC) | payer OTHER ==
[2020-03-03] MEDS ORDERED: CLON.1 PO (14:46)
== END 2020-03-03 16:07 | disposition home or self-care (01) ==
LOC: ATC 00:18
DX: E86.0 Dehydration (principal); I12.9 Hypertensive chronic kidney disease with stage 1 through stage 4 chronic kidney disease, or unspecified chronic kidney disease; E11.22 Type 2 diabetes mellitus with diabetic chronic kidney disease; N18.3 Chronic kidney disease, stage 3 (moderate); D63.1 Anemia in chronic kidney disease; N25.81 Secondary hyperparathyroidism of renal origin; N28.1 Cyst of kidney, acquired; E55.9 Vitamin D deficiency, unspecified; Z94.0 Kidney transplant status; Z79.899 Other long term (current) drug therapy; Z79.4 Long term (current) use of insulin
CPT/HCPCS: 96360; 96361; J1642; J7030

== ENCOUNTER 2020-03-05 00:41 | Day surgery (SDC) | payer OTHER | END 2020-03-05 16:20 | disposition home or self-care (01) | LOC: ATC 00:41 | DX: E86.0 Dehydration (principal); I12.9 Hypertensive chronic kidney disease with stage 1 through stage 4 chronic kidney disease, or unspecified chronic kidney disease; N18.3 Chronic kidney disease, stage 3 (moderate); D63.1 Anemia in chronic kidney disease; N25.81 Secondary hyperparathyroidism of renal origin; D50.9 Iron deficiency anemia, unspecified; E11.21 Type 2 diabetes mellitus with diabetic nephropathy | CPT/HCPCS: 96360; 96361; J1642; J7030 ==

== ENCOUNTER 2020-03-10 00:27 | Day surgery (SDC) | payer OTHER | END 2020-03-10 15:55 | disposition home or self-care (01) | LOC: ATC 00:27 | DX: I12.9 Hypertensive chronic kidney disease with stage 1 through stage 4 chronic kidney disease, or unspecified chronic kidney disease (principal); E11.22 Type 2 diabetes mellitus with diabetic chronic kidney disease; N18.3 Chronic kidney disease, stage 3 (moderate); D63.1 Anemia in chronic kidney disease; N25.81 Secondary hyperparathyroidism of renal origin; Z94.0 Kidney transplant status; E55.9 Vitamin D deficiency, unspecified; N28.1 Cyst of kidney, acquired; Z79.899 Other long term (current) drug therapy; Z79.4 Long term (current) use of insulin | CPT/HCPCS: 96360; 96361; J1642; J7030 ==

== ENCOUNTER 2020-03-15 00:46 | Day surgery (SDC) | payer OTHER | END 2020-03-15 16:07 | disposition home or self-care (01) | LOC: ATC 00:46 | DX: E86.0 Dehydration (principal); I12.9 Hypertensive chronic kidney disease with stage 1 through stage 4 chronic kidney disease, or unspecified chronic kidney disease; N18.3 Chronic kidney disease, stage 3 (moderate); D63.1 Anemia in chronic kidney disease; N25.81 Secondary hyperparathyroidism of renal origin; D50.9 Iron deficiency anemia, unspecified; E11.21 Type 2 diabetes mellitus with diabetic nephropathy | CPT/HCPCS: 96360; 96361; J1642; J7030 ==

== ENCOUNTER 2020-03-17 00:29 | Day surgery (SDC) | payer OTHER | END 2020-03-17 16:03 | disposition home or self-care (01) | LOC: ATC 00:29 | DX: E86.0 Dehydration (principal); E11.22 Type 2 diabetes mellitus with diabetic chronic kidney disease; I12.9 Hypertensive chronic kidney disease with stage 1 through stage 4 chronic kidney disease, or unspecified chronic kidney disease; N18.3 Chronic kidney disease, stage 3 (moderate); D63.1 Anemia in chronic kidney disease; N25.81 Secondary hyperparathyroidism of renal origin; N28.1 Cyst of kidney, acquired; E55.9 Vitamin D deficiency, unspecified; Z94.0 Kidney transplant status; Z79.899 Other long term (current) drug therapy; Z79.4 Long term (current) use of insulin | CPT/HCPCS: 96360; 96361; J1642; J7030 ==

== ENCOUNTER 2020-03-19 00:24 | Day surgery (SDC) | payer OTHER | END 2020-03-19 16:19 | disposition home or self-care (01) | LOC: ATC 00:24 | DX: E86.0 Dehydration (principal); I12.9 Hypertensive chronic kidney disease with stage 1 through stage 4 chronic kidney disease, or unspecified chronic kidney disease; E11.22 Type 2 diabetes mellitus with diabetic chronic kidney disease; N18.3 Chronic kidney disease, stage 3 (moderate); D63.1 Anemia in chronic kidney disease; N25.81 Secondary hyperparathyroidism of renal origin; N28.1 Cyst of kidney, acquired; E55.9 Vitamin D deficiency, unspecified; Z94.0 Kidney transplant status; Z79.899 Other long term (current) drug therapy; Z79.4 Long term (current) use of insulin | CPT/HCPCS: J1642; J7030 ==

== ENCOUNTER 2020-03-22 00:12 | Day surgery (SDC) | payer OTHER | END 2020-03-22 15:59 | disposition home or self-care (01) | LOC: ATC 00:12 | DX: E86.0 Dehydration (principal); I12.9 Hypertensive chronic kidney disease with stage 1 through stage 4 chronic kidney disease, or unspecified chronic kidney disease; E11.22 Type 2 diabetes mellitus with diabetic chronic kidney disease; N18.3 Chronic kidney disease, stage 3 (moderate); D63.1 Anemia in chronic kidney disease; N25.81 Secondary hyperparathyroidism of renal origin; N28.1 Cyst of kidney, acquired; E55.9 Vitamin D deficiency, unspecified; Z94.0 Kidney transplant status; Z79.899 Other long term (current) drug therapy; Z79.4 Long term (current) use of insulin | CPT/HCPCS: J1642; J7030 ==

== ENCOUNTER 2020-03-24 00:22 | Day surgery (SDC) | payer OTHER ==
--- NOTE | 2020-03-24 13:52 | NUR ---
PT WITH BILATERAL 1-2+ EDEMA IN ANKLES.
--- NOTE | 2020-03-25 16:32 | NUR ---
INFUSION STOP TIME FOR IV NS 1ST BAG 1448.
== END 2020-03-24 16:00 | disposition home or self-care (01) ==
LOC: ATC 00:22
DX: E86.0 Dehydration (principal); I12.9 Hypertensive chronic kidney disease with stage 1 through stage 4 chronic kidney disease, or unspecified chronic kidney disease; E11.22 Type 2 diabetes mellitus with diabetic chronic kidney disease; N18.3 Chronic kidney disease, stage 3 (moderate); D63.1 Anemia in chronic kidney disease; N25.81 Secondary hyperparathyroidism of renal origin; N28.1 Cyst of kidney, acquired; E55.9 Vitamin D deficiency, unspecified; Z94.0 Kidney transplant status; Z79.899 Other long term (current) drug therapy; Z79.4 Long term (current) use of insulin
CPT/HCPCS: 96360; 96361; J1642; J7030

== ENCOUNTER 2020-03-26 00:29 | Day surgery (SDC) | payer OTHER | END 2020-03-26 16:26 | disposition home or self-care (01) | LOC: ATC 00:29 | DX: E86.0 Dehydration (principal); I12.9 Hypertensive chronic kidney disease with stage 1 through stage 4 chronic kidney disease, or unspecified chronic kidney disease; E11.22 Type 2 diabetes mellitus with diabetic chronic kidney disease; D63.1 Anemia in chronic kidney disease; N25.81 Secondary hyperparathyroidism of renal origin; N28.1 Cyst of kidney, acquired; E55.9 Vitamin D deficiency, unspecified; Z94.0 Kidney transplant status; Z79.899 Other long term (current) drug therapy; Z79.4 Long term (current) use of insulin ==

== ENCOUNTER 2020-03-29 00:14 | Day surgery (SDC) | payer OTHER | END 2020-03-29 16:01 | disposition home or self-care (01) | LOC: ATC 00:14 | DX: E86.0 Dehydration (principal); I12.9 Hypertensive chronic kidney disease with stage 1 through stage 4 chronic kidney disease, or unspecified chronic kidney disease; E11.22 Type 2 diabetes mellitus with diabetic chronic kidney disease; N18.30 Chronic kidney disease, stage 3 unspecified; D63.1 Anemia in chronic kidney disease; N28.1 Cyst of kidney, acquired; E55.9 Vitamin D deficiency, unspecified; Z94.0 Kidney transplant status; Z79.899 Other long term (current) drug therapy; Z79.4 Long term (current) use of insulin | CPT/HCPCS: 96360; 96361; J1642; J7030 ==

== ENCOUNTER 2020-03-31 00:08 | Day surgery (SDC) | payer OTHER ==
[2020-03-31 14:50] LABS: BASOPHILS ABSOLUTE AUTO 0.01 K/mm3 (0.00-0.23); BASOPHILS PERCENT AUTO 0 % (0-2); EOSINOPHILS ABSOLUTE AUTO 0.01 K/mm3 (0.00-0.68); EOSINOPHILS PERCENT AUTO 0 % (0-6); Hemoglobin 10.2 g/dL (13.5-17.5); IMMATURE GRAN ABSOLUTE AUTO 0.05 K/mm3 (0.00-0.10); IMMATURE GRAN PERCENT AUTO 1 % (0-1); LYMPHOCYTES PERCENT AUTO 11 % (21-46); MONOCYTES ABSOLUTE AUTO 0.62 K/mm3 (0.16-1.47); MONOCYTES PERCENT AUTO 9 % (4-13); Mean Corpuscular HGB 25.8 pg (26.0-34.0); Mean Corpuscular HGB Conc 29.1 g/dL (31.5-36.5); Mean Corpuscular Volume 89 fL (80-100); Mean Platelet Volume 11.1 fL (9.1-12.4); NEUTROPHILS ABSOLUTE AUTO 5.59 K/mm3 (1.96-9.15); NEUTROPHILS PERCENT AUTO 79 % (41-73); Platelet Count 243 K/mm3 (150-400); RDW Standard Deviation 53.8 fL (35.1-46.3); Red Blood Cell Count 3.95 M/mm3 (4.30-5.90); White Blood Cell Count 7.08 K/mm3 (4.00-11.30)
[2020-03-31 15:07] LABS: Alanine Aminotransfer (ALT/SGP 19 U/L (12-78); Albumin, Blood 3.1 g/dL (3.4-5.0); Albumin/Globulin Ratio 1.1 (0.8-1.8); Alk Phos 85 U/L (50-136); Anion Gap 7 mmol/L (6-16); Aspartate Aminotrans (AST/SGOT 16 U/L (12-37); Bilirubin, Direct <0.1 mg/dL (0.0-0.3); Bilirubin, Indirect Unable to Calculate mg/dL (0.1-0.7); Bilirubin, Total 0.2 mg/dL (0.1-1.0); Blood Urea Nitrogen 27 mg/dL (8-24); CO2, Blood 22 mmol/L (21-32); Calcium, Blood 8.2 mg/dL (8.5-10.1); Chloride, Blood 113 mmol/L (98-108); Creatinine, Blood 1.59 mg/dL (0.60-1.20); Globulin, Blood 2.7 g/dL (2.2-4.0); Glomerular Filtration Rate 48 (60-); Glucose, Blood 176 mg/dL (70-99); Phosphorus, Blood 3.4 mg/dL (2.5-4.9); Potassium, Blood 4.8 mmol/L (3.5-5.5); Sodium, Blood 142 mmol/L (136-145); Total Protein, Blood 5.8 g/dL (6.4-8.2)
== END 2020-03-31 16:26 | disposition home or self-care (01) ==
LOC: ATC 00:08
PROVIDERS: Internal Medicine Nephrology
DX: E86.0 Dehydration (principal); I12.9 Hypertensive chronic kidney disease with stage 1 through stage 4 chronic kidney disease, or unspecified chronic kidney disease; E11.22 Type 2 diabetes mellitus with diabetic chronic kidney disease; N18.30 Chronic kidney disease, stage 3 unspecified; D63.1 Anemia in chronic kidney disease; N25.81 Secondary hyperparathyroidism of renal origin; N28.1 Cyst of kidney, acquired; E55.9 Vitamin D deficiency, unspecified; Z94.0 Kidney transplant status; Z79.899 Other long term (current) drug therapy; Z79.4 Long term (current) use of insulin
CPT/HCPCS: 80076; 80197; 84100; 85025; 96360; 96361; J1642; J7030

== ENCOUNTER 2020-04-05 00:15 | Day surgery (SDC) | payer OTHER | END 2020-04-05 15:59 | disposition home or self-care (01) | LOC: ATC 00:15 | DX: E86.0 Dehydration (principal); I12.9 Hypertensive chronic kidney disease with stage 1 through stage 4 chronic kidney disease, or unspecified chronic kidney disease; E11.22 Type 2 diabetes mellitus with diabetic chronic kidney disease; N18.30 Chronic kidney disease, stage 3 unspecified; D63.1 Anemia in chronic kidney disease; N25.81 Secondary hyperparathyroidism of renal origin; D50.9 Iron deficiency anemia, unspecified; N28.1 Cyst of kidney, acquired; E11.21 Type 2 diabetes mellitus with diabetic nephropathy; E55.9 Vitamin D deficiency, unspecified; Z94.0 Kidney transplant status; Z79.84 Long term (current) use of oral hypoglycemic drugs; Z79.899 Other long term (current) drug therapy | CPT/HCPCS: 96360; 96361; J1642; J7030 ==

== ENCOUNTER 2020-04-07 00:40 | Day surgery (SDC) | payer OTHER | END 2020-04-07 17:52 | disposition home or self-care (01) | LOC: ATC 00:40 | DX: E86.9 Volume depletion, unspecified (principal); I12.9 Hypertensive chronic kidney disease with stage 1 through stage 4 chronic kidney disease, or unspecified chronic kidney disease; E11.22 Type 2 diabetes mellitus with diabetic chronic kidney disease; N18.30 Chronic kidney disease, stage 3 unspecified; D63.1 Anemia in chronic kidney disease; N25.81 Secondary hyperparathyroidism of renal origin; E55.9 Vitamin D deficiency, unspecified; D50.9 Iron deficiency anemia, unspecified; E11.21 Type 2 diabetes mellitus with diabetic nephropathy; N28.1 Cyst of kidney, acquired; Z79.52 Long term (current) use of systemic steroids; Z79.4 Long term (current) use of insulin; Z79.51 Long term (current) use of inhaled steroids; Z79.899 Other long term (current) drug therapy | CPT/HCPCS: 96360; 96361; J1642; J7030 ==

== ENCOUNTER 2020-04-12 00:14 | Day surgery (SDC) | payer OTHER | END 2020-04-12 16:09 | disposition home or self-care (01) | LOC: ATC 00:14 | DX: E86.0 Dehydration (principal); I12.9 Hypertensive chronic kidney disease with stage 1 through stage 4 chronic kidney disease, or unspecified chronic kidney disease; E11.22 Type 2 diabetes mellitus with diabetic chronic kidney disease; N18.30 Chronic kidney disease, stage 3 unspecified; D63.1 Anemia in chronic kidney disease; N25.81 Secondary hyperparathyroidism of renal origin; N28.1 Cyst of kidney, acquired; E55.9 Vitamin D deficiency, unspecified; Z94.0 Kidney transplant status; Z79.899 Other long term (current) drug therapy; Z79.4 Long term (current) use of insulin | CPT/HCPCS: 96360; 96361; J1642; J7030 ==

== ENCOUNTER 2020-04-14 00:32 | Day surgery (SDC) | payer OTHER | END 2020-04-14 16:20 | disposition home or self-care (01) | LOC: ATC 00:32 | DX: E86.0 Dehydration (principal); I12.9 Hypertensive chronic kidney disease with stage 1 through stage 4 chronic kidney disease, or unspecified chronic kidney disease; E11.22 Type 2 diabetes mellitus with diabetic chronic kidney disease; N18.30 Chronic kidney disease, stage 3 unspecified; D63.1 Anemia in chronic kidney disease; N25.81 Secondary hyperparathyroidism of renal origin; N28.1 Cyst of kidney, acquired; E55.9 Vitamin D deficiency, unspecified; Z94.0 Kidney transplant status; Z79.899 Other long term (current) drug therapy; Z79.4 Long term (current) use of insulin | CPT/HCPCS: 96360; 96361; J1642; J7030 ==

== ENCOUNTER 2020-04-16 02:03 | Day surgery (SDC) | payer OTHER ==
[2020-04-21] MEDS ORDERED: RAYALDEE30 MCG PO (14:17)
== END 2020-04-16 16:05 | disposition home or self-care (01) ==
LOC: ATC 02:03
DX: E86.0 Dehydration (principal); I12.9 Hypertensive chronic kidney disease with stage 1 through stage 4 chronic kidney disease, or unspecified chronic kidney disease; E11.22 Type 2 diabetes mellitus with diabetic chronic kidney disease; N18.30 Chronic kidney disease, stage 3 unspecified; D63.1 Anemia in chronic kidney disease; E55.9 Vitamin D deficiency, unspecified; Z94.0 Kidney transplant status; Z79.899 Other long term (current) drug therapy; Z79.4 Long term (current) use of insulin
CPT/HCPCS: 96360; 96361; J1642; J7030

== ENCOUNTER 2020-04-23 01:49 | Day surgery (SDC) | payer OTHER ==
[~2020-04-23 01:49] MED LIST changes: +RAYALDEE30 MCG PO
== END 2020-04-23 15:55 | disposition home or self-care (01) ==
LOC: ATC 01:49
DX: E86.0 Dehydration (principal); I12.9 Hypertensive chronic kidney disease with stage 1 through stage 4 chronic kidney disease, or unspecified chronic kidney disease; N18.30 Chronic kidney disease, stage 3 unspecified; D63.1 Anemia in chronic kidney disease; N25.81 Secondary hyperparathyroidism of renal origin; E11.22 Type 2 diabetes mellitus with diabetic chronic kidney disease; N28.1 Cyst of kidney, acquired; E55.9 Vitamin D deficiency, unspecified; Z79.899 Other long term (current) drug therapy; Z79.4 Long term (current) use of insulin
CPT/HCPCS: J1642; J7030

== ENCOUNTER 2020-04-26 00:38 | Day surgery (SDC) | payer OTHER | END 2020-04-26 15:54 | disposition home or self-care (01) | LOC: ATC 00:38 | DX: E86.0 Dehydration (principal); I12.9 Hypertensive chronic kidney disease with stage 1 through stage 4 chronic kidney disease, or unspecified chronic kidney disease; E11.22 Type 2 diabetes mellitus with diabetic chronic kidney disease; N18.30 Chronic kidney disease, stage 3 unspecified; D63.1 Anemia in chronic kidney disease; N25.81 Secondary hyperparathyroidism of renal origin; N28.1 Cyst of kidney, acquired; E55.9 Vitamin D deficiency, unspecified; Z94.0 Kidney transplant status; Z79.899 Other long term (current) drug therapy; Z79.4 Long term (current) use of insulin | CPT/HCPCS: 96360; 96361; J1642; J7030 ==

== ENCOUNTER 2020-04-30 00:45 | Day surgery (SDC) | payer OTHER | END 2020-04-30 16:56 | disposition home or self-care (01) | LOC: ATC 00:45 | DX: E86.0 Dehydration (principal); I12.9 Hypertensive chronic kidney disease with stage 1 through stage 4 chronic kidney disease, or unspecified chronic kidney disease; E11.22 Type 2 diabetes mellitus with diabetic chronic kidney disease; N18.30 Chronic kidney disease, stage 3 unspecified; D63.1 Anemia in chronic kidney disease; N28.1 Cyst of kidney, acquired; E55.9 Vitamin D deficiency, unspecified; Z94.0 Kidney transplant status; Z79.899 Other long term (current) drug therapy; Z79.4 Long term (current) use of insulin | CPT/HCPCS: J1642; J7030 ==

== ENCOUNTER 2020-05-03 00:17 | Day surgery (SDC) | payer OTHER | END 2020-05-03 15:55 | disposition home or self-care (01) | LOC: ATC 00:17 | DX: E86.0 Dehydration (principal); I12.9 Hypertensive chronic kidney disease with stage 1 through stage 4 chronic kidney disease, or unspecified chronic kidney disease; N18.30 Chronic kidney disease, stage 3 unspecified; D63.1 Anemia in chronic kidney disease; N25.81 Secondary hyperparathyroidism of renal origin; E11.22 Type 2 diabetes mellitus with diabetic chronic kidney disease; N28.1 Cyst of kidney, acquired; E55.9 Vitamin D deficiency, unspecified; Z94.0 Kidney transplant status; Z79.899 Other long term (current) drug therapy; Z79.4 Long term (current) use of insulin | CPT/HCPCS: 96360; 96361; J1642; J7030 ==

== ENCOUNTER 2020-05-05 02:48 | Day surgery (SDC) | payer OTHER | END 2020-05-05 15:55 | disposition home or self-care (01) | LOC: ATC 02:48 | DX: E86.0 Dehydration (principal) | CPT/HCPCS: 96360; 96361; J1642; J7030 ==

== ENCOUNTER 2020-05-07 00:39 | Day surgery (SDC) | payer OTHER | END 2020-05-07 16:05 | disposition home or self-care (01) | LOC: ATC 00:39 | DX: E86.0 Dehydration (principal); I12.9 Hypertensive chronic kidney disease with stage 1 through stage 4 chronic kidney disease, or unspecified chronic kidney disease; E11.22 Type 2 diabetes mellitus with diabetic chronic kidney disease; N18.30 Chronic kidney disease, stage 3 unspecified; D63.1 Anemia in chronic kidney disease; N25.81 Secondary hyperparathyroidism of renal origin; E11.21 Type 2 diabetes mellitus with diabetic nephropathy; D50.9 Iron deficiency anemia, unspecified; N28.1 Cyst of kidney, acquired; E55.9 Vitamin D deficiency, unspecified; Z79.899 Other long term (current) drug therapy; Z79.51 Long term (current) use of inhaled steroids; Z79.4 Long term (current) use of insulin | CPT/HCPCS: 96360; 96361; J1642; J7030 ==

== ENCOUNTER 2020-05-12 00:53 | Day surgery (SDC) | payer OTHER | END 2020-05-12 16:00 | disposition home or self-care (01) | LOC: ATC 00:53 | DX: E86.0 Dehydration (principal); I12.9 Hypertensive chronic kidney disease with stage 1 through stage 4 chronic kidney disease, or unspecified chronic kidney disease; E11.22 Type 2 diabetes mellitus with diabetic chronic kidney disease; N18.30 Chronic kidney disease, stage 3 unspecified; D63.1 Anemia in chronic kidney disease; N25.81 Secondary hyperparathyroidism of renal origin; N28.1 Cyst of kidney, acquired; E55.9 Vitamin D deficiency, unspecified; Z94.0 Kidney transplant status; Z79.899 Other long term (current) drug therapy; Z79.4 Long term (current) use of insulin | CPT/HCPCS: 96360; 96361; J1642; J7030 ==

== ENCOUNTER 2020-05-14 00:28 | Day surgery (SDC) | payer OTHER ==
[2020-05-14 14:50] LABS: Alanine Aminotransfer (ALT/SGP 19 U/L (12-78); Albumin, Blood 2.9 g/dL (3.4-5.0); Alk Phos 66 U/L (50-136); Anion Gap 8 mmol/L (6-16); Aspartate Aminotrans (AST/SGOT 11 U/L (12-37); Bilirubin, Direct <0.1 mg/dL (0.0-0.3); Bilirubin, Indirect Unable to Calculate mg/dL (0.1-0.7); Bilirubin, Total 0.4 mg/dL (0.1-1.0); Blood Urea Nitrogen 27 mg/dL (8-24); Bun/Creatinine Ratio 16.4 (12.0-20.0); CO2, Blood 20 mmol/L (21-32); Calcium, Blood 8.3 mg/dL (8.5-10.1); Chloride, Blood 116 mmol/L (98-108); Creatinine, Blood 1.65 mg/dL (0.60-1.20); Globulin, Blood 2.8 g/dL (2.2-4.0); Glomerular Filtration Rate 46 (60-); Glucose, Blood 56 mg/dL (70-99); Phosphorus, Blood 3.6 mg/dL (2.5-4.9); Potassium, Blood 4.5 mmol/L (3.5-5.5); Sodium, Blood 144 mmol/L (136-145); Total Protein, Blood 5.7 g/dL (6.4-8.2)
[2020-05-14 15:24] LABS: Percent Saturation 11.1 % (20.0-50.0)
== END 2020-05-14 16:05 | disposition home or self-care (01) ==
LOC: ATC 00:28
PROVIDERS: Internal Medicine Nephrology
DX: E86.0 Dehydration (principal); I12.9 Hypertensive chronic kidney disease with stage 1 through stage 4 chronic kidney disease, or unspecified chronic kidney disease; E11.22 Type 2 diabetes mellitus with diabetic chronic kidney disease; N18.30 Chronic kidney disease, stage 3 unspecified; D63.1 Anemia in chronic kidney disease; N25.81 Secondary hyperparathyroidism of renal origin; N28.1 Cyst of kidney, acquired; E55.9 Vitamin D deficiency, unspecified; Z94.0 Kidney transplant status; Z79.899 Other long term (current) drug therapy; Z79.4 Long term (current) use of insulin
CPT/HCPCS: 80053; 82248; 82728; 83540; 83550; 84100; J1642; J7030

== ENCOUNTER 2020-05-19 02:52 | Day surgery (SDC) | payer OTHER | END 2020-05-19 16:05 | disposition home or self-care (01) | LOC: ATC 02:52 | DX: E86.0 Dehydration (principal); I12.9 Hypertensive chronic kidney disease with stage 1 through stage 4 chronic kidney disease, or unspecified chronic kidney disease; E11.22 Type 2 diabetes mellitus with diabetic chronic kidney disease; N18.30 Chronic kidney disease, stage 3 unspecified; D63.1 Anemia in chronic kidney disease; N25.81 Secondary hyperparathyroidism of renal origin; D50.9 Iron deficiency anemia, unspecified; E11.51 Type 2 diabetes mellitus with diabetic peripheral angiopathy without gangrene; E55.9 Vitamin D deficiency, unspecified; Z79.4 Long term (current) use of insulin; Z79.899 Other long term (current) drug therapy | CPT/HCPCS: 96360; 96361; J1642; J7030 ==

== ENCOUNTER 2020-05-21 00:40 | Day surgery (SDC) | payer OTHER | END 2020-05-21 16:00 | disposition home or self-care (01) | LOC: ATC 00:40 | DX: E86.0 Dehydration (principal); I12.9 Hypertensive chronic kidney disease with stage 1 through stage 4 chronic kidney disease, or unspecified chronic kidney disease; E11.22 Type 2 diabetes mellitus with diabetic chronic kidney disease; N18.30 Chronic kidney disease, stage 3 unspecified; D63.1 Anemia in chronic kidney disease; N25.81 Secondary hyperparathyroidism of renal origin; N28.1 Cyst of kidney, acquired; E55.9 Vitamin D deficiency, unspecified; Z94.0 Kidney transplant status; Z79.899 Other long term (current) drug therapy; Z79.4 Long term (current) use of insulin | CPT/HCPCS: J1642; J7030 ==

== ENCOUNTER 2020-05-24 00:21 | Day surgery (SDC) | payer OTHER | END 2020-05-24 16:18 | disposition home or self-care (01) | LOC: ATC 00:21 | DX: E86.0 Dehydration (principal); I12.9 Hypertensive chronic kidney disease with stage 1 through stage 4 chronic kidney disease, or unspecified chronic kidney disease; E11.22 Type 2 diabetes mellitus with diabetic chronic kidney disease; N18.30 Chronic kidney disease, stage 3 unspecified; D63.1 Anemia in chronic kidney disease; N25.81 Secondary hyperparathyroidism of renal origin; D50.9 Iron deficiency anemia, unspecified; E11.21 Type 2 diabetes mellitus with diabetic nephropathy; N28.1 Cyst of kidney, acquired; E55.9 Vitamin D deficiency, unspecified; Z79.4 Long term (current) use of insulin; Z79.899 Other long term (current) drug therapy | CPT/HCPCS: J1642; J7030 ==

== ENCOUNTER 2020-05-31 00:11 | Day surgery (SDC) | payer OTHER | END 2020-05-31 16:23 | disposition home or self-care (01) | LOC: ATC 00:11 | DX: E86.0 Dehydration (principal); I12.9 Hypertensive chronic kidney disease with stage 1 through stage 4 chronic kidney disease, or unspecified chronic kidney disease; E11.22 Type 2 diabetes mellitus with diabetic chronic kidney disease; N18.30 Chronic kidney disease, stage 3 unspecified; D63.1 Anemia in chronic kidney disease; N25.81 Secondary hyperparathyroidism of renal origin; D50.9 Iron deficiency anemia, unspecified; E11.21 Type 2 diabetes mellitus with diabetic nephropathy; N28.1 Cyst of kidney, acquired; E55.9 Vitamin D deficiency, unspecified; Z79.899 Other long term (current) drug therapy; Z79.4 Long term (current) use of insulin | CPT/HCPCS: 96360; 96361; J1642; J7030 ==

== ENCOUNTER 2020-06-02 00:07 | Day surgery (SDC) | payer OTHER | END 2020-06-02 15:52 | disposition home or self-care (01) | LOC: ATC 00:07 | DX: E86.0 Dehydration (principal); I12.9 Hypertensive chronic kidney disease with stage 1 through stage 4 chronic kidney disease, or unspecified chronic kidney disease; E11.22 Type 2 diabetes mellitus with diabetic chronic kidney disease; N18.30 Chronic kidney disease, stage 3 unspecified; N25.81 Secondary hyperparathyroidism of renal origin; D63.1 Anemia in chronic kidney disease; E55.9 Vitamin D deficiency, unspecified; E11.21 Type 2 diabetes mellitus with diabetic nephropathy; D50.9 Iron deficiency anemia, unspecified; N28.1 Cyst of kidney, acquired; Z79.51 Long term (current) use of inhaled steroids; Z79.4 Long term (current) use of insulin; Z79.899 Other long term (current) drug therapy | CPT/HCPCS: 96360; 96361; J1642; J7030 ==

== ENCOUNTER 2020-06-07 00:08 | Day surgery (SDC) | payer OTHER | END 2020-06-07 16:10 | disposition home or self-care (01) | LOC: ATC 00:08 | DX: E86.0 Dehydration (principal); I12.9 Hypertensive chronic kidney disease with stage 1 through stage 4 chronic kidney disease, or unspecified chronic kidney disease; E11.22 Type 2 diabetes mellitus with diabetic chronic kidney disease; N18.30 Chronic kidney disease, stage 3 unspecified; D63.1 Anemia in chronic kidney disease; N25.81 Secondary hyperparathyroidism of renal origin; D50.9 Iron deficiency anemia, unspecified; E55.9 Vitamin D deficiency, unspecified; E11.21 Type 2 diabetes mellitus with diabetic nephropathy; N25.1 Nephrogenic diabetes insipidus; Z94.0 Kidney transplant status; Z79.4 Long term (current) use of insulin; Z79.899 Other long term (current) drug therapy | CPT/HCPCS: J1642; J7030 ==

== ENCOUNTER 2020-06-09 00:16 | Day surgery (SDC) | payer OTHER | END 2020-06-09 16:00 | disposition home or self-care (01) | LOC: ATC 00:16 | DX: E86.0 Dehydration (principal); I12.9 Hypertensive chronic kidney disease with stage 1 through stage 4 chronic kidney disease, or unspecified chronic kidney disease; E11.22 Type 2 diabetes mellitus with diabetic chronic kidney disease; N18.30 Chronic kidney disease, stage 3 unspecified; D63.1 Anemia in chronic kidney disease; N25.81 Secondary hyperparathyroidism of renal origin; E55.9 Vitamin D deficiency, unspecified; D50.9 Iron deficiency anemia, unspecified; E11.21 Type 2 diabetes mellitus with diabetic nephropathy; N28.1 Cyst of kidney, acquired; Z79.51 Long term (current) use of inhaled steroids; Z79.4 Long term (current) use of insulin; Z79.899 Other long term (current) drug therapy | CPT/HCPCS: 96360; 96361; J1642; J7030 ==

== ENCOUNTER 2020-06-11 00:33 | Day surgery (SDC) | payer OTHER | END 2020-06-11 15:58 | disposition home or self-care (01) | LOC: ATC 00:33 | DX: E86.0 Dehydration (principal); I12.9 Hypertensive chronic kidney disease with stage 1 through stage 4 chronic kidney disease, or unspecified chronic kidney disease; D63.1 Anemia in chronic kidney disease; N18.30 Chronic kidney disease, stage 3 unspecified; E55.9 Vitamin D deficiency, unspecified; N28.1 Cyst of kidney, acquired; Z94.0 Kidney transplant status; N25.81 Secondary hyperparathyroidism of renal origin; Z79.899 Other long term (current) drug therapy; Z79.4 Long term (current) use of insulin | CPT/HCPCS: J1642; J7030 ==

== ENCOUNTER 2020-06-16 05:46 | Day surgery (SDC) | payer OTHER | END 2020-06-16 15:45 | disposition home or self-care (01) | LOC: ATC 05:46 | DX: E86.0 Dehydration (principal); I12.9 Hypertensive chronic kidney disease with stage 1 through stage 4 chronic kidney disease, or unspecified chronic kidney disease; E11.22 Type 2 diabetes mellitus with diabetic chronic kidney disease; N18.30 Chronic kidney disease, stage 3 unspecified; D63.1 Anemia in chronic kidney disease; D50.9 Iron deficiency anemia, unspecified; N25.81 Secondary hyperparathyroidism of renal origin; E11.21 Type 2 diabetes mellitus with diabetic nephropathy; N28.1 Cyst of kidney, acquired; E55.9 Vitamin D deficiency, unspecified; Z94.0 Kidney transplant status; Z79.51 Long term (current) use of inhaled steroids; Z79.4 Long term (current) use of insulin; Z79.52 Long term (current) use of systemic steroids; Z79.899 Other long term (current) drug therapy | CPT/HCPCS: 96360; 96361; J1642; J7030 ==

== ENCOUNTER 2020-06-17 00:06 | Day surgery (SDC) | payer OTHER | END 2020-06-17 22:47 | disposition home or self-care (01) | LOC: ATC 00:06 | DX: E86.0 Dehydration (principal); I12.9 Hypertensive chronic kidney disease with stage 1 through stage 4 chronic kidney disease, or unspecified chronic kidney disease; E11.22 Type 2 diabetes mellitus with diabetic chronic kidney disease; N18.30 Chronic kidney disease, stage 3 unspecified; D63.1 Anemia in chronic kidney disease; N25.81 Secondary hyperparathyroidism of renal origin; N28.1 Cyst of kidney, acquired; E55.9 Vitamin D deficiency, unspecified; Z94.0 Kidney transplant status; Z79.899 Other long term (current) drug therapy; Z79.4 Long term (current) use of insulin | CPT/HCPCS: 96360; 96361; J1642; J7030 ==

== ENCOUNTER 2020-06-21 00:17 | Day surgery (SDC) | payer OTHER | END 2020-06-21 16:04 | disposition home or self-care (01) | LOC: ATC 00:17 | DX: E86.0 Dehydration (principal); I12.9 Hypertensive chronic kidney disease with stage 1 through stage 4 chronic kidney disease, or unspecified chronic kidney disease; E11.22 Type 2 diabetes mellitus with diabetic chronic kidney disease; N18.30 Chronic kidney disease, stage 3 unspecified; D63.1 Anemia in chronic kidney disease; N25.81 Secondary hyperparathyroidism of renal origin; D50.9 Iron deficiency anemia, unspecified; E11.21 Type 2 diabetes mellitus with diabetic nephropathy; N28.1 Cyst of kidney, acquired; E55.9 Vitamin D deficiency, unspecified; D52.8 Other folate deficiency anemias; Z79.4 Long term (current) use of insulin; Z79.899 Other long term (current) drug therapy; Z79.52 Long term (current) use of systemic steroids; Z94.0 Kidney transplant status | CPT/HCPCS: J1642; J7030 ==

== ENCOUNTER 2020-06-23 00:59 | Day surgery (SDC) | payer OTHER | END 2020-06-23 16:02 | disposition home or self-care (01) | LOC: ATC 00:59 | DX: E86.0 Dehydration (principal); I12.9 Hypertensive chronic kidney disease with stage 1 through stage 4 chronic kidney disease, or unspecified chronic kidney disease; E11.22 Type 2 diabetes mellitus with diabetic chronic kidney disease; N18.30 Chronic kidney disease, stage 3 unspecified; N25.81 Secondary hyperparathyroidism of renal origin; D63.1 Anemia in chronic kidney disease; E55.9 Vitamin D deficiency, unspecified; E11.21 Type 2 diabetes mellitus with diabetic nephropathy; D50.9 Iron deficiency anemia, unspecified; Z79.899 Other long term (current) drug therapy; Z79.51 Long term (current) use of inhaled steroids; Z79.4 Long term (current) use of insulin | CPT/HCPCS: 96360; 96361; J1642; J7030 ==

== ENCOUNTER 2020-06-26 00:02 | Day surgery (SDC) | payer OTHER | END 2020-06-26 15:52 | disposition home or self-care (01) | LOC: ATC 00:02 | DX: E86.0 Dehydration (principal); I12.9 Hypertensive chronic kidney disease with stage 1 through stage 4 chronic kidney disease, or unspecified chronic kidney disease; E11.22 Type 2 diabetes mellitus with diabetic chronic kidney disease; N18.30 Chronic kidney disease, stage 3 unspecified; N25.81 Secondary hyperparathyroidism of renal origin; D63.1 Anemia in chronic kidney disease; E55.9 Vitamin D deficiency, unspecified; D50.9 Iron deficiency anemia, unspecified; E11.21 Type 2 diabetes mellitus with diabetic nephropathy; D52.8 Other folate deficiency anemias; Z94.0 Kidney transplant status; Z79.4 Long term (current) use of insulin; Z79.899 Other long term (current) drug therapy | CPT/HCPCS: 96360; 96361; J1642; J7030 ==

== ENCOUNTER 2020-07-05 00:23 | Day surgery (SDC) | payer OTHER ==
[2020-10-08] MEDS ORDERED: RAYALDEE30 MCG PO (14:14)
[2020-10-11] MEDS ORDERED: METO5 PO (14:00)
== END 2020-07-05 16:03 | disposition home or self-care (01) ==
LOC: ATC 00:23
DX: E86.0 Dehydration (principal); I12.9 Hypertensive chronic kidney disease with stage 1 through stage 4 chronic kidney disease, or unspecified chronic kidney disease; E11.22 Type 2 diabetes mellitus with diabetic chronic kidney disease; N18.30 Chronic kidney disease, stage 3 unspecified; N25.81 Secondary hyperparathyroidism of renal origin; E11.21 Type 2 diabetes mellitus with diabetic nephropathy; D63.1 Anemia in chronic kidney disease; D50.9 Iron deficiency anemia, unspecified; N28.1 Cyst of kidney, acquired; E55.9 Vitamin D deficiency, unspecified; R76.9 Abnormal immunological finding in serum, unspecified; R94.5 Abnormal results of liver function studies; R94.6 Abnormal results of thyroid function studies; D52.8 Other folate deficiency anemias; Z79.899 Other long term (current) drug therapy; Z79.4 Long term (current) use of insulin; Z79.51 Long term (current) use of inhaled steroids
CPT/HCPCS: 96360; 96361; J1642; J7030

== ENCOUNTER 2020-07-07 00:12 | Day surgery (SDC) | payer OTHER ==
--- NOTE | 2020-07-07 15:35 | NUR ---
BP PT BP ELEVATED AT CLINIC VISIT. PT STATES HE HAS BEEN TRENDING AROUND 160-170 FOR A SYSTOLIC BP FOR THE LAST COUPLE OF WEEKS. PT INSTRUCTED TO TALK WITH DR. HAM ABOUT BP AT NEXT APPOINTMENT WHICH IS NEXT WEEK. PT STATES HE UNDERSTANDS & WILL FOLLOW UP.
[2020-10-08] MEDS ORDERED: RAYALDEE30 MCG PO (14:14)
[2020-10-11] MEDS ORDERED: METO5 PO (14:00)
== END 2020-07-07 16:05 | disposition home or self-care (01) ==
LOC: ATC 00:12
DX: E86.0 Dehydration (principal); I12.9 Hypertensive chronic kidney disease with stage 1 through stage 4 chronic kidney disease, or unspecified chronic kidney disease; N18.30 Chronic kidney disease, stage 3 unspecified; D63.1 Anemia in chronic kidney disease; N25.81 Secondary hyperparathyroidism of renal origin; D50.9 Iron deficiency anemia, unspecified; E11.21 Type 2 diabetes mellitus with diabetic nephropathy; E11.22 Type 2 diabetes mellitus with diabetic chronic kidney disease; E86.9 Volume depletion, unspecified; R80.9 Proteinuria, unspecified; N28.1 Cyst of kidney, acquired; E55.9 Vitamin D deficiency, unspecified; Z94.0 Kidney transplant status
CPT/HCPCS: 96360; 96361; J1642; J7030

== ENCOUNTER 2020-07-09 01:48 | Day surgery (SDC) | payer OTHER ==
[2020-07-09 14:52] LABS: BASOPHILS ABSOLUTE AUTO 0.02 K/mm3 (0.00-0.23); BASOPHILS PERCENT AUTO 0 % (0-2); EOSINOPHILS ABSOLUTE AUTO 0.01 K/mm3 (0.00-0.68); EOSINOPHILS PERCENT AUTO 0 % (0-6); Hematocrit 35.7 % (37.0-53.0); Hemoglobin 10.5 g/dL (13.5-17.5); IMMATURE GRAN ABSOLUTE AUTO 0.31 K/mm3 (0.00-0.10); IMMATURE GRAN PERCENT AUTO 3 % (0-1); LYMPHOCYTES ABSOLUTE AUTO 0.55 K/mm3 (0.84-5.20); LYMPHOCYTES PERCENT AUTO 5 % (21-46); MONOCYTES ABSOLUTE AUTO 0.61 K/mm3 (0.16-1.47); MONOCYTES PERCENT AUTO 5 % (4-13); Mean Corpuscular HGB 26.6 pg (26.0-34.0); Mean Corpuscular HGB Conc 29.4 g/dL (31.5-36.5); Mean Corpuscular Volume 90 fL (80-100); NEUTROPHILS ABSOLUTE AUTO 10.48 K/mm3 (1.96-9.15); NEUTROPHILS PERCENT AUTO 87 % (41-73); Platelet Count 337 K/mm3 (150-400); RDW Standard Deviation 54.6 fL (35.1-46.3); Red Blood Cell Count 3.95 M/mm3 (4.30-5.90); White Blood Cell Count 11.98 K/mm3 (4.00-11.30)
[2020-07-09 15:13] LABS: Alanine Aminotransfer (ALT/SGP 21 U/L (12-78); Albumin, Blood 2.2 g/dL (3.4-5.0); Albumin/Globulin Ratio 0.8 (0.8-1.8); Alk Phos 86 U/L (50-136); Anion Gap 9 mmol/L (6-16); Aspartate Aminotrans (AST/SGOT 13 U/L (12-37); Bilirubin, Direct <0.1 mg/dL (0.0-0.3); Bilirubin, Indirect Unable to Calculate mg/dL (0.1-0.7); Bilirubin, Total 0.3 mg/dL (0.1-1.0); Blood Urea Nitrogen 38 mg/dL (8-24); Bun/Creatinine Ratio 20.3 (12.0-20.0); CO2, Blood 18 mmol/L (21-32); Calcium, Blood 7.4 mg/dL (8.5-10.1); Chloride, Blood 119 mmol/L (98-108); Creatinine, Blood 1.87 mg/dL (0.60-1.20); Globulin, Blood 2.6 g/dL (2.2-4.0); Glomerular Filtration Rate 39 (60-); Glucose, Blood 80 mg/dL (70-99); Phosphorus, Blood 3.9 mg/dL (2.5-4.9); Potassium, Blood 4.6 mmol/L (3.5-5.5); Sodium, Blood 146 mmol/L (136-145); Total Protein, Blood 4.8 g/dL (6.4-8.2)
[2020-10-08] MEDS ORDERED: RAYALDEE30 MCG PO (14:14)
[2020-10-11] MEDS ORDERED: METO5 PO (14:00)
== END 2020-07-09 16:15 | disposition home or self-care (01) ==
LOC: ATC 01:48
PROVIDERS: Internal Medicine Nephrology
DX: E86.0 Dehydration (principal); I12.9 Hypertensive chronic kidney disease with stage 1 through stage 4 chronic kidney disease, or unspecified chronic kidney disease; N18.30 Chronic kidney disease, stage 3 unspecified; D63.1 Anemia in chronic kidney disease; N25.81 Secondary hyperparathyroidism of renal origin; E11.21 Type 2 diabetes mellitus with diabetic nephropathy; D50.9 Iron deficiency anemia, unspecified; Z79.4 Long term (current) use of insulin; Z79.899 Other long term (current) drug therapy
CPT/HCPCS: 36591; 80053; 80197; 82248; 84100; 85025; 96360; 96361; J1642; J7030

== ENCOUNTER 2020-07-12 00:15 | Day surgery (SDC) | payer OTHER ==
[2020-10-08] MEDS ORDERED: RAYALDEE30 MCG PO (14:14)
[2020-10-11] MEDS ORDERED: METO5 PO (14:00)
== END 2020-07-12 16:01 | disposition home or self-care (01) ==
LOC: ATC 00:15
DX: E86.0 Dehydration (principal); I12.9 Hypertensive chronic kidney disease with stage 1 through stage 4 chronic kidney disease, or unspecified chronic kidney disease; N18.30 Chronic kidney disease, stage 3 unspecified; D63.1 Anemia in chronic kidney disease; N25.81 Secondary hyperparathyroidism of renal origin; D50.9 Iron deficiency anemia, unspecified; E11.21 Type 2 diabetes mellitus with diabetic nephropathy; N28.1 Cyst of kidney, acquired; Z79.4 Long term (current) use of insulin; Z79.899 Other long term (current) drug therapy
CPT/HCPCS: 96365; 96366; J1642; J7030

== ENCOUNTER 2020-07-18 10:50 | Emergency (ER) | payer OTHER ==
[~2020-07-18] VITALS: Ht 180.3 cm; Wt 86.2 kg
[2020-07-18 11:22] LABS: BASOPHILS ABSOLUTE AUTO 0.01 K/mm3 (0.00-0.23); BASOPHILS PERCENT AUTO 0 % (0-2); EOSINOPHILS ABSOLUTE AUTO 0.06 K/mm3 (0.00-0.68); EOSINOPHILS PERCENT AUTO 1 % (0-6); Hematocrit 32.3 % (37.0-53.0); Hemoglobin 9.6 g/dL (13.5-17.5); IMMATURE GRAN ABSOLUTE AUTO 0.18 K/mm3 (0.00-0.10); IMMATURE GRAN PERCENT AUTO 2 % (0-1); LYMPHOCYTES ABSOLUTE AUTO 1.12 K/mm3 (0.84-5.20); LYMPHOCYTES PERCENT AUTO 12 % (21-46); MONOCYTES ABSOLUTE AUTO 0.82 K/mm3 (0.16-1.47); MONOCYTES PERCENT AUTO 9 % (4-13); Mean Corpuscular HGB 27.4 pg (26.0-34.0); Mean Corpuscular HGB Conc 29.7 g/dL (31.5-36.5); Mean Corpuscular Volume 92 fL (80-100); NEUTROPHILS ABSOLUTE AUTO 6.94 K/mm3 (1.96-9.15); NEUTROPHILS PERCENT AUTO 76 % (41-73); Platelet Count 225 K/mm3 (150-400); RDW Coefficient Variation 16.7 % (11.7-14.2); RDW Standard Deviation 55.1 fL (35.1-46.3); White Blood Cell Count 9.13 K/mm3 (4.00-11.30)
[2020-07-18 11:47] LABS: Albumin/Globulin Ratio 0.6 (0.8-1.8); Bilirubin, Total 0.2 mg/dL (0.1-1.0); Bun/Creatinine Ratio 21.4 (12.0-20.0); Calcium, Blood 6.8 mg/dL (8.5-10.1); Creatinine, Blood 2.48 mg/dL (0.60-1.20); Globulin, Blood 3.2 g/dL (2.2-4.0); Potassium, Blood 4.6 mmol/L (3.5-5.5); Total Protein, Blood 5.2 g/dL (6.4-8.2)
[2020-07-18] MEDS ORDERED: CEPH500 PO (12:16)
[2020-10-08] MEDS ORDERED: RAYALDEE30 MCG PO (14:14)
[2020-10-11] MEDS ORDERED: METO5 PO (14:00)
== END 2020-07-18 13:06 | disposition home or self-care (01) ==
LOC: ER 10:50
PROVIDERS: Emergency Medicine
DX: L03.116 Cellulitis of left lower limb (principal); I12.9 Hypertensive chronic kidney disease with stage 1 through stage 4 chronic kidney disease, or unspecified chronic kidney disease; E11.22 Type 2 diabetes mellitus with diabetic chronic kidney disease; N18.9 Chronic kidney disease, unspecified; E78.5 Hyperlipidemia, unspecified; Z79.52 Long term (current) use of systemic steroids; Z79.899 Other long term (current) drug therapy; Z79.4 Long term (current) use of insulin
CPT/HCPCS: 36415; 80053; 85025; 93971; 96374; 99284-25; J0696

== ENCOUNTER 2020-07-30 07:27 | Emergency (ER) | payer OTHER ==
[~2020-07-30] VITALS: Ht 180.3 cm; Wt 68.0 kg
[2020-07-30 07:59] LABS: BASOPHILS ABSOLUTE AUTO 0.01 K/mm3 (0.00-0.23); BASOPHILS PERCENT AUTO 0 % (0-2); EOSINOPHILS ABSOLUTE AUTO 0.02 K/mm3 (0.00-0.68); EOSINOPHILS PERCENT AUTO 0 % (0-6); Hematocrit 33.2 % (37.0-53.0); Hemoglobin 9.4 g/dL (13.5-17.5); IMMATURE GRAN ABSOLUTE AUTO 0.07 K/mm3 (0.00-0.10); IMMATURE GRAN PERCENT AUTO 1 % (0-1); LYMPHOCYTES PERCENT AUTO 6 % (21-46); MONOCYTES ABSOLUTE AUTO 0.69 K/mm3 (0.16-1.47); MONOCYTES PERCENT AUTO 10 % (4-13); Mean Corpuscular HGB 26.9 pg (26.0-34.0); Mean Corpuscular HGB Conc 28.3 g/dL (31.5-36.5); Mean Corpuscular Volume 95 fL (80-100); NEUTROPHILS ABSOLUTE AUTO 5.55 K/mm3 (1.96-9.15); NEUTROPHILS PERCENT AUTO 83 % (41-73); Platelet Count 270 K/mm3 (150-400); RDW Coefficient Variation 17.2 % (11.7-14.2); Red Blood Cell Count 3.49 M/mm3 (4.30-5.90); White Blood Cell Count 6.74 K/mm3 (4.00-11.30)
[2020-07-30 08:03] LABS: Source, Urine Clean Catch
[2020-07-30 08:24] LABS: Appearance, Urine Clear (Clear); Bilirubin, Urine Neg (Neg); Blood, Urine Neg (Neg); Color, Urine Yellow (P-Yellow); Glucose Qualitative, Urine Neg (Neg); Ketones, Urine Neg (Neg); Leukocyte Esterase, Urine Neg (Neg); Nitrite, Urine Neg (Neg); Protein, Urine 4+ (Neg); Specific Gravity, Urine 1.015 (1.003-1.022); Urobilinogen, Urine NORM (Normal)
[2020-07-30 08:35] LABS: Bacteria Not Seen /hpf; Red Blood Cells, Urine Not Seen /hpf (0-2); Squamous Epithelial Cells Not Seen /hpf (Few); White Blood Cells, Urine Not Seen /hpf (0-5)
[2020-07-30 08:35] LABS: Alanine Aminotransfer (ALT/SGP 18 U/L (12-78); Albumin, Blood 2.4 g/dL (3.4-5.0); Albumin/Globulin Ratio 0.7 (0.8-1.8); Alk Phos 120 U/L (50-136); Anion Gap 9 mmol/L (6-16); Aspartate Aminotrans (AST/SGOT 19 U/L (12-37); Bilirubin, Total 0.2 mg/dL (0.1-1.0); Blood Urea Nitrogen 41 mg/dL (8-24); Bun/Creatinine Ratio 16.1 (12.0-20.0); CO2, Blood 19 mmol/L (21-32); Calcium, Blood 7.5 mg/dL (8.5-10.1); Chloride, Blood 113 mmol/L (98-108); Creatinine, Blood 2.54 mg/dL (0.60-1.20); Globulin, Blood 3.3 g/dL (2.2-4.0); Glomerular Filtration Rate 28 (60-); Glucose, Blood 91 mg/dL (70-99); Potassium, Blood 4.9 mmol/L (3.5-5.5); Sodium, Blood 141 mmol/L (136-145); Total Protein, Blood 5.7 g/dL (6.4-8.2); Troponin I <0.015 ng/mL (0.000-0.040)
[2020-10-08] MEDS ORDERED: RAYALDEE30 MCG PO (14:14)
[2020-10-11] MEDS ORDERED: METO5 PO (14:00)
== END 2020-07-30 11:04 | disposition home or self-care (01) ==
LOC: ER 07:27
PROVIDERS: Emergency Medicine
DX: E11.22 Type 2 diabetes mellitus with diabetic chronic kidney disease (principal); I12.9 Hypertensive chronic kidney disease with stage 1 through stage 4 chronic kidney disease, or unspecified chronic kidney disease; N18.9 Chronic kidney disease, unspecified; E11.649 Type 2 diabetes mellitus with hypoglycemia without coma; R51.9 Headache, unspecified; Z79.4 Long term (current) use of insulin; Z79.899 Other long term (current) drug therapy; Z79.52 Long term (current) use of systemic steroids
CPT/HCPCS: 36415; 70450; 71045; 80053; 81001; 82947; 84484; 85025; 93005; 93010; 96361; 96374; 96375; 99285-25; A9270; J0780; J1200; J2310; J2405; J7030

== ENCOUNTER → 2020-08-02 | Outpatient (CLI) | payer OTHER ==
[~2020-08-02] MED LIST changes: +METO5 PO
[2020-08-02 11:04] LABS: BASOPHILS ABSOLUTE AUTO 0.02 K/mm3 (0.00-0.23); BASOPHILS PERCENT AUTO 0 % (0-2); EOSINOPHILS ABSOLUTE AUTO 0.07 K/mm3 (0.00-0.68); EOSINOPHILS PERCENT AUTO 1 % (0-6); Hematocrit 28.4 % (37.0-53.0); Hemoglobin 8.1 g/dL (13.5-17.5); IMMATURE GRAN ABSOLUTE AUTO 0.03 K/mm3 (0.00-0.10); IMMATURE GRAN PERCENT AUTO 1 % (0-1); LYMPHOCYTES ABSOLUTE AUTO 0.99 K/mm3 (0.84-5.20); LYMPHOCYTES PERCENT AUTO 19 % (21-46); MONOCYTES ABSOLUTE AUTO 0.74 K/mm3 (0.16-1.47); MONOCYTES PERCENT AUTO 14 % (4-13); Mean Corpuscular HGB 27.1 pg (26.0-34.0); Mean Corpuscular HGB Conc 28.5 g/dL (31.5-36.5); Mean Corpuscular Volume 95 fL (80-100); Mean Platelet Volume 9.7 fL (9.1-12.4); NEUTROPHILS ABSOLUTE AUTO 3.28 K/mm3 (1.96-9.15); NEUTROPHILS PERCENT AUTO 64 % (41-73); Platelet Count 243 K/mm3 (150-400); RDW Coefficient Variation 16.8 % (11.7-14.2); RDW Standard Deviation 58.3 fL (35.1-46.3); Red Blood Cell Count 2.99 M/mm3 (4.30-5.90); White Blood Cell Count 5.13 K/mm3 (4.00-11.30)
[2020-08-02 11:19] LABS: Alanine Aminotransfer (ALT/SGP 16 U/L (12-78); Albumin, Blood 2.2 g/dL (3.4-5.0); Albumin/Globulin Ratio 0.8 (0.8-1.8); Alk Phos 103 U/L (50-136); Anion Gap 5 mmol/L (6-16); Aspartate Aminotrans (AST/SGOT 12 U/L (12-37); Bilirubin, Direct <0.1 mg/dL (0.0-0.3); Bilirubin, Indirect Unable to Calculate mg/dL (0.1-0.7); Bilirubin, Total 0.2 mg/dL (0.1-1.0); Blood Urea Nitrogen 43 mg/dL (8-24); Bun/Creatinine Ratio 14.8 (12.0-20.0); CO2, Blood 22 mmol/L (21-32); Chloride, Blood 119 mmol/L (98-108); Creatinine, Blood 2.91 mg/dL (0.60-1.20); Globulin, Blood 2.9 g/dL (2.2-4.0); Glomerular Filtration Rate 24 (60-); Glucose, Blood 72 mg/dL (70-99); Phosphorus, Blood 4.4 mg/dL (2.5-4.9); Potassium, Blood 5.1 mmol/L (3.5-5.5); Sodium, Blood 146 mmol/L (136-145); Total Protein, Blood 5.1 g/dL (6.4-8.2)
== END ==
LOC: LAB SHORT 10:52 → PLD 10:52
PROVIDERS: Internal Medicine Nephrology
DX: N18.4 Chronic kidney disease, stage 4 (severe) (principal); D63.1 Anemia in chronic kidney disease; N25.81 Secondary hyperparathyroidism of renal origin; E78.00 Pure hypercholesterolemia, unspecified; E55.9 Vitamin D deficiency, unspecified; R76.9 Abnormal immunological finding in serum, unspecified; R94.5 Abnormal results of liver function studies; R94.6 Abnormal results of thyroid function studies
CPT/HCPCS: 80053; 80197; 82248; 84100; 85025

== ENCOUNTER 2020-08-09 00:23 | Day surgery (SDC) | payer OTHER ==
[~2020-08-09 00:23] MED LIST changes: -METO5 PO
[2020-10-08] MEDS ORDERED: RAYALDEE30 MCG PO (14:14)
[2020-10-11] MEDS ORDERED: METO5 PO (14:00)
== END 2020-08-09 23:57 | disposition home or self-care (01) ==
LOC: ATC 00:23
DX: E86.0 Dehydration (principal); I12.9 Hypertensive chronic kidney disease with stage 1 through stage 4 chronic kidney disease, or unspecified chronic kidney disease; N18.30 Chronic kidney disease, stage 3 unspecified; E11.22 Type 2 diabetes mellitus with diabetic chronic kidney disease; E11.21 Type 2 diabetes mellitus with diabetic nephropathy; D63.1 Anemia in chronic kidney disease; Z94.0 Kidney transplant status
CPT/HCPCS: J1642; J7030

== ENCOUNTER 2020-08-16 00:30 | Day surgery (SDC) | payer OTHER ==
[2020-10-08] MEDS ORDERED: RAYALDEE30 MCG PO (14:14)
[2020-10-11] MEDS ORDERED: METO5 PO (14:00)
== END 2020-08-16 22:55 | disposition home or self-care (01) ==
LOC: ATC 00:30
DX: E86.0 Dehydration (principal); I12.9 Hypertensive chronic kidney disease with stage 1 through stage 4 chronic kidney disease, or unspecified chronic kidney disease; N18.30 Chronic kidney disease, stage 3 unspecified; E11.22 Type 2 diabetes mellitus with diabetic chronic kidney disease; E11.21 Type 2 diabetes mellitus with diabetic nephropathy; D63.1 Anemia in chronic kidney disease; Z94.0 Kidney transplant status
CPT/HCPCS: J1642; J7030

== ENCOUNTER 2020-08-18 00:15 | Day surgery (SDC) | payer OTHER ==
[2020-08-18 14:25] LABS: Albumin, Blood 2.6 g/dL (3.4-5.0); Anion Gap 8 mmol/L (6-16); Blood Urea Nitrogen 51 mg/dL (8-24); Bun/Creatinine Ratio 15.9 (12.0-20.0); CO2, Blood 21 mmol/L (21-32); Calcium, Blood 8.2 mg/dL (8.5-10.1); Chloride, Blood 116 mmol/L (98-108); Glomerular Filtration Rate 21 (60-); Glucose, Blood 88 mg/dL (70-99); Phosphorus, Blood 5.1 mg/dL (2.5-4.9); Potassium, Blood 4.8 mmol/L (3.5-5.5); Sodium, Blood 145 mmol/L (136-145)
[2020-10-08] MEDS ORDERED: RAYALDEE30 MCG PO (14:14)
[2020-10-11] MEDS ORDERED: METO5 PO (14:00)
== END 2020-08-18 16:05 | disposition home or self-care (01) ==
LOC: ATC 00:15
PROVIDERS: Internal Medicine Nephrology
DX: E86.0 Dehydration (principal); I12.9 Hypertensive chronic kidney disease with stage 1 through stage 4 chronic kidney disease, or unspecified chronic kidney disease; N18.30 Chronic kidney disease, stage 3 unspecified; D63.1 Anemia in chronic kidney disease; N25.81 Secondary hyperparathyroidism of renal origin; D50.9 Iron deficiency anemia, unspecified; E11.22 Type 2 diabetes mellitus with diabetic chronic kidney disease; E11.21 Type 2 diabetes mellitus with diabetic nephropathy; N28.1 Cyst of kidney, acquired; E55.9 Vitamin D deficiency, unspecified; Z94.0 Kidney transplant status; Z95.828 Presence of other vascular implants and grafts; Z79.52 Long term (current) use of systemic steroids
CPT/HCPCS: 80069; 96360; 96361; J1642; J7030

== ENCOUNTER 2020-08-20 00:52 | Day surgery (SDC) | payer OTHER ==
[2020-10-08] MEDS ORDERED: RAYALDEE30 MCG PO (14:14)
[2020-10-11] MEDS ORDERED: METO5 PO (14:00)
== END 2020-08-20 16:00 | disposition home or self-care (01) ==
LOC: ATC 00:52
DX: E86.0 Dehydration (principal); I12.9 Hypertensive chronic kidney disease with stage 1 through stage 4 chronic kidney disease, or unspecified chronic kidney disease; E11.22 Type 2 diabetes mellitus with diabetic chronic kidney disease; N18.30 Chronic kidney disease, stage 3 unspecified; D63.1 Anemia in chronic kidney disease; E11.21 Type 2 diabetes mellitus with diabetic nephropathy; N25.81 Secondary hyperparathyroidism of renal origin
CPT/HCPCS: 96360; 96361; J1642; J7030

== ENCOUNTER 2020-08-23 00:21 | Day surgery (SDC) | payer OTHER ==
[2020-08-23 14:16] LABS: Alanine Aminotransfer (ALT/SGP 14 U/L (12-78); Albumin, Blood 2.6 g/dL (3.4-5.0); Alk Phos 104 U/L (50-136); Anion Gap 9 mmol/L (6-16); Aspartate Aminotrans (AST/SGOT 7 U/L (12-37); Bilirubin, Direct <0.1 mg/dL (0.0-0.3); Bilirubin, Indirect Unable to Calculate mg/dL (0.1-0.7); Bilirubin, Total 0.2 mg/dL (0.1-1.0); Blood Urea Nitrogen 44 mg/dL (8-24); Bun/Creatinine Ratio 14.6 (12.0-20.0); CO2, Blood 19 mmol/L (21-32); Calcium, Blood 7.4 mg/dL (8.5-10.1); Chloride, Blood 118 mmol/L (98-108); Creatinine, Blood 3.01 mg/dL (0.60-1.20); Globulin, Blood 2.5 g/dL (2.2-4.0); Glomerular Filtration Rate 23 (60-); Glucose, Blood 121 mg/dL (70-99); Potassium, Blood 4.7 mmol/L (3.5-5.5); Sodium, Blood 146 mmol/L (136-145); Total Protein, Blood 5.1 g/dL (6.4-8.2)
--- NOTE | 2020-08-23 14:32 | NUR ---
PT STATED THAT DR. HAM ONLY WANTED HIM TO HAVE 1 LITER IF NS UV DUE TO HIS SWELLING IN L LEG. JANET CRUZ RN CALLED DR HAM AND GOT AN ORDER TO CLARIFY.
[2020-10-08] MEDS ORDERED: RAYALDEE30 MCG PO (14:14)
[2020-10-11] MEDS ORDERED: METO5 PO (14:00)
== END 2020-08-23 14:59 | disposition home or self-care (01) ==
LOC: ATC 00:21
PROVIDERS: Internal Medicine Nephrology
DX: I12.9 Hypertensive chronic kidney disease with stage 1 through stage 4 chronic kidney disease, or unspecified chronic kidney disease (principal); N18.30 Chronic kidney disease, stage 3 unspecified; D63.1 Anemia in chronic kidney disease; N25.81 Secondary hyperparathyroidism of renal origin; D52.8 Other folate deficiency anemias; D50.9 Iron deficiency anemia, unspecified; E55.9 Vitamin D deficiency, unspecified; E78.00 Pure hypercholesterolemia, unspecified; E11.21 Type 2 diabetes mellitus with diabetic nephropathy; R76.9 Abnormal immunological finding in serum, unspecified; R94.5 Abnormal results of liver function studies; R94.6 Abnormal results of thyroid function studies; Z94.0 Kidney transplant status
CPT/HCPCS: 80076; 80197; 84100; 96360; J1642; J7030

== ENCOUNTER 2020-08-27 00:39 | Day surgery (SDC) | payer OTHER ==
[2020-10-08] MEDS ORDERED: RAYALDEE30 MCG PO (14:14)
[2020-10-11] MEDS ORDERED: METO5 PO (14:00)
== END 2020-08-27 15:55 | disposition home or self-care (01) ==
LOC: ATC 00:39
DX: E86.0 Dehydration (principal); I12.9 Hypertensive chronic kidney disease with stage 1 through stage 4 chronic kidney disease, or unspecified chronic kidney disease; N18.30 Chronic kidney disease, stage 3 unspecified; N25.81 Secondary hyperparathyroidism of renal origin; E11.21 Type 2 diabetes mellitus with diabetic nephropathy; E11.22 Type 2 diabetes mellitus with diabetic chronic kidney disease; Z79.84 Long term (current) use of oral hypoglycemic drugs; D50.9 Iron deficiency anemia, unspecified
CPT/HCPCS: 96360; 96361; J1642; J7030

== ENCOUNTER 2020-08-30 01:08 | Day surgery (SDC) | payer OTHER ==
--- NOTE | 2020-08-30 14:34 | NUR ---
PT PRESENTS WITH 2+ EDEMA TO BLE AND PERIORBITAL SWELLING NOTED WELL. MD NOTIFIED REGARDING SWELLING. ORDERS GIVEN FOR 1 LITER NS OVER 1 HOUR TODAY.
[2020-10-08] MEDS ORDERED: RAYALDEE30 MCG PO (14:14)
[2020-10-11] MEDS ORDERED: METO5 PO (14:00)
== END 2020-08-30 15:04 | disposition home or self-care (01) ==
LOC: ATC 01:08
DX: E86.0 Dehydration (principal); I12.9 Hypertensive chronic kidney disease with stage 1 through stage 4 chronic kidney disease, or unspecified chronic kidney disease; N18.30 Chronic kidney disease, stage 3 unspecified; D63.1 Anemia in chronic kidney disease; E11.21 Type 2 diabetes mellitus with diabetic nephropathy; E11.22 Type 2 diabetes mellitus with diabetic chronic kidney disease
CPT/HCPCS: 96360; J1642; J7030

== ENCOUNTER 2020-09-01 00:05 | Day surgery (SDC) | payer OTHER ==
[2020-10-08] MEDS ORDERED: RAYALDEE30 MCG PO (14:14)
[2020-10-11] MEDS ORDERED: METO5 PO (14:00)
== END 2020-09-01 15:50 | disposition home or self-care (01) ==
LOC: ATC 00:05
DX: E86.0 Dehydration (principal); I12.9 Hypertensive chronic kidney disease with stage 1 through stage 4 chronic kidney disease, or unspecified chronic kidney disease; N18.30 Chronic kidney disease, stage 3 unspecified; D63.1 Anemia in chronic kidney disease; N25.81 Secondary hyperparathyroidism of renal origin; D50.9 Iron deficiency anemia, unspecified; E11.22 Type 2 diabetes mellitus with diabetic chronic kidney disease; E11.21 Type 2 diabetes mellitus with diabetic nephropathy; N28.1 Cyst of kidney, acquired; E55.9 Vitamin D deficiency, unspecified; Z94.0 Kidney transplant status; Z95.828 Presence of other vascular implants and grafts; Z79.52 Long term (current) use of systemic steroids
CPT/HCPCS: 96360; 96361; J1642; J7030

== ENCOUNTER 2020-09-03 00:44 | Day surgery (SDC) | payer OTHER ==
--- NOTE | 2020-09-03 14:09 | NUR ---
cLIENT WITH +1 BLE EDEMA. PT REPORTS SEEING DR. HAM EARLIER THIS AFTERNOON. PT STAED DR. HAM RECOMMENDED 1 LITER NS. 1L ADMINISTERED BY THIS RN SECOND LITER HELD.
[2020-10-08] MEDS ORDERED: RAYALDEE30 MCG PO (14:14)
[2020-10-11] MEDS ORDERED: METO5 PO (14:00)
== END 2020-09-03 14:55 | disposition home or self-care (01) ==
LOC: ATC 00:44
DX: E86.0 Dehydration (principal); I12.9 Hypertensive chronic kidney disease with stage 1 through stage 4 chronic kidney disease, or unspecified chronic kidney disease; N18.30 Chronic kidney disease, stage 3 unspecified; D63.1 Anemia in chronic kidney disease; N25.81 Secondary hyperparathyroidism of renal origin; D50.9 Iron deficiency anemia, unspecified; E11.21 Type 2 diabetes mellitus with diabetic nephropathy; E86.9 Volume depletion, unspecified; R80.9 Proteinuria, unspecified; N28.1 Cyst of kidney, acquired; E55.9 Vitamin D deficiency, unspecified
CPT/HCPCS: 96360; J1642; J7030

== ENCOUNTER 2020-09-06 00:21 | Day surgery (SDC) | payer OTHER ==
--- NOTE | 2020-09-06 14:55 | NUR ---
PT WITH 1+ PITTING EDEMA TO RLE. DR. HAM INFORMED. STATED TO ONLY GIVE 1 LITER FLUID TODAY,
[2020-10-08] MEDS ORDERED: RAYALDEE30 MCG PO (14:14)
[2020-10-11] MEDS ORDERED: METO5 PO (14:00)
== END 2020-09-06 15:54 | disposition home or self-care (01) ==
LOC: ATC 00:21
DX: I12.9 Hypertensive chronic kidney disease with stage 1 through stage 4 chronic kidney disease, or unspecified chronic kidney disease (principal); E11.22 Type 2 diabetes mellitus with diabetic chronic kidney disease; N18.30 Chronic kidney disease, stage 3 unspecified; E11.21 Type 2 diabetes mellitus with diabetic nephropathy; D63.1 Anemia in chronic kidney disease; N25.81 Secondary hyperparathyroidism of renal origin; E55.9 Vitamin D deficiency, unspecified; D50.9 Iron deficiency anemia, unspecified; E78.00 Pure hypercholesterolemia, unspecified; R76.9 Abnormal immunological finding in serum, unspecified; R94.5 Abnormal results of liver function studies; R94.6 Abnormal results of thyroid function studies; D52.8 Other folate deficiency anemias; E86.0 Dehydration; Z94.0 Kidney transplant status
CPT/HCPCS: 96360; J1642; J7030

== ENCOUNTER 2020-09-13 00:31 | Day surgery (SDC) | payer OTHER ==
--- NOTE | 2020-09-13 13:53 | NUR ---
PT WITH 2-3+ PITTING EDEMA IN BOTH LEGS. WILL ONLY INFUSE 1 LITER OF NS.
[2020-10-08] MEDS ORDERED: RAYALDEE30 MCG PO (14:14)
[2020-10-11] MEDS ORDERED: METO5 PO (14:00)
== END 2020-09-13 14:55 | disposition home or self-care (01) ==
LOC: ATC 00:31
DX: I12.9 Hypertensive chronic kidney disease with stage 1 through stage 4 chronic kidney disease, or unspecified chronic kidney disease (principal); N18.30 Chronic kidney disease, stage 3 unspecified; D63.1 Anemia in chronic kidney disease; N25.81 Secondary hyperparathyroidism of renal origin; E55.9 Vitamin D deficiency, unspecified; E78.00 Pure hypercholesterolemia, unspecified; R76.9 Abnormal immunological finding in serum, unspecified; R94.5 Abnormal results of liver function studies; R94.6 Abnormal results of thyroid function studies; D52.8 Other folate deficiency anemias; D50.9 Iron deficiency anemia, unspecified; E86.0 Dehydration; E11.21 Type 2 diabetes mellitus with diabetic nephropathy; Z94.0 Kidney transplant status
CPT/HCPCS: 96360; J1642; J7030

== ENCOUNTER 2020-09-20 01:43 | Day surgery (SDC) | payer OTHER ==
--- NOTE | 2020-09-20 15:01 | NUR ---
PT WITH 3+ PITTING EDEMA KNEE DOWN TO FOOT ON LEFT AND 2+ PITTING EDEMA KNEE DOWN TO FOOT ON LEFT. CALLED DR. HAM AND REC'D AN ORDER FOR NO IV FLUIDS TODAY. DR. HAM STATES HE APPRECIATES BEING CALLED RE: AMOUNT OF EDEMA FOR HAIDER AND DOESN'T WANT TO GIVE ANY OTHER ORDERS AT THIS TIME.
[2020-10-08] MEDS ORDERED: RAYALDEE30 MCG PO (14:14)
[2020-10-11] MEDS ORDERED: METO5 PO (14:00)
== END 2020-09-20 14:17 | disposition home or self-care (01) ==
LOC: ATC 01:43
DX: I12.9 Hypertensive chronic kidney disease with stage 1 through stage 4 chronic kidney disease, or unspecified chronic kidney disease (principal); E11.22 Type 2 diabetes mellitus with diabetic chronic kidney disease; N18.30 Chronic kidney disease, stage 3 unspecified; D63.1 Anemia in chronic kidney disease; N25.81 Secondary hyperparathyroidism of renal origin; D50.9 Iron deficiency anemia, unspecified; E11.21 Type 2 diabetes mellitus with diabetic nephropathy; E86.9 Volume depletion, unspecified; E86.0 Dehydration; R80.9 Proteinuria, unspecified; N28.1 Cyst of kidney, acquired; E55.9 Vitamin D deficiency, unspecified; Z94.0 Kidney transplant status
CPT/HCPCS: 99211

== ENCOUNTER 2020-09-24 00:16 | Day surgery (SDC) | payer OTHER ==
--- NOTE | 2020-09-24 15:03 | NUR ---
PT DID NOT SHOW FOR HIS 1330 APPOINTMENT IN THE [facility] TODAY.
[2020-10-08] MEDS ORDERED: RAYALDEE30 MCG PO (14:14)
[2020-10-11] MEDS ORDERED: METO5 PO (14:00)
== END 2020-09-24 22:49 | disposition home or self-care (01) ==
LOC: ATC 00:16
DX: Z53.8 Procedure and treatment not carried out for other reasons (principal)

== ENCOUNTER 2020-10-11 00:40 | Day surgery (SDC) | payer OTHER | END 2020-10-11 15:00 | disposition home or self-care (01) | LOC: ATC 00:40 | DX: I12.9 Hypertensive chronic kidney disease with stage 1 through stage 4 chronic kidney disease, or unspecified chronic kidney disease (principal); E11.22 Type 2 diabetes mellitus with diabetic chronic kidney disease; N18.30 Chronic kidney disease, stage 3 unspecified; D63.1 Anemia in chronic kidney disease; N25.81 Secondary hyperparathyroidism of renal origin; E55.9 Vitamin D deficiency, unspecified; E78.00 Pure hypercholesterolemia, unspecified; R76.9 Abnormal immunological finding in serum, unspecified; R94.5 Abnormal results of liver function studies; R94.6 Abnormal results of thyroid function studies; D51.8 Other vitamin B12 deficiency anemias; D52.8 Other folate deficiency anemias; D50.9 Iron deficiency anemia, unspecified; Z94.0 Kidney transplant status | CPT/HCPCS: 80048; 80076; 80197; 84100; 85025; 87799; 96360; J1642; J7030 ==

== ENCOUNTER 2020-10-13 00:19 | Day surgery (SDC) | payer OTHER ==
[~2020-10-13 00:19] MED LIST changes: +METO5 PO
== END 2020-10-13 15:02 | disposition home or self-care (01) ==
LOC: ATC 00:19
DX: E86.0 Dehydration (principal); I12.9 Hypertensive chronic kidney disease with stage 1 through stage 4 chronic kidney disease, or unspecified chronic kidney disease; E11.22 Type 2 diabetes mellitus with diabetic chronic kidney disease; N18.30 Chronic kidney disease, stage 3 unspecified; N25.81 Secondary hyperparathyroidism of renal origin; N28.1 Cyst of kidney, acquired; D63.1 Anemia in chronic kidney disease; D50.9 Iron deficiency anemia, unspecified; E55.9 Vitamin D deficiency, unspecified; E86.9 Volume depletion, unspecified; Z94.0 Kidney transplant status; Z79.84 Long term (current) use of oral hypoglycemic drugs; Z79.52 Long term (current) use of systemic steroids; Z95.828 Presence of other vascular implants and grafts
CPT/HCPCS: 96360; J1642; J7030

== ENCOUNTER 2020-10-15 00:23 | Day surgery (SDC) | payer OTHER ==
[2020-10-13 15:41] LABS: Creatinine Urine 39.3 mg/dL (27.00-270.00); Protein, Urine Quantitative 151.5 mg/dL (0.0-11.9)
== END 2020-10-15 15:23 | disposition home or self-care (01) ==
LOC: ATC 00:23
PROVIDERS: Internal Medicine Nephrology
DX: E86.0 Dehydration (principal); Z95.828 Presence of other vascular implants and grafts; N18.30 Chronic kidney disease, stage 3 unspecified; E55.9 Vitamin D deficiency, unspecified; E78.00 Pure hypercholesterolemia, unspecified; R76.9 Abnormal immunological finding in serum, unspecified; R94.6 Abnormal results of thyroid function studies; D51.8 Other vitamin B12 deficiency anemias; D50.9 Iron deficiency anemia, unspecified
CPT/HCPCS: 82043; 82570; 84156; J1642; J7030

== ENCOUNTER 2020-10-18 00:06 | Day surgery (SDC) | payer OTHER | END 2020-10-18 14:59 | disposition home or self-care (01) | LOC: ATC 00:06 | DX: E86.0 Dehydration (principal) | CPT/HCPCS: J1642; J7030 ==

== ENCOUNTER 2020-10-20 01:04 | Day surgery (SDC) | payer OTHER ==
[2020-10-20 16:43] LABS: BASOPHILS PERCENT AUTO 0 % (0-2); EOSINOPHILS ABSOLUTE AUTO 0.01 K/mm3 (0.00-0.68); EOSINOPHILS PERCENT AUTO 0 % (0-6); Hematocrit 24.9 % (37.0-53.0); Hemoglobin 7.3 g/dL (13.5-17.5); IMMATURE GRAN ABSOLUTE AUTO 0.03 K/mm3 (0.00-0.10); IMMATURE GRAN PERCENT AUTO 1 % (0-1); LYMPHOCYTES ABSOLUTE AUTO 0.48 K/mm3 (0.84-5.20); LYMPHOCYTES PERCENT AUTO 8 % (21-46); MONOCYTES ABSOLUTE AUTO 0.43 K/mm3 (0.16-1.47); MONOCYTES PERCENT AUTO 7 % (4-13); Mean Corpuscular HGB 27.7 pg (26.0-34.0); Mean Corpuscular HGB Conc 29.3 g/dL (31.5-36.5); Mean Corpuscular Volume 94 fL (80-100); Mean Platelet Volume 10.7 fL (9.1-12.4); NEUTROPHILS ABSOLUTE AUTO 5.15 K/mm3 (1.96-9.15); NEUTROPHILS PERCENT AUTO 84 % (41-73); Platelet Count 208 K/mm3 (150-400); RDW Coefficient Variation 17.8 % (11.7-14.2); Red Blood Cell Count 2.64 M/mm3 (4.30-5.90)
[2020-10-20 17:15] LABS: Albumin, Blood 2.6 g/dL (3.4-5.0); Anion Gap 4 mmol/L (6-16); Blood Urea Nitrogen 56 mg/dL (8-24); CO2, Blood 20 mmol/L (21-32); Calcium, Blood 7.9 mg/dL (8.5-10.1); Chloride, Blood 118 mmol/L (98-108); Creatinine, Blood 2.43 mg/dL (0.60-1.20); Glomerular Filtration Rate 29 (60-); Glucose, Blood 257 mg/dL (70-99); Phosphorus, Blood 3.3 mg/dL (2.5-4.9); Potassium, Blood 5.4 mmol/L (3.5-5.5); Sodium, Blood 142 mmol/L (136-145)
== END 2020-10-20 15:20 | disposition home or self-care (01) ==
LOC: ATC 01:04
PROVIDERS: Internal Medicine Nephrology
DX: E86.0 Dehydration (principal)
CPT/HCPCS: 80069; 85025; 96360; J1642; J7030

== ENCOUNTER 2020-10-22 01:06 | Day surgery (SDC) | payer OTHER | END 2020-10-22 14:50 | disposition home or self-care (01) | LOC: ATC 01:06 | DX: E86.0 Dehydration (principal); I12.9 Hypertensive chronic kidney disease with stage 1 through stage 4 chronic kidney disease, or unspecified chronic kidney disease; N18.9 Chronic kidney disease, unspecified | CPT/HCPCS: 96360; J1642; J7030 ==

== ENCOUNTER 2020-10-27 00:54 | Day surgery (SDC) | payer OTHER | END 2020-10-27 15:19 | disposition home or self-care (01) | LOC: ATC 00:54 | DX: E86.0 Dehydration (principal) | CPT/HCPCS: 96360; 96361; J1642; J7030 ==

== ENCOUNTER 2020-10-29 01:53 | Day surgery (SDC) | payer OTHER | END 2020-10-29 15:02 | disposition home or self-care (01) | LOC: ATC 01:53 | DX: E86.0 Dehydration (principal); I12.9 Hypertensive chronic kidney disease with stage 1 through stage 4 chronic kidney disease, or unspecified chronic kidney disease; N18.9 Chronic kidney disease, unspecified | CPT/HCPCS: 36415; 96360; J1642; J7030 ==

== ENCOUNTER 2020-11-01 00:40 | Day surgery (SDC) | payer OTHER | END 2020-11-01 15:03 | disposition home or self-care (01) | LOC: ATC 00:40 | DX: E86.0 Dehydration (principal) | CPT/HCPCS: 96360; J1642; J7030 ==

== ENCOUNTER 2020-11-03 09:41 | Day surgery (SDC) | payer OTHER | END 2020-11-03 15:16 | disposition home or self-care (01) | LOC: ATC 09:41 | DX: I12.9 Hypertensive chronic kidney disease with stage 1 through stage 4 chronic kidney disease, or unspecified chronic kidney disease (principal); N18.9 Chronic kidney disease, unspecified; N25.81 Secondary hyperparathyroidism of renal origin | CPT/HCPCS: 96360; J1642; J7030 ==

== ENCOUNTER 2020-11-05 00:07 | Day surgery (SDC) | payer OTHER ==
[2020-11-05 15:09] LABS: Albumin, Blood 2.9 g/dL (3.4-5.0); Anion Gap 7 mmol/L (6-16); Blood Urea Nitrogen 38 mg/dL (8-24); Bun/Creatinine Ratio 16.3 (12.0-20.0); CO2, Blood 20 mmol/L (21-32); Chloride, Blood 118 mmol/L (98-108); Creatinine, Blood 2.33 mg/dL (0.60-1.20); Glomerular Filtration Rate 31 (60-); Glucose, Blood 71 mg/dL (70-99); Phosphorus, Blood 4.1 mg/dL (2.5-4.9); Potassium, Blood 4.4 mmol/L (3.5-5.5); Sodium, Blood 145 mmol/L (136-145)
== END 2020-11-05 14:57 | disposition home or self-care (01) ==
LOC: ATC 00:07
PROVIDERS: Internal Medicine Nephrology
DX: I12.9 Hypertensive chronic kidney disease with stage 1 through stage 4 chronic kidney disease, or unspecified chronic kidney disease (principal); N18.30 Chronic kidney disease, stage 3 unspecified; D63.1 Anemia in chronic kidney disease
CPT/HCPCS: 80069; 85018; 96360; J1642; J7030

== ENCOUNTER 2020-11-08 00:24 | Day surgery (SDC) | payer OTHER | END 2020-11-08 15:10 | disposition home or self-care (01) | LOC: ATC 00:24 | DX: I12.9 Hypertensive chronic kidney disease with stage 1 through stage 4 chronic kidney disease, or unspecified chronic kidney disease (principal); N18.9 Chronic kidney disease, unspecified; D64.9 Anemia, unspecified | CPT/HCPCS: 96360; J1642; J7030 ==

== ENCOUNTER 2020-11-10 03:30 | Day surgery (SDC) | payer OTHER | END 2020-11-10 14:57 | disposition home or self-care (01) | LOC: ATC 03:30 | DX: I12.9 Hypertensive chronic kidney disease with stage 1 through stage 4 chronic kidney disease, or unspecified chronic kidney disease (principal); N18.9 Chronic kidney disease, unspecified; N25.81 Secondary hyperparathyroidism of renal origin | CPT/HCPCS: 96360; J1642; J7030 ==

== ENCOUNTER 2020-11-11 09:23 | Emergency (ER) | payer OTHER ==
[~2020-11-11] VITALS: Ht 172.7 cm; Wt 74.8 kg
[2020-11-11 09:44] LABS: BASOPHILS ABSOLUTE AUTO 0.01 K/mm3 (0.00-0.23); BASOPHILS PERCENT AUTO 0 % (0-2); EOSINOPHILS ABSOLUTE AUTO 0.03 K/mm3 (0.00-0.68); EOSINOPHILS PERCENT AUTO 1 % (0-6); IMMATURE GRAN ABSOLUTE AUTO 0.06 K/mm3 (0.00-0.10); IMMATURE GRAN PERCENT AUTO 1 % (0-1); LYMPHOCYTES ABSOLUTE AUTO 0.66 K/mm3 (0.84-5.20); LYMPHOCYTES PERCENT AUTO 14 % (21-46); MONOCYTES ABSOLUTE AUTO 0.69 K/mm3 (0.16-1.47); MONOCYTES PERCENT AUTO 14 % (4-13); Mean Corpuscular HGB 27.1 pg (26.0-34.0); Mean Corpuscular HGB Conc 28.6 g/dL (31.5-36.5); Mean Corpuscular Volume 95 fL (80-100); Mean Platelet Volume 10.8 fL (9.1-12.4); NEUTROPHILS ABSOLUTE AUTO 3.36 K/mm3 (1.96-9.15); NEUTROPHILS PERCENT AUTO 70 % (41-73); Platelet Count 191 K/mm3 (150-400); RDW Coefficient Variation 17.1 % (11.7-14.2); RDW Standard Deviation 59.5 fL (35.1-46.3); Red Blood Cell Count 2.95 M/mm3 (4.30-5.90); White Blood Cell Count 4.81 K/mm3 (4.00-11.30)
[2020-11-11 09:59] LABS: International Normalized Ratio 1.14; Prothrombin Time Results 12.2 Sec (9.7-11.5)
[2020-11-11 10:11] LABS: Alanine Aminotransfer (ALT/SGP 15 U/L (12-78); Albumin, Blood 2.9 g/dL (3.4-5.0); Albumin/Globulin Ratio 1.2 (0.8-1.8); Alk Phos 78 U/L (50-136); Anion Gap 7 mmol/L (6-16); Aspartate Aminotrans (AST/SGOT 11 U/L (12-37); Bilirubin, Total 0.2 mg/dL (0.1-1.0); Blood Urea Nitrogen 37 mg/dL (8-24); Bun/Creatinine Ratio 16.4 (12.0-20.0); CO2, Blood 20 mmol/L (21-32); Calcium, Blood 6.6 mg/dL (8.5-10.1); Chloride, Blood 114 mmol/L (98-108); Creatinine, Blood 2.25 mg/dL (0.60-1.20); Ethanol (Alcohol), Blood, Med <3 mg/dL; Globulin, Blood 2.5 g/dL (2.2-4.0); Glomerular Filtration Rate 32 (60-); Glucose, Blood 97 mg/dL (70-99); Potassium, Blood 4.5 mmol/L (3.5-5.5); Sodium, Blood 141 mmol/L (136-145); Total Protein, Blood 5.4 g/dL (6.4-8.2)
[2020-11-11 10:45] LABS: U Amphetamine Screen Not Detected; U Barbituate Screen Not Detected; U Benzodiazapine Screen Not Detected; U Buprenorphine Screen Not Detected; U Cannabinoids Screen Not Detected; U Cocaine Screen Not Detected; U Methadone Screen Not Detected; U Methamphetamine Screen Not Detected; U Opiates Screen Not Detected; U Oxycodone Screen Not Detected; U Phencyclidine Screen Not Detected; U Propoxyphene Screen Not Detected
== END 2020-11-11 12:12 | disposition home or self-care (01) ==
LOC: ER 09:23
PROVIDERS: Emergency Medicine
DX: E11.649 Type 2 diabetes mellitus with hypoglycemia without coma (principal); E78.5 Hyperlipidemia, unspecified; I10 Essential (primary) hypertension; Z79.52 Long term (current) use of systemic steroids; Z79.4 Long term (current) use of insulin; Z79.899 Other long term (current) drug therapy
CPT/HCPCS: 70450; 72125; 80053; 82947; 83605; 83690; 85025; 85610; 93005; 93010; 99284-25; A9270; G0480

== ENCOUNTER 2020-11-12 00:18 | Day surgery (SDC) | payer OTHER | END 2020-11-12 14:41 | disposition home or self-care (01) | LOC: ATC 00:18 | DX: I12.9 Hypertensive chronic kidney disease with stage 1 through stage 4 chronic kidney disease, or unspecified chronic kidney disease (principal); N18.9 Chronic kidney disease, unspecified; N25.81 Secondary hyperparathyroidism of renal origin; E55.9 Vitamin D deficiency, unspecified | CPT/HCPCS: 96360; J1642; J7030 ==

== ENCOUNTER 2020-11-15 00:07 | Day surgery (SDC) | payer OTHER | END 2020-11-15 14:06 | disposition home or self-care (01) | LOC: ATC 00:07 | DX: I12.9 Hypertensive chronic kidney disease with stage 1 through stage 4 chronic kidney disease, or unspecified chronic kidney disease (principal); N18.9 Chronic kidney disease, unspecified; N25.81 Secondary hyperparathyroidism of renal origin | CPT/HCPCS: 96360; J1642; J7030 ==

== ENCOUNTER 2020-11-17 03:15 | Day surgery (SDC) | payer OTHER | END 2020-11-17 15:03 | disposition home or self-care (01) | LOC: ATC 03:15 | DX: I12.9 Hypertensive chronic kidney disease with stage 1 through stage 4 chronic kidney disease, or unspecified chronic kidney disease (principal); N18.9 Chronic kidney disease, unspecified; N25.81 Secondary hyperparathyroidism of renal origin; D64.9 Anemia, unspecified | CPT/HCPCS: 96360; J1642; J7030 ==

== ENCOUNTER 2020-11-19 00:47 | Day surgery (SDC) | payer OTHER | END 2020-11-19 15:17 | disposition home or self-care (01) | LOC: ATC 00:47 | DX: I12.9 Hypertensive chronic kidney disease with stage 1 through stage 4 chronic kidney disease, or unspecified chronic kidney disease (principal); N18.9 Chronic kidney disease, unspecified; D63.1 Anemia in chronic kidney disease; N25.81 Secondary hyperparathyroidism of renal origin; E55.9 Vitamin D deficiency, unspecified | CPT/HCPCS: 96360; J1642; J7030 ==

== ENCOUNTER 2020-11-22 13:42 | Day surgery (SDC) | payer OTHER | END 2020-11-22 15:00 | disposition home or self-care (01) | LOC: ATC 13:42 | DX: I12.9 Hypertensive chronic kidney disease with stage 1 through stage 4 chronic kidney disease, or unspecified chronic kidney disease (principal); N18.9 Chronic kidney disease, unspecified; N17.9 Acute kidney failure, unspecified; D63.1 Anemia in chronic kidney disease; N25.81 Secondary hyperparathyroidism of renal origin | CPT/HCPCS: 96360; J1642; J7030 ==

== ENCOUNTER 2020-11-24 04:48 | Day surgery (SDC) | payer OTHER | END 2020-11-24 14:50 | disposition home or self-care (01) | LOC: ATC 04:48 | DX: I12.9 Hypertensive chronic kidney disease with stage 1 through stage 4 chronic kidney disease, or unspecified chronic kidney disease (principal); N18.9 Chronic kidney disease, unspecified; N25.81 Secondary hyperparathyroidism of renal origin; E55.9 Vitamin D deficiency, unspecified | CPT/HCPCS: 96360; J1642; J7030 ==

== ENCOUNTER 2020-11-26 04:43 | Day surgery (SDC) | payer OTHER | END 2020-11-26 14:55 | disposition home or self-care (01) | LOC: ATC 04:43 | DX: I12.9 Hypertensive chronic kidney disease with stage 1 through stage 4 chronic kidney disease, or unspecified chronic kidney disease (principal); N18.9 Chronic kidney disease, unspecified; N17.9 Acute kidney failure, unspecified | CPT/HCPCS: 96360; J1642; J7030 ==

== ENCOUNTER 2020-11-29 00:23 | Day surgery (SDC) | payer OTHER | END 2020-11-29 15:15 | disposition home or self-care (01) | LOC: ATC 00:23 | DX: I12.9 Hypertensive chronic kidney disease with stage 1 through stage 4 chronic kidney disease, or unspecified chronic kidney disease (principal); N18.9 Chronic kidney disease, unspecified; N25.81 Secondary hyperparathyroidism of renal origin | CPT/HCPCS: 96360; J1642; J7030 ==

== ENCOUNTER 2020-12-01 02:38 | Day surgery (SDC) | payer OTHER | END 2020-12-01 15:16 | disposition home or self-care (01) | LOC: ATC 02:38 | DX: I12.9 Hypertensive chronic kidney disease with stage 1 through stage 4 chronic kidney disease, or unspecified chronic kidney disease (principal); N18.9 Chronic kidney disease, unspecified; N25.81 Secondary hyperparathyroidism of renal origin; E55.9 Vitamin D deficiency, unspecified; D64.9 Anemia, unspecified | CPT/HCPCS: 96360; J1642; J7030 ==

== ENCOUNTER 2020-12-03 04:29 | Day surgery (SDC) | payer OTHER | END 2020-12-03 15:08 | disposition home or self-care (01) | LOC: ATC 04:29 | DX: I12.9 Hypertensive chronic kidney disease with stage 1 through stage 4 chronic kidney disease, or unspecified chronic kidney disease (principal); N18.9 Chronic kidney disease, unspecified; N25.81 Secondary hyperparathyroidism of renal origin; E55.9 Vitamin D deficiency, unspecified; D64.9 Anemia, unspecified | CPT/HCPCS: 96360; J1642; J7030 ==

== ENCOUNTER 2020-12-06 00:07 | Day surgery (SDC) | payer OTHER | END 2020-12-06 15:08 | disposition home or self-care (01) | LOC: ATC 00:07 | DX: I12.9 Hypertensive chronic kidney disease with stage 1 through stage 4 chronic kidney disease, or unspecified chronic kidney disease (principal); N18.9 Chronic kidney disease, unspecified; N25.81 Secondary hyperparathyroidism of renal origin; E55.9 Vitamin D deficiency, unspecified; D64.9 Anemia, unspecified | CPT/HCPCS: 96360; J1642 ==

== ENCOUNTER 2020-12-08 04:54 | Day surgery (SDC) | payer OTHER | END 2020-12-08 15:00 | disposition home or self-care (01) | LOC: ATC 04:54 | DX: I12.9 Hypertensive chronic kidney disease with stage 1 through stage 4 chronic kidney disease, or unspecified chronic kidney disease (principal); N18.4 Chronic kidney disease, stage 4 (severe); N25.81 Secondary hyperparathyroidism of renal origin; E55.9 Vitamin D deficiency, unspecified; D63.1 Anemia in chronic kidney disease; D50.9 Iron deficiency anemia, unspecified | CPT/HCPCS: 96360; J1642; J7030 ==

== ENCOUNTER 2020-12-10 04:55 | Day surgery (SDC) | payer OTHER | END 2020-12-10 15:05 | disposition home or self-care (01) | LOC: ATC 04:55 | DX: I12.9 Hypertensive chronic kidney disease with stage 1 through stage 4 chronic kidney disease, or unspecified chronic kidney disease (principal); N18.4 Chronic kidney disease, stage 4 (severe); N25.81 Secondary hyperparathyroidism of renal origin; D63.1 Anemia in chronic kidney disease; D50.9 Iron deficiency anemia, unspecified; E55.9 Vitamin D deficiency, unspecified | CPT/HCPCS: 96360; J1642; J7030 ==

== ENCOUNTER 2020-12-13 01:07 | Day surgery (SDC) | payer OTHER | END 2020-12-13 15:02 | disposition home or self-care (01) | LOC: ATC 01:07 | DX: I12.9 Hypertensive chronic kidney disease with stage 1 through stage 4 chronic kidney disease, or unspecified chronic kidney disease (principal); N18.4 Chronic kidney disease, stage 4 (severe); D63.1 Anemia in chronic kidney disease; E78.5 Hyperlipidemia, unspecified; Z79.84 Long term (current) use of oral hypoglycemic drugs | CPT/HCPCS: 96360; J1642; J7030 ==

== ENCOUNTER 2020-12-15 04:53 | Day surgery (SDC) | payer OTHER | END 2020-12-15 14:59 | disposition home or self-care (01) | LOC: ATC 04:53 | DX: I12.9 Hypertensive chronic kidney disease with stage 1 through stage 4 chronic kidney disease, or unspecified chronic kidney disease (principal); N18.4 Chronic kidney disease, stage 4 (severe); D63.1 Anemia in chronic kidney disease; N25.81 Secondary hyperparathyroidism of renal origin; D50.9 Iron deficiency anemia, unspecified; E78.00 Pure hypercholesterolemia, unspecified; E55.9 Vitamin D deficiency, unspecified | CPT/HCPCS: 96360; J1642; J7030 ==

== ENCOUNTER 2020-12-20 13:39 | Day surgery (SDC) | payer OTHER ==
--- NOTE | 2020-12-20 16:56 | NUR ---
PT WAS GIVEN ONE UNIT PRBC ON SundayDECEMBER 17 AND DECEMBER 20 USING THIS ACCT. ACCT [id number] WAS CHARTED ON ON DECEMBER 20 BY MISTAKE. PT WAS DISCHARGED AT 1647 ON THE .
== END 2020-12-20 16:47 | disposition home or self-care (01) ==
LOC: ATC 13:39
DX: I12.9 Hypertensive chronic kidney disease with stage 1 through stage 4 chronic kidney disease, or unspecified chronic kidney disease (principal); N18.30 Chronic kidney disease, stage 3 unspecified; D63.1 Anemia in chronic kidney disease; N25.81 Secondary hyperparathyroidism of renal origin; D50.9 Iron deficiency anemia, unspecified; E78.00 Pure hypercholesterolemia, unspecified
CPT/HCPCS: 36430; 84132; 86850; 86900; 86901; 86923; 96374; J1642; J7030; J7050; P9016

== ENCOUNTER 2020-12-22 03:08 | Day surgery (SDC) | payer OTHER | END 2020-12-22 15:02 | disposition home or self-care (01) | LOC: ATC 03:08 | DX: I12.9 Hypertensive chronic kidney disease with stage 1 through stage 4 chronic kidney disease, or unspecified chronic kidney disease (principal); N18.4 Chronic kidney disease, stage 4 (severe); D63.1 Anemia in chronic kidney disease; N25.81 Secondary hyperparathyroidism of renal origin; E87.5 Hyperkalemia; E78.00 Pure hypercholesterolemia, unspecified; E55.9 Vitamin D deficiency, unspecified; Z94.0 Kidney transplant status | CPT/HCPCS: 96360; J1642; J7030 ==

== ENCOUNTER 2020-12-24 04:40 | Day surgery (SDC) | payer OTHER | END 2020-12-24 14:55 | disposition home or self-care (01) | LOC: ATC 04:40 | DX: I12.9 Hypertensive chronic kidney disease with stage 1 through stage 4 chronic kidney disease, or unspecified chronic kidney disease (principal); N18.4 Chronic kidney disease, stage 4 (severe); D63.1 Anemia in chronic kidney disease; E87.5 Hyperkalemia; N25.81 Secondary hyperparathyroidism of renal origin; E78.00 Pure hypercholesterolemia, unspecified; E55.9 Vitamin D deficiency, unspecified; Z94.0 Kidney transplant status | CPT/HCPCS: 96360; J1642; J7030 ==

== ENCOUNTER 2020-12-27 02:32 | Day surgery (SDC) | payer OTHER | END 2020-12-27 14:55 | disposition home or self-care (01) | LOC: ATC 02:32 | DX: I12.9 Hypertensive chronic kidney disease with stage 1 through stage 4 chronic kidney disease, or unspecified chronic kidney disease (principal); N18.4 Chronic kidney disease, stage 4 (severe); D63.1 Anemia in chronic kidney disease; N25.81 Secondary hyperparathyroidism of renal origin; D50.9 Iron deficiency anemia, unspecified; E78.00 Pure hypercholesterolemia, unspecified; E55.9 Vitamin D deficiency, unspecified; M85.80 Other specified disorders of bone density and structure, unspecified site; R94.5 Abnormal results of liver function studies; R76.9 Abnormal immunological finding in serum, unspecified; G60.9 Hereditary and idiopathic neuropathy, unspecified; Z94.0 Kidney transplant status | CPT/HCPCS: 36415; 80069; 80197; 84550; 96360; J1642; J7030 ==

== ENCOUNTER 2020-12-29 00:10 | Day surgery (SDC) | payer OTHER | END 2020-12-29 15:06 | disposition home or self-care (01) | LOC: ATC 00:10 | DX: I12.9 Hypertensive chronic kidney disease with stage 1 through stage 4 chronic kidney disease, or unspecified chronic kidney disease (principal); N25.81 Secondary hyperparathyroidism of renal origin; N18.4 Chronic kidney disease, stage 4 (severe); D63.1 Anemia in chronic kidney disease; E78.00 Pure hypercholesterolemia, unspecified; E55.9 Vitamin D deficiency, unspecified; M85.80 Other specified disorders of bone density and structure, unspecified site | CPT/HCPCS: 96360; J1642; J7030 ==

== ENCOUNTER 2020-12-31 00:24 | Day surgery (SDC) | payer OTHER | END 2020-12-31 15:15 | disposition home or self-care (01) | LOC: ATC 00:24 | DX: I12.9 Hypertensive chronic kidney disease with stage 1 through stage 4 chronic kidney disease, or unspecified chronic kidney disease (principal); N18.4 Chronic kidney disease, stage 4 (severe); D63.1 Anemia in chronic kidney disease; N25.81 Secondary hyperparathyroidism of renal origin; Z79.899 Other long term (current) drug therapy | CPT/HCPCS: 80197; 84132; 96360; J1642; J7030 ==

== ENCOUNTER 2021-01-03 00:13 | Day surgery (SDC) | payer OTHER | END 2021-01-03 15:23 | disposition home or self-care (01) | LOC: ATC 00:13 | DX: I12.9 Hypertensive chronic kidney disease with stage 1 through stage 4 chronic kidney disease, or unspecified chronic kidney disease (principal); N18.4 Chronic kidney disease, stage 4 (severe); D63.1 Anemia in chronic kidney disease; D50.9 Iron deficiency anemia, unspecified; N25.81 Secondary hyperparathyroidism of renal origin; E87.5 Hyperkalemia; E55.9 Vitamin D deficiency, unspecified; E78.00 Pure hypercholesterolemia, unspecified | CPT/HCPCS: J1642; J7030 ==

== ENCOUNTER 2021-01-05 03:57 | Day surgery (SDC) | payer OTHER | END 2021-01-05 15:28 | disposition home or self-care (01) | LOC: ATC 03:57 | DX: I12.9 Hypertensive chronic kidney disease with stage 1 through stage 4 chronic kidney disease, or unspecified chronic kidney disease (principal); N18.4 Chronic kidney disease, stage 4 (severe); D63.1 Anemia in chronic kidney disease; N25.81 Secondary hyperparathyroidism of renal origin; D50.9 Iron deficiency anemia, unspecified; E78.00 Pure hypercholesterolemia, unspecified; E87.5 Hyperkalemia; E55.9 Vitamin D deficiency, unspecified; M85.80 Other specified disorders of bone density and structure, unspecified site | CPT/HCPCS: 96360; J1642; J7030 ==

== ENCOUNTER 2021-01-07 01:05 | Day surgery (SDC) | payer OTHER | END 2021-01-07 15:02 | disposition home or self-care (01) | LOC: ATC 01:05 | DX: I12.9 Hypertensive chronic kidney disease with stage 1 through stage 4 chronic kidney disease, or unspecified chronic kidney disease (principal); N18.4 Chronic kidney disease, stage 4 (severe); N25.81 Secondary hyperparathyroidism of renal origin; D63.1 Anemia in chronic kidney disease; D50.9 Iron deficiency anemia, unspecified; E87.70 Fluid overload, unspecified; E78.00 Pure hypercholesterolemia, unspecified; E87.5 Hyperkalemia; E55.9 Vitamin D deficiency, unspecified | CPT/HCPCS: J1642; J7030 ==

== ENCOUNTER 2021-01-10 00:41 | Day surgery (SDC) | payer OTHER | END 2021-01-10 15:35 | disposition home or self-care (01) | LOC: ATC 00:41 | DX: I12.9 Hypertensive chronic kidney disease with stage 1 through stage 4 chronic kidney disease, or unspecified chronic kidney disease (principal); N18.4 Chronic kidney disease, stage 4 (severe); D63.1 Anemia in chronic kidney disease; N25.81 Secondary hyperparathyroidism of renal origin; E78.5 Hyperlipidemia, unspecified | CPT/HCPCS: J1642; J7030 ==

== ENCOUNTER 2021-01-12 02:25 | Day surgery (SDC) | payer OTHER | END 2021-01-12 15:25 | disposition home or self-care (01) | LOC: ATC 02:25 | DX: I12.9 Hypertensive chronic kidney disease with stage 1 through stage 4 chronic kidney disease, or unspecified chronic kidney disease (principal); N18.4 Chronic kidney disease, stage 4 (severe); D63.1 Anemia in chronic kidney disease; N25.81 Secondary hyperparathyroidism of renal origin ==

== ENCOUNTER 2021-01-17 02:28 | Day surgery (SDC) | payer OTHER | END 2021-01-17 14:59 | disposition home or self-care (01) | LOC: ATC 02:28 | DX: I12.9 Hypertensive chronic kidney disease with stage 1 through stage 4 chronic kidney disease, or unspecified chronic kidney disease (principal); N18.4 Chronic kidney disease, stage 4 (severe); D63.1 Anemia in chronic kidney disease; N25.81 Secondary hyperparathyroidism of renal origin; E87.70 Fluid overload, unspecified; D50.9 Iron deficiency anemia, unspecified; R80.9 Proteinuria, unspecified; E78.00 Pure hypercholesterolemia, unspecified; E87.5 Hyperkalemia; E55.9 Vitamin D deficiency, unspecified; M85.80 Other specified disorders of bone density and structure, unspecified site; Z48.22 Encounter for aftercare following kidney transplant | CPT/HCPCS: 36415; 96360; J1642; J7030 ==

== ENCOUNTER 2021-01-21 01:24 | Day surgery (SDC) | payer OTHER | END 2021-01-21 15:15 | disposition home or self-care (01) | LOC: ATC 01:24 | DX: I12.9 Hypertensive chronic kidney disease with stage 1 through stage 4 chronic kidney disease, or unspecified chronic kidney disease (principal); N18.4 Chronic kidney disease, stage 4 (severe); D63.1 Anemia in chronic kidney disease; N25.81 Secondary hyperparathyroidism of renal origin; D50.9 Iron deficiency anemia, unspecified; E78.00 Pure hypercholesterolemia, unspecified; E87.5 Hyperkalemia; E55.9 Vitamin D deficiency, unspecified | CPT/HCPCS: 96360; J1642; J7030 ==

== ENCOUNTER 2021-01-24 12:01 | Day surgery (SDC) | payer OTHER | END 2021-01-24 15:00 | disposition home or self-care (01) | LOC: ATC 12:01 | DX: I12.9 Hypertensive chronic kidney disease with stage 1 through stage 4 chronic kidney disease, or unspecified chronic kidney disease (principal); N18.4 Chronic kidney disease, stage 4 (severe); D63.1 Anemia in chronic kidney disease; N25.81 Secondary hyperparathyroidism of renal origin; D50.9 Iron deficiency anemia, unspecified; E78.00 Pure hypercholesterolemia, unspecified; E55.9 Vitamin D deficiency, unspecified | CPT/HCPCS: 96360; J1642; J7030 ==

== ENCOUNTER 2021-01-26 13:54 | Day surgery (SDC) | payer OTHER | END 2021-01-26 15:05 | disposition home or self-care (01) | LOC: ATC 13:54 | DX: I12.9 Hypertensive chronic kidney disease with stage 1 through stage 4 chronic kidney disease, or unspecified chronic kidney disease (principal); N18.4 Chronic kidney disease, stage 4 (severe); D63.1 Anemia in chronic kidney disease; N25.81 Secondary hyperparathyroidism of renal origin | CPT/HCPCS: 96360; J1642; J7030 ==

== ENCOUNTER 2021-01-28 00:08 | Day surgery (SDC) | payer OTHER | END 2021-01-28 15:15 | disposition home or self-care (01) | LOC: ATC 00:08 | DX: I12.9 Hypertensive chronic kidney disease with stage 1 through stage 4 chronic kidney disease, or unspecified chronic kidney disease (principal); N18.4 Chronic kidney disease, stage 4 (severe); D63.1 Anemia in chronic kidney disease; N25.81 Secondary hyperparathyroidism of renal origin; E78.00 Pure hypercholesterolemia, unspecified; E55.9 Vitamin D deficiency, unspecified; D50.9 Iron deficiency anemia, unspecified | CPT/HCPCS: 96360; J1642; J7030 ==

== ENCOUNTER 2021-01-31 00:24 | Day surgery (SDC) | payer OTHER | END 2021-01-31 14:55 | disposition home or self-care (01) | LOC: ATC 00:24 | DX: E86.0 Dehydration (principal); I12.9 Hypertensive chronic kidney disease with stage 1 through stage 4 chronic kidney disease, or unspecified chronic kidney disease; N18.4 Chronic kidney disease, stage 4 (severe); N25.81 Secondary hyperparathyroidism of renal origin; E78.00 Pure hypercholesterolemia, unspecified; M85.80 Other specified disorders of bone density and structure, unspecified site; D63.1 Anemia in chronic kidney disease; E55.9 Vitamin D deficiency, unspecified | CPT/HCPCS: 96360; J1642; J7030 ==

== ENCOUNTER 2021-02-02 01:51 | Day surgery (SDC) | payer OTHER ==
--- NOTE | 2021-02-02 15:05 | NUR ---
LABS DRAWN VIA PORT FOR [facility]. PT PROVIDED TUBES, ORDER FROM [facility], PACKING FOR FED EX.
== END 2021-02-02 14:57 | disposition home or self-care (01) ==
LOC: ATC 01:51
DX: E86.0 Dehydration (principal); I12.9 Hypertensive chronic kidney disease with stage 1 through stage 4 chronic kidney disease, or unspecified chronic kidney disease; N18.4 Chronic kidney disease, stage 4 (severe); D63.1 Anemia in chronic kidney disease; N25.81 Secondary hyperparathyroidism of renal origin; D50.9 Iron deficiency anemia, unspecified; E78.00 Pure hypercholesterolemia, unspecified; E55.9 Vitamin D deficiency, unspecified
CPT/HCPCS: 96360; J1642; J7030

== ENCOUNTER 2021-02-04 01:03 | Day surgery (SDC) | payer OTHER | END 2021-02-04 14:48 | disposition home or self-care (01) | LOC: ATC 01:03 | DX: E86.0 Dehydration (principal); I12.9 Hypertensive chronic kidney disease with stage 1 through stage 4 chronic kidney disease, or unspecified chronic kidney disease; N18.4 Chronic kidney disease, stage 4 (severe); D63.1 Anemia in chronic kidney disease; N25.81 Secondary hyperparathyroidism of renal origin | CPT/HCPCS: 96360; J1642; J7030 ==

== ENCOUNTER 2021-02-07 01:28 | Day surgery (SDC) | payer OTHER | END 2021-02-07 15:01 | disposition home or self-care (01) | LOC: ATC 01:28 | DX: E86.0 Dehydration (principal); I12.9 Hypertensive chronic kidney disease with stage 1 through stage 4 chronic kidney disease, or unspecified chronic kidney disease; N18.4 Chronic kidney disease, stage 4 (severe); D63.1 Anemia in chronic kidney disease; N25.81 Secondary hyperparathyroidism of renal origin | CPT/HCPCS: 96360; J1642; J7030 ==

== ENCOUNTER 2021-02-09 02:03 | Day surgery (SDC) | payer OTHER | END 2021-02-09 15:40 | disposition home or self-care (01) | LOC: ATC 02:03 | DX: E86.0 Dehydration (principal); I12.9 Hypertensive chronic kidney disease with stage 1 through stage 4 chronic kidney disease, or unspecified chronic kidney disease; N18.4 Chronic kidney disease, stage 4 (severe); D63.1 Anemia in chronic kidney disease; N25.81 Secondary hyperparathyroidism of renal origin; E87.5 Hyperkalemia | CPT/HCPCS: 96360; J1642; J7030 ==

== ENCOUNTER 2021-02-11 00:27 | Day surgery (SDC) | payer OTHER | END 2021-02-11 15:08 | disposition home or self-care (01) | LOC: ATC 00:27 | DX: E86.0 Dehydration (principal); I12.9 Hypertensive chronic kidney disease with stage 1 through stage 4 chronic kidney disease, or unspecified chronic kidney disease; N18.4 Chronic kidney disease, stage 4 (severe); D63.1 Anemia in chronic kidney disease; E78.00 Pure hypercholesterolemia, unspecified; N25.81 Secondary hyperparathyroidism of renal origin | CPT/HCPCS: 96360; J1642; J7030 ==

== ENCOUNTER 2021-02-14 02:33 | Day surgery (SDC) | payer OTHER | END 2021-02-14 14:57 | disposition home or self-care (01) | LOC: ATC 02:33 | DX: E86.0 Dehydration (principal); I12.9 Hypertensive chronic kidney disease with stage 1 through stage 4 chronic kidney disease, or unspecified chronic kidney disease; E11.22 Type 2 diabetes mellitus with diabetic chronic kidney disease; N18.4 Chronic kidney disease, stage 4 (severe); D63.1 Anemia in chronic kidney disease; N25.81 Secondary hyperparathyroidism of renal origin; D50.9 Iron deficiency anemia, unspecified; E78.00 Pure hypercholesterolemia, unspecified; E55.9 Vitamin D deficiency, unspecified; Z79.84 Long term (current) use of oral hypoglycemic drugs; Z94.0 Kidney transplant status | CPT/HCPCS: 96360; J1642; J7030 ==

== ENCOUNTER 2021-02-16 00:18 | Day surgery (SDC) | payer OTHER | END 2021-02-16 15:20 | disposition home or self-care (01) | LOC: ATC 00:18 | DX: E86.0 Dehydration (principal); I12.9 Hypertensive chronic kidney disease with stage 1 through stage 4 chronic kidney disease, or unspecified chronic kidney disease; N18.4 Chronic kidney disease, stage 4 (severe); D63.1 Anemia in chronic kidney disease; N25.81 Secondary hyperparathyroidism of renal origin; E87.70 Fluid overload, unspecified; D50.9 Iron deficiency anemia, unspecified; E78.00 Pure hypercholesterolemia, unspecified; E55.9 Vitamin D deficiency, unspecified | CPT/HCPCS: 96360; J1642; J7030 ==

== ENCOUNTER 2021-02-18 02:09 | Day surgery (SDC) | payer OTHER | END 2021-02-18 15:08 | disposition home or self-care (01) | LOC: ATC 02:09 | DX: E86.0 Dehydration (principal); I12.9 Hypertensive chronic kidney disease with stage 1 through stage 4 chronic kidney disease, or unspecified chronic kidney disease; N18.4 Chronic kidney disease, stage 4 (severe); D63.1 Anemia in chronic kidney disease; N25.81 Secondary hyperparathyroidism of renal origin; E87.70 Fluid overload, unspecified; D50.9 Iron deficiency anemia, unspecified; R80.9 Proteinuria, unspecified; E78.00 Pure hypercholesterolemia, unspecified; E87.5 Hyperkalemia; E55.9 Vitamin D deficiency, unspecified | CPT/HCPCS: 96360; J1642; J7030 ==

== ENCOUNTER 2021-02-21 02:39 | Day surgery (SDC) | payer OTHER | END 2021-02-21 15:03 | disposition home or self-care (01) | LOC: ATC 02:39 | DX: E86.0 Dehydration (principal); I12.9 Hypertensive chronic kidney disease with stage 1 through stage 4 chronic kidney disease, or unspecified chronic kidney disease; N18.4 Chronic kidney disease, stage 4 (severe); N25.81 Secondary hyperparathyroidism of renal origin; D63.1 Anemia in chronic kidney disease; E78.00 Pure hypercholesterolemia, unspecified; M85.80 Other specified disorders of bone density and structure, unspecified site; E55.9 Vitamin D deficiency, unspecified | CPT/HCPCS: 96360; J1642; J7030 ==

== ENCOUNTER 2021-02-23 00:45 | Day surgery (SDC) | payer OTHER | END 2021-02-23 15:06 | disposition home or self-care (01) | LOC: ATC 00:45 | DX: E86.0 Dehydration (principal); I12.9 Hypertensive chronic kidney disease with stage 1 through stage 4 chronic kidney disease, or unspecified chronic kidney disease; N18.4 Chronic kidney disease, stage 4 (severe); N25.81 Secondary hyperparathyroidism of renal origin; E78.00 Pure hypercholesterolemia, unspecified; M85.80 Other specified disorders of bone density and structure, unspecified site; E55.9 Vitamin D deficiency, unspecified; D63.1 Anemia in chronic kidney disease | CPT/HCPCS: 96360; J1642; J7050 ==

== ENCOUNTER 2021-02-25 00:24 | Day surgery (SDC) | payer OTHER | END 2021-02-25 16:45 | disposition home or self-care (01) | LOC: ATC 00:24 | DX: E86.0 Dehydration (principal); I12.9 Hypertensive chronic kidney disease with stage 1 through stage 4 chronic kidney disease, or unspecified chronic kidney disease; N18.4 Chronic kidney disease, stage 4 (severe); D63.1 Anemia in chronic kidney disease; N25.81 Secondary hyperparathyroidism of renal origin; Z79.899 Other long term (current) drug therapy | CPT/HCPCS: 96360; J1642; J7030 ==

== ENCOUNTER 2021-03-02 02:02 | Day surgery (SDC) | payer OTHER | END 2021-03-02 15:24 | disposition home or self-care (01) | LOC: ATC 02:02 | DX: E86.0 Dehydration (principal); I12.9 Hypertensive chronic kidney disease with stage 1 through stage 4 chronic kidney disease, or unspecified chronic kidney disease; N18.4 Chronic kidney disease, stage 4 (severe); D63.1 Anemia in chronic kidney disease; N25.81 Secondary hyperparathyroidism of renal origin; E78.00 Pure hypercholesterolemia, unspecified; M85.80 Other specified disorders of bone density and structure, unspecified site; E55.9 Vitamin D deficiency, unspecified | CPT/HCPCS: 96360; J1642; J7120 ==

== ENCOUNTER 2021-03-07 01:26 | Day surgery (SDC) | payer OTHER ==
[2021-03-07 16:28] LABS: Albumin, Blood 2.5 g/dL (3.4-5.0); Anion Gap 9 mmol/L (6-16); Blood Urea Nitrogen 53 mg/dL (8-24); Bun/Creatinine Ratio 18.7 (12.0-20.0); CO2, Blood 15 mmol/L (21-32); Calcium, Blood 8.2 mg/dL (8.5-10.1); Chloride, Blood 111 mmol/L (98-108); Creatinine, Blood 2.83 mg/dL (0.60-1.20); Glomerular Filtration Rate 23 (60-); Glucose, Blood 247 mg/dL (70-99); Phosphorus, Blood 3.1 mg/dL (2.5-4.9); Sodium, Blood 135 mmol/L (136-145)
== END 2021-03-07 15:18 | disposition home or self-care (01) ==
LOC: ATC 01:26
PROVIDERS: Internal Medicine Nephrology
DX: E86.0 Dehydration (principal); I12.9 Hypertensive chronic kidney disease with stage 1 through stage 4 chronic kidney disease, or unspecified chronic kidney disease; N18.4 Chronic kidney disease, stage 4 (severe); D63.1 Anemia in chronic kidney disease; N25.81 Secondary hyperparathyroidism of renal origin; E78.00 Pure hypercholesterolemia, unspecified
CPT/HCPCS: 80069; 85018; J1642; J7030

== ENCOUNTER 2021-03-10 15:30 | Inpatient (IN) | payer OTHER ==
[~2021-03-10] VITALS: Ht 180.3 cm; Wt 72.2 kg
[2021-03-10 16:18] LABS: Source, Urine Clean Catch
[2021-03-10 16:22] LABS: Appearance, Urine Clear (Clear); Bilirubin, Urine Neg (Neg); Blood, Urine 4+ (Neg); Color, Urine Yellow (P-Yellow); Glucose Qualitative, Urine Neg (Neg); Ketones, Urine Neg (Neg); Leukocyte Esterase, Urine Neg (Neg); Nitrite, Urine Neg (Neg); Protein, Urine 3+ (Neg); Urobilinogen, Urine NORM (Normal)
[2021-03-10 16:37] LABS: Bacteria Mod /hpf; Red Blood Cells, Urine 25-50 /hpf (0-2); Squamous Epithelial Cells Few /hpf (Few)
[2021-03-10 19:28] LABS: BASOPHILS ABSOLUTE AUTO 0.01 K/mm3 (0.00-0.23); BASOPHILS PERCENT AUTO 0 % (0-2); EOSINOPHILS ABSOLUTE AUTO 0.03 K/mm3 (0.00-0.68); EOSINOPHILS PERCENT AUTO 1 % (0-6); Hematocrit 28.9 % (37.0-53.0); Hemoglobin 8.8 g/dL (13.5-17.5); IMMATURE GRAN ABSOLUTE AUTO 0.22 K/mm3 (0.00-0.10); IMMATURE GRAN PERCENT AUTO 5 % (0-1); LYMPHOCYTES ABSOLUTE AUTO 0.54 K/mm3 (0.84-5.20); LYMPHOCYTES PERCENT AUTO 11 % (21-46); MONOCYTES ABSOLUTE AUTO 0.74 K/mm3 (0.16-1.47); MONOCYTES PERCENT AUTO 15 % (4-13); Mean Corpuscular HGB 26.9 pg (26.0-34.0); Mean Corpuscular HGB Conc 30.4 g/dL (31.5-36.5); Mean Corpuscular Volume 88 fL (80-100); Mean Platelet Volume 10.1 fL (9.1-12.4); NEUTROPHILS PERCENT AUTO 69 % (41-73); Platelet Count 250 K/mm3 (150-400); RDW Coefficient Variation 17.7 % (11.7-14.2); RDW Standard Deviation 56.2 fL (35.1-46.3); Red Blood Cell Count 3.27 M/mm3 (4.30-5.90); White Blood Cell Count 4.94 K/mm3 (4.00-11.30)
[2021-03-10 19:58] LABS: Troponin I <0.015 ng/mL (0.000-0.040)
[2021-03-10 20:19] LABS: Alanine Aminotransfer (ALT/SGP 18 U/L (12-78); Albumin, Blood 2.3 g/dL (3.4-5.0); Albumin/Globulin Ratio 0.7 (0.8-1.8); Alk Phos 90 U/L (50-136); Anion Gap 10 mmol/L (6-16); Aspartate Aminotrans (AST/SGOT 22 U/L (12-37); Bilirubin, Total 0.3 mg/dL (0.1-1.0); Blood Urea Nitrogen 53 mg/dL (8-24); Bun/Creatinine Ratio 19.1 (12.0-20.0); CO2, Blood 14 mmol/L (21-32); Calcium, Blood 8.3 mg/dL (8.5-10.1); Chloride, Blood 109 mmol/L (98-108); Creatinine, Blood 2.78 mg/dL (0.60-1.20); Globulin, Blood 3.5 g/dL (2.2-4.0); Glomerular Filtration Rate 23 (60-); Glucose, Blood 48 mg/dL (70-99); Potassium, Blood 5.3 mmol/L (3.5-5.5); Sodium, Blood 133 mmol/L (136-145); Total Protein, Blood 5.8 g/dL (6.4-8.2)
[2021-03-10] MEDS ORDERED: LOKELMA 10 GM PO (21:29)
[2021-03-10] MEDS ORDERED: TACR1 PO (21:30)
[2021-03-10] MEDS ORDERED: CLON.1 PO (21:30)
[2021-03-10] MEDS ORDERED: METO5 PO (21:31)
[2021-03-10] MEDS ORDERED: AMLODIPINE BES2.5 MG PO (21:31)
[2021-03-10] MEDS ORDERED: ALLOPURINOL100 M1 PO (21:32)
[2021-03-10] MEDS ORDERED: KLOR-CON 1010 ME1 PO (21:32)
[2021-03-10] MEDS ORDERED: AMIT50 PO (21:32)
[2021-03-10] MEDS ORDERED: GLIP5 PO (21:33)
[2021-03-10] MEDS ORDERED: LOSA50 PO (21:33)
[2021-03-10] MEDS ORDERED: GEMFIBROZIL600 MG PO (21:33)
[2021-03-10] MEDS ORDERED: GABA100 PO (21:33)
[2021-03-10] MEDS ORDERED: RAYALDEE30 MCG PO (21:34)
[2021-03-10] MEDS ORDERED: Cellcept500 MG PO (21:34)
[2021-03-10] MEDS ORDERED: OMEP20ER PO (21:34)
[2021-03-10] MEDS ORDERED: Diflucan150 MG PO (21:35)
[2021-03-10] MEDS ORDERED: PRED5 PO (21:35)
[2021-03-10] MEDS ORDERED: MERIBIN5 M1 PO (21:35)
[2021-03-10] MEDS ORDERED: HUMULIN R100 UNIT/2 SC (21:36)
[2021-03-10] MEDS ORDERED: BUMETANIDE2 M4 PO (21:36)
[2021-03-10] MEDS ORDERED: METO50 PO (21:37)
[2021-03-10] MEDS ORDERED: VITAMIN D31000 UNI1 PO (21:37)
[2021-03-10] MEDS ORDERED: BASAGLAR K100 UNIT/1 SC (21:42)
[2021-03-11 04:32] LABS: BASOPHILS ABSOLUTE AUTO 0.01 K/mm3 (0.00-0.23); BASOPHILS PERCENT AUTO 0 % (0-2); EOSINOPHILS ABSOLUTE AUTO 0.07 K/mm3 (0.00-0.68); EOSINOPHILS PERCENT AUTO 2 % (0-6); Hemoglobin 7.5 g/dL (13.5-17.5); IMMATURE GRAN ABSOLUTE AUTO 0.16 K/mm3 (0.00-0.10); IMMATURE GRAN PERCENT AUTO 4 % (0-1); LYMPHOCYTES ABSOLUTE AUTO 0.59 K/mm3 (0.84-5.20); LYMPHOCYTES PERCENT AUTO 16 % (21-46); MONOCYTES PERCENT AUTO 17 % (4-13); Mean Corpuscular HGB 26.7 pg (26.0-34.0); Mean Corpuscular Volume 89 fL (80-100); Mean Platelet Volume 10.4 fL (9.1-12.4); NEUTROPHILS ABSOLUTE AUTO 2.17 K/mm3 (1.96-9.15); NEUTROPHILS PERCENT AUTO 60 % (41-73); Platelet Count 205 K/mm3 (150-400); RDW Coefficient Variation 17.5 % (11.7-14.2); RDW Standard Deviation 56.4 fL (35.1-46.3); Red Blood Cell Count 2.81 M/mm3 (4.30-5.90)
[2021-03-11 04:49] LABS: Albumin, Blood 2.1 g/dL (3.4-5.0); Anion Gap 9 mmol/L (6-16); Blood Urea Nitrogen 51 mg/dL (8-24); Bun/Creatinine Ratio 19.4 (12.0-20.0); CO2, Blood 15 mmol/L (21-32); Calcium, Blood 7.9 mg/dL (8.5-10.1); Chloride, Blood 113 mmol/L (98-108); Creatinine, Blood 2.63 mg/dL (0.60-1.20); Glomerular Filtration Rate 25 (60-); Glucose, Blood 59 mg/dL (70-99); Magnesium, Blood 1.3 mg/dL (1.6-2.4); Phosphorus, Blood 3.2 mg/dL (2.5-4.9); Sodium, Blood 137 mmol/L (136-145)
--- NOTE | 2021-03-11 07:10 | NUR ---
SHIFT SUMMARY PT WAS A NEW ADMIT DURING THE NIGHT, ADMITTED FOR FEVER OF UNKNOWN ETIOLOGY. HE IS A&O X 3, FORGETFUL AT TIMES. NAVARRETE IN PLACE, PATENT AND DRAINING. PT HAS A HX OF KIDNEY TRANSPLANT IN 1997, CURRENTLY ON IMMUNOSUPPRESSANTS. NO C/O ACUTE PAIN, NAUSEA OR SOB. BLOOD SUGARS THIS AM WERE BETWEEN 60-80. PT WAS GIVEN PO JUICE AND ICE CREAM, AND IS CURRENTLY ON D5 + NS @ 125 ML/HR. NO OTHER ACUTE CHANGES IN PT CONDITION NOTED SINCE ADMISSION. WILL CONTINUE TO MONITOR AND TREAT PER EMAR UNTIL HAND OFF TO DAY SHIFT RN.
[2021-03-11 10:37] LABS: Campylobacter Sp Not Detected (NOT DETECT); Enteroaggregative E. coli-EAEC Not Detected (NOT DETECT); Plesiomonas Shigelloides Not Detected (NOT DETECT); Salmonella Sp Not Detected (NOT DETECT); Vibrio Cholerae Not Detected (NOT DETECT); Vibrio Sp Not Detected (NOT DETECT); Yersinia Enterocolitica Not Detected (NOT DETECT)
[2021-03-11 10:38] LABS: Adenovirus F 40/41 Not Detected (NOT DETECT); Astrovirus Not Detected (NOT DETECT); Cryptosporidium Not Detected (NOT DETECT); Cyclospora Cayetanensis Not Detected (NOT DETECT); E. Coli O157 Not Detected (NOT DETECT); Entamoeba Histolytica Not Detected (NOT DETECT); Enteropathogenic E. coli-EPEC Not Detected (NOT DETECT); Enterotoxigenic E. coli-ETEC Not Detected (NOT DETECT); Giardia Lamblia Not Detected (NOT DETECT); Norovirus GI/GII Detected (NOT DETECT); Rotavirus A Not Detected (NOT DETECT); Sapovirus Not Detected (NOT DETECT); Shiga Toxin-prod E. coli-STEC Not Detected (NOT DETECT); Shigella/Enteroin E. coli-EIEC Not Detected (NOT DETECT)
--- NOTE | 2021-03-11 11:05 | NUR ---
Palliative care consult: Kirill is a 61 year old with a history of HTN, kidney transplant in 1997, HLD, DM type 2, chronic pain, migraines, anxiety, depression, sleep apnea, osteoporosis, arthritis. He was admitted to [facility] today with a fever of unknown origin. He GFR today is 25. Of note, his GFR since June 2020 has been between 19-31. Kirill is pale, shivering and is having low blood sugars. Last CBG is 59. He reports weakness, fatigue, falls. Explained the process to get results on blood cultures and answered questions. Kirill reports he lives with his mother. He denies having an AD, he reports he has a POLST form but doesn't remember everything that is marked on it. Discussed options for care going forward. At this time, Kirill would like to remain a full code. He is open to restarting HD is necessary (He was on HD for a time prior to his kidney transplant in 1997) and he would be interested in seeing if he could qualify for another kidney transplant if the current kidney he has continues to decline in function. Nursing has been encouraging snacks this morning to increase his blood sugar. Pt requested lemonade, this was given to him. Warm blankets provided as well as he was afebrile at the time of the visit. Spoke with hogshead press operator who will review chart and make recommendations for oral supplements to help stabilize his blood sugars that are allowed within his dietary restrictions (renal diet, lactose intolerant.) Would be helpful to have MD or pharmacist review his home medication list as pt takes a large amount of medications. PC to continue to follow.
[2021-03-11 12:13] LABS: Vancomycin, Random 5.9 ug/mL
--- NOTE | 2021-03-11 17:52 | NUR ---
PT IS AO BUT FORGETFUL AT TIMES, PT HAD A KIDNEY TRANSPLANT ABOUT 10-15 YEARS AGO.PT WAS ADMITED FOR HYPOGYCEMIA,COME ON SHIFT THIS AM PT BS WAS 32 GAVE TP SOME JUICES AND CRACKER PT BS WENT TO 60,PT HAVE 10% DEXTROSE RUNNING AT 100ML/HRPT HEMOGLOBIN IS LOW,PT USED TO HAVE AN OLD FISTULA IN THE RIGHT ARM,PT HAD A FEVER 103.1 TYLENOL GIVEN RECHECK WAS 101.1,PT BS BEEN STAYING IN THE LOW SIDE T/O SHIFT,PT HAD A COUPLE BM T/O SHIFT,PT HAVE A NAVARRETE CATHETER INSERTED,PT IS A Q2 HR BLOOD SUGAR CHECK.PT IS IN BED,BED IN LOW POSITION, CALL WITHIN REACH WILL CONTINUE TO MONITOR.
--- NOTE | 2021-03-11 20:33 | NUR ---
1939 BLOOD SUGAR OF 71. SNACKS GIVEN. DEXTROSE 10% CONTINUES TO BE INFUSING.
--- NOTE | 2021-03-12 04:41 | NUR ---
DENTAL AMALGAM PROCESSOR SUMMARY PT A/OX4, SLEPT WELL TONIGHT. PT HAS BEEN FEBRILE OVERNIGHT WITH CHILLS. HIGHEST TEMP REACHED OVERNIGHT WAS 102.6F VIA ORAL. PT GIVEN TYLENOL AND NON-PHARMACOLOGICAL INTERVENTIONS SUCH ICE PACKS TO AXILLARY, COOL WASHCLOTH TO FOREHEAD AND BEDSIDE FAN PROVIDED. AFEBRILE THIS AM. OTHER VITALS STABLE. NAVARRETE PATENT AND DRAINING TEA COLORED/VIRY COLORED URINE WITH SEDIMENTS. BLOOD SUGAR IN AVG 80'S. SNACKS GIVEN EARLY ON IN THE NIGHT WHILE PT WAS AWAKE. CONTINUOUS DEXTROSE 10% INFUSING. CALL LIGHT WITHIN REACH, WILL CONTINUE TO MONITOR.
[2021-03-12 04:55] LABS: BASOPHILS ABSOLUTE AUTO 0.02 K/mm3 (0.00-0.23); BASOPHILS PERCENT AUTO 1 % (0-2); EOSINOPHILS ABSOLUTE AUTO 0.04 K/mm3 (0.00-0.68); EOSINOPHILS PERCENT AUTO 1 % (0-6); Hematocrit 25.7 % (37.0-53.0); Hemoglobin 7.7 g/dL (13.5-17.5); IMMATURE GRAN ABSOLUTE AUTO 0.19 K/mm3 (0.00-0.10); IMMATURE GRAN PERCENT AUTO 6 % (0-1); LYMPHOCYTES ABSOLUTE AUTO 0.53 K/mm3 (0.84-5.20); LYMPHOCYTES PERCENT AUTO 16 % (21-46); MONOCYTES ABSOLUTE AUTO 0.59 K/mm3 (0.16-1.47); MONOCYTES PERCENT AUTO 18 % (4-13); Mean Corpuscular HGB 27.1 pg (26.0-34.0); Mean Corpuscular Volume 91 fL (80-100); Mean Platelet Volume 10.6 fL (9.1-12.4); NEUTROPHILS PERCENT AUTO 58 % (41-73); Platelet Count 199 K/mm3 (150-400); RDW Coefficient Variation 17.7 % (11.7-14.2); RDW Standard Deviation 57.8 fL (35.1-46.3); Red Blood Cell Count 2.84 M/mm3 (4.30-5.90); White Blood Cell Count 3.27 K/mm3 (4.00-11.30)
[2021-03-12 05:20] LABS: BAND PERCENT MAN 2 % (0-8); BASOPHILS PERCENT MAN 0 % (0-2); EOSINOPHILS PERCENT MAN 0 % (0-6); LYMPHOCYTES ABSOLUTE MAN 0.35 K/mm3 (0.84-5.20); LYMPHOCYTES PERCENT MAN 11 % (21-46); METAMYELOCYTE ABSOLUTE MAN 0.03 K/mm3 (0.00-0.00); METAMYELOCYTE PERCENT MAN 1 % (0-0); MONOCYTES ABSOLUTE MAN 0.16 K/mm3 (0.16-1.47); MONOCYTES PERCENT MAN 5 % (4-13); NEUTROPHILS ABSOLUTE MAN 2.71 K/mm3 (1.96-9.15); SEG NEUTROPHILS PERCENT MAN 81 % (41-73); TOTAL CELLS COUNTED 100
[2021-03-12 05:26] LABS: Albumin, Blood 1.9 g/dL (3.4-5.0); Anion Gap 8 mmol/L (6-16); Blood Urea Nitrogen 42 mg/dL (8-24); CO2, Blood 14 mmol/L (21-32); Calcium, Blood 7.8 mg/dL (8.5-10.1); Chloride, Blood 115 mmol/L (98-108); Creatinine, Blood 2.21 mg/dL (0.60-1.20); Glomerular Filtration Rate 31 (60-); Glucose, Blood 87 mg/dL (70-99); Magnesium, Blood 1.5 mg/dL (1.6-2.4); Phosphorus, Blood 2.6 mg/dL (2.5-4.9); Potassium, Blood 5.4 mmol/L (3.5-5.5); Sodium, Blood 137 mmol/L (136-145); Vancomycin, Random 13.1 ug/mL
--- NOTE | 2021-03-12 15:29 | NUR ---
SHIFT SUMMARY PATIENT HAD A UNEVENTFUL SHIFT. BLOOD SUGAR INCREASED AFTER STARTING BICARB. LATES BLOOD SUGAR WAS 304 DR HAM NOTIFIED AND ORDERS RECIEVED. PATIENT AMBULATED TO BATHROOM WITH ONE ASSIST. NO COMPLAINT OF PAIN. WILL OCNTINUE TO MONITOR.
--- NOTE | 2021-03-13 02:48 | NUR ---
CALL TO PHYSICIAN PLACED PHONE CALL TO DR. VELIZ. PT WITH CONSECUTIVELY HIGH BLOOD SUGARS, [phone], [phone]. WITH ORDERS FOR INSULIN COVERAGE - MEDIUM SLIDING SCALE.
[2021-03-13 05:02] LABS: BASOPHILS ABSOLUTE AUTO 0.01 K/mm3 (0.00-0.23); BASOPHILS PERCENT AUTO 0 % (0-2); EOSINOPHILS ABSOLUTE AUTO 0.06 K/mm3 (0.00-0.68); EOSINOPHILS PERCENT AUTO 2 % (0-6); Hematocrit 23.9 % (37.0-53.0); Hemoglobin 7.2 g/dL (13.5-17.5); IMMATURE GRAN ABSOLUTE AUTO 0.15 K/mm3 (0.00-0.10); IMMATURE GRAN PERCENT AUTO 5 % (0-1); LYMPHOCYTES ABSOLUTE AUTO 0.45 K/mm3 (0.84-5.20); LYMPHOCYTES PERCENT AUTO 16 % (21-46); MONOCYTES ABSOLUTE AUTO 0.43 K/mm3 (0.16-1.47); MONOCYTES PERCENT AUTO 15 % (4-13); Mean Corpuscular HGB 27.1 pg (26.0-34.0); Mean Corpuscular HGB Conc 30.1 g/dL (31.5-36.5); Mean Corpuscular Volume 90 fL (80-100); NEUTROPHILS ABSOLUTE AUTO 1.75 K/mm3 (1.96-9.15); NEUTROPHILS PERCENT AUTO 61 % (41-73); Platelet Count 189 K/mm3 (150-400); RDW Coefficient Variation 17.3 % (11.7-14.2); Red Blood Cell Count 2.66 M/mm3 (4.30-5.90); White Blood Cell Count 2.85 K/mm3 (4.00-11.30)
[2021-03-13 05:28] LABS: Albumin, Blood 1.9 g/dL (3.4-5.0); Anion Gap 5 mmol/L (6-16); BAND PERCENT MAN 3 % (0-8); BASOPHILS PERCENT MAN 0 % (0-2); Blood Urea Nitrogen 38 mg/dL (8-24); Bun/Creatinine Ratio 18.4 (12.0-20.0); CO2, Blood 21 mmol/L (21-32); Calcium, Blood 7.6 mg/dL (8.5-10.1); Chloride, Blood 110 mmol/L (98-108); Creatinine, Blood 2.06 mg/dL (0.60-1.20); EOSINOPHILS ABSOLUTE MAN 0.11 K/mm3 (0.00-0.68); EOSINOPHILS PERCENT MAN 4 % (0-6); Glomerular Filtration Rate 33 (60-); Glucose, Blood 339 mg/dL (70-99); LYMPHOCYTES ABSOLUTE MAN 0.42 K/mm3 (0.84-5.20); LYMPHOCYTES PERCENT MAN 15 % (21-46); MONOCYTES ABSOLUTE MAN 0.25 K/mm3 (0.16-1.47); MONOCYTES PERCENT MAN 9 % (4-13); Magnesium, Blood 1.3 mg/dL (1.6-2.4); NEUTROPHILS ABSOLUTE MAN 2.05 K/mm3 (1.96-9.15); Phosphorus, Blood 2.4 mg/dL (2.5-4.9); SEG NEUTROPHILS PERCENT MAN 69 % (41-73); Sodium, Blood 136 mmol/L (136-145); TOTAL CELLS COUNTED 100; Vancomycin, Random 17.6 ug/mL
--- NOTE | 2021-03-13 07:56 | NUR ---
SHIFT [place] PT SLEPT REASONABLY WELL, C/O SORE THROAT AND SHOULDER PAIN WHICH HE RECEIVED PRN CEPACOL AND PRN TYLENOL. PT WAS ABLE TO SLEEP AFTER THAT. VSS. BED IN LOWEST POSITION, CALL LIGHT WITHIN REACH. NAVARRETE IN PLACE, DRAINING JOSE URINE WITH SEDIMENT.
--- NOTE | 2021-03-13 17:18 | NUR ---
SHIFT SUMMARY THE PATIENT IS ALERT AND ORIENTED BUT CAN BECOME CONFUSED AT TIMES. NO ACUTE CHANGES THIS SHIFT. VITAL SIGNS STABLE.
[2021-03-14 05:14] LABS: Hematocrit 21.9 % (37.0-53.0); Hemoglobin 6.5 g/dL (13.5-17.5); Mean Corpuscular HGB 26.9 pg (26.0-34.0); Mean Corpuscular HGB Conc 29.7 g/dL (31.5-36.5); Mean Corpuscular Volume 91 fL (80-100); Mean Platelet Volume 10.4 fL (9.1-12.4); Platelet Count 181 K/mm3 (150-400); RDW Coefficient Variation 17.2 % (11.7-14.2); RDW Standard Deviation 56.6 fL (35.1-46.3); Red Blood Cell Count 2.42 M/mm3 (4.30-5.90); White Blood Cell Count 2.58 K/mm3 (4.00-11.30)
[2021-03-14 05:41] LABS: Albumin, Blood 1.8 g/dL (3.4-5.0); Anion Gap 6 mmol/L (6-16); Blood Urea Nitrogen 33 mg/dL (8-24); Bun/Creatinine Ratio 16.9 (12.0-20.0); CO2, Blood 21 mmol/L (21-32); Calcium, Blood 7.7 mg/dL (8.5-10.1); Chloride, Blood 111 mmol/L (98-108); Creatinine, Blood 1.95 mg/dL (0.60-1.20); Glomerular Filtration Rate 35 (60-); Glucose, Blood 275 mg/dL (70-99); Magnesium, Blood 1.4 mg/dL (1.6-2.4); Phosphorus, Blood 2.9 mg/dL (2.5-4.9); Potassium, Blood 4.7 mmol/L (3.5-5.5); Sodium, Blood 138 mmol/L (136-145); Vancomycin, Random 20.7 ug/mL
[2021-03-14 08:52] LABS: Percent Saturation 15.3 % (20.0-50.0)
[2021-03-14 12:45] LABS: Stool Occult Bld Immuno 1 Positive (NEGATIVE)
--- NOTE | 2021-03-14 18:51 | NUR ---
SHIFT SUMMARY PT AAOX4, ABLE TO MAKE NEEDS KNOWN, FORGETFUL AT TIMES. PLEASANT AND COOPERATIVE TO CARE. NO C/O PAIN OR ANY DISCOMFORT THIS SHIFT. DENIES CP, SOB, OR N&V. PT RECEIVED 2 UNITS OF PRBC THIS SHIFT ORDERED. NO ASE NOTED, VSS. PT DENIES ANY DISCOMFORT OR ACUTE CHANGES DURING AND AFTER INFUSION, LSCTA. PT TO BE NPO AT MIDNIGHT ORDERED BY DR. PEREZ. PT REQUIRES 1P ASSIST WITH TRANSFERS. BED AT LOWEST POSITION. CALL LIGHT WITHIN REACH.
[2021-03-15 05:13] LABS: Hematocrit 30.4 % (37.0-53.0); Hemoglobin 9.5 g/dL (13.5-17.5); Mean Corpuscular HGB Conc 31.3 g/dL (31.5-36.5); Mean Corpuscular Volume 90 fL (80-100); Mean Platelet Volume 9.3 fL (9.1-12.4); Platelet Count 186 K/mm3 (150-400); RDW Coefficient Variation 16.2 % (11.7-14.2); RDW Standard Deviation 53.1 fL (35.1-46.3); Red Blood Cell Count 3.39 M/mm3 (4.30-5.90); White Blood Cell Count 3.05 K/mm3 (4.00-11.30)
--- NOTE | 2021-03-15 05:47 | NUR ---
SHIFT SUMMARY FULL CODE PT ADMITTED FOR [facility]OVIR[facility]. IN CONTACT ISOLATION. AAOX4. NO SIGNIFICANT CHANGES DURING THIS SHIFT. ABLE TO MAKE NEEDS KNOWN.
[2021-03-15 05:57] LABS: Anion Gap 7 mmol/L (6-16); Blood Urea Nitrogen 27 mg/dL (8-24); Bun/Creatinine Ratio 15.3 (12.0-20.0); CO2, Blood 24 mmol/L (21-32); Calcium, Blood 8.2 mg/dL (8.5-10.1); Chloride, Blood 109 mmol/L (98-108); Creatinine, Blood 1.77 mg/dL (0.60-1.20); Glomerular Filtration Rate 39 (60-); Glucose, Blood 131 mg/dL (70-99); Magnesium, Blood 1.3 mg/dL (1.6-2.4); Phosphorus, Blood 2.4 mg/dL (2.5-4.9); Potassium, Blood 4.4 mmol/L (3.5-5.5); Sodium, Blood 140 mmol/L (136-145)
[2021-03-15] MEDS ORDERED: HUMULIN R100 UNIT/2 SC (12:38)
--- NOTE | 2021-03-15 15:48 | NUR ---
DISCHARGE PATIENT TRANSPORTED VIA WHEELCHAIR TO PRIVATE VEHICLE. DISCHARGE MEDICATIONS AND INSTRUCTIONS EXPLAINED TO PATIENT. PATIENT STATED UNDERSTANDING. DISCHARGE PACKET SENT WITH PATIENT. BELONGINGS SENT WITH PATIENT. IV REMOVED WITHOUT DIFFICULTY. MEDIPORT DEACCESSED WITHOUT DIFFICULTY. MEDICATIONS FAXED TO PREFERRED PHARMACY.
== END 2021-03-15 15:43 | disposition home or self-care (01) | DRG 871 ==
LOC: ER 15:30 → MEDS 23:36
PROVIDERS: Emergency Medicine Emergency Medical Services; Family Medicine; Internal Medicine; Internal Medicine Nephrology; ADMIT Internal Medicine
PROC: 30233N1 Transfusion of Nonautologous Red Blood Cells into Peripheral Vein, Percutaneous Approach (ICD-10-PCS; principal; 2021-03-14)
DX: A41.89 Other specified sepsis (principal); G92 Toxic encephalopathy; N17.9 Acute kidney failure, unspecified; N18.4 Chronic kidney disease, stage 4 (severe); E87.2 Acidosis; A08.11 Acute gastroenteropathy due to Norwalk agent; N25.81 Secondary hyperparathyroidism of renal origin; E87.1 Hypo-osmolality and hyponatremia; T86.19 Other complication of kidney transplant; F32.9 Major depressive disorder, single episode, unspecified; D64.9 Anemia, unspecified; E11.22 Type 2 diabetes mellitus with diabetic chronic kidney disease; G47.33 Obstructive sleep apnea (adult) (pediatric); E78.5 Hyperlipidemia, unspecified; F41.9 Anxiety disorder, unspecified; Z90.49 Acquired absence of other specified parts of digestive tract; Z79.899 Other long term (current) drug therapy; Z79.4 Long term (current) use of insulin; E11.649 Type 2 diabetes mellitus with hypoglycemia without coma; I12.9 Hypertensive chronic kidney disease with stage 1 through stage 4 chronic kidney disease, or unspecified chronic kidney disease; E87.5 Hyperkalemia; E83.39 Other disorders of phosphorus metabolism; E88.09 Other disorders of plasma-protein metabolism, not elsewhere classified; E83.42 Hypomagnesemia; M81.0 Age-related osteoporosis without current pathological fracture; E11.65 Type 2 diabetes mellitus with hyperglycemia; Z91.013 Allergy to seafood; G43.909 Migraine, unspecified, not intractable, without status migrainosus; G89.4 Chronic pain syndrome; M19.90 Unspecified osteoarthritis, unspecified site
CPT/HCPCS: 0097U; 36415; 36430; 51702; 70450; 71045; 71046; 73200; 74176; 80053; 80069; 80202; 81001; 82274; 82607; 82728; 82746; 82947; 83036; 83540; 83550; 83605; 83690; 83735; 84145; 84484; 85025; 85027; 85651; 86140; 86644; 86645; 86850; 86900; 86901; 86923; 87040; 87086; 87496; 93005; 93010; 96365-59; 96368; 96375-59; 99284-25; A9270; J0696; J0881; J1642; J1644; J1815; J2543; J3370; J3475; J7030; J7040; J7042; J7060; J7070; J7507; J7512; J7517; P9016

== ENCOUNTER 2021-03-18 11:57 | Day surgery (SDC) | payer OTHER ==
[~2021-03-18 11:57] MED LIST changes: +ALLOPURINOL100 M1 PO; +AMLODIPINE BES2.5 MG PO; +BUMETANIDE2 M4 PO; +Diflucan150 MG PO; +GEMFIBROZIL600 MG PO; +HUMULIN R100 UNIT/2 SC; +KLOR-CON 1010 ME1 PO; +LOKELMA 10 GM PO; +MERIBIN5 M1 PO; +VITAMIN D31000 UNI1 PO
[2021-03-18 16:02] LABS: BASOPHILS ABSOLUTE AUTO 0.01 K/mm3 (0.00-0.23); BASOPHILS PERCENT AUTO 0 % (0-2); EOSINOPHILS ABSOLUTE AUTO 0.11 K/mm3 (0.00-0.68); EOSINOPHILS PERCENT AUTO 4 % (0-6); Hematocrit 26.7 % (37.0-53.0); Hemoglobin 8.1 g/dL (13.5-17.5); IMMATURE GRAN ABSOLUTE AUTO 0.05 K/mm3 (0.00-0.10); IMMATURE GRAN PERCENT AUTO 2 % (0-1); LYMPHOCYTES ABSOLUTE AUTO 0.43 K/mm3 (0.84-5.20); LYMPHOCYTES PERCENT AUTO 16 % (21-46); MONOCYTES ABSOLUTE AUTO 0.47 K/mm3 (0.16-1.47); MONOCYTES PERCENT AUTO 17 % (4-13); Mean Corpuscular HGB 28.2 pg (26.0-34.0); Mean Corpuscular HGB Conc 30.3 g/dL (31.5-36.5); Mean Corpuscular Volume 93 fL (80-100); Mean Platelet Volume 10.2 fL (9.1-12.4); NEUTROPHILS ABSOLUTE AUTO 1.64 K/mm3 (1.96-9.15); NEUTROPHILS PERCENT AUTO 61 % (41-73); Platelet Count 150 K/mm3 (150-400); RDW Standard Deviation 54.4 fL (35.1-46.3); Red Blood Cell Count 2.87 M/mm3 (4.30-5.90); White Blood Cell Count 2.71 K/mm3 (4.00-11.30)
[2021-03-18 16:22] LABS: Albumin, Blood 1.7 g/dL (3.4-5.0); Albumin/Globulin Ratio 0.6 (0.8-1.8); Alk Phos 71 U/L (50-136); Anion Gap 6 mmol/L (6-16); Aspartate Aminotrans (AST/SGOT 16 U/L (12-37); Bilirubin, Direct 0.1 mg/dL (0.0-0.3); Bilirubin, Indirect 0.2 mg/dL (0.1-0.7); Bilirubin, Total 0.3 mg/dL (0.1-1.0); Blood Urea Nitrogen 33 mg/dL (8-24); Bun/Creatinine Ratio 15.9 (12.0-20.0); CO2, Blood 19 mmol/L (21-32); Calcium, Blood 8.1 mg/dL (8.5-10.1); Chloride, Blood 112 mmol/L (98-108); Creatinine, Blood 2.08 mg/dL (0.60-1.20); Globulin, Blood 2.8 g/dL (2.2-4.0); Glomerular Filtration Rate 33 (60-); Glucose, Blood 103 mg/dL (70-99); Magnesium, Blood 1.4 mg/dL (1.6-2.4); Phosphorus, Blood 3.1 mg/dL (2.5-4.9); Potassium, Blood 4.4 mmol/L (3.5-5.5); Sodium, Blood 137 mmol/L (136-145); Total Protein, Blood 4.5 g/dL (6.4-8.2)
[2021-03-18 16:32] LABS: Alanine Aminotransfer (ALT/SGP 17 U/L (12-78)
[2021-03-22 18:10] LABS: BK QUANTITATION PCR Negative (Negative)
== END 2021-03-18 15:50 | disposition home or self-care (01) ==
LOC: ATC 11:57
PROVIDERS: Internal Medicine Nephrology
DX: E86.0 Dehydration (principal)
CPT/HCPCS: 80076; 80197; 83735; 84100; 85025; 96360; J1642; J7030

== ENCOUNTER 2021-03-21 06:25 | Inpatient (IN) | payer OTHER ==
[~2021-03-21] VITALS: Ht 180.3 cm; Wt 81.7 kg
[2021-03-21 07:39] LABS: BASOPHILS ABSOLUTE AUTO 0.02 K/mm3 (0.00-0.23); BASOPHILS PERCENT AUTO 0 % (0-2); EOSINOPHILS ABSOLUTE AUTO 0.04 K/mm3 (0.00-0.68); EOSINOPHILS PERCENT AUTO 1 % (0-6); Hematocrit 25.9 % (37.0-53.0); Hemoglobin 7.7 g/dL (13.5-17.5); IMMATURE GRAN ABSOLUTE AUTO 0.08 K/mm3 (0.00-0.10); IMMATURE GRAN PERCENT AUTO 2 % (0-1); LYMPHOCYTES PERCENT AUTO 13 % (21-46); MONOCYTES ABSOLUTE AUTO 0.57 K/mm3 (0.16-1.47); MONOCYTES PERCENT AUTO 11 % (4-13); Mean Corpuscular HGB 27.9 pg (26.0-34.0); Mean Corpuscular HGB Conc 29.7 g/dL (31.5-36.5); Mean Corpuscular Volume 94 fL (80-100); Mean Platelet Volume 11.2 fL (9.1-12.4); NEUTROPHILS ABSOLUTE AUTO 3.99 K/mm3 (1.96-9.15); NEUTROPHILS PERCENT AUTO 74 % (41-73); Platelet Count 172 K/mm3 (150-400); RDW Coefficient Variation 16.3 % (11.7-14.2); RDW Standard Deviation 56.7 fL (35.1-46.3); Red Blood Cell Count 2.76 M/mm3 (4.30-5.90)
[2021-03-21] MEDS ORDERED: AMOCLA500 PO (07:46)
[2021-03-21 07:48] LABS: Albumin, Blood 1.5 g/dL (3.4-5.0); Albumin/Globulin Ratio 0.5 (0.8-1.8); Bilirubin, Total 0.3 mg/dL (0.1-1.0); Bun/Creatinine Ratio 14.8 (12.0-20.0); Calcium, Blood 6.8 mg/dL (8.5-10.1); Creatinine, Blood 2.7 mg/dL (0.60-1.20); Potassium, Blood 4.2 mmol/L (3.5-5.5); Total Protein, Blood 4.5 g/dL (6.4-8.2)
[2021-03-21] MEDS ORDERED: METO5 PO (07:48)
[2021-03-21] MEDS ORDERED: LOSA50 PO (07:49)
[2021-03-21] MEDS ORDERED: GLIP5 PO (07:49)
[2021-03-21 09:39] LABS: Source, Urine Clean Catch
[2021-03-21 09:42] LABS: Appearance, Urine Clear (Clear); Bilirubin, Urine Neg (Neg); Blood, Urine 1+ (Neg); Color, Urine Yellow (P-Yellow); Glucose Qualitative, Urine Neg (Neg); Ketones, Urine Neg (Neg); Leukocyte Esterase, Urine 1+ (Neg); Nitrite, Urine Neg (Neg); Protein, Urine 4+ (Neg); Specific Gravity, Urine 1.015 (1.003-1.022); Urobilinogen, Urine NORM (Normal)
[2021-03-21 10:01] LABS: Squamous Epithelial Cells Not Seen /hpf (Few)
[2021-03-21 10:10] LABS: Hyaline Casts 0-2 /lpf (0-2)
[2021-03-21 10:14] LABS: Bacteria Few /hpf
[2021-03-21] MEDS ORDERED: MAG6464 MG PO (13:20)
[2021-03-21] MEDS ORDERED: CLON.1 PO (13:22)
[2021-03-21] MEDS ORDERED: FLUT.05NI (13:22)
[2021-03-21] MEDS ORDERED: SILDENAFIL CITR50 MG PO (13:25)
[2021-03-21 15:20] LABS: Base Excess Venous -11.8 mmol/L; Bicarbonate Venous 15.9 mmol/L (24.0-30.0); PCO2 Venous 25.5 mmHg (38-42); PO2 Venous 75.7 mmHg (38-42); pH Blood Venous 7.34 (7.34-7.37)
[2021-03-21 15:44] LABS: Hematocrit 27.9 % (37.0-53.0); Hemoglobin 8.4 g/dL (13.5-17.5)
[2021-03-21 18:37] LABS: Adenovirus Not Detected (NOT DETECT); Coronavirus 229E Not Detected (NOT DETECT); Coronavirus HKU1 Not Detected (NOT DETECT); Coronavirus NL63 Not Detected (NOT DETECT); Coronavirus OC43 Not Detected (NOT DETECT); Human Metapneumovirus Not Detected (NOT DETECT); Human Rhinovirus/Enterovirus Detected (NOT DETECT); SARS-Cov-2 (COVID-19), BioFire Not Detected (NOT DETECT)
[2021-03-21 18:38] LABS: Bordetella pertussis Not Detected (NOT DETECT); Chlamydophila pneumoniae Not Detected (NOT DETECT); Influenza A/2009-H1 Not Detected (NOT DETECT); Influenza A/H1 Not Detected (NOT DETECT); Influenza A/H3 Not Detected (NOT DETECT); Influenza B Not Detected (NOT DETECT); Mycoplasma pneumoniae Not Detected (NOT DETECT); Parainfluenza Virus 1 Not Detected (NOT DETECT); Parainfluenza Virus 2 Not Detected (NOT DETECT); Parainfluenza Virus 3 Not Detected (NOT DETECT); Parainfluenza Virus 4 Not Detected (NOT DETECT); Respiratory Syncytial Virus Not Detected (NOT DETECT)
--- NOTE | 2021-03-21 20:06 | NUR ---
1545 PT ADMITTED TO ROOM 338 FROM THE ED. TX GOURNEY TO BED SLIDE. PT ALERE AND ORIENTED, SHIVERING AND STATES CHILLS. ORIENTED TO ROOM AND SET UP AND SAFETY TO USE CALL LIGHT.
--- NOTE | 2021-03-22 07:23 | NUR ---
PT WAS A&0X4. LUNGS CLEAR ON ALL GRIFFIN. BLE +2 PITTING EDEMA NOTED, PT ENCOURAGED TO ELEVATE FEET.PT C/O HEADACHE 01/01, TYLENOL 650MG ADMINISTERED. PT TOLERATED WELL. PT TEMP WITHIN NORMAL LIMIT.
[2021-03-22 10:59] LABS: BASOPHILS ABSOLUTE AUTO 0.02 K/mm3 (0.00-0.23); BASOPHILS PERCENT AUTO 0 % (0-2); EOSINOPHILS ABSOLUTE AUTO 0.06 K/mm3 (0.00-0.68); EOSINOPHILS PERCENT AUTO 1 % (0-6); Hemoglobin 8.2 g/dL (13.5-17.5); IMMATURE GRAN ABSOLUTE AUTO 0.07 K/mm3 (0.00-0.10); IMMATURE GRAN PERCENT AUTO 2 % (0-1); LYMPHOCYTES ABSOLUTE AUTO 0.62 K/mm3 (0.84-5.20); LYMPHOCYTES PERCENT AUTO 13 % (21-46); MONOCYTES ABSOLUTE AUTO 0.69 K/mm3 (0.16-1.47); MONOCYTES PERCENT AUTO 15 % (4-13); Mean Corpuscular HGB 28.3 pg (26.0-34.0); Mean Corpuscular HGB Conc 31.5 g/dL (31.5-36.5); Mean Corpuscular Volume 90 fL (80-100); Mean Platelet Volume 11.3 fL (9.1-12.4); NEUTROPHILS ABSOLUTE AUTO 3.15 K/mm3 (1.96-9.15); NEUTROPHILS PERCENT AUTO 68 % (41-73); Platelet Count 226 K/mm3 (150-400); RDW Coefficient Variation 16.1 % (11.7-14.2); RDW Standard Deviation 53.3 fL (35.1-46.3); White Blood Cell Count 4.61 K/mm3 (4.00-11.30)
[2021-03-22 11:21] LABS: Albumin, Blood 1.5 g/dL (3.4-5.0); Albumin/Globulin Ratio 0.5 (0.8-1.8); Bilirubin, Total 0.4 mg/dL (0.1-1.0); Bun/Creatinine Ratio 15.9 (12.0-20.0); Calcium, Blood 7.7 mg/dL (8.5-10.1); Creatinine, Blood 2.7 mg/dL (0.60-1.20); Globulin, Blood 3.2 g/dL (2.2-4.0); Magnesium, Blood 1.6 mg/dL (1.6-2.4); Phosphorus, Blood 2.8 mg/dL (2.5-4.9); Potassium, Blood 4.4 mmol/L (3.5-5.5); Total Protein, Blood 4.7 g/dL (6.4-8.2)
--- NOTE | 2021-03-22 20:35 | NUR ---
SUMM- PT ALERT AND ORIENTED, VSS AFIBRILE TODAY. HAS STOPPED SHIVERING, STATES HE FEELS MUCH BETTER THAN YESTERDAY WHEN I ADMITTED HIM. IVF INFUSING TURNED RATE DOWN PER MD ORDER. CONT WITH ABX TX. HEADACHE CONTROLLED WITH TYLENOL AND CHRONIC SHOULDER PAIN. PT GETS UP TO BSC SBA GOOD STRENGTH. USES CALL LIGHT. USES URINAL. TOLERATING FOOD AND FLUIDS. LABS IMPROVING.
--- NOTE | 2021-03-23 05:06 | NUR ---
at 0457 patient noted to be confused to place, repeating statements, wondering why items have been moved from his room. VS stable on RA, BG currently 237, no complaints of chest pain, pupils PERRLA, sports lawyer equal and strong, able to ambulate with a steady gait. Paged at [phone] awaiting call back.
[2021-03-23 05:17] LABS: Hematocrit 25.6 % (37.0-53.0)
[2021-03-23 05:54] LABS: Albumin, Blood 1.5 g/dL (3.4-5.0); Anion Gap 9 mmol/L (6-16); Blood Urea Nitrogen 41 mg/dL (8-24); Bun/Creatinine Ratio 16.9 (12.0-20.0); CO2, Blood 23 mmol/L (21-32); Calcium, Blood 7.4 mg/dL (8.5-10.1); Chloride, Blood 98 mmol/L (98-108); Creatinine, Blood 2.43 mg/dL (0.60-1.20); Glomerular Filtration Rate 27 (60-); Glucose, Blood 255 mg/dL (70-99); Magnesium, Blood 1.7 mg/dL (1.6-2.4); Sodium, Blood 130 mmol/L (136-145)
--- NOTE | 2021-03-23 06:15 | NUR ---
PATIENT SUMMARY PATIENT IS ALERT AND ORIENTED X3-4. PATIENT HAD ONE EPISODE MY SHIFT WHERE HE BECAME CONFUSED AND DID NOT KNOW WHY HE WAS IN THE HOSPITAL OR WHERE HE WAS. OTHER NUROLOGICAL ASSESMENTS REMAINED INTACT. MD MADE AWARE. NO COMPLAINTS OF CHEST PAIN OR SHORTNESS OF BREATH. ALL CARES AND MEDICATIONS GIVEN AND COMPLETED ORDERED ACCORDING TO NURSING JUDGEMENT. ALL UNFINISHED CARES ENDORSED TO ONCOMING RN.
--- NOTE | 2021-03-23 18:18 | NUR ---
PT IS AO,NO ACUTES CHANGES T/O SHIFT,PT IS IN BED,BED LOCKED,BED IN LOW POSITON,CALL LIGHT WITHIN REACH WILL CONTINUE TO MONITOR.
[2021-03-24 05:21] LABS: Hematocrit 23.5 % (37.0-53.0); Hemoglobin 7.3 g/dL (13.5-17.5)
[2021-03-24 05:48] LABS: Albumin, Blood 1.4 g/dL (3.4-5.0); Anion Gap 8 mmol/L (6-16); Blood Urea Nitrogen 38 mg/dL (8-24); Bun/Creatinine Ratio 16.8 (12.0-20.0); CO2, Blood 23 mmol/L (21-32); Calcium, Blood 7.5 mg/dL (8.5-10.1); Chloride, Blood 100 mmol/L (98-108); Creatinine, Blood 2.26 mg/dL (0.60-1.20); Glomerular Filtration Rate 30 (60-); Glucose, Blood 227 mg/dL (70-99); Magnesium, Blood 1.8 mg/dL (1.6-2.4); Phosphorus, Blood 2.8 mg/dL (2.5-4.9); Potassium, Blood 3.9 mmol/L (3.5-5.5); Sodium, Blood 131 mmol/L (136-145)
[2021-03-24] MEDS ORDERED: Acerola C500 MG PO (13:42)
[2021-03-24] MEDS ORDERED: HUMALOG KW100 UNIT/1 SC (13:42)
[2021-03-24] MEDS ORDERED: [UNRECOGNIZED DRUG - CODE] MT (13:42)
[2021-03-24] MEDS ORDERED: FERSU300 PO (13:43)
[2021-03-24] MEDS ORDERED: CEFP200 PO (13:43)
[2021-03-24] MEDS ORDERED: DOCU100 PO (13:43)
--- NOTE | 2021-03-24 16:39 | NUR ---
PT AO,PT ASSESSMENT REMAINS THE SAME T/O SHIFT,PT IS DISCHARGE HOME, PT TAKES ALL BELONGINGS.
== END 2021-03-24 16:35 | disposition home health service (06) | DRG 699 ==
LOC: ER 06:25 → MEDS 06:26
PROVIDERS: Emergency Medicine; Internal Medicine Nephrology; Nurse Practitioner Acute Care; ADMIT Family Medicine
DX: T86.19 Other complication of kidney transplant (principal); N17.9 Acute kidney failure, unspecified; E87.2 Acidosis; E87.1 Hypo-osmolality and hyponatremia; D84.821 Immunodeficiency due to drugs; N25.81 Secondary hyperparathyroidism of renal origin; R50.9 Fever, unspecified; Z20.822 Contact with and (suspected) exposure to COVID-19; N18.30 Chronic kidney disease, stage 3 unspecified; I12.9 Hypertensive chronic kidney disease with stage 1 through stage 4 chronic kidney disease, or unspecified chronic kidney disease; E11.22 Type 2 diabetes mellitus with diabetic chronic kidney disease; K21.9 Gastro-esophageal reflux disease without esophagitis; D63.1 Anemia in chronic kidney disease; E78.5 Hyperlipidemia, unspecified; G47.33 Obstructive sleep apnea (adult) (pediatric); F41.9 Anxiety disorder, unspecified; F32.9 Major depressive disorder, single episode, unspecified; E86.0 Dehydration; E11.42 Type 2 diabetes mellitus with diabetic polyneuropathy; M10.9 Gout, unspecified; G89.4 Chronic pain syndrome; Z91.013 Allergy to seafood; Z79.4 Long term (current) use of insulin; Z79.52 Long term (current) use of systemic steroids; Z90.49 Acquired absence of other specified parts of digestive tract; Z98.890 Other specified postprocedural states
CPT/HCPCS: 0202U; 71045; 76776; 80053; 80069; 81001; 82803; 82947; 83605; 83735; 84100; 85014; 85018; 85025; 87040; 87086; 93005; 93010; 96365; 96366; 97110; 97116; 97162; 97167; 97530; 97535; 99285-25; A9270; G0378; J0696; J1642; J7030; J7070; J7507; J7512; J7517

== ENCOUNTER 2021-04-04 03:47 | Inpatient (IN) | payer OTHER ==
[~2021-04-04] VITALS: Ht 175.3 cm; Wt 64.5 kg
[~2021-04-04 03:47] MED LIST changes: +Acerola C500 MG PO; +CEFP200 PO; +DOCU100 PO; +FERSU300 PO; +HUMALOG KW100 UNIT/1 SC; +MAG6464 MG PO; +SILDENAFIL CITR50 MG PO; +[UNRECOGNIZED DRUG - CODE] MT
[2021-04-04 04:49] LABS: BASOPHILS ABSOLUTE AUTO 0.01 K/mm3 (0.00-0.23); BASOPHILS PERCENT AUTO 0 % (0-2); EOSINOPHILS PERCENT AUTO 0 % (0-6); Hematocrit 27.8 % (37.0-53.0); Hemoglobin 8.4 g/dL (13.5-17.5); IMMATURE GRAN ABSOLUTE AUTO 0.12 K/mm3 (0.00-0.10); IMMATURE GRAN PERCENT AUTO 2 % (0-1); LYMPHOCYTES ABSOLUTE AUTO 0.62 K/mm3 (0.84-5.20); LYMPHOCYTES PERCENT AUTO 10 % (21-46); MONOCYTES ABSOLUTE AUTO 1.11 K/mm3 (0.16-1.47); MONOCYTES PERCENT AUTO 18 % (4-13); Mean Corpuscular HGB 27.3 pg (26.0-34.0); Mean Corpuscular HGB Conc 30.2 g/dL (31.5-36.5); Mean Corpuscular Volume 90 fL (80-100); Mean Platelet Volume 9.1 fL (9.1-12.4); NEUTROPHILS ABSOLUTE AUTO 4.24 K/mm3 (1.96-9.15); NEUTROPHILS PERCENT AUTO 69 % (41-73); Platelet Count 289 K/mm3 (150-400); RDW Standard Deviation 55.8 fL (35.1-46.3); Red Blood Cell Count 3.08 M/mm3 (4.30-5.90)
[2021-04-04 04:58] LABS: Source, Urine Catheter
[2021-04-04 05:00] LABS: Bilirubin, Urine Neg (Neg); Blood, Urine 1+ (Neg); Glucose Qualitative, Urine 1+ (Neg); Ketones, Urine Neg (Neg); Leukocyte Esterase, Urine Neg (Neg); Nitrite, Urine Neg (Neg); Protein, Urine 3+ (Neg); Urobilinogen, Urine NORM (Normal)
[2021-04-04 05:12] LABS: Alanine Aminotransfer (ALT/SGP 12 U/L (12-78); Albumin, Blood 1.7 g/dL (3.4-5.0); Albumin/Globulin Ratio 0.5 (0.8-1.8); Alk Phos 178 U/L (50-136); Anion Gap 9 mmol/L (6-16); Aspartate Aminotrans (AST/SGOT 16 U/L (12-37); Bilirubin, Total 0.3 mg/dL (0.1-1.0); Blood Urea Nitrogen 43 mg/dL (8-24); Bun/Creatinine Ratio 18.8 (12.0-20.0); CO2, Blood 15 mmol/L (21-32); Calcium, Blood 7.9 mg/dL (8.5-10.1); Chloride, Blood 104 mmol/L (98-108); Creatinine, Blood 2.29 mg/dL (0.60-1.20); Globulin, Blood 3.6 g/dL (2.2-4.0); Glomerular Filtration Rate 29 (60-); Glucose, Blood 160 mg/dL (70-99); Potassium, Blood 6.7 mmol/L (3.5-5.5); Sodium, Blood 128 mmol/L (136-145); Total Protein, Blood 5.3 g/dL (6.4-8.2)
[2021-04-04 05:28] LABS: Appearance, Urine Clear (Clear); Color, Urine Yellow (P-Yellow)
[2021-04-04 05:31] LABS: International Normalized Ratio 1.15
[2021-04-04 05:33] LABS: Bacteria Rare /hpf; Squamous Epithelial Cells Rare /hpf (Few)
[2021-04-04 07:40] LABS: SARS-Cov-2 (COVID-19) PCR, MMC NEGATIVE (NEGATIVE)
--- NOTE | 2021-04-04 08:23 | NUR ---
TRANSFER REPORT REPORT RECIEVED FROM ER NURSE BETHANY AT 0823 VIA PHONE.
[2021-04-04 09:39] LABS: PCO2 Arterial 26.6 mmHg (35-45); PO2 Arterial 96.5 mmHg (80-100); pH Blood Arterial 7.38 (7.35-7.45)
--- NOTE | 2021-04-04 10:35 | NUR ---
CRITICAL VALUE UPDATE RECIEVED A CRITICAL POTASSIUM VALUE OF 6.3 FROM [place] IN THE LAB AT 1031. THIS RN CONTACTED DR FUENTES WITH THE RESULTS AT 1034, NO ADDITIONAL ORDERS AT THIS TIME.
[2021-04-04 11:03] LABS: Bun/Creatinine Ratio 17.4 (12.0-20.0); Calcium, Blood 8.2 mg/dL (8.5-10.1); Creatinine, Blood 2.35 mg/dL (0.60-1.20); Potassium, Blood 6.3 mmol/L (3.5-5.5)
[2021-04-04 13:50] LABS: U Amphetamine Screen Not Detected; U Barbituate Screen Not Detected; U Benzodiazapine Screen Not Detected; U Buprenorphine Screen Not Detected; U Cannabinoids Screen Not Detected; U Cocaine Screen Not Detected; U Methadone Screen Not Detected; U Methamphetamine Screen Not Detected; U Opiates Screen Not Detected; U Oxycodone Screen Not Detected; U Phencyclidine Screen Not Detected; U Propoxyphene Screen Not Detected
[2021-04-04 16:17] LABS: Bun/Creatinine Ratio 17.2 (12.0-20.0); Calcium, Blood 8.1 mg/dL (8.5-10.1); Creatinine, Blood 2.32 mg/dL (0.60-1.20); Potassium, Blood 6.8 mmol/L (3.5-5.5)
--- NOTE | 2021-04-04 19:56 | NUR ---
1618 CRITICAL VALUE ZULEYMA FROM LAB CALLED WITH A CRITICAL POTASSIUM LEVEL OF 6.8. THIS RN CALLED DR MOHAN TWICE. NO ANSWER. THIS RN THEN CALLED DR PENNY @6340 TO INFORM HIM OF THE CRITICAL VALUE. DR PENNY INFORMED THIS RN THAT HE WOULD BE PLACING ORDERS.
--- NOTE | 2021-04-04 20:07 | NUR ---
SHIFT SUMMARY PT DIFFICULT TO ROUSE, WILL TRACK WITH EYES BRIEFLY AND WILL ANSWER "HOSPITAL" WHEN ASKED IF HE KNOWS WHERE HE IS. BP HAVE BEEN HYPERTENSIVE TOWARDS END OF SHIFT. PT TEMP HAS GRADUALLY BEEN CLIMBING DURING SHIFT, TREATED PER EMAR. PT RESPONDS TO PAIN STIMULI BY WITHDRAWING ARM WHEN PT ARM IS LIFTED. PT HAS BEEN LETHARGIC T/O SHIFT. POTASSIUM HAS BEEN CRITICALLY HIGH, TREATED PER EMAR. PT HAS NAVARRETE DRAINGING TO GRAVITY, YELLOW URINE
--- NOTE | 2021-04-04 21:26 | NUR ---
CRITICAL CBG 2034 [place] RN CHECKS CHEMBG, RESULTED AT A CRITICAL LOW OF 35. WIRE HARNESS DESIGN ENGINEER THUY TO ROOM AND THIS RN. PT'S VSS EXCEPT SPORADIC PERIODS OF APNEA LASTING <3SEC, PLACED ON 1-2L O2 TO MAINTAIN O2 PT DESATS IN THESE PERODS TO <88 SPO2. 2039 1 FULL AMP OF D50 ADMINISTERED TO POWERGLIDE. DR HAM CALLED AND UPDATED. ORDERS RECEIVED: CHECK CHEM BG IN 15 MIN AND ADMINISTER ANOTHER FULL AMP OF D50 IF NNEDED, CHANGE RATE OF NABICARB D5W FROM 100 TO 150MLS/HR, CHANGE 2100 LABS FROM ROUTINE TO STAT. 2102 - CHEMBG FROM [employer] (acquired by [employer]), 135. LABS PULLED AND SENT TO LAB. MEDIPORT FLUSHED WELL, CAPS CHANGED, TKO RESTARTED TO PORT AT 20MLS/HR. AWAITING RESULTS AND WILL CALL IN TO [facility]. BED IN LOW POSITION, BED ALARM ON, 3 SIDE RAILS UP.
[2021-04-04 22:05] LABS: Bun/Creatinine Ratio 17.3 (12.0-20.0); Calcium, Blood 7.6 mg/dL (8.5-10.1); Creatinine, Blood 2.31 mg/dL (0.60-1.20); Potassium, Blood 6.1 mmol/L (3.5-5.5)
--- NOTE | 2021-04-05 02:47 | NUR ---
NOTED RIGORS PRESENTATION DECREASING, COOLING BLANKET IN PLACE TEMPERATURE 101.08 DOWN FROM 102.3. MONITORING PATIENT FOR GENARO JO.
[2021-04-05 05:14] LABS: BASOPHILS ABSOLUTE AUTO 0.01 K/mm3 (0.00-0.23); BASOPHILS PERCENT AUTO 0 % (0-2); EOSINOPHILS ABSOLUTE AUTO 0.01 K/mm3 (0.00-0.68); EOSINOPHILS PERCENT AUTO 0 % (0-6); Hematocrit 23.9 % (37.0-53.0); Hemoglobin 7.5 g/dL (13.5-17.5); IMMATURE GRAN ABSOLUTE AUTO 0.13 K/mm3 (0.00-0.10); IMMATURE GRAN PERCENT AUTO 2 % (0-1); LYMPHOCYTES ABSOLUTE AUTO 0.58 K/mm3 (0.84-5.20); LYMPHOCYTES PERCENT AUTO 9 % (21-46); MONOCYTES PERCENT AUTO 20 % (4-13); Mean Corpuscular HGB 27.3 pg (26.0-34.0); Mean Corpuscular HGB Conc 31.4 g/dL (31.5-36.5); Mean Corpuscular Volume 87 fL (80-100); Mean Platelet Volume 8.9 fL (9.1-12.4); NEUTROPHILS ABSOLUTE AUTO 4.23 K/mm3 (1.96-9.15); NEUTROPHILS PERCENT AUTO 69 % (41-73); Platelet Count 259 K/mm3 (150-400); RDW Coefficient Variation 16.7 % (11.7-14.2); RDW Standard Deviation 52.7 fL (35.1-46.3); Red Blood Cell Count 2.75 M/mm3 (4.30-5.90); White Blood Cell Count 6.16 K/mm3 (4.00-11.30)
[2021-04-05 05:39] LABS: Alanine Aminotransfer (ALT/SGP 9 U/L (12-78); Albumin, Blood 1.7 g/dL (3.4-5.0); Albumin/Globulin Ratio 0.5 (0.8-1.8); Alk Phos 144 U/L (50-136); Anion Gap 7 mmol/L (6-16); Aspartate Aminotrans (AST/SGOT 13 U/L (12-37); Bilirubin, Total 0.3 mg/dL (0.1-1.0); Blood Urea Nitrogen 38 mg/dL (8-24); Bun/Creatinine Ratio 16.6 (12.0-20.0); CO2, Blood 23 mmol/L (21-32); Calcium, Blood 7.7 mg/dL (8.5-10.1); Chloride, Blood 104 mmol/L (98-108); Creatinine, Blood 2.29 mg/dL (0.60-1.20); Globulin, Blood 3.4 g/dL (2.2-4.0); Glomerular Filtration Rate 29 (60-); Glucose, Blood 122 mg/dL (70-99); Magnesium, Blood 2.1 mg/dL (1.6-2.4); Phosphorus, Blood 2.9 mg/dL (2.5-4.9); Potassium, Blood 5.9 mmol/L (3.5-5.5); Sodium, Blood 134 mmol/L (136-145); Total Protein, Blood 5.1 g/dL (6.4-8.2); Vancomycin, Random 16.8 ug/mL
--- NOTE | 2021-04-05 06:47 | NUR ---
SHIFT SUMMARY- HOSPITALIST AND RENAL DR. NOTIFICATIONS RECEIEVED REPORT FROM DAY SHIFT RN'S AT BEDSIDE. THIS RN'S FIRST QUICK ASSESSMENT DONE AT BEDSIDE WITH DAY SHIFT RN'S TO GET A BASELINE; PT DIFFICULT TO AROUSE/LETHARGIC. WHEN BUE MOVED PT WOULD STATE "OW." DID NOT FOLLOW COMMANDS. PER DAY SHIFT RN'S THIS IS PT'S BASELINE. 2039 DR. HAM WAS NOTIFIED OF CRITICAL BS 35 AND CRITICAL K 6.2. ORDERS WERE GIVEN AND FOLLOWED ORDERS AND HOSPITAL PROTOCOLS. PER DR. HAM STAT LAB DRAW AND NOTIFY OF RESULTS AND BS. CHARGE NURSE THUY WAS IN ROOM HELPING AND NOTIFIED OF UPDATES. ALSO, AT THE TIME Vasyl WEAVER RN HELPING IN ROOM TO STABILIZE PT. 2199 DR. HAM NOTIFIED OF CRITICAL K 6.1 AND BS STABLE. PER DR. HAM ORDERS DO NOT GIVE ANYTHING AT THE TIME FOR THE K 6.1 AND CONT. WITH FLUIDS. TO REDRAW MORING LABS AND CALL BACK FOR AN UPDATE. CHARGE NURSE THUY NOTIFIED. PT DIFFICULT TO AROUSE BUT SPONTANEOUSLY WAKES UP WHEN COUGHING. ONLY FOLLOWED SIMPLE COMMANDS WHEN TOLD TO OPEN AND CLOSE MOUTH TO SUCTION. ABOUT 3 DIFFERENT TIMES PT WOKE UP AND STATED "COLD". ON TELE ST IN THE 110'S-120'S. WHEN PT COUGHING AND FEBRILE HR IN THE 130'S MEDICATED PER EMAR/ORDERS. HR DECREASED IN THE LOW 110'S-120'S. PT WAS FEBRILE DURING T/O THE NIGHT WITH A LOW GRADE FEVER THAT STARTED TO INCREASE AROUND MIDNIGHT; RECTAL TEMP 102.O GAVE SUPPOSITORY TYLENOL PER EMAR/ORDERS. WHEN RECHECKED PT. TEMP INCREASED AND HR ELEVATED AGAIN IN THE 130'S. [address] VELIZ ON PT'S CONDITION AND THAT TYLENOL DID NOT HELP WITH PT FEVER AND HR HAD INCREASED AGAIN IN THE 130'S. ALSO, THAT BUE HAD SIGNIFICANTLY INCREASED IN SWELLING WITH THE R. HAND BECOMING RED. INCREASED RIGORS. ORDER FOR SUPPOSITORY ASPIRIN WAS GIVEN AND TO CONT. TO MONITOR PT. ARCHITECTURAL TECHNICIANTHUY JO WAS NOTIFIED AND UPDATED. CONT. WITH ELEVATING BUE AND BLE WITH Q2H REPOSITIONING. FLAKITA JO AT BEDSIDE HELPING WITH PT'S CARE. 0150 CHARGE NURSEJUSTA IN ICU WAS NOTIFIED AND CAME TO BEDSIDE. REVIEWED PT'S CONDITION. COOLING BLANKET WAS PLACED ON PT TO HELP WITH FEVER. AFTER COOLING BLANKET PLACED AND SUPPOSETORY OF ASPIRIN DOSE. FEVERS STARTED TO SLOWLY DECREASE AND HR IN THE 120'S. NAVARRETE IN PLACE; YELLOW CLEAR COLOR URINE. HAS FOAM ON COCCYX AREA FOR AN OPEN AREA THAT WAS PRESENT ON ADMISSION. BP'S AND BS'S STABLE. WAS PLACED ON 2L NC BECAUSE O2 WAS DECREASING WHEN SLEEPING. NEURO CHECKS CONT. UNCHANGED. R. ARM WAS MARKED FOR NOTED RED AREA AROUND HAND. WILL CONT. WITH PLAN OF CARE.
--- NOTE | 2021-04-05 09:10 | NUR ---
UPDATE PT TEMP CLIMBED TO 100.5 WITH COOLING BLANKET ON THE PT. ICE PACKS APPLIED UNDER PT'S ARMS AND BETWEEN LEGS. PT WAS ABBKE TO ANSWER FEW QUESTIONS AT SHIFT CHANGE, PT LESS RESPONSIVE SINCE SHIFT CHANGE @0700. PT TREMORS HAVE WORSENED SINCE SHIFT CHANGE WELL.
--- NOTE | 2021-04-05 09:45 | NUR ---
UPDATE DURING TYLENOL SUPPOSITORY ADMINTRATION, PT WAS ABLE TO FOLLW SOME INSTRUCTIONS OF ASSISTING IN ROLLING TO PT'S SIDE. PT WAS ABLE TO LIFT LEGS UP AND TRY TO ROLL OWN BODY, ROLLED WITH ASSISTANCE OF SECOND NURSE. NO PAIN WAS REPORTED DURING THE TURN. MEDICATION WAS GIVEN AND RECTAL THERMOMETER REINSERTED. PT WAS ROLL BACK TO BACK AND BOOSTED IN BED, NO PAIN REPORTED STILL. PT THEN WAS ABLE TO LIFT RIGHT ARM UP TO HEAD AND THEN BACK DOWN TO SIDE, PT REPORTED PAIN WHEN PT LIFTED OWN ARM UP. @0708 PT WAS TRANSFERED TO [facility] FOR TRANSPORT FOR CT SCAN.
--- NOTE | 2021-04-05 17:33 | NUR ---
UPDATE PT BLOOD SUGAR WAS 66. THIS RN CONTACTED DR MOHAN WITH THE VALUE. THIS RN ALSO INFORMED DR ABOUT THE PT TEMP REACHING 101.3 AND THAT THE PT HAS BEEN REFUSING COOLING BLANKET AND ICE PACKS. PT HAS BEEN RECIEVING TYLENOL SUPPOSITORIES. DR MOHAN INFORMED THIS RN THAT NEW ORDERS WILL BE PLACED. AWAITING ORDERS.
--- NOTE | 2021-04-05 19:29 | NUR ---
SHIFT SUMMARY PT OBTUNDED BUT ABLE TO BE ROUSED MORE TODAY THAN YESTERDAY 04/04/21. PT TEMP REACHED 101.3, COOLING BLANKET WAS ON PT, ICE PACKS APPLIED, AND TYLENOL SUPPOSITORY WAS ADMINISTERED. TEMP WAS ABLE TO COME DOWN TOWARDS END OF SHIFT, PT NOT WANTING COOLING BLANKET OR ICE PACKS, PT REPORTS BEING COLD AND WANTING A BLANKET. PT HAD A GLUCOSE LEVEL OF 66, DR Chambers NOTIFIED, NEW ORDERS PLACED.
[2021-04-06 04:02] LABS: Hematocrit 24.8 % (37.0-53.0); Hemoglobin 7.6 g/dL (13.5-17.5)
[2021-04-06 04:22] LABS: Albumin, Blood 1.6 g/dL (3.4-5.0); Anion Gap 8 mmol/L (6-16); Blood Urea Nitrogen 35 mg/dL (8-24); Bun/Creatinine Ratio 16.7 (12.0-20.0); CO2, Blood 25 mmol/L (21-32); Calcium, Blood 7.6 mg/dL (8.5-10.1); Chloride, Blood 104 mmol/L (98-108); Glomerular Filtration Rate 32 (60-); Glucose, Blood 86 mg/dL (70-99); Magnesium, Blood 1.8 mg/dL (1.6-2.4); Phosphorus, Blood 3.3 mg/dL (2.5-4.9); Potassium, Blood 5.6 mmol/L (3.5-5.5); Sodium, Blood 137 mmol/L (136-145); Vancomycin, Random 21.7 ug/mL
--- NOTE | 2021-04-06 08:05 | NUR ---
SHIFT SUMMARY PT MORE ALERT, AT TIMES AWAKE. AROUSABLE TO VOICE NOW. CAN FOLLOW SIMPLE VERBAL COMMANDS. PT CAN STATE HIS NAME, BUT CONTS AT TIMES ONLY ONE WORD; COLD, NO, YES. CONTINUES TO HAVE LOW GRADE FEVERS; MED. PER EMAR/ODERS AND CONTS. WITH THE COOLING BLANKET AND ICE PACKS TO HELP MAINTAIN FEVER DOWN. DR. HAM WAS NOTIFIED THIS MORNING OF PT. LABS AND SEEN PT. AT BEDSIDE GOT ORDERS TO CONTINUE CLINIMIX. SHOWED THE SWELLING OF THE BUE AND BLE. MD WAS MADE AWARE. PT. CONT. WITH EDEMA AND STATES PAIN WITH MOVEMENT TO BUE. REPOSITIONED PT. Q2H. ON VIDEO CAMERA DUE TO PT. MOVING LEGS OUT OF BED AND CONFUSED. THIS MORNING NOTIFIED DR. PENNY AT BEDSIDE OF PT. CONDITION AND THE CONT. TO DROP BLOOD SUGARS WITH DAYSHIFT RN PRESENT. DAY SHIFT RN RECEIVED ORDERS. DR. LOPEZ WAS NOTIFIED OF URINE HAVING MORE TINGED URINE AND SPUTUM; RECEIVED ORDERS AND PLACED. COCCY AREA HAS OPENING APPLIED FOAM TO AREA. PT ON TELE ST IN THE 110'S-120'S AND WHEN FEVER GOES UP THEN MORE TACHY IN THE 130'S; MEDICATED PER EMAR/ORDERS. NIGHT CHARGE NURSE CHIKA MADE AWARE OF PT CONDITION AND HELPTING T/O THE NIGHT. HOSPITALIST WAS CALLED AND NOTIFIED OF PT'S CONDITION AND LOW BS; ORDERS RECEIVED. HAS NAVARRETE IN PLACE WITH GREAT OUTPUT; YELLOW PINK THIS MORNING. GAVE BEDSIDE REPORT TO DAYSHIFT RN NURSES.
[2021-04-06 08:10] LABS: BASOPHILS ABSOLUTE AUTO 0.02 K/mm3 (0.00-0.23); BASOPHILS PERCENT AUTO 0 % (0-2); EOSINOPHILS ABSOLUTE AUTO 0.12 K/mm3 (0.00-0.68); EOSINOPHILS PERCENT AUTO 2 % (0-6); Hematocrit 24.6 % (37.0-53.0); Hemoglobin 7.5 g/dL (13.5-17.5); IMMATURE GRAN ABSOLUTE AUTO 0.11 K/mm3 (0.00-0.10); IMMATURE GRAN PERCENT AUTO 2 % (0-1); LYMPHOCYTES ABSOLUTE AUTO 0.49 K/mm3 (0.84-5.20); LYMPHOCYTES PERCENT AUTO 7 % (21-46); MONOCYTES ABSOLUTE AUTO 0.87 K/mm3 (0.16-1.47); MONOCYTES PERCENT AUTO 13 % (4-13); Mean Corpuscular HGB Conc 30.5 g/dL (31.5-36.5); Mean Corpuscular Volume 89 fL (80-100); Mean Platelet Volume 8.8 fL (9.1-12.4); NEUTROPHILS ABSOLUTE AUTO 5.23 K/mm3 (1.96-9.15); NEUTROPHILS PERCENT AUTO 76 % (41-73); Platelet Count 235 K/mm3 (150-400); RDW Coefficient Variation 16.5 % (11.7-14.2); RDW Standard Deviation 53.5 fL (35.1-46.3); Red Blood Cell Count 2.78 M/mm3 (4.30-5.90); White Blood Cell Count 6.84 K/mm3 (4.00-11.30)
[2021-04-06 08:10] LABS: HIV SCREEN 4TH GENERATION WRFX Non Reactive (Non Reactive)
[2021-04-06 08:23] LABS: Thyroid Stimulating Hormone 1.81 uIU/mL (0.360-4.800)
[2021-04-06 11:42] LABS: Source, Urine Catheter
[2021-04-06 11:47] LABS: Appearance, Urine Clear (Clear); Bilirubin, Urine Neg (Neg); Blood, Urine 5+ (Neg); Color, Urine Yellow (P-Yellow); Glucose Qualitative, Urine Neg (Neg); Ketones, Urine Neg (Neg); Leukocyte Esterase, Urine 1+ (Neg); Nitrite, Urine Neg (Neg); Protein, Urine 3+ (Neg); Urobilinogen, Urine NORM (Normal)
[2021-04-06 12:04] LABS: Bacteria Not Seen /hpf; Squamous Epithelial Cells Not Seen /hpf (Few); White Blood Cells, Urine 0-2 /hpf (0-5)
--- NOTE | 2021-04-06 17:51 | NUR ---
SHIFT SUMMARY PT IS ALERT TO SELF AND IS ABLE TO MAKE SOME NEEDS KNOWN. HE VERBILIZES PAIN BY SAYING "OUCH" BUT CANNOT STATE WHERE PAIN IS FROM. EYES WILL OCCASIONALLY ROLL BACK, PT IS ABLE TO TRACK WITH EYES AT TIMES. INTERMITTENTLY CONFUSED. PT REMAINS FEBRILE 100.5-100.6 VIA RECTAL THERMOMETER. COOLING BLANKET BEING UTILIZED. HR IS ST 120'S-145 PER TELE REPORT. LOPRESSOR GIVEN FOR INCREASED HR PER EMAR ORDERS. PT BECAME AGITATED APPROX. 1700, CHARGE NURSE LISE CALLED DR PENNY FOR THIS NURSE. NO NEW ORDERS YET, WILL CONTINUE TO MONITOR. POWERGLIDE IN OTONIEL IS INFUSING AMPICILLIN PER EMAR, MEDIPORT ACCESS LOCATED RIGHT CHEST INFUSING CLINIMEX AND D5W PER ORDERS. POWERGLIDE SHOWS NO SIGN OF IRRITATION, CHG DRESSING IN PLACE AND IS DRY/CLEAN/INTACT. NAVARRETE CATHETER IS IN PLACE AND DRAINING PINK OUTPUT. DR PHILLIP THIS MORNING. MOTHER SONYA IS AT BEDSIDE NOW. PT MOTHER EDUCATED ON USE OF CALL LIGHT IF NEED ASSISTANCE. WILL CONTINUE TO MONITOR UNTIL REPORT GIVEN.
--- NOTE | 2021-04-06 21:43 | NUR ---
PROGRAF-CELLCEPT/NG TUBE CALLED PHARMACY REGARDING PT'S INABILITY TO TAKE PO INTAKE AT ALL. PT NOT RECEIVING HIS PROGRAF/CELLCEPT FOR TRANSPLANT REJECTION. PT FAILED SPEECH EVALUATION. PHARMACY CALLED, IV FORM OF CELLCEPT AVAILABLE BUT NOT PROGRAF. ORDERS FROM VLADIMIR TO PLACE NG TUBE. MULTIPLE STAFF TO ROOM, NG TUBE PASSED DOWN THROAT AND THEN PT BEGAN TO COUGH, PRESENTS EXTREMELY AGITATED. ATTEMPTED TO AUSCULTATE BOWEL SOUNDS, UNSUCCESFUL, BONDERIZER STATES INCONSISTENT PRESSURE UPON PUSHING AIR INTO BOWEL, BELIEVES NG TUBE IN AIRWAY. PULLED BACK UP TO BACK OF THROAT AND THEN ATTEMPTED REINSERTING, UNSUCCESFUL AGAIN. NG PULLED BACK, BLOOD OUTPUT NOTED. SPO2 >94%. NG TUBE PULLED ALL THE WAYOUT. NOTIFIED PROVIDER OF INABILITY TO PLACE NG. ORDERS FOR IV CELLCEPT PLACED. NO MORE BLOODY OUTPUT NOTED. PT QUIET IN ROOM.
--- NOTE | 2021-04-06 21:46 | NUR ---
ASSUMED CARE OF PATIENT AT APPROXIMATELY 1910 FROM PAMELA Stallings RN AND VIOLETA Cazares RN. PATIENT CONFUSED; ABLE TO ANSWER QUESTIONS MOST OF TIME BY NODDING HEAD OR WHISPERING. PATIENT KNOWS NAME BUT UNABLE TO ANSWER OTHER QUESTIONS. PATIENT DENIES PAIN BUT PAINFUL WHEN MOVED EVERY TWO HOURS. ROLLS EYES AT TIMES. SHIVERING DUE TO COOLING BLANKET AND FEVER; T MAX 100; DOWN TO 99.[address] ON TELE; HIGH 120'S TO 130'S; PRN IV LOPRESSOR GIVEN BEFORE SHIFT CHANGE; TOO SOON. MEDIPORT INFUSING CLINIMIX; PG INFUSING DEXTROSE PER ORDER. CALLED PHARMACY AND DR. GILBERT REGARDING PATIENT NOT RECIEVING ANTI REJECTION MEDICATIONS PO DUE TO BEING NPO FROM ASPIRATION. ONE MEDICATION AVAILABLE IV THAT WILL BE STARTED TONIGHT; DR. GILBERT ORDERED NG TO GIVE MEDS THROUGH; SEE NURSING NOTE ABOUT NG PLACEMENT ATTEMPT BY CORBY Fitzgerald
--- NOTE | 2021-04-07 00:45 | NUR ---
DR. VELIZ NOTIFED OF PATIENT'S HEART RATE 120'S AND SBP 160'S AFTER PRN IV LOPRESSOR; ORDERS FOR IV LABETOLOL Q6; 10-20 MG
[2021-04-07 04:08] LABS: Hematocrit 22.9 % (37.0-53.0)
[2021-04-07 04:25] LABS: Albumin, Blood 1.4 g/dL (3.4-5.0); Anion Gap 8 mmol/L (6-16); Blood Urea Nitrogen 33 mg/dL (8-24); Bun/Creatinine Ratio 16.6 (12.0-20.0); CO2, Blood 21 mmol/L (21-32); Calcium, Blood 7.6 mg/dL (8.5-10.1); Chloride, Blood 102 mmol/L (98-108); Creatinine, Blood 1.99 mg/dL (0.60-1.20); Glomerular Filtration Rate 34 (60-); Glucose, Blood 161 mg/dL (70-99); Magnesium, Blood 1.7 mg/dL (1.6-2.4); Phosphorus, Blood 2.8 mg/dL (2.5-4.9); Potassium, Blood 5.3 mmol/L (3.5-5.5); Sodium, Blood 131 mmol/L (136-145); Triglycerides 246 mg/dL (30-160)
--- NOTE | 2021-04-07 06:05 | NUR ---
PATIENT SLEPT FOR A FEW HOURS; CONFUSED MOST OF SHIFT; ALLOWED ORAL CARE TWICE; BLOOD PRESSURE IMPROVED THROUGHT OUT THE SHIFT; CATHETHER URINE JOSE WITH BLOOD NOTED IN TUBING. ST; HEART RATE UP TO 130'S AT TIMES; DOWN TO LOW 100'S TO 110'S. TEMPERATURE MAX WAS 100.5; COOLING BLANKET OFF AND ON; TYLENOL AK GIVEN ONCE. NO OTHER ACUTE CHANGES TO REPORT.
--- NOTE | 2021-04-07 08:51 | NUR ---
ASSUMPTION OF CARE NOTE PT AGITATED THIS AM AND PER REPORT WAS IN SAME CONDITION LAST NIGHT. EYES DO NOT FOLLOW PERSONS. HE IS NOT RESPONSIVE YESTERDAY'S SHIFT. PT REMAINS FEBRILE RANGING 99-100.4. PT NOW AT IMAGING, WAS STABLE UPON TRANSFER. WILL CONTINUE TO MINITOR UPON RETURN.
[2021-04-07 09:10] LABS: Vancomycin, Trough 16.5 ug/mL (5.0-10.0)
--- NOTE | 2021-04-07 10:13 | NUR ---
After speaking to DEYSI Monterroso this morning regarding pt's declining pulmonary status, spoke to pt's mom "April". She confirms that pt has filled out an advanced directive, and she indicates he would want to be placed on mechanical ventilation if it came to that. She states a copy was made in the ED, but the copy didn't make it to medical records or into his paper chart. April, pt's mom is bringing the patient's AD to the hospital [facility], so she can see him before intubation, and we can make a copy. DEYSI Monterroso indicates Dr. Garvin is likely to send pt to ICU, as he is inching closer to requiring mechanical ventilation.
--- NOTE | 2021-04-07 11:16 | NUR ---
TRANSFER NOTE REPORT GIVEN TO YOVANA ARREOLA RN AT 1030, PT TRANSFERED VIA HOSPITAL BED AT 1045. MOTHER WAS AT BEDSIDE AND IS NOW WAITING OUTSIDE ICU IN [place]. FLAKITA MARIN RN ASSISTED THIS NURSE W/ TRANSFERING PT. PT WAS STABLE UPON TRANSFER AND WAS SETTLED INTO ICU BED BY ICU STAFF.
[2021-04-07 12:02] LABS: PCO2 Arterial 30.1 mmHg (35-45); PO2 Arterial 154 mmHg (80-100); pH Blood Arterial 7.44 (7.35-7.45)
[2021-04-07 12:29] LABS: Hematocrit 21.1 % (37.0-53.0); Hemoglobin 6.3 g/dL (13.5-17.5)
[2021-04-07 15:01] LABS: Appearance, CSF Clear (Clear); Color, CSF No Color (No Color); RBC Count, CSF 157 /mm3 (0-0); WBC Count, CSF 1 /mm3 (0-5)
[2021-04-07 15:09] LABS: EBV AB VCA, IGG 52.2 U/mL (0.0-17.9); EBV AB VCA, IGM <36.0 U/mL (0.0-35.9); EBV NUCLEAR ANTIGEN AB, IGG <18.0 U/mL (0.0-17.9)
[2021-04-07 15:16] LABS: Total Protein, Blood 4.7 g/dL (6.4-8.2)
[2021-04-07 16:10] LABS: Cryptococcus Neoformans/Gattii Not Detected (NOT DETECT); Enterovirus Not Detected (NOT DETECT); Haemophilus Influenza Not Detected (NOT DETECT); Herpes Simplex Virus 1 Not Detected (NOT DETECT); Herpes Simplex Virus 2 Not Detected (NOT DETECT); Human Herpesvirus 6 Not Detected (NOT DETECT); Human Parechovirus Not Detected (NOT DETECT); Listeria Monocytogenes Not Detected (NOT DETECT); Neisseria Meningitidis Not Detected (NOT DETECT); Streptococcus Agalactiae Not Detected (NOT DETECT); Streptococcus Pneumoniae Not Detected (NOT DETECT); Varicella Zoster Virus Not Detected (NOT DETECT)
[2021-04-07 16:15] LABS: Escherichia Coli K1 Detected (NOT DETECT)
[2021-04-07 17:16] LABS: Automated BF WBC Count 0.267 K/mm3 (0-999); Body Fluid WBC Count 267 /mm3 (0-999)
[2021-04-07 17:26] LABS: Glucose, Body Fluid 137 mg/dL
[2021-04-07 17:31] LABS: Albumin, Body Fluid 0.8 g/dL; Lactate Dehydrogenase, Body Fl 112 U/L; Protein, Body Fluid 2.3 g/dL; Triglycerides, Body Fluid 23 mg/dL
[2021-04-07 17:50] LABS: Appearance, Body Fluid Hazy (Clear); Color, Body Fluid L Yellow (None-Yellow); RBC Count, Body Fluid 1024 /mm3 (0-0)
[2021-04-07 17:57] LABS: Total Cell Count, Body Fluid 100
[2021-04-07 18:33] LABS: pH, Body Fluid 7.3
[2021-04-07 21:40] LABS: Albumin, Blood 1.2 g/dL (3.4-5.0); Anion Gap 8 mmol/L (6-16); Blood Urea Nitrogen 33 mg/dL (8-24); Bun/Creatinine Ratio 17.7 (12.0-20.0); CO2, Blood 20 mmol/L (21-32); Calcium, Blood 7.6 mg/dL (8.5-10.1); Chloride, Blood 104 mmol/L (98-108); Creatinine, Blood 1.86 mg/dL (0.60-1.20); Glomerular Filtration Rate 37 (60-); Glucose, Blood 117 mg/dL (70-99); Phosphorus, Blood 3.1 mg/dL (2.5-4.9); Potassium, Blood 5.4 mmol/L (3.5-5.5); Sodium, Blood 132 mmol/L (136-145)
--- NOTE | 2021-04-07 21:56 | NUR ---
UPDATE: STAT RENAL PANEL RESULTS GIVEN TO DR HAM, ORDERS GIVEN FOR IONIZED Ca+ w/ AM LABS. ORDERS PLACED.
[2021-04-08 00:34] LABS: Adenovirus Not Detected (NOT DETECT); Bordetella pertussis Not Detected (NOT DETECT); Coronavirus 229E Not Detected (NOT DETECT); Coronavirus HKU1 Not Detected (NOT DETECT); Coronavirus NL63 Not Detected (NOT DETECT); Coronavirus OC43 Not Detected (NOT DETECT); Human Metapneumovirus Not Detected (NOT DETECT); Human Rhinovirus/Enterovirus Detected (NOT DETECT); Influenza A/2009-H1 Not Detected (NOT DETECT); Influenza A/H1 Not Detected (NOT DETECT); Influenza A/H3 Not Detected (NOT DETECT); Influenza B Not Detected (NOT DETECT); Parainfluenza Virus 1 Not Detected (NOT DETECT); Parainfluenza Virus 2 Not Detected (NOT DETECT); Parainfluenza Virus 3 Not Detected (NOT DETECT); Parainfluenza Virus 4 Not Detected (NOT DETECT); Respiratory Syncytial Virus Not Detected (NOT DETECT); SARS-Cov-2 (COVID-19), BioFire Not Detected (NOT DETECT)
[2021-04-08 00:35] LABS: Chlamydophila pneumoniae Not Detected (NOT DETECT); Mycoplasma pneumoniae Not Detected (NOT DETECT)
--- NOTE | 2021-04-08 02:11 | NUR ---
UPDATE: HYPOTHERMIA PT FOUND TO BE HYPOTHERMIC @ 94.6 *F VIA TEMPORAL & RECTAL. PT IS LAYING ON A COOLING BLANKET WHICH WAS USED BY PREVIOUS SHIFT D/T PERSISTENT FEVER POST INTUBATION. IT HAS BEEN OFF SINCE CHANGE OF SHIFT. BLANKET NOW TURNED TO HEATING FOR A GOAL CORE TEMP OF 98.6.
[2021-04-08 04:36] LABS: BASOPHILS ABSOLUTE AUTO 0.01 K/mm3 (0.00-0.23); BASOPHILS PERCENT AUTO 0 % (0-2); EOSINOPHILS ABSOLUTE AUTO 0.11 K/mm3 (0.00-0.68); EOSINOPHILS PERCENT AUTO 4 % (0-6); Hematocrit 21.9 % (37.0-53.0); Hemoglobin 6.8 g/dL (13.5-17.5); IMMATURE GRAN ABSOLUTE AUTO 0.04 K/mm3 (0.00-0.10); IMMATURE GRAN PERCENT AUTO 1 % (0-1); LYMPHOCYTES ABSOLUTE AUTO 0.23 K/mm3 (0.84-5.20); LYMPHOCYTES PERCENT AUTO 8 % (21-46); MONOCYTES ABSOLUTE AUTO 0.34 K/mm3 (0.16-1.47); MONOCYTES PERCENT AUTO 11 % (4-13); Mean Corpuscular HGB 27.6 pg (26.0-34.0); Mean Corpuscular HGB Conc 31.1 g/dL (31.5-36.5); Mean Corpuscular Volume 89 fL (80-100); Mean Platelet Volume 10.3 fL (9.1-12.4); NEUTROPHILS ABSOLUTE AUTO 2.32 K/mm3 (1.96-9.15); NEUTROPHILS PERCENT AUTO 76 % (41-73); Platelet Count 131 K/mm3 (150-400); RDW Coefficient Variation 16.9 % (11.7-14.2); RDW Standard Deviation 55.1 fL (35.1-46.3); Red Blood Cell Count 2.46 M/mm3 (4.30-5.90); White Blood Cell Count 3.05 K/mm3 (4.00-11.30)
[2021-04-08 04:59] LABS: Albumin, Blood 1.1 g/dL (3.4-5.0); Albumin/Globulin Ratio 0.4 (0.8-1.8); Bilirubin, Total 0.3 mg/dL (0.1-1.0); Bun/Creatinine Ratio 16.9 (12.0-20.0); Calcium, Blood 7.7 mg/dL (8.5-10.1); Creatinine, Blood 1.89 mg/dL (0.60-1.20); Globulin, Blood 2.9 g/dL (2.2-4.0); Magnesium, Blood 1.7 mg/dL (1.6-2.4); Phosphorus, Blood 3.3 mg/dL (2.5-4.9); Potassium, Blood 5.2 mmol/L (3.5-5.5)
--- NOTE | 2021-04-08 06:46 | NUR ---
SHIFT SUMMARY: PT CONTINUES TO BE INTUBATED & SEDATED. VENT: 14/450, 5/30%. GTTs: PROPOFOL 50mcg/kg/min. NO SEDATION VACATION GIVEN PT WAS INTUBATED YESTERDAY. PT DID HAVE AN EPISODE OF HYPOTHERMIA W/ CORE BODY TEMP OF 94.0. HEATING BLANKET WAS HELPFUL IN RESOLVING & NOW TEMP IS 97.9. URINE OUTPUT CONTINUES TO BE PINK TINGED & UNCHANGED T/O SHIFT. PLAN FOR ELLA TODAY.
--- NOTE | 2021-04-08 08:15 | NUR ---
AM NOTE... ASSUMED CARE OF PT AT 0700, PT IS INTUBATED AND SEDATED WITH PROPOFOL RUNNING AT 50MCG. PT'S VENT SETTINGS ARE AC: 14/450/5/30% WITH O2 SATS >90%. L/S CLEAR T/O DIM IN THE BASES. ET TUBE IS 8.0 AND 24@ THE GUMS. BT PRESENT AND HYPOACTIVE, ABD IS SOFT TO PALP. PT HAS A RECTAL TEMP PROBE IN PLACE. NAVARRETE IS PATENT AND DRAINING TO GRAVITY. PT IS IN SR IN THE 80'S-90'S, BP HAS BEEN HYPERTENSIVE WITH SBPs IN THE 160'S-180'S. PT HAS DEPENDENT EDEMA TO HIS BUE PER REPORT HE HAS BILAT SUPERFICIAL BLOOD CLOTS IN BOTH ARMS. PT HAS 1+ TO HIS BLE. PT HAS A SMALL AMOUT OF OLD BLOOD NOTED DURING ORAL CARE. WILL CONTINUE TO MONITOR.
[2021-04-08 12:38] LABS: Hematocrit 26.6 % (37.0-53.0); Hemoglobin 8.4 g/dL (13.5-17.5)
--- NOTE | 2021-04-08 15:13 | NUR ---
PT UPDATE... PT HAD A ELLA IN THE ROOM STARTING AT 1110 AND ENDED AT 1135, THE PT'S PROPOFOL WAS INCREASED TO 80MCG AND HE WAS GIVEN 50MCG OF IV FENTANYL TO TOLERATE THE PROCEDURE. THE PT'S VS WERE STABLE DURING THE PROCEDURE. THE PT'S MOTHER AND GIRLFRIEND WERE UPDATED ON THE PT'S CONDITION AND THE PLAN OF CARE. AT APROX 1415 THE PT WAS STARTED ON A SEDATION VACTAION, THE PT HAS GROSS MOVEMENT OF HIS ARMS, LEGS AND HIS HEAD BUT HAS NOT BEEN ABLE TO FOLLOW DIRECTIONS OR OPEN HIS EYES. THE PT WAS SWITCHED TO SPONTAINOUS BY RT AND HAS BEEN TOLERATING THIS WELL. WILL CONTINUE TO MONITOR.
[2021-04-08 17:08] LABS: CMV QUANT DNA PCR (PLASMA) Positive < 200 IU/mL (Negative)
--- NOTE | 2021-04-08 19:18 | NUR ---
Dr. Garvin notified of RN report. Per report from dayshift RN: patient had large BM, during clean up process the patient started having jerky, stiff, seizure-like movements. Once patient was done getting cleaned up, patient stopped seizure-like movements. Tubing Machine Operator asked Bharathi if she would like an EEG. Bharathi informed service writer that no EEG is available until Sunday, but to call her if more seizure-like activities happen so that she can order medications. Also, permission to restart sedation (propofol off since approximately 3pm for sedation vacation) approved by Dr. Garvin.
--- NOTE | 2021-04-08 19:25 | NUR ---
SHIFT SUMMARY... THE PT HAS HAD MULTIPLE SOFT LOOSE BROWN BMs THIS SHIFT. THE PT HAS BEEN ON SPONTAIOUS W/PRESSURE SUPPORT WITH O2 SATS >95% SINCE APROX 1400, THE PT HAS BEEN RELAXED AND CALM. PT HAS HAD GROSS MOVEMENT OF ALL EXTREMITIES. AT APROX 1750 THE PT HAD A XLARGE LOOSE BM WHILE THIS RN AND OTHER STAFF WERE CLEANING HIM UP HE BECAME VERY STIFF AND HARD TO TURN, DURING THE PERSONAL CARE THE PT'S ARMS AND LEGS STARTED A JERKING ALMOST FLAPPING MOTION, THIS LASTED APROX 10 SECONDS. THE PT CONTINUED TO GRIMACE DURING PERSONAL CARE BUT ONCE THE CARE WAS DONE HE STARTED TO CALM BACK DOWN. AFTER THE PT WAS REPOSITIONED THIS RN NOTED THE PT STARTED TO LOOK MORE UNCOMFORTABLE THAN BEFORE. THE PT'S TUBE FEEDS WERE STARTED 25MLS/HR PER ORDERS WITH 30MLS H2O FLUSHES Q4HRS. THE PT'S S.O. WAS AT THE BEDSIDE FOR VISITING HOURS, SHE WAS UPDATED BY DR. AVERY SEVERAL TIMES T/O HER TIME HERE. WILL CONTINUE TO MONITOR UNTIL REPORT IS GIVEN TO ONCOMING RN.
--- NOTE | 2021-04-08 19:27 | NUR ---
Manasa (patient's significant other) updated at bedside and leaves due to visiting hours being over.
[2021-04-09 04:59] LABS: BASOPHILS ABSOLUTE AUTO 0.01 K/mm3 (0.00-0.23); BASOPHILS PERCENT AUTO 0 % (0-2); EOSINOPHILS ABSOLUTE AUTO 0.22 K/mm3 (0.00-0.68); EOSINOPHILS PERCENT AUTO 5 % (0-6); Hematocrit 28.2 % (37.0-53.0); Hemoglobin 8.9 g/dL (13.5-17.5); IMMATURE GRAN ABSOLUTE AUTO 0.06 K/mm3 (0.00-0.10); IMMATURE GRAN PERCENT AUTO 2 % (0-1); LYMPHOCYTES ABSOLUTE AUTO 0.42 K/mm3 (0.84-5.20); LYMPHOCYTES PERCENT AUTO 10 % (21-46); MONOCYTES ABSOLUTE AUTO 0.67 K/mm3 (0.16-1.47); MONOCYTES PERCENT AUTO 16 % (4-13); Mean Corpuscular HGB 27.5 pg (26.0-34.0); Mean Corpuscular HGB Conc 31.6 g/dL (31.5-36.5); Mean Corpuscular Volume 87 fL (80-100); Mean Platelet Volume 9.8 fL (9.1-12.4); NEUTROPHILS ABSOLUTE AUTO 2.73 K/mm3 (1.96-9.15); NEUTROPHILS PERCENT AUTO 66 % (41-73); Platelet Count 168 K/mm3 (150-400); RDW Coefficient Variation 17.2 % (11.7-14.2); RDW Standard Deviation 55.2 fL (35.1-46.3); Red Blood Cell Count 3.24 M/mm3 (4.30-5.90); White Blood Cell Count 4.11 K/mm3 (4.00-11.30)
[2021-04-09 05:31] LABS: Albumin, Blood 1.1 g/dL (3.4-5.0); Albumin/Globulin Ratio 0.3 (0.8-1.8); Bilirubin, Total 0.3 mg/dL (0.1-1.0); Bun/Creatinine Ratio 17.2 (12.0-20.0); Calcium, Blood 8.1 mg/dL (8.5-10.1); Creatinine, Blood 1.92 mg/dL (0.60-1.20); Globulin, Blood 3.2 g/dL (2.2-4.0); Magnesium, Blood 2.1 mg/dL (1.6-2.4); Phosphorus, Blood 3.3 mg/dL (2.5-4.9); Potassium, Blood 5.1 mmol/L (3.5-5.5); Total Protein, Blood 4.3 g/dL (6.4-8.2)
--- NOTE | 2021-04-09 06:11 | NUR ---
END OF SHIFT SUMMARY: -PATIENT RESTARTED ON PROPOFOL AT 10 AT BEGINNING OF SHIFT FOR SEDATION/COMFORT ON VENTILATOR. ALSO GIVEN PRN FENTANYL AND ATIVAN PRN THROUGHOUT THE NIGHT FOR RESTLESSNESS/AGITATION AND APPEARANCE OF PAIN. PROPOFOL TURNED OFF AT APPROX 0400 THIS MORNING WITH VENT TITRATION AND RT AT BEDSIDE. PATIENT STILL NOT OPENING EYES OR FOLLOWING COMMANDS. -LAST BM 04/08. URINE WITH INTERMITTENT BLOOD. -LUNGS RHONCHOROUS, NO INLINE SECTIONS. BLOODY MODERATE ORAL SECRETIONS. -DIFFICULTY MAINTAINING SBP < 160 EVEN WITH PRN MEDICATIONS. FEVER MAX OF 101F. PRN TYLENOL GIVE. RECHECK WNL. -BATH GIVEN LAST NIGHT. FOAM PAD REAPPLIED TO SKIN TEAR ON L BUTTOCKS AND REDNESS TO COCCYX AREA.
--- NOTE | 2021-04-09 19:49 | NUR ---
PER DR. 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
[2021-04-10 01:14] LABS: Vancomycin, Random 13.2 ug/mL
[2021-04-10 05:06] LABS: BASOPHILS ABSOLUTE AUTO 0.03 K/mm3 (0.00-0.23); BASOPHILS PERCENT AUTO 1 % (0-2); EOSINOPHILS PERCENT AUTO 9 % (0-6); Hematocrit 28.7 % (37.0-53.0); Hemoglobin 9.1 g/dL (13.5-17.5); IMMATURE GRAN ABSOLUTE AUTO 0.06 K/mm3 (0.00-0.10); IMMATURE GRAN PERCENT AUTO 2 % (0-1); LYMPHOCYTES ABSOLUTE AUTO 0.45 K/mm3 (0.84-5.20); LYMPHOCYTES PERCENT AUTO 13 % (21-46); MONOCYTES ABSOLUTE AUTO 0.49 K/mm3 (0.16-1.47); MONOCYTES PERCENT AUTO 14 % (4-13); Mean Corpuscular HGB 27.7 pg (26.0-34.0); Mean Corpuscular HGB Conc 31.7 g/dL (31.5-36.5); Mean Corpuscular Volume 87 fL (80-100); Mean Platelet Volume 10.8 fL (9.1-12.4); NEUTROPHILS ABSOLUTE AUTO 2.21 K/mm3 (1.96-9.15); NEUTROPHILS PERCENT AUTO 63 % (41-73); Platelet Count 199 K/mm3 (150-400); RDW Coefficient Variation 17.2 % (11.7-14.2); RDW Standard Deviation 55.6 fL (35.1-46.3); Red Blood Cell Count 3.29 M/mm3 (4.30-5.90); White Blood Cell Count 3.54 K/mm3 (4.00-11.30)
[2021-04-10 05:34] LABS: Albumin, Blood 1.1 g/dL (3.4-5.0); Anion Gap 8 mmol/L (6-16); Blood Urea Nitrogen 37 mg/dL (8-24); CO2, Blood 19 mmol/L (21-32); Calcium, Blood 7.9 mg/dL (8.5-10.1); Chloride, Blood 104 mmol/L (98-108); Creatinine, Blood 1.95 mg/dL (0.60-1.20); Glomerular Filtration Rate 35 (60-); Glucose, Blood 216 mg/dL (70-99); Magnesium, Blood 2.1 mg/dL (1.6-2.4); Phosphorus, Blood 3.1 mg/dL (2.5-4.9); Potassium, Blood 4.8 mmol/L (3.5-5.5); Sodium, Blood 131 mmol/L (136-145)
--- NOTE | 2021-04-10 06:42 | NUR ---
END OF SHIFT SUMMARY: SEDATION VACATION THIS MORNING: CURRENTLY OFF PROPFOL AND ON SPONTANEOUS/PRESSURE SUPPORT SETTING WITH VENTILATOR: PRESSURE SUPPORT 7. PEEP 5. 30% Fi02. RR STABLE. MOVEMENT APPARENT. DOES NOT OPEN EYES OR ATTEMPT TO FOLLOW COMMANDS. BLOOD SECRETIONS REMAIN PRESENT ORALLY. GLUCOSE >200, NO CURRENT SLIDING SCALE ALBUMIN REMAINS LOW AT 1.1 (URINE OUTPUT IMPROVED OVERNIGHT, BUT WORSENING BUE EDEMA OVERNIGHT) SODIUM REMAINS LOW AT 131. NS KVO RUNNING. LR AT 50 RUNNING. PATIENT PLACED IN CONTACT ISOLATION FOR MRSA IN SPUTUM. VANCO STARTED PER PHARMACY.
[2021-04-10 08:24] LABS: PCO2 Arterial 27.4 mmHg (35-45); PO2 Arterial 109 mmHg (80-100); pH Blood Arterial 7.43 (7.35-7.45)
--- NOTE | 2021-04-10 14:55 | NUR ---
Visit with Kirill this afternoon in the ICU after receiving an update from nursing. Pt is well known to this documentation writer for the past several years from prior hospital admissions and outpatient infusion visits. Kirill is currently on the vent without sedation at this time. This documentation writer called his name and held his hand, he attempted to open his eyes, however he is quite weak and has facial swelling and he was unable to open his eyes further than slits. He moved his head back and forth and appeared to bite on the ET tube when spoken to be this documentation writer. He was not able to follow commands to squeeze my hand. Kirill's mom and his S.O. alternate days and visit him. During a recent admission, this documentation writer had a conversation about advanced care planning with Kirill. At that time he confirmed that he would like to remain a full code and seek full treatment. PC to remain available to support pt and family and assist with advanced care planning needs prn.
--- NOTE | 2021-04-10 20:30 | NUR ---
PATIENTS FAMILY UPDATED VIA TELEPHONE: MOM (SONYA) AND DAD - MOM TO VISIT TOMORROW AT 2PM
--- NOTE | 2021-04-11 04:53 | NUR ---
Dr. Marrero notified of lab results K2.9 Phos 2.8 (KPhos still running), CO2 22. Anion Gap 9. Insulin gtt at 10u/hr. Orders to stop gtt. Start levemir 20units BID and first dose now. draw HbgA1c today - nonurgent. RN informs Dr. Marrero that there is a list of other non-emergent updates. Per Dr. Marrero, pass along to dayshift in report, no additional interventions at this time.
[2021-04-11 05:28] LABS: BASOPHILS ABSOLUTE AUTO 0.03 K/mm3 (0.00-0.23); BASOPHILS PERCENT AUTO 1 % (0-2); EOSINOPHILS ABSOLUTE AUTO 0.29 K/mm3 (0.00-0.68); EOSINOPHILS PERCENT AUTO 8 % (0-6); Hematocrit 29.3 % (37.0-53.0); Hemoglobin 9.3 g/dL (13.5-17.5); IMMATURE GRAN ABSOLUTE AUTO 0.12 K/mm3 (0.00-0.10); IMMATURE GRAN PERCENT AUTO 3 % (0-1); LYMPHOCYTES ABSOLUTE AUTO 0.58 K/mm3 (0.84-5.20); LYMPHOCYTES PERCENT AUTO 15 % (21-46); MONOCYTES ABSOLUTE AUTO 0.76 K/mm3 (0.16-1.47); MONOCYTES PERCENT AUTO 20 % (4-13); Mean Corpuscular HGB 27.8 pg (26.0-34.0); Mean Corpuscular HGB Conc 31.7 g/dL (31.5-36.5); Mean Corpuscular Volume 88 fL (80-100); Mean Platelet Volume 10.3 fL (9.1-12.4); NEUTROPHILS ABSOLUTE AUTO 1.99 K/mm3 (1.96-9.15); NEUTROPHILS PERCENT AUTO 53 % (41-73); Platelet Count 198 K/mm3 (150-400); RDW Coefficient Variation 17.1 % (11.7-14.2); RDW Standard Deviation 54.6 fL (35.1-46.3); Red Blood Cell Count 3.35 M/mm3 (4.30-5.90); White Blood Cell Count 3.77 K/mm3 (4.00-11.30)
[2021-04-11 05:46] LABS: Albumin, Blood 1.2 g/dL (3.4-5.0); Anion Gap 6 mmol/L (6-16); Blood Urea Nitrogen 39 mg/dL (8-24); Bun/Creatinine Ratio 20.7 (12.0-20.0); CO2, Blood 21 mmol/L (21-32); Calcium, Blood 8.3 mg/dL (8.5-10.1); Chloride, Blood 106 mmol/L (98-108); Creatinine, Blood 1.88 mg/dL (0.60-1.20); Glomerular Filtration Rate 37 (60-); Glucose, Blood 171 mg/dL (70-99); Magnesium, Blood 1.9 mg/dL (1.6-2.4); Phosphorus, Blood 2.9 mg/dL (2.5-4.9); Potassium, Blood 4.4 mmol/L (3.5-5.5); Sodium, Blood 133 mmol/L (136-145); Vancomycin, Random 14.9 ug/mL
--- NOTE | 2021-04-11 06:51 | NUR ---
END OF SHIFT SUMMARY: -OFF PROPOFOL ALL NIGHT. PRN FENTANYL AND ATIVAN USED X1. PRN HTN MEDS USED. -3 UNITS INSULIN COVERAGE GIVEN X2 FOR GLUCOSE 150-200 -ADJUSTMENT MADE TO ETT PER RT D/T PATIENT MOVEMENT FORCING ETT FORWARD -BATH HS -SKIN CARE APPLIED TO SKIN TEAR
--- NOTE | 2021-04-11 06:54 | NUR ---
ADD ON TO END OF SHIFT SUMMARY: -HIGH TEMP OF 101.0 PER ORAL. PRN TYLENOL GIVEN. MINIMAL RESPONSE. ICE PACKS APPLIED. NO FURTHER TEMP ISSUES.
[2021-04-11 11:08] LABS: Q FEVER PHASE I Negative (Neg:<1:16); Q FEVER PHASE II Negative (Neg:<1:16)
--- NOTE | 2021-04-11 19:10 | NUR ---
The patient remains intubated and on mechanical ventialtion. Mr. Glass currently does not follow commands, although he is able to open his eyes and track intermittently. Ventialtor settings remained at 7/5 30% FiO2. OG tube is in place with tube feeds running. Minimal gastric residuals. Mr. Glass currently has diarrhea and had an output of 400ccs of liquid stool into his rectal tube. All lines are in place and intact: peripheral IV in the right arm, right chest mediport, shah, OG tube. Intermittent doses of fentanyl and ativan were administered PRN for restlessness as ordered
--- NOTE | 2021-04-12 01:33 | NUR ---
PER DR. VLADIMIR WILKINSON TO USE OGT - VERIFIED WITH Xray
[2021-04-12 04:54] LABS: BASOPHILS ABSOLUTE AUTO 0.02 K/mm3 (0.00-0.23); BASOPHILS PERCENT AUTO 1 % (0-2); EOSINOPHILS PERCENT AUTO 10 % (0-6); Hematocrit 25.8 % (37.0-53.0); Hemoglobin 8.1 g/dL (13.5-17.5); IMMATURE GRAN ABSOLUTE AUTO 0.06 K/mm3 (0.00-0.10); IMMATURE GRAN PERCENT AUTO 2 % (0-1); LYMPHOCYTES ABSOLUTE AUTO 0.58 K/mm3 (0.84-5.20); LYMPHOCYTES PERCENT AUTO 19 % (21-46); MONOCYTES ABSOLUTE AUTO 0.72 K/mm3 (0.16-1.47); MONOCYTES PERCENT AUTO 24 % (4-13); Mean Corpuscular HGB 27.4 pg (26.0-34.0); Mean Corpuscular HGB Conc 31.4 g/dL (31.5-36.5); Mean Corpuscular Volume 87 fL (80-100); Mean Platelet Volume 10.7 fL (9.1-12.4); NEUTROPHILS ABSOLUTE AUTO 1.31 K/mm3 (1.96-9.15); NEUTROPHILS PERCENT AUTO 44 % (41-73); Platelet Count 168 K/mm3 (150-400); RDW Coefficient Variation 16.9 % (11.7-14.2); RDW Standard Deviation 53.7 fL (35.1-46.3); Red Blood Cell Count 2.96 M/mm3 (4.30-5.90); White Blood Cell Count 2.99 K/mm3 (4.00-11.30)
[2021-04-12 05:14] LABS: Albumin, Blood 1.2 g/dL (3.4-5.0); Anion Gap 9 mmol/L (6-16); Blood Urea Nitrogen 42 mg/dL (8-24); Bun/Creatinine Ratio 23.1 (12.0-20.0); CO2, Blood 19 mmol/L (21-32); Chloride, Blood 107 mmol/L (98-108); Creatinine, Blood 1.82 mg/dL (0.60-1.20); Glomerular Filtration Rate 38 (60-); Glucose, Blood 116 mg/dL (70-99); Phosphorus, Blood 2.7 mg/dL (2.5-4.9); Potassium, Blood 4.1 mmol/L (3.5-5.5); Sodium, Blood 135 mmol/L (136-145)
--- NOTE | 2021-04-12 06:05 | NUR ---
END OF SHIFT SUMMARY: PRN meds used: metoprolol, ativan, fentanyl, tylenol HR up to 170s (Aflutter, PVCs). NBP stable. Agitation - tachypnic, frequent coughing, stacking breaths Patient initially shaking no to pain, then no response to verbal questions... using vital signs and movement/FLACC score as a sign of possible pain level. Highest temp at 100.8F temporal. Increased dark color to urine output. Bath HS. BM small overnight. TF on hold approx 0500 d/t lack of supplied. Will notify dayshift to restart with Jevity 1.5 is restocked.
--- NOTE | 2021-04-12 06:13 | NUR ---
END OF SHIFT SUMMARY: Intermittent HTN (pattern of HTN/SBP>160 about 1-2hr prior to scheduled HTN meds due and HTN with baths/oral care/irritation.) HR RRR. Pulse Ox WNL with FiO2 at 25% Pressure support down to 6. PEEP 5. Highest temp 101.6F (given tylenol PRN). No PRNS for pain or agitation given. Increased body movement/shifting. (Lifts left arm - appears to be tempting to pull ETT - restraints on). Opens eyes (not fully) spontaneouslys. Scleral edema bilaterally. Does not follow commands. Withdraws to pain BLE and BUE (only if pain is applied proximally on BUE). Increased oral and inline secretions (thick clear secretions). Intermittently Rhochi, otherwise clear lung sounds. ETT has hx of movement with patient's head movement. Lung sounds heard bilaterally. No additional BM stool through rectal tube over night. OGT replacement and confirmation after OGT found outside of nare. No problems with shah - CYA. L arm weeping - dry flow applied.
[2021-04-12 10:09] LABS: B. HENSELAE IGG Negative titer (Neg:<1:320); B. HENSELAE IGM Negative titer (Neg:<1:100); B. QUINTANA IGG Negative titer (Neg:<1:320); B. QUINTANA IGM Negative titer (Neg:<1:100)
[2021-04-12 10:24] LABS: Vancomycin, Trough 16.2 ug/mL (5.0-10.0)
--- NOTE | 2021-04-12 11:48 | NUR ---
AM NOTE... ASSUMED CARE OF PT AT 0700. PT IS INTUBATED, NOT SEDATED AT THIS TIME. PT IS ON SPONTAINOUS PRESSURE SUPPORT OF 5/5 AND 25% FIO2 WITH O2 SATS >95%. L/S COARSE WITH RHONCHI, SMALL AMOUNT OF MOD THICK SHEEHAN SECRETIONS SUCTIONED FROM THE ET TUBE, PT HAS A SMALL AMOUNT OF THICK STRINGY ORAL SECRETIONS NOTED DURING ORAL CARE. THE PT OPENS HIS EYES TO VERBAL STIMULI, HE IS ABLE TO FOLLOW COMMANDS LIKE "SQUEEZE MY FINGERS" WITH BOTH HANDS, HE IS ABLE TO WIGGLE HIS TOES AND DODD INDEPENDENTLY. PT IS IN ST IN THE LOW 100'S, BP IS A LITTLE HYPERTENSIVE WITH SBPs IN THE 150'S. PT HAS 3+ PITTING EDEMA TO HIS BUE THE BACK OF HIS LEFT ARM IS WHEEPING A LARGE AMOUNT OF CLEAR YELLOW FLUIDS. BT PRESENT AND HYPERACTIVE, ABD IS SOFT AND NONTENDER TO PALP, RECTAL TUBE IS IN PLACE WITH A LARGE AMOUNT OF BROWNISH/GREEN LIQUID STOOLS IN THE TUBE AND THE BAG, THE RECTAL TUBE WAS KINKED AND HAD LEAKED A LARGE AMOUNT ON THE BED. THE PT'S NAVARRETE IS PATENT AND DRAINING TO GRAVITY. THE PT HAS BEEN AFEBRILE THIS AM WITH A TEMP OF 98.9. THE PT IS VERY ANXIOUS WITH THE ET TUBE IN PLACE. DR. BRANDT NOTIFIED. AT 0930 DR. BRANDT WAS AT THE BEDSIDE TO ASSESS THE PT. PER DR. BRANDT THE PT IS TO BE EXTUBATED. THE PT WAS EXTUBATED BY RT AT 0941. PT WAS EXTUBATED TO 6L NC THAT WAS TITRATED DOWN TO 2L NC WITH O2 SATS AT 100%. PT IS ABLE TO WAKE UP AND FOLLOW SIMPLE COMMANDS BUT HAS BEEN SLEEPY SINCE THE EXTUBATION. WILL CONTINUE TO MONITOR.
--- NOTE | 2021-04-12 17:50 | NUR ---
SHIFT SUMMARY... NO ACUTE NEGATIVE CHANGES NOTED THIS SHIFT. THE PT IS CURRENTLY ON RA WITH O2 SATS >95%. PT CONTINUES TO BE SLEEPY BUT WAKES EASILY TO VERBAL STIMULI, PT IS STILL ABLE TO FOLLOW COMMANDS. HIS COUGH IS GETTING STRONGER THAN IT WAS AFTER EXTUBATION. A DOBHOFF WAS PLACED AND VERIFIED BY XRAY TO GIVE MEDS AND CONTINUE TUBE FEEDS. THE PT HAS BEEN HYPERTENSIVE THIS SHIFT D/T NOT GETTING THE PT MEDS PRIOR TO EXTUBATION, THESE MEDS WERE GIVEN LATER IN THE SHIFT AFTER THE DOBHOFF WAS PLACED. THE PT HAS BEEN MEDICATED FOR HYPERTENSION PER EMAR. THE PT'S S.O./CAREGIVER ANJUM TOLD THIS RN THAT THE PRESSURE ULCER PRESENT ON THE PT'S COCCXY AREA WERE THERE "FOR AWHILE" PRIOR TO THE PT BEING ADMITTED TO THE HOSPITAL. PICTURES WERE TAKEN BY THIS RN AND PLACED IN THE CHART. WILL CONTINUE TO MONITOR UNTIL REPORT IS GIVEN TO ONCOMING RN.
--- NOTE | 2021-04-12 21:00 | NUR ---
FAMILY UPDATED VIA TELEPHONE: MOM AND DAD ([place] AND TITUS) [phone]
--- NOTE | 2021-04-13 00:55 | NUR ---
deshaun from dr. gupta to use new dobhoff (in stomach) - verify per xray
[2021-04-13 04:27] LABS: Hemoglobin 8.3 g/dL (13.5-17.5)
[2021-04-13 04:43] LABS: Albumin, Blood 1.5 g/dL (3.4-5.0); Anion Gap 6 mmol/L (6-16); Blood Urea Nitrogen 45 mg/dL (8-24); Bun/Creatinine Ratio 27.1 (12.0-20.0); CO2, Blood 21 mmol/L (21-32); Calcium, Blood 8.1 mg/dL (8.5-10.1); Chloride, Blood 108 mmol/L (98-108); Creatinine, Blood 1.66 mg/dL (0.60-1.20); Glomerular Filtration Rate 42 (60-); Glucose, Blood 197 mg/dL (70-99); Magnesium, Blood 1.7 mg/dL (1.6-2.4); Phosphorus, Blood 2.8 mg/dL (2.5-4.9); Potassium, Blood 4.3 mmol/L (3.5-5.5); Sodium, Blood 135 mmol/L (136-145)
--- NOTE | 2021-04-13 06:39 | NUR ---
END OF SHIFT SUMMARY: - DOBHOFF REPLACED - PATENT PULLED PREVIOUS DOBHOFF - PLACEMENT VARIFIED BY XR - NAVARRETE AND RECTAL TUBE REMAIN - HTN PERSISTS - PRN HTN MEDS USED - RA - CLEAR BUT DIMINISED LUNG SOUNDS - DECREASED SWELLING TO BUE - WOKE UP MORE TOWARDS END OF SHIFT BUT SEEMS TO GO IN AND OUT OF VERBAL RESPONSIVENESS. PATIENT WAS ABLE TO STATE HIS OWN NAME ONE TIME. PATIENT ABLE TO FOLLOW COMMANDS. PATIENT ABLE TO SWALLOW TO ASSIST WITH INSERTION OF NEW DOBHOFF.
[2021-04-13 11:06] LABS: Albumin, Blood 1.5 g/dL (3.4-5.0); Albumin/Globulin Ratio 0.5 (0.8-1.8); Bilirubin, Direct 0.2 mg/dL (0.0-0.3); Bilirubin, Indirect 0.2 mg/dL (0.1-0.7); Bilirubin, Total 0.4 mg/dL (0.1-1.0); Globulin, Blood 2.8 g/dL (2.2-4.0); Total Protein, Blood 4.3 g/dL (6.4-8.2)
--- NOTE | 2021-04-14 05:14 | NUR ---
SHIFT SUMMARY PT ORIENTED TO SELF. SLOW TO RESPOND AND LETHARGIC. ON RA, SATS ABOVE 98%. TF INFUSING THROUGH DOBHOFF AT 60 ML/HR. HIGH BP THROUGHOUT EVENING. MANAGED W/ LABETALOL. NAVARRETE IN PLACE DRAINING YELLOW URINE TO GRAVITY. RECTAL TUBE IN PLACE. TWO EPISODES OF LOOSE GREEN STOOL ON BED. PT IN BILATERAL SOFT WRIST RESTRAINTS. CONTINUES TO BE CONFUSED AND GETTING OUT OF BED. IN BED RESTING WITH CALL ALARM AT SIDE. WILL CONTINUE TO MONITOR UNTIL REPORT GIVEN TO DAYSHIFT RN
[2021-04-14 10:19] LABS: Albumin, Blood 1.6 g/dL (3.4-5.0); Anion Gap 6 mmol/L (6-16); Blood Urea Nitrogen 42 mg/dL (8-24); Bun/Creatinine Ratio 28.4 (12.0-20.0); CO2, Blood 22 mmol/L (21-32); Calcium, Blood 8.3 mg/dL (8.5-10.1); Chloride, Blood 109 mmol/L (98-108); Creatinine, Blood 1.48 mg/dL (0.60-1.20); Glomerular Filtration Rate 48 (60-); Glucose, Blood 197 mg/dL (70-99); Phosphorus, Blood 2.3 mg/dL (2.5-4.9); Potassium, Blood 4.3 mmol/L (3.5-5.5); Sodium, Blood 137 mmol/L (136-145)
[2021-04-14 10:49] LABS: Vancomycin, Trough 21.1 ug/mL (5.0-10.0)
[2021-04-14 18:58] LABS: Adenovirus F 40/41 Not Detected (NOT DETECT); Astrovirus Not Detected (NOT DETECT); Campylobacter Sp Not Detected (NOT DETECT); Cryptosporidium Not Detected (NOT DETECT); Cyclospora Cayetanensis Not Detected (NOT DETECT); E. Coli O157 Not Detected (NOT DETECT); Entamoeba Histolytica Not Detected (NOT DETECT); Enteroaggregative E. coli-EAEC Not Detected (NOT DETECT); Enteropathogenic E. coli-EPEC Not Detected (NOT DETECT); Enterotoxigenic E. coli-ETEC Not Detected (NOT DETECT); Giardia Lamblia Not Detected (NOT DETECT); Norovirus GI/GII Detected (NOT DETECT); Plesiomonas Shigelloides Not Detected (NOT DETECT); Rotavirus A Not Detected (NOT DETECT); Salmonella Sp Not Detected (NOT DETECT); Sapovirus Not Detected (NOT DETECT); Shiga Toxin-prod E. coli-STEC Not Detected (NOT DETECT); Shigella/Enteroin E. coli-EIEC Not Detected (NOT DETECT); Vibrio Cholerae Not Detected (NOT DETECT); Vibrio Sp Not Detected (NOT DETECT); Yersinia Enterocolitica Not Detected (NOT DETECT)
[2021-04-14 19:31] LABS: BASOPHILS ABSOLUTE AUTO 0.02 K/mm3 (0.00-0.23); BASOPHILS PERCENT AUTO 1 % (0-2); EOSINOPHILS ABSOLUTE AUTO 0.09 K/mm3 (0.00-0.68); EOSINOPHILS PERCENT AUTO 4 % (0-6); Hematocrit 28.1 % (37.0-53.0); Hemoglobin 8.9 g/dL (13.5-17.5); IMMATURE GRAN ABSOLUTE AUTO 0.03 K/mm3 (0.00-0.10); IMMATURE GRAN PERCENT AUTO 1 % (0-1); LYMPHOCYTES ABSOLUTE AUTO 0.68 K/mm3 (0.84-5.20); LYMPHOCYTES PERCENT AUTO 26 % (21-46); MONOCYTES ABSOLUTE AUTO 0.29 K/mm3 (0.16-1.47); MONOCYTES PERCENT AUTO 11 % (4-13); Mean Corpuscular HGB 27.6 pg (26.0-34.0); Mean Corpuscular HGB Conc 31.7 g/dL (31.5-36.5); Mean Corpuscular Volume 87 fL (80-100); Mean Platelet Volume 10.5 fL (9.1-12.4); NEUTROPHILS ABSOLUTE AUTO 1.49 K/mm3 (1.96-9.15); NEUTROPHILS PERCENT AUTO 57 % (41-73); Platelet Count 214 K/mm3 (150-400); RDW Coefficient Variation 17.2 % (11.7-14.2); RDW Standard Deviation 54.6 fL (35.1-46.3); Red Blood Cell Count 3.22 M/mm3 (4.30-5.90)
[2021-04-15 06:10] LABS: Hematocrit 28.9 % (37.0-53.0); Hemoglobin 8.8 g/dL (13.5-17.5)
[2021-04-15 06:33] LABS: Albumin, Blood 1.7 g/dL (3.4-5.0); Anion Gap 7 mmol/L (6-16); Blood Urea Nitrogen 40 mg/dL (8-24); CO2, Blood 21 mmol/L (21-32); Calcium, Blood 8.1 mg/dL (8.5-10.1); Chloride, Blood 111 mmol/L (98-108); Creatinine, Blood 1.38 mg/dL (0.60-1.20); Glomerular Filtration Rate 53 (60-); Glucose, Blood 302 mg/dL (70-99); Magnesium, Blood 1.7 mg/dL (1.6-2.4); Potassium, Blood 4.3 mmol/L (3.5-5.5); Sodium, Blood 139 mmol/L (136-145)
[2021-04-15 07:07] LABS: Hematocrit 28.8 % (37.0-53.0); Hemoglobin 8.9 g/dL (13.5-17.5); Mean Corpuscular HGB 27.6 pg (26.0-34.0); Mean Corpuscular HGB Conc 30.9 g/dL (31.5-36.5); Mean Corpuscular Volume 89 fL (80-100); Mean Platelet Volume 10.2 fL (9.1-12.4); Platelet Count 220 K/mm3 (150-400); RDW Coefficient Variation 17.3 % (11.7-14.2); RDW Standard Deviation 55.5 fL (35.1-46.3); Red Blood Cell Count 3.23 M/mm3 (4.30-5.90); White Blood Cell Count 2.69 K/mm3 (4.00-11.30)
[2021-04-15 08:41] LABS: BASOPHILS ABSOLUTE MAN 0.05 K/mm3 (0.00-0.23); BASOPHILS PERCENT MAN 2 % (0-2); EOSINOPHILS ABSOLUTE MAN 0.21 K/mm3 (0.00-0.68); EOSINOPHILS PERCENT MAN 8 % (0-6); LYMPHOCYTES PERCENT MAN 30 % (21-46); MONOCYTES ABSOLUTE MAN 0.16 K/mm3 (0.16-1.47); MONOCYTES PERCENT MAN 6 % (4-13); MYELOCYTE ABSOLUTE MAN 0.02 K/mm3 (0.00-0.00); MYELOCYTE PERCENT MAN 1 % (0-0); NEUTROPHILS ABSOLUTE MAN 1.42 K/mm3 (1.96-9.15); SEG NEUTROPHILS PERCENT MAN 53 % (41-73); TOTAL CELLS COUNTED 100
[2021-04-15 12:57] LABS: Base Excess Venous -1.5 mmol/L; Bicarbonate Venous 23.5 mmol/L (24.0-30.0); PCO2 Venous 31.7 mmHg (38-42); pH Blood Venous 7.46 (7.34-7.37)
[2021-04-16 05:01] LABS: BASOPHILS ABSOLUTE AUTO 0.03 K/mm3 (0.00-0.23); BASOPHILS PERCENT AUTO 1 % (0-2); EOSINOPHILS ABSOLUTE AUTO 0.16 K/mm3 (0.00-0.68); EOSINOPHILS PERCENT AUTO 6 % (0-6); Hematocrit 27.1 % (37.0-53.0); Hemoglobin 8.6 g/dL (13.5-17.5); Mean Corpuscular HGB 28.2 pg (26.0-34.0); Mean Corpuscular HGB Conc 31.7 g/dL (31.5-36.5); Mean Corpuscular Volume 89 fL (80-100); Platelet Count 240 K/mm3 (150-400); RDW Coefficient Variation 17.5 % (11.7-14.2); RDW Standard Deviation 55.8 fL (35.1-46.3); Red Blood Cell Count 3.05 M/mm3 (4.30-5.90); White Blood Cell Count 2.82 K/mm3 (4.00-11.30)
[2021-04-16 05:06] LABS: IMMATURE GRAN ABSOLUTE AUTO 0.04 K/mm3 (0.00-0.10); IMMATURE GRAN PERCENT AUTO 1 % (0-1); LYMPHOCYTES ABSOLUTE AUTO 0.98 K/mm3 (0.84-5.20); LYMPHOCYTES PERCENT AUTO 35 % (21-46); MONOCYTES ABSOLUTE AUTO 0.29 K/mm3 (0.16-1.47); MONOCYTES PERCENT AUTO 10 % (4-13); NEUTROPHILS ABSOLUTE AUTO 1.32 K/mm3 (1.96-9.15); NEUTROPHILS PERCENT AUTO 47 % (41-73)
[2021-04-16 05:24] LABS: Albumin, Blood 1.7 g/dL (3.4-5.0); Albumin/Globulin Ratio 0.6 (0.8-1.8); Bilirubin, Total 0.4 mg/dL (0.1-1.0); Creatinine, Blood 1.43 mg/dL (0.60-1.20); Globulin, Blood 2.9 g/dL (2.2-4.0); Magnesium, Blood 1.6 mg/dL (1.6-2.4); Phosphorus, Blood 2.4 mg/dL (2.5-4.9); Potassium, Blood 4.1 mmol/L (3.5-5.5); Total Protein, Blood 4.6 g/dL (6.4-8.2)
--- NOTE | 2021-04-16 06:20 | NUR ---
SHIFT SUMMARY ASSUMED CARE OF PT AT 1900. PT IS ALERT TO SELF. PT LIMBS ARE VERY STIFF AND PT HAS A HARD TIME ROLLING IN BED OR RELAXING HIS ARMS. HEART SOUDNS REGULAR. LUNG SOUNDS ARE DIMINISHED AT THE BASES. PT HAS A NAVARRETE CATHETER. PT DOBHOFF HAD CONTINUOUS FEEDING GOING T/O THE NIGHT PER ORDER, PT TOLERATED WELL. RECTAL TUBE IS DRAINING LIQUID DARK BROWN STOOL. PT HAS A MEPILEX ON BUTTOCK BUT THERE IS NO SKIN BREAK DOWN. CALL LIGHT IN REACH, BED IN LOWEST POSTION, BED ALARM ON.
[2021-04-16 15:15] LABS: BASOPHILS ABSOLUTE AUTO 0.03 K/mm3 (0.00-0.23); BASOPHILS PERCENT AUTO 1 % (0-2); EOSINOPHILS ABSOLUTE AUTO 0.16 K/mm3 (0.00-0.68); EOSINOPHILS PERCENT AUTO 6 % (0-6); Hematocrit 28.2 % (37.0-53.0); Hemoglobin 8.9 g/dL (13.5-17.5); IMMATURE GRAN ABSOLUTE AUTO 0.04 K/mm3 (0.00-0.10); IMMATURE GRAN PERCENT AUTO 2 % (0-1); LYMPHOCYTES ABSOLUTE AUTO 0.61 K/mm3 (0.84-5.20); LYMPHOCYTES PERCENT AUTO 23 % (21-46); MONOCYTES ABSOLUTE AUTO 0.26 K/mm3 (0.16-1.47); MONOCYTES PERCENT AUTO 10 % (4-13); Mean Corpuscular HGB 27.8 pg (26.0-34.0); Mean Corpuscular HGB Conc 31.6 g/dL (31.5-36.5); Mean Corpuscular Volume 88 fL (80-100); Mean Platelet Volume 10.8 fL (9.1-12.4); NEUTROPHILS ABSOLUTE AUTO 1.61 K/mm3 (1.96-9.15); NEUTROPHILS PERCENT AUTO 59 % (41-73); Platelet Count 262 K/mm3 (150-400); RDW Coefficient Variation 17.4 % (11.7-14.2); RDW Standard Deviation 55.6 fL (35.1-46.3); White Blood Cell Count 2.71 K/mm3 (4.00-11.30)
[2021-04-16 21:19] LABS: Vancomycin, Trough 24.4 ug/mL (5.0-10.0)
[2021-04-17 05:20] LABS: BASOPHILS ABSOLUTE AUTO 0.03 K/mm3 (0.00-0.23); BASOPHILS PERCENT AUTO 1 % (0-2); EOSINOPHILS PERCENT AUTO 3 % (0-6); Hematocrit 27.5 % (37.0-53.0); Hemoglobin 8.6 g/dL (13.5-17.5); Mean Corpuscular HGB 27.7 pg (26.0-34.0); Mean Corpuscular HGB Conc 31.3 g/dL (31.5-36.5); Mean Corpuscular Volume 88 fL (80-100); Mean Platelet Volume 9.8 fL (9.1-12.4); Platelet Count 245 K/mm3 (150-400); RDW Coefficient Variation 17.7 % (11.7-14.2); RDW Standard Deviation 55.5 fL (35.1-46.3); Red Blood Cell Count 3.11 M/mm3 (4.30-5.90); White Blood Cell Count 3.18 K/mm3 (4.00-11.30)
[2021-04-17 05:26] LABS: IMMATURE GRAN ABSOLUTE AUTO 0.05 K/mm3 (0.00-0.10); IMMATURE GRAN PERCENT AUTO 2 % (0-1); LYMPHOCYTES ABSOLUTE AUTO 1.12 K/mm3 (0.84-5.20); LYMPHOCYTES PERCENT AUTO 35 % (21-46); MONOCYTES ABSOLUTE AUTO 0.35 K/mm3 (0.16-1.47); MONOCYTES PERCENT AUTO 11 % (4-13); NEUTROPHILS ABSOLUTE AUTO 1.53 K/mm3 (1.96-9.15); NEUTROPHILS PERCENT AUTO 48 % (41-73)
[2021-04-17 05:56] LABS: Albumin, Blood 1.9 g/dL (3.4-5.0); Anion Gap 6 mmol/L (6-16); Blood Urea Nitrogen 45 mg/dL (8-24); Bun/Creatinine Ratio 30.2 (12.0-20.0); CO2, Blood 23 mmol/L (21-32); Calcium, Blood 8.2 mg/dL (8.5-10.1); Chloride, Blood 118 mmol/L (98-108); Creatinine, Blood 1.49 mg/dL (0.60-1.20); Glomerular Filtration Rate 48 (60-); Glucose, Blood 125 mg/dL (70-99); Magnesium, Blood 1.6 mg/dL (1.6-2.4); Phosphorus, Blood 1.9 mg/dL (2.5-4.9); Potassium, Blood 3.8 mmol/L (3.5-5.5); Sodium, Blood 147 mmol/L (136-145)
--- NOTE | 2021-04-17 06:19 | NUR ---
SHIFT SUMMARY ASSUMED CARE OF PT AT 1900. PT IS NONVERBAL THIS SHIFT. HEART SOUNDS REGULAR, LUNG SOUNDS DIMINISHED. PT HAS NONPRODUCTIVE COUGH. PT ARMS ARE SWOLLEN WITH BRUISING. PT HAS A NAVARRETE DRAINING WITH GRAVITY. PT HAS A RECTAL TUBE PLACED. STOOL IS LIQUID BROWN. MEPILEX WAS PLACED ON BOTTOM DUE TO BONY PROMINENCES. PT BODY IS VERY STIFF AND RIDGED. PT DID NOT SLEEP WELL THIS SHIFT AND WATCHED TV MOST OF THE NIGHT. THIS AM, PT WAS SOMEHOW ABLE TO LOOSEN RESTRAINTS AND PULL ON DOBHOFF. AWAITING XRAY FOR CONFIRMATION OF PLACEMENT. CALL LIGHT IN REACH, BED IN LOWEST POSTION, BED ALARM ON.
--- NOTE | 2021-04-17 14:18 | NUR ---
On sunday will review with hopitalist and dr strnage and baudilio of we should contact his transplant coordiantor for long termp care plan. Pt may benefit from rehab at higher level of care and access to dialysis care. Will review with director of medicare.
[2021-04-18 04:01] LABS: BASOPHILS ABSOLUTE AUTO 0.03 K/mm3 (0.00-0.23); BASOPHILS PERCENT AUTO 1 % (0-2); EOSINOPHILS ABSOLUTE AUTO 0.06 K/mm3 (0.00-0.68); EOSINOPHILS PERCENT AUTO 2 % (0-6); Hematocrit 25.6 % (37.0-53.0); Mean Corpuscular HGB Conc 31.3 g/dL (31.5-36.5); Mean Corpuscular Volume 90 fL (80-100); Mean Platelet Volume 10.7 fL (9.1-12.4); Platelet Count 208 K/mm3 (150-400); RDW Coefficient Variation 17.6 % (11.7-14.2); RDW Standard Deviation 57.2 fL (35.1-46.3); Red Blood Cell Count 2.86 M/mm3 (4.30-5.90); White Blood Cell Count 2.57 K/mm3 (4.00-11.30)
[2021-04-18 04:02] LABS: IMMATURE GRAN ABSOLUTE AUTO 0.03 K/mm3 (0.00-0.10); IMMATURE GRAN PERCENT AUTO 1 % (0-1); LYMPHOCYTES ABSOLUTE AUTO 1.05 K/mm3 (0.84-5.20); LYMPHOCYTES PERCENT AUTO 41 % (21-46); MONOCYTES ABSOLUTE AUTO 0.24 K/mm3 (0.16-1.47); MONOCYTES PERCENT AUTO 9 % (4-13); NEUTROPHILS ABSOLUTE AUTO 1.16 K/mm3 (1.96-9.15); NEUTROPHILS PERCENT AUTO 45 % (41-73)
[2021-04-18 04:18] LABS: Magnesium, Blood 1.7 mg/dL (1.6-2.4)
[2021-04-18 04:19] LABS: Albumin, Blood 1.9 g/dL (3.4-5.0); Anion Gap 3 mmol/L (6-16); Blood Urea Nitrogen 47 mg/dL (8-24); Bun/Creatinine Ratio 32.4 (12.0-20.0); CO2, Blood 25 mmol/L (21-32); Calcium, Blood 8.3 mg/dL (8.5-10.1); Chloride, Blood 119 mmol/L (98-108); Creatinine, Blood 1.45 mg/dL (0.60-1.20); Glomerular Filtration Rate 50 (60-); Glucose, Blood 221 mg/dL (70-99); Phosphorus, Blood 2.3 mg/dL (2.5-4.9); Sodium, Blood 147 mmol/L (136-145)
--- NOTE | 2021-04-18 06:45 | NUR ---
SHIFT SUMMARY PT HAS BEEN ALERT FOR PART OF CARE. THIS MORNING HE HAS BEEN ABLE TO VERBALIZE SOME WORDS BUT DOES NOT RESPOND TO QUESTIONS. PT'S VITALS HAVE BEEN STABLE AND THER HAVE BEEN NO ACUTE CHANGES. WHEN ENTERING PT'S ROOM HE HAS OFTEN HAD LEGS HALF HANGING OFF OF BED. PT HAS NAVARRETE AND RECTAL TUBE DRAINING TO GRAVITY. RECTAL TUBE HAS SOME LEAKAGE AND REQUIRES FREQUANT CLEANING. CALL LIGHT IS WITHIN REACH.
[2021-04-18 15:31] LABS: BASOPHILS ABSOLUTE AUTO 0.02 K/mm3 (0.00-0.23); BASOPHILS PERCENT AUTO 1 % (0-2); EOSINOPHILS ABSOLUTE AUTO 0.04 K/mm3 (0.00-0.68); EOSINOPHILS PERCENT AUTO 2 % (0-6); Hematocrit 23.8 % (37.0-53.0); Hemoglobin 7.3 g/dL (13.5-17.5); Mean Corpuscular HGB 27.9 pg (26.0-34.0); Mean Corpuscular HGB Conc 30.7 g/dL (31.5-36.5); Mean Corpuscular Volume 91 fL (80-100); Mean Platelet Volume 11.2 fL (9.1-12.4); Platelet Count 182 K/mm3 (150-400); RDW Coefficient Variation 17.9 % (11.7-14.2); RDW Standard Deviation 59.7 fL (35.1-46.3); Red Blood Cell Count 2.62 M/mm3 (4.30-5.90); White Blood Cell Count 2.23 K/mm3 (4.00-11.30)
[2021-04-18 15:37] LABS: IMMATURE GRAN ABSOLUTE AUTO 0.02 K/mm3 (0.00-0.10); IMMATURE GRAN PERCENT AUTO 1 % (0-1); LYMPHOCYTES ABSOLUTE AUTO 0.82 K/mm3 (0.84-5.20); LYMPHOCYTES PERCENT AUTO 37 % (21-46); MONOCYTES ABSOLUTE AUTO 0.16 K/mm3 (0.16-1.47); MONOCYTES PERCENT AUTO 7 % (4-13); NEUTROPHILS ABSOLUTE AUTO 1.17 K/mm3 (1.96-9.15); NEUTROPHILS PERCENT AUTO 52 % (41-73)
--- NOTE | 2021-04-18 19:31 | NUR ---
SHIFT SUMMARY PT WAS MOVED FROM PCU 12 TO PCU 1. PT A/O X1-2, CONFUSED. VSS/T/O SHIFT. PT GIRLFRIEND VISITED PT, PT DID NOT RECOGNIZE GIRLFRIEND. PT HAS NAVARRETE PRESENT DRAINING TO GRAVITY. PT HAS RECTAL TUBE DRAINING TO GRAVITY. PT HAS GARBLED SPEECH. PT UNAWARE OF SURROUNDINGS. PT RECIEVED NUTRITION VIA NG TUBE PER ORDERS. PT HAS SWR APPLIED DUE TO PT PULLING AT TUBES.
[2021-04-19 03:57] LABS: BASOPHILS ABSOLUTE AUTO 0.04 K/mm3 (0.00-0.23); BASOPHILS PERCENT AUTO 1 % (0-2); EOSINOPHILS ABSOLUTE AUTO 0.22 K/mm3 (0.00-0.68); EOSINOPHILS PERCENT AUTO 7 % (0-6); Hematocrit 23.9 % (37.0-53.0); Hemoglobin 7.3 g/dL (13.5-17.5); IMMATURE GRAN ABSOLUTE AUTO 0.03 K/mm3 (0.00-0.10); IMMATURE GRAN PERCENT AUTO 1 % (0-1); LYMPHOCYTES ABSOLUTE AUTO 0.89 K/mm3 (0.84-5.20); LYMPHOCYTES PERCENT AUTO 30 % (21-46); MONOCYTES ABSOLUTE AUTO 0.32 K/mm3 (0.16-1.47); MONOCYTES PERCENT AUTO 11 % (4-13); Mean Corpuscular HGB 27.8 pg (26.0-34.0); Mean Corpuscular HGB Conc 30.5 g/dL (31.5-36.5); Mean Corpuscular Volume 91 fL (80-100); Mean Platelet Volume 11.3 fL (9.1-12.4); NEUTROPHILS ABSOLUTE AUTO 1.51 K/mm3 (1.96-9.15); NEUTROPHILS PERCENT AUTO 50 % (41-73); Platelet Count 200 K/mm3 (150-400); RDW Coefficient Variation 18.2 % (11.7-14.2); RDW Standard Deviation 59.6 fL (35.1-46.3); Red Blood Cell Count 2.63 M/mm3 (4.30-5.90); White Blood Cell Count 3.01 K/mm3 (4.00-11.30)
[2021-04-19 04:12] LABS: Albumin, Blood 1.9 g/dL (3.4-5.0); Anion Gap 7 mmol/L (6-16); Blood Urea Nitrogen 46 mg/dL (8-24); Bun/Creatinine Ratio 32.6 (12.0-20.0); CO2, Blood 23 mmol/L (21-32); Calcium, Blood 8.3 mg/dL (8.5-10.1); Chloride, Blood 114 mmol/L (98-108); Creatinine, Blood 1.41 mg/dL (0.60-1.20); Glomerular Filtration Rate 51 (60-); Glucose, Blood 180 mg/dL (70-99); Magnesium, Blood 1.4 mg/dL (1.6-2.4); Phosphorus, Blood 2.5 mg/dL (2.5-4.9); Sodium, Blood 144 mmol/L (136-145)
--- NOTE | 2021-04-19 06:31 | NUR ---
SHIFT SUMMARY NO ACUTE CHANGES THIS SHIFT. VSS. ALERT BUT NOT OREINTED. OFTEN MAKES NONSENSICAL SPEECH. IN SR. ON RA. DOBHOFF IN PLACE/PATENT. RECTAL TUBE PATENT WITH DARK BROWN STOOL. NAVARRETE PATENT. REMAINS IN SBWR TO PROTECT TUBING. REQUIRED 2 OJ FOR CBG, HELD 0600 INSULIN. BUT CBG >150 NOW. OTHERWISE, PT RESTING, TOLERATING PO WATER INTAKE WELL. BED ALARM IN PLACE. BED IN LOW POSITION.
--- NOTE | 2021-04-19 19:11 | NUR ---
RECEIVED FROM HEART SOUDAN. VSS. NO C/O PAIN. AFEBRILE. DTV. NO BM. TRANSFUSING 1ST UNIT PRBC. PENDING 2ND UNIT PRBC. REPEAT LABS ORDERED. FEMSTOP REMOVED- NO S/S OF NEW BLEEDING NOTED. FREQUENT ROUNDS TO ENSURE PT SAFETY. PT IN NO APPARENT DISTRESS AT THIS TIME. WILL CONTINUE TO MONITOR UNTIL TRANSFER OF CARE.
--- NOTE | 2021-04-19 19:21 | NUR ---
VSS. SKRG=594.1F, PRN TYLENOL X1 WITH ADEQUATE CONTROL OF TEMP. FC MAINTAINED- AUO. RECTAL TUBE MAINTAINED- CONTINUES TO HAVE LOOSE STOOL. DIET ADVANCED- PT REFUSED ALL MEALS. TF HELD UNTIL FURTHER NOTICE PER MD. FREQUENT ROUNDS TO ENSURE PT SAFETY. PT IN NO APPARENT DISTRESS AT THIS TIME. WILL CONTINUE TO MONITOR UNTIL TRANSFER OF CARE TO ONCOMING RN.
[2021-04-20 04:11] LABS: Albumin, Blood 2.1 g/dL (3.4-5.0); Anion Gap 6 mmol/L (6-16); Blood Urea Nitrogen 37 mg/dL (8-24); Bun/Creatinine Ratio 26.8 (12.0-20.0); CO2, Blood 23 mmol/L (21-32); Calcium, Blood 8.9 mg/dL (8.5-10.1); Chloride, Blood 117 mmol/L (98-108); Creatinine, Blood 1.38 mg/dL (0.60-1.20); Glomerular Filtration Rate 53 (60-); Glucose, Blood 135 mg/dL (70-99); Magnesium, Blood 1.6 mg/dL (1.6-2.4); Phosphorus, Blood 2.2 mg/dL (2.5-4.9); Sodium, Blood 146 mmol/L (136-145)
--- NOTE | 2021-04-20 05:41 | NUR ---
SHIFT SUMMARY PT ORIENTED TO SELF. REMAINS IN RESTRAINTS THROUGHOUT THE NIGHT. CONFUSED AND INCOHERENTLY TALKING. BP STABLE AND HR NSR. TEMPERATURE IN THE 101'S MANAGED PER EMAR, BROUGHT DOWN TO 99.0. TKO RUNNING 10ML/HR IN MEDIPORT. NAVARRETE IN PLACE DRAINING YELLOW URINE TO GRAVITY. LONG ACTING INSULIN HELD DUE TO LOW CBG. PT OFF TUBE FEED AND ORAL INTAKE LIMITED. WILL CONTINUE TO MONITOR UNTIL REPORT GIVEN TILL DAYSHIFT RN
[2021-04-20 11:04] LABS: BASOPHILS ABSOLUTE AUTO 0.02 K/mm3 (0.00-0.23); BASOPHILS PERCENT AUTO 1 % (0-2); EOSINOPHILS ABSOLUTE AUTO 0.12 K/mm3 (0.00-0.68); EOSINOPHILS PERCENT AUTO 6 % (0-6); Hematocrit 23.8 % (37.0-53.0); Hemoglobin 7.2 g/dL (13.5-17.5); LYMPHOCYTES ABSOLUTE AUTO 0.59 K/mm3 (0.84-5.20); LYMPHOCYTES PERCENT AUTO 28 % (21-46); MONOCYTES ABSOLUTE AUTO 0.23 K/mm3 (0.16-1.47); MONOCYTES PERCENT AUTO 11 % (4-13); Mean Corpuscular HGB 27.7 pg (26.0-34.0); Mean Corpuscular HGB Conc 30.3 g/dL (31.5-36.5); Mean Corpuscular Volume 92 fL (80-100); Mean Platelet Volume 11.3 fL (9.1-12.4); NEUTROPHILS ABSOLUTE AUTO 1.07 K/mm3 (1.96-9.15); NEUTROPHILS PERCENT AUTO 50 % (41-73); Platelet Count 179 K/mm3 (150-400); RDW Coefficient Variation 18.1 % (11.7-14.2); White Blood Cell Count 2.14 K/mm3 (4.00-11.30)
[2021-04-20 11:05] LABS: IMMATURE GRAN ABSOLUTE AUTO 0.11 K/mm3 (0.00-0.10); IMMATURE GRAN PERCENT AUTO 5 % (0-1)
--- NOTE | 2021-04-20 11:22 | NUR ---
AM NOTE PT HAS BEEN SLEEPING FOR MAJORITY OF MORNING, HE WILL RESPOND TO VERBAL STIMULI WITH SOME WORDS, HE IS ORIENTED TO SELF. VITGAL SIGNS ARE STABLE. NAVARRETE CATHETER IS IN PLACE AND DRAINING CLEAR YELLOW OUTPUT. RECTAL TUBE IS IN PLACE, ATTENDS IN PLACE. POWERGLIDE IN OTONIEL IS COVERED WITH CHG DRESSING AND IS SALINE LOCKED. MEDIPORT IN RIGHT CHEST IS INFUSING SODIUM CHLORIDE AND SODIUM PHOSPHATE PER EMAR ORDERS. PT IS WEARING HIS GLASSES. CALL LIGHT IN REACH, WILL CONTINUE TO MONITOR.
--- NOTE | 2021-04-20 18:25 | NUR ---
SHIFT SUMMARY PT REMAINS ALERT TO SELF, HE STATED LAST NAME. HE IS ABLE TO OPEN EYES BUT DOES NOT COOPERATE IN CARE. WHEN TOUCHED HE BECOMES RIGID AND ATTEMPTS TO PREVENT INTERVENTIONS. VITAL SIGNS REMAINED STABLE, PT STILL ON ROOM AIR AND SPO2 95-100%. TUBE FEEDING NOW INFUSING AT GOAL RATE OF 65ML/HR PER EMAR ORDERS. MEDIPORT CONTINUES TO INFUSE PER EMAR ORDERS. RIGHT UPPER POWERGIDE IS SALINE LOCKED, COVERED W/ CHG DRESSING AND IS DRY/CLEAN/INTACT. BILATERAL SOFT WRIST RESTRAINTS MAINTAIN IN PLACE, NO APPARENT SKIN BREAKDOWN OR REDNESS NOTED. NAVARRETE CATHETER IS IN PLACE AND DRAINING CLEAR YELLOW OUTPUT. RECTAL TUBE IN PLACE. PT MOTHER SONYA WAS AT BEDSIDE THIS AFTERNOON/EVENING. MOTHER SONYA REPORTED THAT PT BASELINE MENTATION WAS ALERT AND ORIENTED X4, THIS INFO WAS REPORTED TO DR. [place]. NO OTHER ACUTE CHANGES NOTED. WILL CONTINUE TO MONITOR UNTIL REPORT GIVEN.
--- NOTE | 2021-04-21 00:40 | NUR ---
DOBHOFF PT WAS ROUNDED ON AT 0005. PT WAS CHANGED AND REPOSITIONED WHEN THIS NURSE SAW THAT THE DOBHOFF WAS LONGER. THIS NURSE EXAMINED THE TAPE ON THE PTS NOSE AND SAW THAT IT WAS TAPED ON ITSELF AND THE DOBHOFF COULD SLIDE THROUGH IT. NOTIFIED CHARGE NURSE WHO STATED TO PLACE DOBHOFF WHERE IT SHOULD BE, STOP THE CONTINUOUS FEEDING AND ORDERED A CHEST XR TO CONFIRM PLACEMENT. AWAITING XR.
[2021-04-21 04:27] LABS: Hematocrit 26.3 % (37.0-53.0); Hemoglobin 8.2 g/dL (13.5-17.5)
[2021-04-21 04:45] LABS: Anion Gap 3 mmol/L (6-16); Blood Urea Nitrogen 34 mg/dL (8-24); CO2, Blood 25 mmol/L (21-32); Calcium, Blood 8.4 mg/dL (8.5-10.1); Chloride, Blood 119 mmol/L (98-108); Creatinine, Blood 1.36 mg/dL (0.60-1.20); Glomerular Filtration Rate 53 (60-); Glucose, Blood 124 mg/dL (70-99); Magnesium, Blood 1.5 mg/dL (1.6-2.4); Phosphorus, Blood 2.8 mg/dL (2.5-4.9); Potassium, Blood 4.1 mmol/L (3.5-5.5); Sodium, Blood 147 mmol/L (136-145)
--- NOTE | 2021-04-21 06:35 | NUR ---
SHIFT SUMMARY ASSUMED CARE OF PT AT 1900. PT IS ALERT BUT ONLY ORIENTED TO FAMILY. PT WILL REPEAT "PLEASE" AND BECOME TEARFUL WHEN CHANGEING OR REPOSITIONING BUT WILL NOT ANSWER FURTHER QUESTIONS. HEART SOUNDS REGULAR, TELE SHOWS SINUS. LUNG SOUNDS HAVE DIMINISHED BASES. PT HAD CONTIENUOUS FEEDING T/O THE NIGHT. PT HAS LOOSE WATERY STOOLS, RECTAL TUBE IN PLACE. PT NAVARRETE IS DRAINING CLEAR YELLOW URINE. DR HAM SAW PT THIS AM. ORDERED MEDICATIONS PER LABS AND SAID TO CHANGE PT FLUSH TO 150ML EVERY 4 HOURS FOR THE INCREASED SODIUM LEVEL. CALL LIGHT IN REACH, BED IN LOWEST POSTION.
--- NOTE | 2021-04-21 10:21 | NUR ---
CARE NOTE PT IS ALERT TO SELF, CAN STATE NAME. AT TIMES HE WILL OPEN EYES TO SOUND SPONTANEOUSLY, OTHER TIMES HE WILL ONLY RESPOND TO PAINFUL STIMULI. POWERGLIDE IN RIGHT UPPER ARM IS SALINE LOCKED. TF IS INFUSING PER EMAR AT 65ML/HR WITH [address] HAM ORDERS[address] MEDIPORT ACCESS IS INFUSING FLUIDS TKO AND ALBUMIN PER ORDERS. NAVARRETE CATHETER IS PATENT AND DRAINING CLEAR YELLOW OUTPUT. RECTAL TUBE REMAINS PATENT. BILATERAL SOFT WRIST RESTRAINTS IN PLACE, SKIN REMAINS INTACT WITH NO BREAKDOWN/REDNESS. PT WAS FEBRILE THIS AM, TYLENOL GIVEN PER EMAR ORDERS, PT NOW AFEBRILE. CALL [facility], BED IN LOW.
--- NOTE | 2021-04-21 11:15 | NUR ---
CARE NOTE PHARMACY REQUEST FOR MYCOPHENOL APPROX. 1030, STILL WAITING FOR MEDICATION.
--- NOTE | 2021-04-21 14:15 | NUR ---
CARE NOTE THIS NURSE HAS ATTEMPTED TO DO ORAL CARE ON PT AND PATIENT WILL NOT OPEN MOUTH. HE IS RESPONSIVE BUT IS NOT COOPERATIVE AND WILL APPEAR TO BE SLEEPING WHEN STAFF COMMUNICATES, WHEN HE GETS FRUSTRATED BECAUSE STAFF CONTINUES TO ATTEMPT TO WAKE UP HE YELLS OUT "AH" AND "LEAVE ME ALONE." WILL CONTINUE TO ATTEMPT TO PERFORM ORAL CARE AND WILL CONTINUE TO MONITOR. BED IN LOW, CALL LIGHT IN REACH.
[2021-04-21 14:31] LABS: C DIFFICILE DNA NEGATIVE (Negative)
--- NOTE | 2021-04-21 17:29 | NUR ---
SHIFT SUMMARY PT IS ALERT TO SELF AND FAMILY. AT TIMES HE IS COOPERATIVE AND ALERT BUT THEN HE WILL HAVE EPISODES OF CONFUSION/LETHARGY. PT WILL ALSO BE TEARFUL AT TIMES. PT SIGNIFICANT OTHER IS AT BEDSIDE. VITAL SIGNS HAVE REMAINED STABLE DURING SHIFT. TUBE FEEDING IS NOW INFUSING AT GOAL RATE OF 40ML WITH 90ML FLUSHES PER EMAR ORDERS. BILATERAL SOFT WRIST RESTRAINTS APPLIED. SKIN REMAINS INTACT, FREE OF REDDNESS OR SKIN BREAKDOWN. THIS NURSE ATTEMPTED TO DO ORAL CARE TWO DIFFERENT TIMES T/O SHIFT UNSUCCESFULLY, PT REFUSED TO OPEN MOUTH. MEDIPORT IS INFUSING PER EMAR ORDERS IV FLUIDS. NAVARRETE CATHETER IS IN PLACE AND DRAINING CLEAR YELLOW OUTPUT. RECTAL TUBE IS IN PLACE DRAINING CLEAR YELLOW OUTPUT. CALL LIGHT IN REACH. WILL CONTINUE TO MONITOR.
[2021-04-22 06:00] LABS: BASOPHILS ABSOLUTE AUTO 0.04 K/mm3 (0.00-0.23); BASOPHILS PERCENT AUTO 2 % (0-2); EOSINOPHILS ABSOLUTE AUTO 0.12 K/mm3 (0.00-0.68); EOSINOPHILS PERCENT AUTO 4 % (0-6); Hematocrit 25.5 % (37.0-53.0); Hemoglobin 7.8 g/dL (13.5-17.5); IMMATURE GRAN ABSOLUTE AUTO 0.03 K/mm3 (0.00-0.10); IMMATURE GRAN PERCENT AUTO 1 % (0-1); LYMPHOCYTES ABSOLUTE AUTO 1.13 K/mm3 (0.84-5.20); LYMPHOCYTES PERCENT AUTO 42 % (21-46); MONOCYTES ABSOLUTE AUTO 0.27 K/mm3 (0.16-1.47); MONOCYTES PERCENT AUTO 10 % (4-13); Mean Corpuscular HGB 28.2 pg (26.0-34.0); Mean Corpuscular HGB Conc 30.6 g/dL (31.5-36.5); Mean Corpuscular Volume 92 fL (80-100); Mean Platelet Volume 11.2 fL (9.1-12.4); NEUTROPHILS ABSOLUTE AUTO 1.11 K/mm3 (1.96-9.15); NEUTROPHILS PERCENT AUTO 41 % (41-73); Platelet Count 195 K/mm3 (150-400); RDW Standard Deviation 60.2 fL (35.1-46.3); Red Blood Cell Count 2.77 M/mm3 (4.30-5.90)
--- NOTE | 2021-04-22 06:01 | NUR ---
SHIFT SUMMARY ASSUMED CARE OF PT AT 1900. PT IS A/O TO SELF AND FAMILY. PT WAS MORE ALERT THIS SHIFT. PT IS VERY ADIMIT ABOUT GETTING TO HIS TRUCK. PT IS ALSO TEARFUL ABOUT NOT BEING ABLE TO SEE HIS . PT IS NOT ABLE TO REORIENT. HEART SOUNDS SHOW TELE. LUNG SOUNDS DIMINISHED. PT HAS A RECTAL TUBE DRAINING LIQUID BROWN STOOL. PT HAS A DOBHOFF WITH CONTINUOUS FEEDINGS. PT HAS A CATHETER DRAINING WITH GRAVITY. PT RECEIVED A BED BATH THIS SHIFT. PT ONLY SLEPT A COUIPLE HOURS THIS NIGHT. PT HAD A TEMP EARLIER THIS SHIFT, MEDICATED PER EMAR. CALL LIGHT IN REACH, BED IN LOWEST POSITION, BED ALARM ON.
[2021-04-22 06:25] LABS: Albumin, Blood 2.1 g/dL (3.4-5.0); Anion Gap 5 mmol/L (6-16); Blood Urea Nitrogen 33 mg/dL (8-24); Bun/Creatinine Ratio 24.4 (12.0-20.0); CO2, Blood 22 mmol/L (21-32); Calcium, Blood 8.3 mg/dL (8.5-10.1); Chloride, Blood 120 mmol/L (98-108); Creatinine, Blood 1.35 mg/dL (0.60-1.20); Glomerular Filtration Rate 54 (60-); Glucose, Blood 232 mg/dL (70-99); Magnesium, Blood 1.8 mg/dL (1.6-2.4); Phosphorus, Blood 2.4 mg/dL (2.5-4.9); Sodium, Blood 147 mmol/L (136-145)
--- NOTE | 2021-04-22 12:16 | NUR ---
WHILE ATTEMPTING CHEMBG PT AGITATED PINCHING AND SCRATCHING AT STAFF, BLOOD DRAWN FROM MEDICPORT FOR GLUCOSE PT IS SO COMBATIVE THAT FINGER STICK IS NOT POSSIBLE WITHOUT RISKING INJURY TO PT OR STAFF. PT REMAINS IN SWB. ROM, PT REPOSITIONED TO RT SIDE. PT TREATED WITH TYLENOL FOR INCREASING TEMP. PT BEGINS TO KICK AT STAFF WHILE TAKING TEMPORAL TEMPERATURE PT STS "WELL DO YOU FEEL GOOD ABOUT WHAT YOU'RE DOING TO ME" STAFF ATTEMPTS TEMPORAL TEMP CHECK.
--- NOTE | 2021-04-22 16:06 | NUR ---
Review with family pt needs. They are wanting to follow a care plan that prepares for dialysis or transplant. Advised them that a peg tube may rule him out for a transplant. [place] so no longer has a home health care worker. suggest we see if Dr strange can reach out or we can to [facility] or [facility] to have a coordinator speak with family and have a palliative consult for prognostication. Families concern and focus is on renal care so may be their best support for decision making and acceptance. pt family very open to that assessment.
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
[2021-04-23 04:30] LABS: Hematocrit 24.4 % (37.0-53.0); Hemoglobin 7.7 g/dL (13.5-17.5)
[2021-04-23 04:45] LABS: Albumin, Blood 2.1 g/dL (3.4-5.0); Anion Gap 5 mmol/L (6-16); Blood Urea Nitrogen 32 mg/dL (8-24); CO2, Blood 22 mmol/L (21-32); Calcium, Blood 8.3 mg/dL (8.5-10.1); Chloride, Blood 121 mmol/L (98-108); Creatinine, Blood 1.28 mg/dL (0.60-1.20); Glomerular Filtration Rate 57 (60-); Glucose, Blood 193 mg/dL (70-99); Magnesium, Blood 1.6 mg/dL (1.6-2.4); Phosphorus, Blood 2.4 mg/dL (2.5-4.9); Potassium, Blood 3.9 mmol/L (3.5-5.5); Sodium, Blood 148 mmol/L (136-145)
--- NOTE | 2021-04-23 05:24 | NUR ---
SHIFT SUMMARY PT ORIENTED TO SELF. REMAINS IN SOFT BILATERAL WRIST RESTRAINTS. TF INFUSING AT 40ML/HR. CONFUSED AND AGITAGED AT START OF SHIFT. YELLING FOR HELP AND COMMUNICATING NONSENSICALLY. C/O HEADACHE, MANAGED PER EMAR. RECTAL TUBE LEAKY AT TIMES. ON RA, SATS OVER 98%. HR NSR. BP STABLE. WILL CONTINUE TO MONITOR UNTIL REPORT GIVEN TO DAYSHIFT RN
[2021-04-23 05:45] LABS: BASOPHILS ABSOLUTE AUTO 0.02 K/mm3 (0.00-0.23); BASOPHILS PERCENT AUTO 1 % (0-2); EOSINOPHILS ABSOLUTE AUTO 0.04 K/mm3 (0.00-0.68); EOSINOPHILS PERCENT AUTO 2 % (0-6); IMMATURE GRAN ABSOLUTE AUTO 0.02 K/mm3 (0.00-0.10); IMMATURE GRAN PERCENT AUTO 1 % (0-1); LYMPHOCYTES ABSOLUTE AUTO 0.76 K/mm3 (0.84-5.20); LYMPHOCYTES PERCENT AUTO 41 % (21-46); MONOCYTES ABSOLUTE AUTO 0.24 K/mm3 (0.16-1.47); MONOCYTES PERCENT AUTO 13 % (4-13); Mean Corpuscular HGB 28.9 pg (26.0-34.0); Mean Corpuscular HGB Conc 31.3 g/dL (31.5-36.5); Mean Corpuscular Volume 93 fL (80-100); Mean Platelet Volume 11.8 fL (9.1-12.4); NEUTROPHILS ABSOLUTE AUTO 0.78 K/mm3 (1.96-9.15); NEUTROPHILS PERCENT AUTO 42 % (41-73); Platelet Count 183 K/mm3 (150-400); RDW Coefficient Variation 18.3 % (11.7-14.2); RDW Standard Deviation 61.8 fL (35.1-46.3); Red Blood Cell Count 2.66 M/mm3 (4.30-5.90); White Blood Cell Count 1.86 K/mm3 (4.00-11.30)
--- NOTE | 2021-04-23 10:00 | NUR ---
SPOKE WITH PHYSICIAN ORDERS FOR PT TO HAVE STAT NA+ DRAWN AT 1700, ORDERS TO INCREASE FLUSH AMOUNT TO 150 ML Q 4 HRS FOR TUBE FEEDS. WILL CALL DR. HAM AT 1800 WITH NA+ RESULTS.
--- NOTE | 2021-04-23 17:33 | NUR ---
SHIFT SUMMARY PT CONFUSED, WANTING TO LEAVE IN THE MORNING SHIFT. PT IN BILATERAL WRIST RESTRAINTS, PT TRIED CLIMBING OVER SIDE RAILS, RESTRAINTS FOR LEGS ORDERED AND APPLIED. LEG RESTRAINTS REMOVED ABOUT AN HOUR LATER. VSS T/O SHIFT. PT WOULD SLIDE SELF DOWN IN BED MOMENTS AFTER BEING BOOSTED IN BED. DOBHOFF IN PLACE RUNNING PER ORDERS. NAVARRETE IN PLACE DRAINING TO GRAVITY, YELLOW URINE. RECTAL TUBE IN PLACE DRAINING TO GRAVITY.
--- NOTE | 2021-04-23 17:43 | NUR ---
LAB RESULTS UPDATE 1741- THIS RN CONTACTED DR HAM WITH [facility] RESULTS OF 148 FROM THE 1600 LAB DRAW.
[2021-04-24 05:02] LABS: BASOPHILS ABSOLUTE AUTO 0.04 K/mm3 (0.00-0.23); BASOPHILS PERCENT AUTO 1 % (0-2); EOSINOPHILS ABSOLUTE AUTO 0.07 K/mm3 (0.00-0.68); EOSINOPHILS PERCENT AUTO 3 % (0-6); Hematocrit 23.9 % (37.0-53.0); Hemoglobin 7.5 g/dL (13.5-17.5); IMMATURE GRAN ABSOLUTE AUTO 0.05 K/mm3 (0.00-0.10); IMMATURE GRAN PERCENT AUTO 2 % (0-1); LYMPHOCYTES ABSOLUTE AUTO 1.24 K/mm3 (0.84-5.20); LYMPHOCYTES PERCENT AUTO 44 % (21-46); MONOCYTES ABSOLUTE AUTO 0.39 K/mm3 (0.16-1.47); MONOCYTES PERCENT AUTO 14 % (4-13); Mean Corpuscular HGB 28.8 pg (26.0-34.0); Mean Corpuscular HGB Conc 31.4 g/dL (31.5-36.5); Mean Corpuscular Volume 92 fL (80-100); Mean Platelet Volume 10.7 fL (9.1-12.4); NEUTROPHILS ABSOLUTE AUTO 1.02 K/mm3 (1.96-9.15); NEUTROPHILS PERCENT AUTO 36 % (41-73); Platelet Count 185 K/mm3 (150-400); RDW Coefficient Variation 18.6 % (11.7-14.2); RDW Standard Deviation 62.3 fL (35.1-46.3); White Blood Cell Count 2.81 K/mm3 (4.00-11.30)
[2021-04-24 05:40] LABS: Albumin, Blood 2.2 g/dL (3.4-5.0); Anion Gap 5 mmol/L (6-16); Blood Urea Nitrogen 31 mg/dL (8-24); Bun/Creatinine Ratio 23.3 (12.0-20.0); CO2, Blood 22 mmol/L (21-32); Calcium, Blood 8.5 mg/dL (8.5-10.1); Chloride, Blood 121 mmol/L (98-108); Creatinine, Blood 1.33 mg/dL (0.60-1.20); Glomerular Filtration Rate 55 (60-); Glucose, Blood 173 mg/dL (70-99); Magnesium, Blood 1.6 mg/dL (1.6-2.4); Phosphorus, Blood 2.4 mg/dL (2.5-4.9); Potassium, Blood 4.2 mmol/L (3.5-5.5); Sodium, Blood 148 mmol/L (136-145)
--- NOTE | 2021-04-24 07:29 | NUR ---
SHIFT SUMMARY PT REMAINS IN RESTRAINTS THIS EVENING. CONTINUES TO PULL AT LINES. PULLED OFF NAVARRTEE STALOCK THREE TIMES, DEACCESSED MEDIPORT, AND PULLED OUT DOBHOFF. WILL BE BOOSTED IN BED WITH HEAD ELEVATED FOR TF AND WRIST RESTRAINTS FIRMLY IN PLACE. SOON AFTER SINKS IN BED, ENABLING RESTRAINTS TO BECOME LOOSE AND HANDS WILL PULL AT ANYTHING IN REACH. AGITATED WHEN REACCESSING MEDIPORT. SWUNG LEGS HIGH, NEARLY KICKING AN RN. TOLERATED NEW DOBHOFF INSERTION BETTER. VARIABLE ATTITUDE THROUGHOUT THE NIGHT. AT TIMES PLEASANT AND FRIENDLY, OTHER TIMES YELLING AND AGGRESSIVE. REINSERTED DOBHOFF WITH DAYSHIFT RN'S AND GAVE REPORT.
--- NOTE | 2021-04-24 16:53 | NUR ---
UPDATE PT WAS ALERT DURING BEGINNING OF SHIFT, MOTHER CAME TO VISIT EARLY IN THE DAY TO TRY AND ATTEMPT TO KEEP PT MORE AWAKE THROUGHOUT THE DAY. PT SLEPT MOST OF THE DAY EVEN WITH MOTHER IN ROOM TRYING TO TALK TO PT, PT WOULD ANSWER A FEW QUESTIONS AND THEN GO BACK TO SLEEP. VSS T/O SHIFT WITH O2 SATS IN HIGH 90'S ON RA. PT BIT DOWN ON ORAL CARE EQUIPMENT ABOUT MID-DAY, SEE NURSE NOTES. PT HAS NAVARRETE DRAINING TO GRAVITY, YELLOW URINE. PT HAS RECTAL TUBE DRINING TO GRAVITY. PT HAS BEEN IN WRIST RESTRAINTS ENTIRE SHIFT AND HAS BEEN OUT OF ANKLE RESTRAINTS FOR MOST OF SHIFT.
--- NOTE | 2021-04-25 01:57 | NUR ---
UPDATE PT CONTINUES TO PULL ON LINES AND TUBES. PULLED OUT DOBHOFF AGAIN. PT DID NOT TOLERATE INSERTION OF NEW DOBHOFF. DUE TO TRAUMA OF REPEATED INSERTION ATTEMPTS, DOBHOFF NOT INSERTED AT THIS TIME. D5W 1/2NS INFUSING AT 75ML/HR TO MANAGE LOW CBGS W/O TUBE FEED INFUSING. PT NOW IN 4 POINT RESTRAINTS. WILL CONTINUE TO MONITOR
[2021-04-25 03:48] LABS: Hemoglobin 7.7 g/dL (13.5-17.5)
[2021-04-25 04:04] LABS: Albumin, Blood 2.3 g/dL (3.4-5.0); Anion Gap 5 mmol/L (6-16); Blood Urea Nitrogen 32 mg/dL (8-24); Bun/Creatinine Ratio 23.2 (12.0-20.0); CO2, Blood 22 mmol/L (21-32); Calcium, Blood 8.4 mg/dL (8.5-10.1); Chloride, Blood 122 mmol/L (98-108); Creatinine, Blood 1.38 mg/dL (0.60-1.20); Glomerular Filtration Rate 53 (60-); Glucose, Blood 106 mg/dL (70-99); Magnesium, Blood 1.6 mg/dL (1.6-2.4); Phosphorus, Blood 2.3 mg/dL (2.5-4.9); Potassium, Blood 4.3 mmol/L (3.5-5.5); Sodium, Blood 149 mmol/L (136-145)
--- NOTE | 2021-04-25 06:38 | NUR ---
SHIFT SUMMARY PT ALERT AND AWAKE MOST OF FIRST HALF OF SHIFT BEFORE MIDNIGHT. CONFUSED AND NONSENSICAL SPEECH. WITH HOB ELEVATED PT CONTINUES TO SLIDE DOWN, LOOSEN RESTRAINTS, AND PULL AT LINES AND TUBES. PT PULLED OUT DOBHOFF AROUND MIDNIGHT. PT DID NOT TOLERATE DOBHOFF INSERTION AFTER TWO ATTEMPTS. LOW CBG OF 51. MANAGED PER EMAR. D5W INFUSING IN POWERGLIDE. TKO INFUSING IN MEDIPORT. BP STABLE AND HR NSR. MAINTAINING SATS OVER 95% ON RA. NAVARRETE DRAINNING URINE TO GRAVITY. RECTAL TUBE IN PLACE DRAINING TO GRAVITY. PT ASLEEP MOST OF SHIFT SINCE MIDNIGHT. IN BED RESTING WITH CALL ALARM AT SIDE. WILL CONTINUE TO MONITOR UNTIL REPORT GIVEN TO DAYSHIFT RN
--- NOTE | 2021-04-25 17:58 | NUR ---
SHIFT SUMMARY ASSUMED CARE OF PATIENT AT APPROX 0700. PT SOMULENT, MOANING AND SHAKING HEAD AT VERBAL STIMULI. REFUSING ORAL CARE AND SOME PARTS OF ASSESSMENT. LATER IN THE AM, PT ALERT, ORINTED TO SELF, FOLLOWING DIRECTIONS, CITY AND PRESIDENT; PT UNSURE OF DATE, SEASON, SURROUNDING/PLACE AND EVENT. PT IN BILATERAL WRIST AND ANKLE RESTRAINTS, REMOVED THIS AFTERNOON, REMINDING PATIENT TO NOTE PULL AT LINES. PT AWAKE THIS AFTERNOON, PT ST AT BEDSIDE, DIET ORDERED, HOWEVER PT HAS REFUSED OR BEEN TOO SLEEPY TO EAT. PT REFUSING PO MEDICATION THIS AFTERNOON. PT DENIES PAIN, SOB, NAUSEA, AND DIZZINESS. PT HAS BEEN TEARFUL AT TIMES WITH GIRLFRIEND/SPOUSE AT BEDSIDE. VSS. NO OTHER ACUTE CHANGES NOTED DURING SHIFT. WILL CONTINUE TO MONITOR UNTIL REPORT GIVEN TO ONCOMING RN.
[2021-04-26 05:28] LABS: Hematocrit 23.8 % (37.0-53.0); Hemoglobin 7.2 g/dL (13.5-17.5)
[2021-04-26 05:47] LABS: Albumin, Blood 2.4 g/dL (3.4-5.0); Anion Gap 5 mmol/L (6-16); Blood Urea Nitrogen 24 mg/dL (8-24); CO2, Blood 21 mmol/L (21-32); Calcium, Blood 8.5 mg/dL (8.5-10.1); Chloride, Blood 121 mmol/L (98-108); Creatinine, Blood 1.33 mg/dL (0.60-1.20); Glomerular Filtration Rate 55 (60-); Glucose, Blood 128 mg/dL (70-99); Magnesium, Blood 1.3 mg/dL (1.6-2.4); Phosphorus, Blood 2.2 mg/dL (2.5-4.9); Potassium, Blood 4.7 mmol/L (3.5-5.5); Sodium, Blood 147 mmol/L (136-145)
--- NOTE | 2021-04-26 06:17 | NUR ---
SHIFT SUMMARY ASSUMED CARE OF PT AT 1900. PT WAS VERY TEARFUL AND CRYING OUT FOR HIS GIRLFRIEND AT THE BEDGINNING OF THE SHIFT. UPON MIDNIGHT ASSESSMENT, PT WAS VERY FLIRTY WITH THIS NURSE, THINKING THE NURSE WAS HIS GIRLFRIEND AND SPEAKING BENGALI. THIS AM, PT WAS FUSTRATED WITH CARE AND TEARFUL. HEART SOUNDS REGULAR, LUNG SOUNDS DIMINISHED. PT HAS A DRY COUGH. PT HAS A NAVARRETE DRAINING WITH GRAVITY. PT RECTAL TUBE HAS MINIMAL DRAINAGE. PT WAS ABLE TO ROLL HIMSELF AROUND IN THE BED THIS SHIFT. PT PULLED OUT HIS POWERGLIDE THIS SHIFT. PT IS VERY UPSET ABOUT GETTING HIS FINGER POKED FOR BLOOD DRAWS AND BECOMES VERY TEARFUL. INSULIN WAS HELD T/O THE SHIFT DUE TO LOW LEVELS. PT MOTHER CALLED THIS SHIFT ASKING FOR AN UPDATE. SHE WAS UNAWARE THAT PT NOLONGER HAD A FEEDING TUBE. SHE ASKED WHAT THE NEXT STEP WAS AND PT FATHER CHIMED IN THAT THE PTS DIRECTIVE SAID TO KEEP HIM ALIVE AND THAT HE SHOULD HAVE A PEG TUBE PLACED. CALL LIGHT IN REACH, BED IN LOWEST POSTION, BED ALARM ON.
--- NOTE | 2021-04-26 08:12 | NUR ---
ASSUMPTION OF CARE NOTE PT IS TEARFUL ON AND OFF. HE IS NOT COOPERATIVE WITH CARE AND KEEPS SAYING "OH GOD." WHEN ASKED IF IN PAIN PATIENT DOES NOT RESPOND IN A MEANINGFUL WAY. NO SIGNS OF GRIMACING OR OTHER PHYSIOLOGIC SIGNS OF PAIN. PT REFUSED FOR RANDI JO TO GET BLOOD GLUCOSE THIS AM. WILL CONTINUE TO MONITOR. THERAPEUTIC COMMUNICATION USED BUT PATIENT STILL APPEARS UPSET. BED IN LOW. CALL LIGHT IN REACH.
--- NOTE | 2021-04-26 13:02 | NUR ---
CARE NOTE PT REMAINS LETHARGIC. PT WILL SOMETIMES RESPOND TO VERBAL STIMULI AND OTHER TIMES ONLY WAKE UP WITH EYELASH STROKE. WHEN PATIENT IS MORE ALERT, HE STILL KEEPS HIS EYES CLOSED AND WILL COVER HIS FACE WITH HANDS AND BECOME TEARFUL. MIDIPORT ACCESS LOCATED ON RIGHT CHEST IS ONLY ACCESS AT THIS TIME, PER REPORT PATIENT PULLED OUT POWERGLIDE LAST PM SHIFT. NAVARRETE CATHETER IS IN PLACE AND DRAINING CLEAR YELLOW OUTPUT, RECTAL TUBE IS IN PLACE AND PATENT. WHEN THIS NURSE OR STAFF PROVIDE INTERVENTIONS, PATIENT PULLS AWAY. PT IS NOT ABLE TO STATE NAME AT THIS TIME AND DOES NOT APPEAR ORIENTED.
--- NOTE | 2021-04-26 19:17 | NUR ---
SHIFT SUMMARY PT MOTHER AT BEDSIDE THIS AFTERNOON. PATIENTS MENTATION REMAINED UNCHANGED FROM PREVIOUS ASSESSMENT. HE CONTINUED TO BECOME TEARFUL, WAS WITHDRAWN, EXTREMETIES WOULD BECOME RIGID WHEN TOUCHED. VITAL SIGNS REMAINED STABLE DURING SHIFT. DR RODRIGUEZ GAVE THIS NURSE INSTRUCTIONS TO REMOVE RECTAL TUBE, RANDI CANO RN REMOVED TUBE. NAVARRETE CATHETER IS IN PLACE AND DRAINING CLEAR YELLOW OUTPUT, MEDIPORT IS INFUSING PER EMAR ORDERS. NO OTHER ACUTE CHANGES NOTED.
--- NOTE | 2021-04-26 19:27 | NUR ---
DISCUSSED INSULIN AND BCG WITH DR HA, DR HA TO REVIEW AND PLACE ORDERS.
--- NOTE | 2021-04-27 03:04 | NUR ---
SHIFT SUMMARY: PT HAD FAIR SHIFT, ABLE TO REST WITHOUT RESTLESSNESS OR AGITATION. BECOMES RESISTIVE TO CARE, UNABLE TO FOLLOW SIMPLE COMMANDS OR IDENTIFY SELF. VSS, TMAX 99.5 HE SR/ST LOW 100'S. HAS REFUSED ALL PO FOOD/FLUIDS/MEDS, CELLCEPT ORDERED IV. INCONTINENT STOOL, NAVARRETE DRAINING YELLOW URINE, IV FLUIDS INFUSING VIA RIGHT MEDIPORT. REQUIRES TOTAL ASSIST WITH ALL CARE, AND CAN BECOME WUITE RESISTIVE TO CARE AND AGITATED WITH INTERACTION. BED LOCKED AND LOW,CALL CURTIS IN REACH. DEYSI GAMBOA
[2021-04-27 03:51] LABS: Hematocrit 23.3 % (37.0-53.0); Mean Corpuscular HGB 27.5 pg (26.0-34.0); Mean Corpuscular Volume 91 fL (80-100); Mean Platelet Volume 10.9 fL (9.1-12.4); Platelet Count 113 K/mm3 (150-400); RDW Coefficient Variation 18.7 % (11.7-14.2); RDW Standard Deviation 62.4 fL (35.1-46.3); Red Blood Cell Count 2.55 M/mm3 (4.30-5.90); White Blood Cell Count 1.47 K/mm3 (4.00-11.30)
[2021-04-27 04:06] LABS: Albumin, Blood 2.4 g/dL (3.4-5.0); Anion Gap 5 mmol/L (6-16); Blood Urea Nitrogen 20 mg/dL (8-24); Bun/Creatinine Ratio 13.8 (12.0-20.0); CO2, Blood 21 mmol/L (21-32); Calcium, Blood 8.2 mg/dL (8.5-10.1); Chloride, Blood 121 mmol/L (98-108); Creatinine, Blood 1.45 mg/dL (0.60-1.20); Glomerular Filtration Rate 50 (60-); Glucose, Blood 156 mg/dL (70-99); Potassium, Blood 4.7 mmol/L (3.5-5.5); Sodium, Blood 147 mmol/L (136-145)
--- NOTE | 2021-04-27 09:25 | NUR ---
REDNESS ON COCCYX RECIEVED IN REPORT THAT PATIENT HAS REDNESS ON COCCYX. AT THIS TIME, UNABLE TO ASSESS AREA DUE TO PATEINT PULLING AWAY FROM STAFF AND NOT TOLERATING TOUCH. ATTEMPT TO PLACE PILLOW UNDER PATIENT'S HIP TO RELIEVE PRESSURE BUT PATIENT MOVES OFF OF PILLOWS.
--- NOTE | 2021-04-27 15:03 | NUR ---
VISITOR PATIENT HAS A VISTOR AT BEDSIDE. VISITOR EDUCATED ON HOW TO GET AHOLD OF STAFF IF SOMETHING IS NEEDED. DOOR IS CLOSED TO GIVE UNINTERRUPTED TIME TOGETHER.
--- NOTE | 2021-04-27 17:22 | NUR ---
SHIFT SUMMARY NO SIGNIFICANT CHANGES TO PATIENT STATUS. VSS. PATIENT ON ROOM AIR WITH OXYGEN SATURATION AOVE 90%. PATIENT MORE ALERT TODAY BUT ORIENTED TO SELF AND FAMILY ONLY . ABLE TO TAKE SMALL BITES OF PUREE FOOD AND TAKE SOME ORAL MEDICATIONS. NAVARRETE IN PLACE DRAINING CLEAR/YELLOW URINE TO GRAVITY. IV FLUIDS INFUSING INTO RIGHT MEDIPORT. FAMILY MEMBER AT BEDSIDE THIS AFTERNOON. NO OTHER SIGNIFICANT CHANGES OR UPDATES. WILL REPORT TO POISER BALANCE RN.
[2021-04-28 06:40] LABS: Hematocrit 20.6 % (37.0-53.0); Hemoglobin 6.3 g/dL (13.5-17.5)
[2021-04-28 06:57] LABS: Albumin, Blood 2.3 g/dL (3.4-5.0); Anion Gap 6 mmol/L (6-16); Blood Urea Nitrogen 23 mg/dL (8-24); Bun/Creatinine Ratio 14.6 (12.0-20.0); CO2, Blood 19 mmol/L (21-32); Calcium, Blood 8.1 mg/dL (8.5-10.1); Chloride, Blood 117 mmol/L (98-108); Creatinine, Blood 1.57 mg/dL (0.60-1.20); Glomerular Filtration Rate 45 (60-); Glucose, Blood 156 mg/dL (70-99); Magnesium, Blood 1.4 mg/dL (1.6-2.4); Phosphorus, Blood 2.7 mg/dL (2.5-4.9); Potassium, Blood 4.9 mmol/L (3.5-5.5); Sodium, Blood 142 mmol/L (136-145)
--- NOTE | 2021-04-28 14:06 | NUR ---
PT DISCHARGE SUMMARY PT DISCHARGE PAPERWORK PROVIDED AND INSTRUCTED ON FOLLOW UP CARE. ALL BELONGINGS SENT HOME WITH PT. NO APPARENT S/S OF DISTRESS NOTED PRIOR TO DC HOME.
[2021-04-28 16:12] LABS: CMV QUANT DNA PCR (PLASMA) Negative (Negative)
--- NOTE | 2021-04-28 17:05 | NUR ---
SHIFT SUMMARY PATIENT MORE ALERT TODAY. ORIENTED x2-3. VSS. PATIENT ON ROOM AIR WITH OXYGEN SATURATION ABOVE 90%. PATIENT RECIEVED 1 UNIT PRBC THIS SHIFT. NAVARRETE STILL IN PLACE DRAINING CLEAR YELLOW URINE TO GRAVITY. D5W INFUSING INTO RIGHT CHEST MEDIPORT. NO SIGNIFICANT CHANGES TO PATIENT'S STATUS THIS SHIFT.
[2021-04-28 17:46] LABS: Hematocrit 24.4 % (37.0-53.0); Hemoglobin 7.8 g/dL (13.5-17.5)
[2021-04-28 20:04] LABS: Hematocrit 26.2 % (37.0-53.0); Hemoglobin 8.3 g/dL (13.5-17.5)
[2021-04-29 04:14] LABS: Hematocrit 26.6 % (37.0-53.0); Hemoglobin 8.4 g/dL (13.5-17.5)
[2021-04-29 04:30] LABS: Albumin, Blood 2.6 g/dL (3.4-5.0); Anion Gap 6 mmol/L (6-16); Blood Urea Nitrogen 21 mg/dL (8-24); Bun/Creatinine Ratio 13.6 (12.0-20.0); CO2, Blood 19 mmol/L (21-32); Calcium, Blood 8.3 mg/dL (8.5-10.1); Chloride, Blood 115 mmol/L (98-108); Creatinine, Blood 1.54 mg/dL (0.60-1.20); Glomerular Filtration Rate 46 (60-); Glucose, Blood 190 mg/dL (70-99); Magnesium, Blood 1.7 mg/dL (1.6-2.4); Phosphorus, Blood 2.1 mg/dL (2.5-4.9); Potassium, Blood 4.9 mmol/L (3.5-5.5); Sodium, Blood 140 mmol/L (136-145)
--- NOTE | 2021-04-29 05:59 | NUR ---
SHIFT SUMMARY PT ORIENTED TO SELF. PUT IN LEONELA VEST THIS SHIFT AFTER MIDNIGHT. CONTINUES TO PULL AT LINES. ATTEMPTS TO GET OUT OF BED ON HIS OWN. WALKED PT AROUND UNIT WITH X3 ASSIST. PT LESS ACTIVE FOR A PERIOD OF TIME AFTER WALK. PT MENTATION CONSTANTLY CHANGES. SOMETIMES FRIENDLY WITH STAFF, OTHERTIMES AGITATED. PT HAS BEEN INCONTINENT. D5W INFUSING AT 50ML/HR. VSS. ON RA SATS OVER 98% AND BP NSR 80'S. IN BED RESTING. WILL CONTINUE TO MONITOR
--- NOTE | 2021-04-29 15:10 | NUR ---
Meeting with physician and pt mother. visited mother earlier for theraputic visit she is fatigued about his delirium. offerd prayer and support. Physicians to discuss peg tube and dialysia if needed and pt treatment plan. Iliana mairees with peg tube and dialysis if need.We discussed how dr strange knows pt and will help her along with doctor baudilio formulate a plan of care. We had a careful discussion of his life paln and trying to anticipate his needs. We also discussed if he has a large decline we may need memory care or hospice. She wanted assistance that plan. Advised her we will assist based on his expressed wishes. Will continuye to support family.
--- NOTE | 2021-04-29 18:46 | NUR ---
PT IS AWAKE TO SELF. ASSISTANCE WAS NEED TO KEEP FIELD STERILE. PT C/O DISCOMFORT BUT TOLERATED WITHOUT INCIDENT.
--- NOTE | 2021-04-29 19:23 | NUR ---
PT TRANSFERRED FRO PCU. HE IS AWAKE AND ORIENTED TO SELF. HIS MOTHER WAS AT BEDSIDE. HE IS CONFUSED BUT ABLE TO STATE HE WAS AT [facility]. HE IS TEARFUL. PT REFUSED PO INTAKE. IVF INFUSING AT 50ML/HR. BLADDER SCAN AT 1800 WITH 335 RESIDUAL. NOTIFIED. INDWELLING NAVARRETE ORDERED AND PLACED. LEONELA VEST CONTINUED DUE TO PT AT RISK OF INJURY TO SELF. HE DOES NOT APPEAR TO BE IN ACUTE DISTRESS.
[2021-04-30 05:12] LABS: Hematocrit 26.8 % (37.0-53.0); Hemoglobin 8.6 g/dL (13.5-17.5)
[2021-04-30 05:24] LABS: Albumin, Blood 2.7 g/dL (3.4-5.0); Anion Gap 6 mmol/L (6-16); Blood Urea Nitrogen 21 mg/dL (8-24); Bun/Creatinine Ratio 12.7 (12.0-20.0); CO2, Blood 20 mmol/L (21-32); Calcium, Blood 8.6 mg/dL (8.5-10.1); Chloride, Blood 115 mmol/L (98-108); Creatinine, Blood 1.65 mg/dL (0.60-1.20); Glomerular Filtration Rate 43 (60-); Glucose, Blood 124 mg/dL (70-99); Magnesium, Blood 1.8 mg/dL (1.6-2.4); Phosphorus, Blood 3.1 mg/dL (2.5-4.9); Potassium, Blood 5.3 mmol/L (3.5-5.5); Sodium, Blood 141 mmol/L (136-145)
--- NOTE | 2021-04-30 06:33 | NUR ---
SHIFT SUMMARY PT IS A&O TO SELF. NOT EASILY REDIRECTABLE.PT IS ON RA. HAS A NAVARRETE CATHETER PRESENTLY DRAINING LIGHT YELLOW URINE. LEONELA VEST IN PLACE. NO ACUTE CHANGES ON THIS SHIFT, ADLS PROVIDED, SAFETY MEASURES IN PLACE. WILL CONTINUE TO MONITOR
--- NOTE | 2021-04-30 14:08 | NUR ---
DAY SHIFT SUMMARY PT HAS SLEPT MOST OF THE DAY, MRI SCHEDULED FOR 11:30 THIS AM, ATIVAN GIVEN 30 PRIOR TO MRI, MRI UNSUCCESSFUL PT UNABLE TO HOLD STILL ENOUGH FOR SCAN. SPOKE WITH PT'S MOM THIS AM ON POSIBILITY OF MRI BEING DONE. MEDIPORT USED FOR IV ACCESS WITH FLUIDS HUNG. PT IN LEONELA RESTRAINT PER MD ORDER WITH RESTRAINT CHECK A MINIUM OF Q2H. PT INCOHERENT WITH VERBALIZATIONS, MUMBLING TO SELF INCOHERENTLY, UNABLE TO GIVE PO MEDS D/T PT FEELING GROGGY AND UNABLE TO WAKE ENOUGH TO SAFELY TAKE PO MEDS. PT SLEEPING ON SIDE CURLED INTO BALL. CALL LIGHT WITHIN REACH.
[2021-05-01 05:07] LABS: Hematocrit 27.4 % (37.0-53.0); Hemoglobin 8.7 g/dL (13.5-17.5)
[2021-05-01 05:27] LABS: Albumin, Blood 2.7 g/dL (3.4-5.0); Anion Gap 6 mmol/L (6-16); Blood Urea Nitrogen 20 mg/dL (8-24); Bun/Creatinine Ratio 11.5 (12.0-20.0); CO2, Blood 19 mmol/L (21-32); Chloride, Blood 119 mmol/L (98-108); Creatinine, Blood 1.74 mg/dL (0.60-1.20); Glomerular Filtration Rate 40 (60-); Glucose, Blood 96 mg/dL (70-99); Magnesium, Blood 1.6 mg/dL (1.6-2.4); Potassium, Blood 5.5 mmol/L (3.5-5.5); Sodium, Blood 144 mmol/L (136-145)
--- NOTE | 2021-05-01 05:43 | NUR ---
SHIFT SUMMARY PT IS ALERT TO SELF. SCHEDULED MEDS ADMINISTERED PER EMAR. PT WAS GRIMACING ON THIS SHIFT. HE REFUSED TYLENOL MED FOR PRN PAIN. ADLS PROVIDED, SAFETY MEASURES IN PLACE. WILL CONTINUE TO MONITOR.
--- NOTE | 2021-05-01 17:37 | NUR ---
PATIENT A/O TO SELF AND FAMILY. SLEPT MOST OF THE SHIFT. CONTINUES TO EAT VERY LITTLE. ATE ONE APPLESAUCE AND DRANK SOME WATER THIS AM AND REFUSED LUNCH AND DINNER. CONSULT CALLED FOR POSSIBLE PEG TUBE PLACEMENT. FLUID RUNNING AT 50ML/HR. MEDIPORT TO R UPPER CHEST. NAVARRETE TO GRAVITY. BLOOD SUGARS Q6 HOURS, PATIENT DID NOT REQUIRE ANY CONVERAGE TODAY. MOTHER AT BEDSIDE THIS EVENING. DRESSING CHANGED TO COCCYX WOUND AND REPOSITIONING Q2 HOURS. RESTRAINTS D/C'D AND FALL PRECAUTIONS IN PLACE.
--- NOTE | 2021-05-02 04:28 | NUR ---
SHIFT SUMMARY SUE WAS ABLE TO REMAIN SAFE AND NOT WEAR THE SOFT VEST RESTRAINT FROM 05/01 0800 UNTIL 05/02 020O, WHEN BILAT SOFT WRIST RESTRAINTS WERE APPLIED. SUE WAS PULLING AT HIS NAVARRETE, HAD DEACCESSED HIS MEDIPORT AND WAS ATTEMPTING TO GET OUT OF BED. TO MAINTAIN PT SAFETY, AND PRESERVE LINES/TUBES, RESTRAINTS WERE RE-APPLIED. HE WAS ALSO GIVEN A ONE TIME DOSE OF 0.25MG LORAZEPAM VIA IV WHICH HELPED HIM SLEEP SOME. BLOOD SUGAR AT 2315 WAS 264, AND HE RECIVED 3UNIT HUMULIN. PT STATED THAT HE DOES NOT WANT A FEEDING TUBE, STATED, "I ATE LIKE YOU TOLD ME TO." (PT ATE 50% OF HIS DINNER LAST NIGHT, AND ACCEPTED PO FLUIDS DURING EVENING SHIFT). NAVARRETE IN PLACE, DRAINING DARK YELLOW URINE TO GRAVITY. MEDIPORT RE-ACCESSED FOR SODIUM BICARB IV FLUIDS AND LABS. MEPILEX ON COCCYX TO PROTECT MONIKA PROMINENCES. PLAN IS FOR A SURGICAL CONSULT RE: PEG TUBE PLACEMENT TOMORROW. BED ALARM ON, MONITORED VIA ROOM CAMERA. WILL CONTINUE TO MONITOR UNTIL GIVING REPORT TO DAY TIME NURSE.
[2021-05-02 05:50] LABS: Hematocrit 22.4 % (37.0-53.0); Hemoglobin 7.3 g/dL (13.5-17.5)
[2021-05-02 06:35] LABS: Albumin, Blood 2.5 g/dL (3.4-5.0); Anion Gap 5 mmol/L (6-16); Blood Urea Nitrogen 23 mg/dL (8-24); Bun/Creatinine Ratio 13.9 (12.0-20.0); CO2, Blood 23 mmol/L (21-32); Calcium, Blood 8.4 mg/dL (8.5-10.1); Chloride, Blood 113 mmol/L (98-108); Creatinine, Blood 1.65 mg/dL (0.60-1.20); Glomerular Filtration Rate 43 (60-); Glucose, Blood 185 mg/dL (70-99); Phosphorus, Blood 2.7 mg/dL (2.5-4.9); Potassium, Blood 4.7 mmol/L (3.5-5.5); Sodium, Blood 141 mmol/L (136-145)
--- NOTE | 2021-05-02 08:00 | NUR ---
pt is very confused and throwing his legs over the bed, and scooting himself down to the bottom of the bed, he grabbed his shah even though he is in soft wrist restraints, he was pulling on this and yelling he's in pain, he did take most of his meds, but by the time we got to b/p meds he was done. will wait until lunch since b/p is soft anyway, lungs are dim t/o but unable to cooperate with assessment, currently on r/a, resp even and unlabored, no cough noted, hrr, distant, no edema noted, ppp faint, cap refill <3sec, vs stable, afebrile, iv site is mediport to right chest wall, infusing fluids as ordered, btx4, abd flat soft nontender, hypoactive bt, attends in place, shah cath draining clear isabel urine, skin pale, c/w/d, does have mepilex on bottom for prevention as he is thin, celeste dumont, call light in reach.
[2021-05-02 10:12] LABS: International Normalized Ratio 1.26
[2021-05-02 10:15] LABS: BASOPHILS ABSOLUTE AUTO 0.01 K/mm3 (0.00-0.23); BASOPHILS PERCENT AUTO 0 % (0-2); EOSINOPHILS ABSOLUTE AUTO 0.11 K/mm3 (0.00-0.68); EOSINOPHILS PERCENT AUTO 5 % (0-6); Hematocrit 23.5 % (37.0-53.0); Hemoglobin 7.6 g/dL (13.5-17.5); IMMATURE GRAN ABSOLUTE AUTO 0.09 K/mm3 (0.00-0.10); IMMATURE GRAN PERCENT AUTO 4 % (0-1); LYMPHOCYTES ABSOLUTE AUTO 0.83 K/mm3 (0.84-5.20); LYMPHOCYTES PERCENT AUTO 35 % (21-46); MONOCYTES ABSOLUTE AUTO 0.69 K/mm3 (0.16-1.47); MONOCYTES PERCENT AUTO 29 % (4-13); Mean Corpuscular HGB 28.1 pg (26.0-34.0); Mean Corpuscular HGB Conc 32.3 g/dL (31.5-36.5); Mean Corpuscular Volume 87 fL (80-100); Mean Platelet Volume 9.8 fL (9.1-12.4); NEUTROPHILS ABSOLUTE AUTO 0.67 K/mm3 (1.96-9.15); NEUTROPHILS PERCENT AUTO 28 % (41-73); Platelet Count 96 K/mm3 (150-400); RDW Coefficient Variation 17.6 % (11.7-14.2); RDW Standard Deviation 55.9 fL (35.1-46.3)
[2021-05-02 11:09] LABS: Influenza A, PCR NEGATIVE (NEGATIVE); Influenza B, PCR NEGATIVE (NEGATIVE); Resp Syncytial Virus, PCR NEGATIVE (NEGATIVE); SARS-Cov-2 (COVID-19) PCR, MMC NEGATIVE (NEGATIVE)
--- NOTE | 2021-05-02 12:26 | NUR ---
pt very confused, not cooperative at this time. will give him some time, will try again to give b/p meds. call light in reach. restraints in place, bed alarm acitivated.
--- NOTE | 2021-05-02 14:42 | NUR ---
Case conference with Dr Antonio and Dr Hagan, regarding surgical consult results for peg tube placement and recommendation for dobhoff ng if tube feedings desired per Dr Holland. Current status and concerns reviewed with Drs and EMR reviewed before calling pt's mom to update her. Both she and Kirill' dad were on the line. Dad asked if placing a dobhoff feeding tube was "just prolonging the inevitable?" I cautioned that a dobhoff was a temporary measure, kirill may pull it out again as he has done in the past and that he is requiring restraints to provide care most of the time and sometimes four point restrains. Mom relates that on her last visit, Kirill told her he wanted to and asked her to "just let me go". She states she's tried to follow his directive but knows that if this is his new baseline/normal, he would not want to continue. Long discussion with mom, appropriately tearful and grieving this decision allowed with active listening, support and answering questions provided. Mom states she will come in to visit today. She asks that we do not put the dobhoff in at this time. Comfort care and hospice reviewed with her at their questioning. She had been to [facility] to start process of obtaining LTC benefits for Kirill today and was also very fatigued from that. All of above reported to Dr and pt's RN. RN states at times they can get bites in at meal times with a lot of work, encouragement but not adequate nutrition. He has also verbalized to RN that he wants to in his confused state and cont to require restraints for safety for care to be administered. RN will page me or Dr Antonio if mom would like us to visit while she is here.
--- NOTE | 2021-05-02 17:15 | NUR ---
Called to room due to pt's mom's distress over pt's obvious suffering and distress. I had come by earlier and was allowing mom time at the bedside with Kirill and she was rubbing lotion on to his legs and attempting conversation. I did not disturb them at that time. Evidently, pt's agitation was growing and his reports and nonverbal indicators of pain to the point that pt's mom became distressed and wanted to speak with me and Kirill' Drs. When I arrived Kym was speaking with Nilsa Antonio and Bentley. She was begging for medication to calm Kirill. I requested that RN administer analgesic already ordered per EMR and discussed comfort measures again with Kym. Kym requests that we place Kirill on comfort care at this time. Dr Antonio gave VO and I entered comfort care orders. RN present and reviewed comfort care orders and change of status, plan of care with me. I met with mom after pt asleep and comfortable with medication that was given earlier. Screeners called to notify of comfort care status and to allow up to four visitors from here on out. Planned to meet with mom again tomorrow. She plans to bring her haleyb & Kirill' 95 year old grandma in to visit tomorrow also.
--- NOTE | 2021-05-02 18:19 | NUR ---
pt had an uneventful day, has been turned q2 and kept c/w/d, no complaints of pain, call light in reach.
--- NOTE | 2021-05-02 18:29 | NUR ---
pt has been sleeping since 25mcg fentanyl was administered. he is now on comfort care, will continue to monitor to keep him safe. call light in reach.
--- NOTE | 2021-05-03 04:17 | NUR ---
SHIFT SUMMARY ADMITTED FOR ACUTE ENCEPHALOPATHY. DNR CODE. COMFORT CARE. SOFT BUE WRIST RESTRAINTS IN PLACE. HE IS CONFUSED, NOT REDIRECTABLE. HE PULLS AT HIS CATHETER, LINES & TUBES, ATTEMPTS TO EXIT BED. I HAVE MEDICATED HIM FOR ANXIETY & PAIN THIS SHIFT. HE SEEMS RESTLESS, FIDGETING THROUGHOUT SHIFT. MEDIPORT IS ACCESSED. NS INFUSING @ TKO. HE IS INCONTINENT. MEDS CRUSHED IN SAUCE. HE IS A FEEDER.
--- NOTE | 2021-05-03 09:44 | NUR ---
Comfort care visit made and case conferenced with RN re: s/s management, current status and concerns, plan of care and review of medications for restlessness in comfort care order set per eMar. Pt is currently sleeping soundly. RR 12-14, even and only sl labored. Pt lying flat, soft wrist restraints on but loosely attached while pt sleeping. Updated RN on events of yesterday and anticipated family visitors this afternoon. Screeners were notified of comfort care status and multiple visitors ok, yesterday.
--- NOTE | 2021-05-03 12:38 | NUR ---
Family feels that now that his symptoms are controlled they can take him home. [facility] and family would like to stay with them . collection manager notified.
--- NOTE | 2021-05-03 16:33 | NUR ---
PATIENT CONTINUES ON COMFORT CARE; COMFORT CARE PROTOCOLS IN PLACE. PATIENT HAS APPEARED TO REMAIN COMFORTABLE TODAY. MANY FAMILY MEMBERS HAVE COME TO VISIT AT BEDSIDE. MEDIPORT DISCONTINUED. CALL LIGHT WITHIN REACH.
--- NOTE | 2021-05-04 05:49 | NUR ---
ETIQUETTE TEACHER SUMMARY PT HAS ASLEEP ALL NIGHT. PT WAS NOT RESPONSIVE TO REPOSITIONING OR VOICES UP UNTIL 0530 THIS AM. THIS AM PT STARTED TO SHIFT IN BED AND HAD LEGS DRAWN UP. PT IS NOT VERBALLY RESPONSIVE BUT ABLE TO TENSE UP. ROXANOL GIVEN. NAVARRETE PATNENT AND DRAINING TO GRAVITY. CALL LIGHT WITHIN REACH, BED ALARM ON, WILL CONTINUE TO MONITOR.
--- NOTE | 2021-05-04 14:44 | NUR ---
PATIENT IS MINIMALLY RESPONSIVE WHEN BEING REPOSITIONED. COMFORT CARE PROVIDED PER PROTOCOL. PATIENT JUST MEDICATED WITH ROXANOL PER FAMILY REQUEST PATIENT WAS BECOMING SLIGHTLY AGGITATED IN BED; ADMINISTERED. FAMILY REMAINS AT BEDSIDE AT THIS TIME.
--- NOTE | 2021-05-04 17:44 | NUR ---
review of hospice plan with attending ambulatory care. will continue supportive visits with mother.
--- NOTE | 2021-05-04 20:00 | NUR ---
ASSUMED CARE. PATIENT HAS CHANGE IN BREATHING PATTERN TO GUPPY BREATHING WITH WHAT SOUNDS LIKE A SNORE. IS VERY UPSET WITH THE CHANGE, EDUCATED ON THE PROCESS OF END OF LIFE. OFFERED SERVICES, SHE SAID SHE WILL BE OK. PATIENT VERY WARM TO THE TOUCH, PLACED ICE PACKS, FAN ON HIM, REMOVED COVERS AND TURNED DOWN HEAT. WILL GET TYLNEOL FOR HIM.
--- NOTE | 2021-05-04 22:06 | NUR ---
TEMP IS BACK TO NORMAL. HE IS COOL TO THE TOUCH. HIS BREATHING HAS IMPROVED BUT STILL GUPPY AT TIMES. NO SIGN OF PAIN OR DISCOMFORT. IS SETTLING DOWN FOR THE NIGHT. CALL LIGHT IS IN REACH.
--- NOTE | 2021-05-04 22:24 | NUR ---
MOTHER CALLED REPORTING NO BREATH FROM THE PATIENT. VERIFIED THAT THE PATIENT PASSED AT [id number]. MOTHER VERY UPSET, STATING "HE WAS NOT SUPPOSE TO GO". VERY TORN AND LOSS ABOUT THE SITUATION. CONFORT GIVEN ALONG WITH THERAPUTIC LISTENING. CALLED [facility] AND INFORMED OF SITUATION, HE WILL BE COMING IN. CHARGE AND SEAT JOINER NOTIFIED, DRIER OPERATOR HEAD CARE REQUESTED.
--- NOTE | 2021-05-04 23:40 | NUR ---
After recieving a call-back, I visit with Kym Jenkins and Ash (pt's parents) who are bedside after pts TOD. I provide therapeutic listening, grief support, a calming presence and prayer. They respond well and show signs of being comforted.
--- NOTE | 2021-05-04 23:53 | NUR ---
PASTORAL CARE PROVIDED. POST MORTUM CARE DONE. AWAITING THE HOME TAPLE OF THE ROSES TO ARRIVE. MOTHER IS WAITING WELL.
--- NOTE | 2021-05-05 00:13 | NUR ---
CECILY FROM [facility] HAS PICKED UP THE PATIENT.
== END 2021-05-05 00:03 | DRG 870 ==
LOC: ER 03:47 → PCU 03:48 → ICUW 04-05 11:30 → MEDS 04-05 11:30 → PCU 04-05 11:30 → ICUW 04-07 10:22 → PCU 04-13 14:46 → MEDS 04-29 15:31
PROVIDERS: Family Medicine; Hospitalist; Internal Medicine Critical Care Medicine; Internal Medicine Infectious Disease; Internal Medicine Nephrology; Pharmacist; Student in an Organized Health Care Education/Training Program; Surgery; ADMIT Internal Medicine
PROC: 0BH17EZ Insertion of Endotracheal Airway into Trachea, Via Natural or Artificial Opening (ICD-10-PCS; principal; 2021-04-07)
PROC: 5A1955Z Respiratory Ventilation, Greater than 96 Consecutive Hours (ICD-10-PCS; 2021-04-07)
PROC: 0W993ZZ Drainage of Right Pleural Cavity, Percutaneous Approach (ICD-10-PCS; 2021-04-07)
PROC: 009U3ZX Drainage of Spinal Canal, Percutaneous Approach, Diagnostic (ICD-10-PCS; 2021-04-08)
DX: A41.89 Other specified sepsis (principal); G00.8 Other bacterial meningitis; G92.8 Other toxic encephalopathy; J18.9 Pneumonia, unspecified organism; J96.01 Acute respiratory failure with hypoxia; N17.9 Acute kidney failure, unspecified; Z51.5 Encounter for palliative care; Z66 Do not resuscitate; T86.19 Other complication of kidney transplant; E87.2 Acidosis; J90 Pleural effusion, not elsewhere classified; E87.0 Hyperosmolality and hypernatremia; D84.821 Immunodeficiency due to drugs; E87.1 Hypo-osmolality and hyponatremia; Z20.822 Contact with and (suspected) exposure to COVID-19; Z78.1 Physical restraint status; B96.20 Unspecified Escherichia coli [E. coli] as the cause of diseases classified elsewhere; E87.5 Hyperkalemia; R65.20 Severe sepsis without septic shock; E88.09 Other disorders of plasma-protein metabolism, not elsewhere classified; I12.9 Hypertensive chronic kidney disease with stage 1 through stage 4 chronic kidney disease, or unspecified chronic kidney disease; D63.1 Anemia in chronic kidney disease; E86.9 Volume depletion, unspecified; N18.30 Chronic kidney disease, stage 3 unspecified; E11.22 Type 2 diabetes mellitus with diabetic chronic kidney disease; E83.42 Hypomagnesemia; E78.5 Hyperlipidemia, unspecified; F41.9 Anxiety disorder, unspecified; F32.A Depression, unspecified; R33.9 Retention of urine, unspecified; B97.89 Other viral agents as the cause of diseases classified elsewhere; I80.8 Phlebitis and thrombophlebitis of other sites; K21.9 Gastro-esophageal reflux disease without esophagitis; G89.4 Chronic pain syndrome; M81.0 Age-related osteoporosis without current pathological fracture; G47.33 Obstructive sleep apnea (adult) (pediatric); M19.90 Unspecified osteoarthritis, unspecified site; G43.909 Migraine, unspecified, not intractable, without status migrainosus; E11.42 Type 2 diabetes mellitus with diabetic polyneuropathy; Z91.013 Allergy to seafood; Z79.899 Other long term (current) drug therapy; Z79.52 Long term (current) use of systemic steroids; Z79.4 Long term (current) use of insulin; Z90.49 Acquired absence of other specified parts of digestive tract; Z98.890 Other specified postprocedural states
CPT/HCPCS: 0097U; 0202U; 0241U; 31500; 32555; 36415; 36430; 36600; 51701; 70450; 71045; 71250; 74150; 80048; 80053; 80069; 80076; 80197; 80202; 81001; 82042; 82140; 82330; 82607; 82746; 82803; 82945; 82947; 83605; 83615; 83735; 83880; 83986; 84100; 84132; 84145; 84155; 84157; 84295; 84443; 84478; 85014; 85018; 85025; 85027; 85610; 86403; 86592; 86611; 86638; 86664; 86665; 86777; 86788; 86789; 86850; 86900; 86901; 86923; 87040; 87070; 87077; 87086; 87102; 87147; 87186; 87205; 87252; 87254; 87389; 87449; 87483; 87493; 87496; 87497; 88108; 88312; 88342; 89051; 92507; 92526; 92610; 93005; 93010; 93306; 93312; 93325; 93971; 94002; 94003; 94644; 96361; 96365; 96366; 96367; 96368; 96372; 96374; 96375; 96376; 97110; 97112; 97129; 97163; 97166; 97530; 97535; 99284-25; A9270; C1751; C9113; G0103; G0378; J0133; J0290; J0456; J0610; J0692; J0696; J0881; J1570; J1642; J1650; J1815; J1940; J2060; J2185; J2704; J3010; J3370; J3411; J3475; J7030; J7040; J7042; J7050; J7060; J7070; J7120; J7507; J7512; J7517; J7599; J7799; P9016; P9041; P9046; U0004